=== PATIENT | male | born 1940 | race Caucasian/White ===

== ENCOUNTER 2019-06-30 08:30 | Outpatient (RCR) | payer MEDICARE, SELFPAY ==
[2019-04-28 12:00] VITALS: PULSE 65
== END 2019-06-30 14:37 | disposition home or self-care (01) ==
LOC: ANHCPREHAB 08:30
PROVIDERS: PCP Internal Medicine
DX: Z95.1 Presence of aortocoronary bypass graft (principal); Z95.2 Presence of prosthetic heart valve
CPT/HCPCS: 93798

== ENCOUNTER 2020-10-14 16:30 | Emergency (ER) | payer MEDICARE, SELFPAY ==
--- NOTE | ~2020-10-14 | XR_ITS ---
EXAMINATION: XR ankle LT min 3V DATE: 10/14/2020 16:56 INDICATION: Left ankle pain TECHNIQUE: Anteroposterior, lateral, mortise, and additional oblique view of the ankle were obtained. COMPARISON: None. FINDINGS: There is a tiny heterotopic ossification projecting distal to the lateral malleolus. Bone a lignment is normal. There is mild lateral soft tissue swelling of ankle. Dorsal and plantar calcaneal enthesophytes are noted. IMPRESSION: 1. Heterotopic ossification projecting distal to the lateral malleolus, possible avulsion injury. Reviewed, dictated and finalized at location A. IMPRESSION: 1. Heterotopic ossification projecting distal to the lateral malleolus, possibl e avulsion injury.
[2020-10-14 16:43] VITALS: BP 128/60; PULSE 67; RESP 20; TEMP 36.6; O2SAT 100
--- NOTE | 2020-10-14 17:55 | ED.LOWEXIN ---
HPI - Extremity Injury (Lower) General Chief Complaint: Extremity Injury, Lower Stated Complaint: left ankle/foot pain Time Seen by Provider: 10/14/20 17:45 History of Present Illness HPI Narrative: Patient is a 79-year-old male who presents ER with left ankle pain. Noticed he started having discomfort around 3 PM. Reports he walked 4 miles today. Does not think he injured himself but due to the pain increasing in not being able to bear weight he thought he come in for further evaluation. Tender over the lateral aspect of the ankle on the left leg. No numbness or tingling. Related Data Home Medications Medication Instructions Recorded Confirmed amlodipine [Norvasc] 2.5 mg PO DAILY 04/28/19 06/17/19 aspirin [Aspir-Low] 81 mg DAILY 04/28/19 06/17/19 atorvastatin [Lipitor] 40 mg PO DAILY 04/28/19 06/17/19 omeprazole magnesium [Prilosec OTC] 20 mg PO DAILY 04/28/19 06/17/19 psyllium husk [Fiber-Caps 1 g PO DAILY 04/28/19 06/17/19 (psyllium husk)] Allergies Allergy/AdvReac Type Severity Reaction Status Date / Time No Known Allergies Allergy Unknown Verified 06/17/19 13:34 wasp Allergy Unknown Swelling Uncoded 06/17/19 13:34 Review of Systems Constitutional: Constitutional: Denies chills and Denies fever(s) Musculoskeletal: Musculoskeletal: Reports arthralgias and Reports joint swelling Neurologic: Denies focal weakness and Denies numbness PMFSH Past Medical History Medical History (Updated 10/14/20 @ 18:58 by Lorenzo Guillen MD) Cataracts, bilateral GERD (gastroesophageal reflux disease) Hypercholesteremia Surgical History Surgical History (Updated 06/17/19 @ 14:11 by Bandar Chin) History of cataract surgery History of placement of ear tubes Family History Family History Mother Breast cancer Father Esophageal cancer Sibling Depression Atrial fibrillation Social History Social History Smoking status: Never smoker Gender identity (if verbalized by the patient): Male Exam Narrative: Exam Narrative: GENERAL: Well-appearing, well-nourished, and in no acute distress. HEAD: Normocephalic, atraumatic. EXTREMITIES: Focused exam left lower extremity at the ankle reveals swelling over the ATFL and tenderness there as well as the base of the lateral malleolus. Range of motion preserved. Normal dorsalis pedis pulses and posterior tibial pulses. SKIN: Warm, dry, no rash. NEURO: No focal deficits. Alert and oriented x3. PSYCH: Normal mood and affect. Course Vital Signs Vital signs: Vital Signs Temperature 97.8 F 10/14/20 16:43 Pulse Rate 67 10/14/20 16:43 Respiratory Rate 20 10/14/20 16:43 Blood Pressure 128/60 10/14/20 16:43 Pulse Oximetry 100 10/14/20 16:43 Temperature 97.8 F 10/14/20 16:43 Pulse Rate 67 10/14/20 16:43 Respiratory Rate 20 10/14/20 16:43 Blood Pressure 128/60 10/14/20 16:43 Pulse Oximetry 100 10/14/20 16:43 Procedures Orthopedic Splinting/Casting Injury #1: Splinting/Casting Date: 10/14/20 Splinting/Casting Time: 18:50 Side: left Lower Extremity Injury Location: ankle Lower Extremity Immobilizer: stirrup splint Splint: customized in ED Pre-Procedure Neuro Vascular Exam: normal Post-Procedure Neuro Vascular Exam: normal Other Orthopedic Equipment: crutches MDM - Extremity Injury (Lower) Imaging Data Radiologist's impression: ITS Impressions Ankle X-Ray 10/14/20 17:03 IMPRESSION: 1. Heterotopic ossification projecting distal to the lateral malleolus, possible avulsion injury. Discharge Plan Discharge Clinical Impression: Ankle fracture, left Patient Disposition: Home, Self-Care Condition: Stable Instructions: Ankle Fracture (ED), Crutch Instructions (ED) Additional Instructions: Return to ER if you suffer new injury, you have chest pain or shortnes
== END 2020-10-14 19:17 | disposition home or self-care (01) ==
PROVIDERS: Emergency Provider Emergency Medicine; PCP Internal Medicine
DX: S82.892A Other fracture of left lower leg, initial encounter for closed fracture (principal); K21.9 Gastro-esophageal reflux disease without esophagitis; E78.00 Pure hypercholesterolemia, unspecified; Z98.42 Cataract extraction status, left eye; Z98.41 Cataract extraction status, right eye; Z79.82 Long term (current) use of aspirin; X58.XXXA Exposure to other specified factors, initial encounter
CPT/HCPCS: 29515; 73610; 99284

== ENCOUNTER 2024-10-30 08:50 | Observation (INO) | payer MEDICARE, SELFPAY ==
[2024-10-30] VITALS (15 sets, daily range): BP systolic 114–147; BP diastolic 54–78; PULSE 61–77; RESP 15–75; TEMP 36.6–36.8; O2SAT 97–99; BMI 23.2
--- NOTE | ~2024-10-30 | CT_ITS ---
Clinical Indication: Back pain CT Scan of the Chest with Contrast: Technique: Contiguous sections were acquired throughout the chest after intravenous administration of 100 cc of Omnipaque 350. Dose reduction technique was used on this scan by utilizing automated expos ure control and iterative reconstruction technique. The dose-length product (DLP) was 243.25 mGy-cm. Findings: There is no evidence of any significant mediastinal, hilar or axillary lymphadenopathy. There is no f illing defect in the pulmonary arterial tree to suggest pulmonary embolus. There is no evidence of ao rtic dissection or aneurysm. Aortic valve replacement noted. There is no evidence of pleural or pericardial effusion. There is mild diffuse interstitial pulmonary disease, with peripheral distribution. No suspicious pul monary nodule or consolidation. Images through the upper abdomen reveal multiple bilateral renal cysts. Impression: No evidence of pulmonary embolus, aortic dissection, or aortic aneurysm. Mild chronic interstitial pulmonary disease, as detailed above. Reviewed, dictated and finalized at [facility]. Impression: No evidence of pulmonary embolus, aortic dissection, or aortic aneurysm. Mild chronic interstitial pulmonary disease, as detailed above.
--- NOTE | ~2024-10-30 | XR_ITS ---
Clinical Indication: Back pain PA and lateral views of the chest: Comparison: 02/09/2013 Findings: The lungs are clear, without evidence of focal consolidation or pleural effusion. Cardiome diastinal silhouette is stable, status post interval aortic valve replacement.. Bones and soft tissue s are unremarkable. Impression: Clear lungs. Reviewed, dictated and finalized at location M. Impression: Clear lungs.
--- NOTE | 2024-10-30 08:52 | ECG_ITS ---
Test Date: 2024-10-30 08:56:17 Measurements Intervals [place] Rate: 73 P: 72 MN: 219 QRS: -22 QRSD: 119 T: 66 QT: 387 QTc: 428 Interpretive Statements SINUS RHYTHM WITH FIRST DEGREE AV BLOCK INCOMPLETE RIGHT BUNDLE BRANCH BLOCK LEFT VENTRICULAR HYPERTROPHY BORDERLINE R WAVE PROGRESSION, ANTERIOR LEADS HIGH LATERAL INFARCT, AGE INDETERMINATE BASELINE ARTIFACT- I, II, III, AVR, AVL, V2 ABNORMAL ECG No previous ECG available for comparison Electronically Signed On 10-30-2024 12:32:48 CDT by Santiago Mcleod D.O.
--- OUTSIDE RECORDS SUMMARY | 2024-10-30 08:53 | XMS_ITS ---
Author Organization [facility] Address [address] [address] Care Team Providers Care Telegraphic Instrument Supervisor Name Role Phone London Santos Primary Care Provider UnavailDiony Davis DPM [phone] REASON FOR VISIT ester foot pain Encounters Encounter Location Date Provider Diagnosis [facility] [address] [place] [address] 03/21/2024 Diony Galindo DPM PLAN OF TREATMENT No Information
--- OUTSIDE RECORDS SUMMARY | 2024-10-30 08:53 | XMS_ITS | Encounter Summary ---
Author Organization [facility] Address [address] [place] [address] Phone Care Team Providers Care Vibration Technician Name Role Phone London Santos MD Primary Care Provider Avery Ulloa MD Unavailable Lucy Robbins MD Unavailable [phone] Madhuri Ferreira MD Unavailable [phone] Encounter Details Date Type Department Care Team (Late st Contact Info) Description 08/30/2024 Documentation [facility] Infectious Diseases [address] [place] [address] [address] [place] [address] Gilda Vargas, CECIL [address] [facility] [address] [place] [address] Social History Tobacco Use Types Packs/Day Years Used Date Smoking Tobacco: Never Smokeless Tobacco: Never Alcohol Use Standard Drinks/Week Comments Yes 1 (1 standard drink = 0.6 oz pur e alcohol) 1 - 2 per day AUDIT-C Answer Date Recorded Q1: How often do you have a drink containing alc ohol? Monthly or less 03/04/2023 Q2: How many drinks containi ng alcohol do you have on a typical day when you are drinking? 1 or 2 03/04/2023 Frequency of Binge Drinking Not on file 02/22 PHQ-2 Answer Date Recorded PHQ-2 Total Score (If total score is 3 or more points, staff should administer the PHQ-9) 0 03/02/2024 PHQ-9 Answer Date Recorded PHQ-9 Total Score 0 03/02/2024 Personal Safety Answer Date Recorded Have you ever been in or are you currently in a harmful physical or emotional relationship or is someone making you feel afraid or unsafe? 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 Not on file Not on file Not on fi le documented as of this encounter Plan of Treatment Not on file documented as of this encounter Visit Diagnoses Not on filedocumented in this encounter Additional Health Concerns Infection Onset Date Last Indicated Resolved Time COVID: Suspected 10/17/2024 10/17/2024 10/17/2024 3:15 PM CDT documented as of this encounter Care Teams Vibration Technician Relationship Specialty Start Date End Date London Santos MD PCP - General Internal Medicine 01/09/22 Avery Ulloa MD [address] [place] [address] Referring Physician Cardiology 07/25/22 Lucy Robbins MD [address] [place] [address] Cardiothoracic Surgery 10/17/22 Madhuri Ferreira MD [address] [place] [address] Consulting Physician Cardiology 10/17/22 documented as of this encounter
--- OUTSIDE RECORDS SUMMARY | 2024-10-30 08:53 | XMS_ITS | Clinical Summary ---
Author Organization [facility] Address [address] [place] [address] Care Team Providers Care Senior Compensation Analyst Name Role Phone London Santos MD Primary Care Provider Source Comments [facility],non-owned Affiliates and Associated Physician Practices is amultiple site organization consisting of ambulatory clinics and hospital sitesin [place], [place], [place] and [place]. This disclosure is being madepursuant to the Care Everywhere program and may not contain all information available regarding this patient. Last updated 18.[facility] [employer] Social History Tobacco Use Types Packs/Day Years Used Date Smoking Tobacco: Never Assessed Sex and Gender Information Value Date Recorded Sex Assigned at Not on file Legal Sex Male 12:56 PM CDT Gender Identity Not on file Sexual Orientation Not on file Plan of Treatment Health Maintenance Due Date Last Done Comments DTAP/TDAP/TD VACCINES (1 - Tdap) 1959 PNEUMOCOCCAL VACCINE 50+ (1 of 1 - PCV) 11/16/1991 ZOSTER VACCINE (1 of 2) 11/16/1991 Respiratory Syncytial Virus (RSV) Vaccine Pt: or over 60 yrs (1 - 1-dose 75+ series) 2016 COVID-19 VACCINE (2 - season) 2024 03/16/2021 DEPRESSION SCREENING 05/25/2024 MEDICARE AWV CALENDAR YEAR 2024 INFLUENZA VACCINE (Season Ended) 2025 01/31/2019, 02/12/2018, 01/28/2017, Additional history exists HEPATITIS B VACCINE Aged Out No longe r eligible based on patient's age to complete this topic HIB VACCINE Aged Out No longer eligi ble based on patient's age to complete this topic HPV VACCINE Aged Out No longer eligi ble based on patient's age to complete this topic MENINGOCOCCAL (Group B) VACCINE SHARED DECISION-MAKING Aged Out No longer eligible based on patient's age to complete this topic MENINGOCOCCAL GROUPS A/C/Y/W VACCINE Aged Out No longer eligible based on patient's age to complete this topic Insurance [employer] MEDICARE ADV Care Teams Senior Compensation Analyst Relationship Specialty Start Date End Date London Santos MD [address] [place] [address] PCP - General Internal Medicine 10/17/22
--- OUTSIDE RECORDS SUMMARY | 2024-10-30 08:53 | XMS_ITS | Patient Health Record ---
Author Organization [facility] Address [address], [place] [address] Care Team Providers Care Reimbursement Coordinator Name Role Phone London Santos Primary Care Provider Diony Bowles DPM [phone] ALLERGIES No Known Allergies REASON FOR REFERRAL No Information MEDICATIONS Medication SIG (Take, Route, Fr equency, Duration) Notes Start Date End Date Status Alendronate Sodium A ctive Atorvastatin Calcium Active Omeprazole Active Lisinopril Active IMMUNIZATIONS Vaccine Route Administration Date Status Comme nts Influenza Unknown 12/03/2022 Administered pneumoccocal Unknown 12/03/2022 Administered SOCIAL HISTORY Tobacco Use: Social History Observation Description Date Details (start date - stop date) Never Smoker NA - NA Sex Assigned At : Social History Observation Description Sex Assigned At Unknown Tobacco Use: Question Answer Notes Patient is a: nonsmoker Alcohol screening: Question Answer Notes Did you have a drink containing alcohol in the p ast year? 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 [id number] Encounters Encounter Location Date Provider Diagnosis [facility] [address], [place] [address] 03/21/2024 Diony Galindo DPM PLAN OF TREATMENT No Information Insurance Providers Payer Name Payer Address Payer Phone Subscriber Number Group Number Insured Name Patient Relationship to Insured Coverage Start Date Coverage End Date [employer] Medicare Advantage [address] [place] [phone] [id number] Roddy Munoz Self - patient is the insured MEDICAL (GENERAL) HISTORY Medical History History ICD Code heart disease hypertension GERD Surgical History Surgery Date(Month/Year)
--- OUTSIDE RECORDS SUMMARY | 2024-10-30 08:53 | XMS_ITS | Encounter Summary ---
Author Organization [facility] Address [address] [place] [address] Phone Care Team Providers Care Line Decorator Name Role Phone Jarrod Arango MD Primary Care Provider [phone] London Santos MD Primary Care Provider Avery Ulloa MD Unavailable [phone] Lucy Robbins MD Unavailable Madhuri Ferreira MD Unavailable [phone] Encounter Details Date Type Department Care Team (Late st Contact Info) Description 01/26/2018 Telephone [facility] Cardiology [address] [place] [address] [place] [address] Avery Ulloa MD [address] [place] [address] Social History Tobacco Use Types Packs/Day Years Used Date Smoking Tobacco: Never Smokeless Tobacco: Never Alcohol Use Standard Drinks/Week Comments Yes 0 (1 standard drink = 0.6 oz pur e alcohol) Sex and Gender Information Value Date Recorded Sex Assigned at Not on file 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 01/12/2022 02/17/2022 05/12/2022 3:[address] COVID: Suspected 12/08/2022 12/08/2022 12/08/2022 10:53 AM CDT COVID: Suspected 01/13/2023 01/13/2023 01/13/2023 2:42 PM CDT COVID: Suspected 01/13/2023 01/13/2023 01/13/2023 7:53 PM CDT COVID: Suspected 09/15/2023 09/15/2023 09/15/2023 10:40 AM CDT COVID: Suspected 08/17/2024 08/17/2024 08/17/2024 2:51 PM CDT COVID: Suspected 08/25/2024 08/25/2024 08/25/2024 4:31 PM CDT COVID: Suspected 10/17/2024 10/17/2024 10/17/2024 3:15 PM CDT documented as of this encounter Care Teams Line Decorator Relationship Specialty Start Date End Date Jarrod Arango MD PCP - General 12/27/12 01/08/22 London Santos MD PCP - General Internal Medicine 01/09/22 Avery Ulloa MD [address] [place] [address] Referring Physician Cardiology 07/25/22 Lucy Robbins MD [address] [place] [address] Cardiothoracic Surgery 10/17/22 Madhuri Ferreira MD [address] [place] [address] Consulting Physician Cardiology 10/17/22 documented as of this encounter
--- OUTSIDE RECORDS SUMMARY | 2024-10-30 08:53 | XMS_ITS | Encounter Summary ---
Author Organization [facility] Address [address] [place] [address] Phone Care Team Providers Care Tallier Name Role Phone London Santos MD Primary Care Provider Avery Ulloa MD Unavailable [phone] Lucy Robbins MD Unavailable Madhuri Ferreira MD Unavailable [phone] Encounter Details Date Type Department Care Team (Late st Contact Info) Description 10/20/2024 Documentation [facility] Infectious Diseases [address] [place] [address] [address] [place] [address] Alexandr Lopez MD [address] [facility] [address] [place] [address] Social History Tobacco Use Types Packs/Day Years Used Date Smoking Tobacco: Never Passive Smoke Exposure: Never Smokeless Tobacco: Never Alcohol Use Standard Drinks/Week Comments Yes 1 (1 standard drink = 0.6 oz pur e alcohol) 1 - 2 per day [facility] Utilities Answer Date Recorded In the past 12 months has e [place], gas, oil, or water [employer] threatened to shut off services in your home? No 09/11/2024 Humiliation, Afraid, Rape, and Kick questionnair e Answer Date Recorded Within the last year, have y ou been afraid of your partner or ex-partner? No 09/07/2024 Within the last year, have y ou been humiliated or emotionally abused in other ways by your partner or ex-partner? No Within the last year, have y ou been kicked, hit, slapped, or otherwise physically hurt by your partner or ex-partner? No 09/07/2024 Within the last year, have y ou been raped or forced to have any kind of sexual activity by your partner or ex-partner? No 09/07/2024 Social Connection and Isolat ion Panel [NHANES] Answer Date Recorded In a typical week, how many times do you talk on the phone with family, friends, or neighbors? More than three times a week 09/11/2024 How often do you get togethe r with friends or relatives? More than three times a week 09/11/2024 How often do you attend chur ch or adventist services? Never 09/11/2024 Do you belong to any clubs o r organizations such as jewish groups, unions, fraternal or athletic groups, or school groups? Yes 09/11/2024 How often do you attend meet ings of the clubs or organizations you belong to? More than 4 times per year 09/11/2024 Are you , , di vorced, , never , or living with a partner? 09/11/2024 AUDIT-C Answer Date Recorded Q1: How often do you have a drink containing alc ohol? Monthly or less 09/07/2024 Q2: How many drinks containi ng alcohol do you have on a typical day when you are drinking? 1 or 2 09/07/2024 Q3: How often do you have si x or more drinks on one occasion? Never 09/07/2024 Overall Financial Resource Strain (CARDIA) Answe r Date Recorded How hard is it for you to pa y for the very basics like food, housing, medical care, and heating? Not hard at all 09/11/2024 PHQ-2 Answer Date Recorded PHQ-2 Total Score (If total score is 3 or more points, staff should administer the PHQ-9) 0 09/11/2024 [facility] - Occupational Stress Questionnaire Answer Date Recorded Do you feel stress - tense, restless, nervous, or anxious, or unable to sleep at night because your mind is troubled all the time - these days? Not at all 09/07/2024 Exercise Vital Sign Answer Date Recorde d On average, how many days pe r week do you engage in moderate to strenuous exercise (like a brisk walk)? 7 days 09/07/2024 On average, how many minutes do you engage in exercise at this level? 100 min 09/07/2024 Hunger Vital Sign Answer Date Recorded Within the past 12 months, y ou worried that your food would run out before you got the money to buy more. Never true 09/12/19 25 Within the past 12 months, t he food you bought just didn't last and you didn't have money to get more. Never true 09/11/2024 PRAPARE - Transportation Answer Date Re corded In the past 12 months, has l ack of transportation kept you from medical appointments or from getting medications? No 08/24 In the past 12 months, has l ack of transportation kept you from meetings, work, or from getting things needed for daily living? No 09/11/2024 PHQ-9 Answer Date Recorded PHQ-9 Total Score 0 03/02/2024 Housing Stability Vital Sign Answer Hayden e Recorded In the last 12 months, was t here a time when you were not able to pay the mortgage or rent on time? No 09/11/2024 In the past 12 months, how m any times have you moved where you were living? 0 09/11/2024 At any time in the past 12 m [facility], were you homeless or living in a senior living (including now)? No 09/11/2024 Personal Safety Answer Date Recorded Have you ever been in or are you currently in a harmful physical or emotional relationship or is someone making you feel afraid or unsafe? 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 Not on file Not on file Not on fi le documented as of this encounter Plan of Treatment Not on file documented as of this encounter Visit Diagnoses Not on filedocumented in this encounter Care Teams Tallier Relationship Specialty Start Date End Date London Santos MD PCP - General Internal Medicine 01/09/22 Avery Ulloa MD [address] [place] [address] Referring Physician Cardiology 07/25/22 Lucy Robbins MD [address] [place] [address] Cardiothoracic Surgery 10/17/22 Madhuri Ferreira MD [address] [place] [address] Consulting Physician Cardiology 10/17/22 documented as of this encounter
--- OUTSIDE RECORDS SUMMARY | 2024-10-30 08:53 | XMS_ITS | Encounter Summary ---
Author Organization [facility] Address [address] [place] [address] Phone Care Team Providers Care Pediatric Immunologist Name Role Phone London Santos MD Primary Care Provider Avery Ulloa MD Unavailable [phone] Lucy Robbins MD Unavailable [phone] Madhuri Ferreira MD Unavailable [phone] Encounter Details Date Type Department Care Team (Late st Contact Info) Description 10/06/2024 Telephone [facility] Infectious Diseases [address] [place] [address] [address] [place] [address] [facility] ROXANE Olivas Social History Tobacco Use Types Packs/Day Years Used Date Smoking Tobacco: Never Smokeless Tobacco: Never Alcohol Use Standard Drinks/Week Comments Yes 1 (1 standard drink = 0.6 oz pur e alcohol) 1 - 2 per day [facility] Utilities Answer Date Recorded In the past 12 months has [employer], gas, oil, or water [employer] threatened to shut off services in your [...] often do you attend chur ch or evangelical services? Never 09/11/2024 Do you belong to any clubs o r organizations such as evangelical groups, unions, fraternal or athletic groups, or [...] staff should administer the PHQ-9) 0 09/11/2024 [facility] - Occupational Stress [...] any time in the past 12 m [facility], were you homeless or living in a custodial (including now)? No 09/11/2024 Personal Safety Answer Date Recorded Have you ever been in or are you currently in a harmful physical or emotional relationship or is someone making you feel afraid or unsafe? 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 * Telephone Encounter - Mikki Vera ROXANE Olivas - 10/06/2024 10:37 AM CDT [facility] is calling back requesting repeated CBC panel, despite patient getting labs done on 10/03, patient is very reluctant to have pic line taken out without getting one more CBC drawn from pic line. [facility] is calling for orders. Please advise. [facility] [phone] documented in this encounter Plan of Treatment Not on file documented as of this encounter Visit Diagnoses Not on filedocumented in this encounter Additional Health Concerns Infection Onset Date Last Indicated Resolved Time COVID: Suspected 10/17/2024 10/17/2024 10/17/2024 3:15 PM CDT documented as of this encounter Care Teams Pediatric Immunologist Relationship Specialty Start Date End Date London Santos MD PCP - General Internal Medicine 01/09/22 Avery Ulloa MD [address] [place] [address] Referring Physician Cardiology 07/25/22 Lucy Robbins MD [address] [place] [address] Cardiothoracic Surgery 10/17/22 Madhuri Ferreira MD [address] [place] [address] Consulting Physician Cardiology 10/17/22 documented as of this encounter
--- OUTSIDE RECORDS SUMMARY | 2024-10-30 08:53 | XMS_ITS | Encounter Summary ---
Author Organization [facility] Address [address] [place] [address] Care Team Providers Care Community Liaison Name Role Phone London Santos MD Primary Care Provider Avery Ulloa MD Unavailable [phone] Lucy Robbins MD Unavailable Madhuri Ferreira MD Unavailable [phone] Encounter Details Date Type Department Care Team (Late st Contact Info) Description 10/17/2024 Results Follow-Up [facility] [address] [place] [address] Mora Camacho ADOBE LAYER [address] [facility] [address] [place] [address] Influenza A/B, RSV, and COVID-19 PCR Nasopharyngeal Social History Tobacco Use Types Packs/Day Years Used Date Smoking Tobacco: Never Passive Smoke Exposure: Never Smokeless Tobacco: Never Alcohol Use Standard Drinks/Week Comments Yes 1 (1 standard drink = 0.6 oz pur e alcohol) 1 - 2 per day [facility] Utilities Answer Date Recorded In the past 12 months has [employer], gas, oil, or water [employer] threatened to shut off services in your [...] often do you attend chur ch or caodaism services? Never 09/11/2024 Do you belong to any clubs o r organizations such as episcopal groups, unions, fraternal or athletic groups, or [...] any time in the past 12 m [facility], were you homeless or living in a half-way (including now)? No 09/11/2024 Personal Safety Answer Date Recorded Have you ever been in or are you currently in a harmful physical or emotional relationship or is someone making you feel afraid or unsafe? 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 Not on file Not on file Not on fi le documented as of this encounter Plan of Treatment Not on file documented as of this encounter Visit Diagnoses Not on filedocumented in this encounter Additional Health Concerns Infection Onset Date Last Indicated Resolved Time COVID: Suspected 10/17/2024 10/17/2024 10/17/2024 3:15 PM CDT documented as of this encounter Care Teams Community Liaison Relationship Specialty Start Date End Date London Santos MD PCP - General Internal Medicine 01/09/22 Avery Ulloa MD [address] [place] [address] Referring Physician Cardiology 07/25/22 Lucy Robbins MD [address] [place] [address] Cardiothoracic Surgery 10/17/22 Madhuri Ferreira MD [address] [place], [place] [id number] Consulting Physician Cardiology 10/17/22 documented as of this encounter
--- OUTSIDE RECORDS SUMMARY | 2024-10-30 08:53 | XMS_ITS | Encounter Summary ---
Author Organization [facility] Address [address] [place] [address] Phone Care Team Providers Care Qualified Craft Worker Electrician Name Role Phone London Santos MD Primary Care Provider Aveyr Ulloa MD Unavailable Lucy Robbins MD Unavailable Madhuri Ferreira MD Unavailable [phone] Encounter Details Date Type Department Care Team (Late st Contact Info) Description 09/05/2024 Results Follow-Up [facility] [address] [place] [address] London Santos MD [address] [address] CBC with auto differential, Basic metabolic panel Social History Tobacco Use Types Packs/Day Years Used Date Smoking Tobacco: Never Smokeless Tobacco: Never Alcohol Use Standard Drinks/Week Comments Yes 1 (1 standard drink = 0.6 oz pur e alcohol) 1 - 2 per day [facility] Utilities Answer Date Recorded In the past 12 months has e [employer], gas, oil, or water [employer] threatened to shut off services in your home? Patient unable to answer 09/09/2024 Humiliation, Afraid, Rape, and Kick questionnair e [...] or ex-partner? No 09/07/2024 Social Connection and Isolation Panel [NHANES] A nswer Date Recorded In a typical week, how many times do you talk on the phone with family, friends, or neighbors? Patient unable to answer 09/09/2024 How often do you get togethe r with friends or relatives? Patient unable to answer 09/09/2024 How often do you attend chur or rastafarian services? Patient unable to answer 09/09/2024 Do you belong to any clubs o r organizations such as sikh groups, unions, fraternal or athletic groups, or school groups? Patient unable to answer 09/09/2024 How often do you attend meet ings of the clubs or organizations you belong to? Patient unable to answer 09/09/2024 Are you , , di vorced, , never , or living with a partner? Patient unable to answer 09/09/2024 AUDIT-C Answer Date Recorded Q1: How often [...] like food, housing, medical care, and heating? Patient unable to answer 09/09/2024 PHQ-2 Answer Date Recorded PHQ-2 Total Score (If total score is 3 or more points, staff should administer the PHQ-9) 0 09/05/2024 [facility] - Occupational Stress Questionnaire Answer Date Recorded [...] you got the money to buy more. Patient unable to answer 09/09/2024 Within the past 12 months, t he food you bought just didn't last and you didn't have money to get more. Patient unable to answer 09/09/2024 PRAPARE - Transportation Answer Date Re corded In the past 12 months, has l ack of transportation kept you from medical appointments or from getting medications? Patient unable to answer 09/09/2024 In the past 12 months, has l ack of transportation kept you from meetings, work, or from getting things needed for daily living? Patient unable to answer 09/09/2024 PHQ-9 Answer Date Recorded PHQ-9 Total Score 0 03/02/2024 Housing Stability Vital Sign Answer Hayden e Recorded In the last 12 months, was t here a time when you were not able to pay the mortgage or rent on time? Patient unable to answer 09/09/2024 In the past 12 months, how m any times have you moved where you were living? 0 09/09/2024 At any time in the past 12 m [facility], were you homeless or living in a care home (including now)? Patient unable to answer 09/09/2024 Personal Safety Answer Date Recorded Have you ever been in or are you currently in a harmful physical or emotional relationship or is someone making you feel afraid or unsafe? 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 Monthly or less 09/07/2024 4:48 PM CDT Dominguez Thapa RN Q2: How many drinks containing alcohol do you have on a typical day when you are drinking? 1 or 2 09/07/2024 4:48 PM CDT Immanuel Thapa RN Q3: How often do you have six or more drinks on one occasion? Never 09/07/2024 4:48 PM CDT Dominguez Thapa RN documented as of this encounter Plan of Treatment Not on file documented as of this encounter Visit Diagnoses Not on filedocumented in this encounter Additional Health Concerns Infection Onset Date Last Indicated Resolved Time COVID: Suspected 10/17/2024 10/17/2024 10/17/2024 3:15 PM CDT documented as of this encounter Care Teams Qualified Craft Worker Electrician Relationship Specialty Start Date End Date London Santos MD PCP - General Internal Medicine 01/09/22 Avery Ulloa MD [address] [place] [address] Referring Physician Cardiology 07/25/22 Lucy Robbins MD [address] [place] [address] Cardiothoracic Surgery 10/17/22 Madhuri Ferreira MD [address] [place] [address] Consulting Physician Cardiology 10/17/22 documented as of this encounter
--- OUTSIDE RECORDS SUMMARY | 2024-10-30 08:53 | XMS_ITS | Clinical Summary ---
Author Organization [facility] Address [address] [place] [address] Phone Care Team Providers Care Counseling Program Leader Name Role Phone London Santos MD Primary Care Provider Social History Tobacco Use Types Packs/Day Years Used Date Smoking Tobacco: Never Assessed Sex and Gender Information Value Date Recorded Sex Assigned at Not on file Legal Sex Male 8:28 AM CDT Gender Identity Not on file Sexual Orientation Not on file Plan of Treatment Health Maintenance Due Date Last Done Comments Hepatitis C Virus (HCV) Screening 1940 Respiratory Syncytial Virus (RSV) Immunization (Adult) (1 - 1-dose 75+ series) 2016 SARS-COV-2 Immunization ( season) 2024 04/03/2022, 08/23/2021, 03/16/2021, Additional history exists Influenza Immunization (Season Ended) 2025 03/03/2022, 02/18/2021, 02/17/2020, Additional history exists Pneumococcal Immunization (50+ years) Completed 01/25/2016, 02/18/2013, 02/28/2009 Zoster Immunization Completed 03/28/2019, 9 DTaP/Tdap/Td Immunization Discontinued 09/30/2022, TdaP Immunization Completed 09/30/2022, 05/07/2016 Hepatitis B Immunization Aged Out No longer eligible based on patient's age to complete this topic Human Papillomavirus (HPV) Immunization Aged Out No longer eligible based on patient's age to complete this topic Meningococcal Immunization (ACWY) Aged Out No longer eligible based on patient's age to complete this topic Rotavirus Immunization Aged Out No lo nger eligible based on patient's age to complete this topic Insurance MEDICARE C [employer] Care Teams Counseling Program Leader Relationship Specialty Start Date End Date London Santos MD [address] [place] [address] PCP - General Internal Medicine 10/18/22
--- OUTSIDE RECORDS SUMMARY | 2024-10-30 08:54 | XMS_ITS | Clinical Summary ---
Author Organization [facility] D Address [address] [place] [phone] Care Team Providers Care Director Of Religious Activities Name Role Phone London Santos MD Primary Care Provider Avery Ulloa MD Unavailable Lucy Robbins MD Unavailable [phone] Madhuri Ferreira MD Unavailable [phone] Allergies No known active allergies Medications aspirin 81 mg enteric coated tablet Take 1 tablet (81 mg total) by mouth daily Active fluticasone propionate (FLONASE) 50 mcg/actuation nasal spray Administer 1 spray into each nostril as needed Active cyanocobalamin (Vitamin B-12) 500 mcg tabletIndications :Prevention of Vitamin B12 Deficiency Take 1 tablet (500 mcg total) by mouth daily Active ondansetron ODT (ZOFRAN-ODT) 4 mg disintegrating tabletIndications :At high risk for tick borne illness,Tick bite, unspecified site, initial encounter Take 1 tablet (4 mg total) by mouth every 8 (eight) hours as needed for nausea Collaborating physician Jamshid Renee MD 20 tablet 024 Active atorvastatin (LIPITOR) 40 mg tablet TAKE 1 TABLET BY MOUTH DAILY 90 tablet 3 024 Active omeprazole (PriLOSEC) 20 mg capsule TAKE 1 CAPSULE BY MOUTH DAILY 90 capsule 1 024 Active alendronate (FOSAMAX) 70 mg tablet TAKE 1 TABLET (70 MG TOTAL) BY MOUTH EVERY 7 DAYS - TAKE IN THE MORNING WITH A FULL GLASS OF WATER, ON AN EMPTY STOMACH, AND DO NOT TAKE ANYTHING ELSE BY MOUTH OR LIE DOWN FOR THE NEXT 30 MIN. 12 tablet 4 Active psyllium (METAMUCIL) 3.4 gram packet Take 1 packet by mouth 2 (two) times a day Active tadalafiL (CIALIS) 20 mg tablet Take 1 tablet (20 mg total) by mouth as needed for erectile dysfunction Active loratadine (CLARITIN) 10 mg tablet Take 1 tablet (10 mg total) by mouth daily 025 2025 Active verapamil ER (VERELAN) 120 mg 24 hr capsule Take 1 capsule (120 mg total) by mouth nightly 90 capsule 3 Active chlorhexidine (PERIDEX) 0.12 % oral rinse 15 mL 2 (two) times a day Active fluoride, sodium, 1.1 % paste as directed Active nortriptyline (PAMELOR) 25 mg capsule Take 1 capsule (25 mg total) by mouth nightly 30 capsule 1 025 2025 Active olmesartan (BENICAR) 5 mg tablet TAKE 1 TABLET (5 MG TOTAL) BY MOUTH DAILY. 90 tablet 1 024 2024 Discontinued TiZANidine (ZANAFLEX) 2 mg capsuleIndication s:Muscle spasm TAKE 1 CAPSULE BY MOUTH 3 TIMES A DAY. 270 capsule 1 025 2024 Discontinued cefTRIAXone (ROCEPHIN) syringeIndication s:Blood Stream/Endovascul ar Infection Infuse 20 mL (2,000 mg total) into a venous catheter daily for 5 minutes at 240 mL/hr 025 2024 metoprolol XL (TOPROL-XL) 50 mg extended release tablet Take 1 tablet (50 mg total) by mouth daily 30 tablet 11 025 2024 Discontinued verapamil ER (VERELAN) 120 mg 24 hr capsule Take 1 capsule (120 mg total) by mouth nightly 2024 Discontinued(R eorder) verapamil ER (VERELAN) 120 mg 24 hr capsule Take 1 capsule (120 mg total) by mouth nightly 90 capsule 3 025 2024 Discontinued Active Problems Problem Noted Date Diagnosed Date Leukocytosis 09/06/2024 Bacteremia 08/25/2024 Assessment & Plan (10/21/2024 9:10 AM CDT): -Patient presents to clinic for a follow up visit. He has completed 6 weeks of Ceftriaxone for the treatment of an streptococcus sanguinous bacteremia. -We will repeat blood cultures today. -If cultures are negative we will follow up with cardiology about a repeat JESSICA. If JESSICA is positive, we would consider additional antibiotics. If cultures are positive, patient will need to be admitted for repeat IV antibiotics. -Reviewed recent labs. Leucocytosis present in labs, no new symptoms present. -We encouraged patient to post pone further dental work for now until the JESSICA is completed. -We would recommend giving Cefdinir for any future dental work. - Discussed with patient the rational for treatment, culture results, risk of recurrent infection, signs/symptoms of recurrent infection, and to contact ID clinic with any questions or concerns. Assessment & Plan (10/04/2024 10:51 AM CDT): -Patient presents to clinic for a post hospital visit. He has completed 5 weeks of Ceftriaxone for the treatment of an streptococcus sanguinous bacteremia. -He will continue IV antibiotics until 10/07 to complete 6 weeks of IV antibiotics. -We will follow up with patient after stopping antibiotics for repeat blood cultures. Due to lack of susceptibilities and continued symptoms, we will continue to follow patient closely. -Reviewed recent labs. Leucocytosis present in labs, no new symptoms present. -We will continue weekly labs while on antibiotics -We will discuss with Cardiology about plans for follow up JESSICA after completing treatment - Discussed with patient the rational for treatment, culture results, risk of recurrent infection, signs/symptoms of recurrent infection, and to contact ID clinic with any questions or concerns. Assessment & Plan (08/30/2024 2:32 PM CDT): 83 year old male with bioAVR, TAVR who presented with a month of fevers and fatigue 4/3. Also reported r flank/back discomfort, but no spinal pain CT-scan of the head and CXR unrevealing. Dental extraction done in 04/2024. Panorex obtained showed R maxillary molar cavity without large periapical lucencies. Bcx + S sanguinosis 08/24. Clear from 08/26--no jack. JESSICA done and pending, preliminary read without IE. Recommendations: -Continue ceftriaxone 2g IV q24h, duration will be 6 weeks from 08/26 due to clinical suspicion for IE. -CBC with diff, CMP weekly for antibiotic toxicity monitoring. -ID will sign off and see pt in ID clinic in 2 weeks after discharge. History of tick-borne disease 09/25/2023 At high risk for tick borne illness 09/15/2023 Tick bite 09/15/2023 S/P TAVR (transcatheter aortic valve replacement ) 10/16/2022 Assessment & Plan (11/23/2023 2:05 PM CDT): Severe AI. 25 mm BioAVR with Tad TAVR September 2022 with 26 mm Jonas S3. Doing well in clinic today with NYHA class I fidnings. Doing well today. ECHO pending. Dr. Ulloa as scheduled. ASA and SBE. Severe aortic stenosis 09/19/2022 Encounter for examination fo r normal comparison and control in clinical research program 09/19/2022 Cardiomyopathy 09/01/2022 Arthralgia of left ankle 10/19/2020 Closed fracture of distal phalanx of lesser toe 10/19/2020 Pain in right foot 10/19/2020 Scalp cyst 05/10/2020 Overview (07/11/2020): First noted 04/2020 Recurred 07/11/20 it is c/w epidermoid cyst Assessment & Plan (07/11/2020 12:37 PM ASSISTANT CASE MANAGER): We will cover w/ Abx and refer to see if excision warranted Assessment & Plan (05/10/2020 9:37 AM ASSISTANT CASE MANAGER): Likely inflammed from squeezing. We will give keflex and warm compresses Bilateral impacted cerumen 02/03/2020 Assessment & Plan (02/03/2020 2:39 PM CDT): Ears cleaned. PRN. Urinary retention 02/09/2019 Assessment & Plan (02/13/2019 9:32 AM CDT): Started flomax Successfully voided Assessment & Plan (02/12/2019 12:15 PM CDT): Started flomax Successfully voided Status post aortic valve replacement 02/07/2019 Overview (03/01/2021): Underwent 25 mm Inspiris bioAVR replacement with BARBER to LAD on 02/07/[address] Shamir Patel Severe AR by JESSICA 05/2020 Stable 09/2020 Assessment & Plan (03/01/2021 1:31 PM CDT): Stable and seeing cardiology There is some Assessment & Plan (07/11/2020 12:44 PM ASSISTANT CASE MANAGER): The onset of what must be seems very unusual. I encourage pt to continue the excellent f/u and attention via cardiology Assessment & Plan (02/17/2020 1:29 PM CDT): Emphasized amoxil 2g 1 hr before dental. This is different from what DDS last gave so I will send in order Assessment & Plan (02/13/2019 9:33 AM CDT): - ASA for anticoagulation - Statin daily - PT, increase mobility Assessment & Plan (02/10/2019 9:23 AM CDT): - ASA for anticoagulation - Statin daily - PT, increase mobility Assessment & Plan (02/08/2019 1:02 PM CDT): ICU Standards of Care for s/p AVR and CABG - ASA for anticoagulation - Statin daily - Colace, Senna, and Miralax for bowel regimen - Insulin drip per ICU protocol - ADAT-clears - home PPI for GI ppx and GERD - SCDs for DVT ppx and lovenox - PT for decreased mobility Assessment & Plan (02/07/2019 7:15 PM CDT): ICU Standards of Care for s/p AVR and CABG - ASA for anticoagulation - Statin daily for CAD on POD 1 - Colace, Senna, and Miralax for bowel regimen - Insulin drip per ICU protocol - NPO - H2 cuate while intubated, then home PPI for GI ppx and GERD - SCDs for DVT ppx, plan to start SQH POD 1 if PLT > 100 and no active bleeding - PT for decreased mobility - Start B-cuate for A fib ppx when taking POs - Patient is a part of a study -> limit transfusion of blood products and Troponin trended only for the study CAD (coronary artery disease) 01/31/2019 Overview (01/31/2019): 1. Left anterior descending coronary artery: The left anterior descending coronary artery has an 80% narrowing just distal to the takeoff of the large 2nd diagonal branch. The distal LAD coronary artery has a small caliber and does not wrap around the apex. As the vessel approaches the apex there is 50% narrowing. The remainder of the left anterior descending coronary artery has mild narrowing less than or equal to 30%.. Assessment & Plan (11/23/2023 2:02 PM CDT): Stable Denies angina. Continue ASA and statin. Assessment & Plan (02/13/2019 9:34 AM CDT): S/p CABG x 1 on 02/07 Continue ASA, statin Increase Metoprolol to 12.5 bid Daily weights, intake and output, pain control, pulmonary toileting Mobilization Assessment & Plan (02/10/2019 9:19 AM CDT): S/p CABG x 1 on 02/07 Continue ASA, statin Increase Metoprolol to 12.5 bid Daily weights, intake and output, pain control, pulmonary toileting Mobilization Assessment & Plan (02/08/2019 1:07 PM CDT): S/p CABG x1 (BARBER->LAD). 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 Overview (01/31/2019): Sort of tremendously large Assessment & Plan (01/31/2019 11:17 AM CDT): We will see how this fairs w/ the upcoming CABG/SAVR General medical exam 02/12/2018 Overview (03/01/2021): Last AWV:02/09, 02/10, 03/14 Last annual screening for alcohol misuse (G0442): Last annual screening for depression/ PHQ9 (G0444): Last IBT for reduction of CVD (G0446): Last colonoscopy and date for recall: 2021 (gets EGD q5) Last cologuard: n/a Last PSA: 02/09, 02/10, 03/14 Elevated blood pressure reading 03/23/2017 Assessment & Plan (11/23/2023 2:03 PM CDT): Somewhat elevated in clinic today. We made no changes. Continue olmesartan 5 mg daily. Myopic macular degeneration of both eyes 017 Eustachian tube dysfunction 07/10/2016 Assessment & Plan (02/03/2020 2:40 PM CDT): TM retracted, no fluid. Observe. Ossicular fixation 07/10/2016 Dehiscence of operative wound 01/25/2016 Dysfunction of Eustachian tube, bilateral 2015 Incomplete right bundle branch block (RBBB) 05/26 Hearing loss, sensorineural, unilateral 04/04/20 14 Sensorineural hearing loss (SNHL) 04/04/2014 Canada's esophagus without dysplasia 06/13/2013 Gastroesophageal reflux disease 06/13/2013 Allergic reaction to bee sting 06/13/2013 HLD (hyperlipidemia) 06/13/2013 Insomnia 06/13/2013 Male erectile disorder 06/13/2013 Conductive hearing loss 12/10/2011 Resolved Problems Problem Noted Date Diagnosed Date Resolved Date Abnormality, skin 02/18/2021 03/01/2021 Preventative health care 02/17/202012/2020 Hyponatremia 02/09/2019 03/01/2021 Assessment & Plan (02/13/2019 9:33 AM CDT): Placed on fluid restriction 1200 ml free water Daily BMP Consider Tolvaptan Assessment & Plan (02/10/2019 9:21 AM CDT): Placed on fluid restriction 1200 ml free water Daily BMP Consider Tolvaptan Acute post-operative pain 02/07/2019 Overview (02/07/2019): No pre-op chronic pain conditions requiring opioids. Assessment & Plan (02/13/2019 9:34 AM CDT): Expected post-op sternotomy/AVR. -continue Oxy q 4 hr PRN -continue scheduled tylenol 1gm q 6 Assessment & Plan (02/10/2019 9:17 AM CDT): Expected post-op sternotomy/AVR. -continue Oxy q 4 hr PRN -continue scheduled tylenol 1gm q 6 -gabapentin 300 BID x 3 days Assessment & Plan (02/08/2019 12:57 PM CDT): Expected post-op s/p sternotomy. Oxy frequency changed from q 4hr to q 3hr. Reports improved pain control this am. -discontinue dilaudid. -continue Oxy q 3 hr -increase scheduled tylenol to 1gm PRN -gabapentin 300 BID x 3 days Assessment & Plan (02/08/2019 3:54 AM CDT): Expected post-op pain s/p sternotomy. Recently extubated. - continue prn dilaudid - add scheduled tylenol and prn oxycodone once able to safely swallow 0350: Continues to require dilaudid every hour. Will increase oxycodone frequency to q3. Assessment & Plan (02/07/2019 1:46 PM CDT): Expected post-op pain s/p sternotomy. Currently intubated and sedated. - Fentanyl prn - Start schd APAP and prn Oxy when taking POs Acute pulmonary insufficiency 02/07/2019 03/01/2021 Overview (02/07/2019): No pre-op primary pulmonary conditions requiring medications. Assessment & Plan (02/13/2019 9:34 AM CDT): -Continue aggressive pulmonary toilet - pain control to allow for deep breathing - IS - OOBTC and ambulate in am -2 V CXR with sm Bilateral effusions and atelectasis Assessment & Plan (02/11/2019 9:15 AM CDT): -Continue aggressive pulmonary toilet - pain control to allow for deep breathing - IS - OOBTC and ambulate in am -2 V CXR with sm Bilateral effusions and atelectasis Assessment & Plan (02/08/2019 1:01 PM CDT): Extubated to NC yesterday evening. Remains on NC 2L this am. CXR with left pleural effusion. - wean O2 for O2 saturation > 92% - pain control to allow for deep breathing - IS - OOBTC and ambulate in am Assessment & Plan (02/08/2019 3:49 AM CDT): Extubated without incident. O2 saturation 100% on 6 lpm NC. - wean O2 for O2 saturation > 92% - pain control to allow for deep breathing - IS - OOBTC and ambulate in am Assessment & Plan (02/07/2019 6:30 PM CDT): Post-procedural short-term ventilator support with anticipated extubation. CXR: Small L pleural effusion w/ ETT 5 cm above the wanda. - Plan for PSV trial with goal of extubation once hemodynamically stable if CT output has decreased to < 50 ml/hr - PT/OOBTC/AMB POD 1 - Wean FiO2 for sats > 92% - Advance ETT 2 cm Hyperglycemia 02/07/2019 02/09/2019 Overview (02/07/2019): No pre-op h/o DM Assessment & Plan (02/07/2019 2:30 PM CDT): Mildy hyperglycemic during OR case, specifically when on CPB. Suspect d/t stress response. Insulin gtts started intra-op, but glucose 124 upon admission to ICU. Therefore, infusion stopped. - q1hr glucose monitoring x 2 - Transition to SSI if glucose remains < 180 for several hours Acute blood loss anemia 02/07/201901/23 Overview (02/07/2019): Pre-op H/H 13.3/38.1 Assessment & Plan (02/08/2019 3:38 AM CDT): CT output improved. AM H/H stable, 9.7/28.3 (9.6/27.9). No hypotension. -no acute indication for transfusion Assessment & Plan (02/07/2019 3:12 PM CDT): Expected acute blood loss anemia post sternotomy and CT surgery. Pt reportedly w/ a lot of venous and marrow oozing post-op. Post-op H/H 9.6/27.9 and PT/INR 15.5/1.42, PTT 31.5. Initial CT output is 200 ml in the 1st 1 hr. - Monitor CT output very closely post-op - CBC in 6 hours or sooner if clinically indicated - Consider Fibrinogen if high CT output continues in 1 hour 1500 - I notified CT Sx Fellow regarding CT output. I will notify her at 1600 with progress. Thrombocytopenia 02/07/2019 02/09/2019 Assessment & Plan (02/07/2019 7:14 PM CDT): Pre-op Plt 168 if intra-op transfusion of 1U Plt for coagulopathy and active venous bleeding. Post-op Plt count 143. Bleeding has decreased significantly and coagulopathy has resolved. - No clinical indication for transfusion - Recheck CBC in am or sooner if clinically indicated. Severe aortic regurgitation 01/11/2019 02/07/2019 Overview (01/11/2019): Added automatically from request for surgery [id number] Preop cardiovascular exam 01/11/2019 Overview (01/11/2019): Added automatically from request for surgery [id number] Hypertension 09/23/2017 03/01/2021 Overview (02/07/2019): Pre-op HTN that is being monitored and not treated w/ meds at this time. Assessment & Plan (02/13/2019 9:33 AM CDT): -change SBP goal <140 -continue Metoprolol to 12.5 bid Assessment & Plan (02/11/2019 9:16 AM CDT): -change SBP goal <140 -continue Metoprolol to 12.5 bid Assessment & Plan (02/08/2019 12:57 PM CDT): Remains on nicardipine gtt. No anti-hypertensives at baseline. -change SBP goal <140 -wean nicardipine for SBP <140 -start metoprolol -achieve adequate pain control -pacer interrogated; pt now NSR 80's; change pacer to VVI b/u Assessment & Plan (02/08/2019 4:00 AM CDT): Remains on nicardipine gtt. No anti-hypertensives at baseline. -continue nicardipine gtt overnight for SBP 110-130 to protect fresh suture lines and prevent life threatening bleeding -start BB in am -pain control -pacer interrogated; pt now NSR 80's; change pacer to VVI b/u Assessment & Plan (02/07/2019 3:24 PM CDT): BP labile intra-op w/ intermittent Levo/Nicard use. Upon arrival to the floor, pt was hypertensive and INFORMATION SYSTEMS CONSULTANT was immediately turned off. Nicardipine gtts started for BP goal of 100-130. Pacemaker was interrogated and he is currently at AAI 80. - Decrease EPW to AAI 70 and titrate rate of Nicardipine - Consider increasing pain medication and consider a Fentanyl gtts if needed Aortic cusp regurgitation 03/23/2017 Nonrheumatic aortic valve insufficiency 01/28/2017 02/17/2020 Overview (01/07/2019): Severe in degree and dilation present via MRI Assessment & Plan (01/07/2019 2:36 PM CDT): SAVR discussed It is not reflected in Epic but I originally identified in [id number] and have been proactively following and monitoring. He still has likely a CT angio and L HC to complete. Hyperlipidemia 06/13/2013 03/01/2021 Encounters Date Type Department Care Team Description 10/25/2024 3:20 PM CDT Office Visit [facility] [address] [place] [address] [address] [place] [address] London Santos MD Chronic tension-type headache, intractable (Primary Dx); Subacute bacterial endocarditis 10/24/2024 Telephone [facility] [address] [facility] [address] [place] [phone] Avery Ulloa MD JESSICA 10/20/2024 Documentation [facility] [address] [facility] [address] [place] [phone] Alexandr Lopez MD 10/19/2024 3:25 PM CDT - 10/19/2024 11:59 PM CDT Hospital Encounter [facility] [address] [place] [address] Discharge Disposition: Discharge to home or self care 10/19/2024 2:20 PM CDT Office Visit [facility] [address] [facility] [address] [place] [phone] Cinthia Godoy NP Bacteremia 10/19/2024 Telephone [facility] [address] [place] [address] [address] [place] [phone] London Santos MD 10/17/2024 1:55 PM CDT - 10/17/2024 11:59 PM CDT Hospital Encounter [address] [place] [address] Episodic cluster headache, not intractable; Fatigue, unspecified type Discharge Disposition: Discharge to home or self care 10/17/2024 10:00 AM CDT Office Visit [facility] [address] [phone] Mora Camacho NP Episodic cluster headache, not intractable (Primary Dx); Fatigue, unspecified type 10/17/2024 Results Follow-Up [facility] [address] [phone] Mora Camacho NP Influenza A/B, RSV, and COVID-19 PCR Nasopharyngeal 10/10/2024 2:30 PM CDT Office Visit [facility] [address] [facility] [address] [place] [address] Avery Ulloa MD Subacute bacterial endocarditis (Primary Dx); S/P TAVR (transcatheter aortic valve replacement); Hypertension; Dyslipidemia; Coronary artery disease involving shoshone[place]paiute coronary artery of shoshone[place]paiute heart without angina pectoris; 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 Telephone [facility] [address] [place] [address] [place] [phone] [facility] De[facility] 10/03/2024 Orders Only [facility] [address] [place] [address] [place] [phone] Cinthia Godoy NP Bacteremia (Primary Dx) 10/03/2024 Telephone [facility] [address] [place] [address] [place] [phone] [facility] Ailena TIN FLIPPER 09/29/2024 12:40 PM CDT Office Visit [facility] [address] [place] [phone] Cinthia Godoy NP Encounter for screening examination for sexually transmitted disease; Bacteremia 09/23/2024 Orders Only [facility] [address] [facility] 8th [place] [address] [place] [address] vAery Ulloa MD 09/16/2024 CHAIREZ Transitional Care Outreach [facility] [address] [place] [phone] Lo Bruno RN 09/13/2024 9:17 AM CDT Anesthesia Event [facility] [address] [place] [address] Elias Roblero MD Eddins, Daniel Raymond, CRNA 09/13/2024 Documentation [facility] [address] [facility] [address] [place] [phone] Melinda Christianson MD OPAT Sign-Off 09/12/2024 8:45 AM CDT Ancillary Procedure [facility] IP [address] [facility] [address] [place] [address] 09/08/2024 Telephone [facility] 8th Floor [address] [place] [phone] Kanika Viveros 09/06/2024 6:51 PM CDT - 09/15/2024 2:47 PM CDT Hospital Encounter [address] [phone] Olivier Lovell MD Heath, Krysta Lynn, MD Mendelsohn, Marc, MD Lee, Eileen May, MD Leukocytosis, unspecified type (Primary Dx); History of endocarditis; History of bacteremia; Palpitations; Bacteremia; Endocarditis determined by echocardiography Discharge Disposition: Discharge to home or self care 09/06/[address] [phone] London Santos MD 09/05/2024 1:00 PM CDT Office Visit [address] [phone] London Santos MD Bacteremia (Primary Dx); Coronary artery disease involving shosh[place]paiute coronary artery of shoshone[place]paiute heart without angina pectoris; Palpitations; Tachycardia 09/05/2024 Results Follow-Up [address] [phone] London Santos MD CBC with auto differential, Basic metabolic panel 09/02/2024 Orders Only [facility] [address] [place] [phone] Mary Ortiz, [facility] 09/02/2024 CHAIREZ Transitional Care Outreach [facility] [address] [place] [phone] Lo Bruno RN 09/01/[address] [phone] London Santos MD 08/30/2024 10:34 AM CDT Anesthesia Event [facility] [address] [place] [phone] Kenneth Crump MD PhD 08/30/2024 Documentation [facility] [address] [place] [phone] Gilda Vargas NP 08/30/2024 Documentation [facility] [address] [place] [phone] Gilda Vargas NP 08/25/2024 12:07 PM CDT - 09/01/2024 1:58 PM CDT Hospital Encounter [address] [phone] Dallas Joshua MD Chow, Kelsey Sarah, MD Girardi, Stacie Wagner MD Bacteremia (Primary Dx); History of transcatheter aortic valve replacement (TAVR); Fever of unknown origin; Streptococcal bacteremia; Subacute bacterial endocarditis Discharge Disposition: Discharge to home, home health skilled care 08/25/2024 11:00 AM CDT Office Visit [address] [phone] London Santos MD Bacteremia (Primary Dx); Chronic nonintractable headache, unspecified headache type 08/25/2024 [facility] [address] [facility] [address] [facility] [place] [address] London Santos MD 08/24/2024 10:33 AM CDT - 08/24/2024 11:59 PM CDT Hospital Encounter [address] [address] Fever, unspecified fever cause Discharge Disposition: Discharge to home or self care 08/24/2024 10:30 AM CDT Lab [facility] Outpatient Lab at [address] [phone] Fever (Primary Dx) 08/23/2024 Results Follow-Up [address] [phone] Rin Ramos NP Haptoglobin 08/17/2024 2:30 PM CDT Office Visit [address] [phone] Rin Ramos NP Fatigue, unspecified type (Primary Dx); Vitamin D deficiency, unspecified; Abnormal finding of blood chemistry, unspecified; History of tick-borne disease; Other iron deficiency anemia 08/09/2024 Results Follow-Up [address] [phone] London Santos MD MRI Abdomen W WO Contrast 08/08/2024 2:10 PM CDT - 08/08/2024 11:59 PM CDT Hospital Encounter [facility] [address] [place] [address] Bilateral renal masses Discharge Disposition: Discharge to home or self care 08/05/2024 Results Follow-Up [address] [phone] Rin Ramos NP Thyroid Function [place] 08/04/2024 9:00 AM CDT Office Visit [address] [phone] Rin Ramos NP Muscle spasm (Primary Dx); Fatigue, unspecified type 08/03/[address] [phone] London Santos MD from Last 3 Months Immunizations Immunization Administration Dates Next Due COVID-19 mRNA ([employer]) 0.3 m L (30 mcg) vaccine (12 years and up) 08/18/2023,02/07/2023 Influenza, Quad, Adjuvantate d, Intramuscular 02/14/2023 Influenza, Quadrivalent, Hig h Dose, Preservative Free, Intrr 02/14/2023,03/03/2022,02/18/2021,02/16 Influenza, Trivalent, Adjuva nted, Intramuscular 02/12/2018 Influenza, Trivalent, High D ose, Split, Preservative Free, Intramuscular 02/11/2024,01/31/2019,01/28/2017,01/24 Influenza, Trivalent, IM (MDV) 02/21/2014,2012,02/15/2013 Moderna SARS-CoV-2 Monovalen t Vaccination (12+ YRS) 03/16/2021 Pneumococcal Conjugate PCV 13 01/25/2016 Pneumococcal Polysaccharide PPV23 02/18/2013,,02/28/2009 RSV, Bivalent, Protein Subun it Rsvpref, Diluent (Abrysvo) 02/14/2023 Tdap 09/30/2022,05/07/2016,05/07/2016 Typhoid Live 04/29/2016 Yellow Fever 05/07/2016,05/07/2016,02/28/2016 ZOSTER Recombinant 03/28/2019,12/14/2018 Surgical History Surgery Date Site/Laterality Comments OTHER SURGICAL HISTORY Ptosis reconstruction OD CATARACT EXTRACTION Cataract Surgery - (Added by TW Conv) MYRINGOTOMY W/ TUBES Myringotomy - Left Ear - (Added by TW Conv) CATARACT EXTRACTION Cataract Surgery - (Added by TW Conv) ESOPHAGOSCOPY / EGD 12/30/2017 CARDIAC CATHETERIZATION 01/26/2019 + CAD; no PCI AORTIC VALVE REPLACEMENT 02/07/2019 N/A COLONOSCOPY 01/05/2013 OTHER SURGICAL HISTORY 12/23/2021 - 01/22/2022 eyelid surgery Medical History Medical History Date Comments Gastroesophageal reflux disease GERD Hx Other Medical Barretts esopha barbara Hyperlipidemia Hyperlipidemia Hx Other Medical cataract surger y Transient global amnesia TGA (tr ansient global amnesia) - (Added by Conv) Metatarsalgia Metatarsalgia - (Added by Conv) Chronic serous otitis media [employer] royal serous otitis media - (Added by Conv) Pain in knee Joint pain, knee - (Added by TW Conv) Mixed conductive and sensori neural hearing loss Hearing loss, mixed, unilate ral - (Added by Conv) Cellulitis of umbilicus Cellulit is of umbilicus - (Added by Conv) Cellulitis of left lower extremity Cellulitis of left foot excluding toes - (Added by Conv) Murmur Aortic insufficiency Acid reflux ED (erectile dysfunction) Heart murmur Acid reflux Wears glasses Coronary artery 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 Hypertension Family History Medical History Relation Name Comments Stroke Brother Esophageal cancer Father Robin Interiano Family hi story of malignant neoplasm of esophagus - (Added by Conv) Hypertension Father Robin Interiano Cancer Mother Grant Interiano Stroke Mother Grant Interiano Stroke syndrom e - (Added by Conv) Arrhythmia Sister Relation Name Status Comments Brother Father Robin Interiano Mother Grant Interiano Sister Social History Tobacco Use Types Packs/Day Years Used Date Smoking Tobacco: Never Passive Smoke Exposure: Never Smokeless Tobacco: Never Alcohol Use Standard Drinks/Week Comments Yes 1 (1 standard drink = 0.6 oz pur e alcohol) 1 - 2 per day [facility] Utilities Answer Date Recorded In the past 12 months has [facility], gas, oil, or water [employer] threatened to shut off services in your [...] often do you attend chur ch or mormonism services? Never 09/11/2024 Do you belong to any clubs o r organizations such as zoroastrian groups, unions, fraternal or athletic groups, or [...] staff should administer the PHQ-9) 0 09/11/2024 [facility] - Occupational Stress [...] money to buy more. Never true 09/12/19 Within the past 12 months, t he [...] any time in the past 12 m [facility], were you homeless or living in a assisted (including now)? No 09/11/2024 Personal Safety Answer Date Recorded Have you ever been in or are you currently in a harmful physical or emotional relationship or is someone making you feel afraid or unsafe? 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 Not on file Not on file Not on fi Obstetrics History Last Filed Vital Signs Vital Sign Reading Time Taken Comments Blood Pressure 127/81 10/25/2024 3:06 PM CDT Pulse 81 10/25/2024 3:06 PM CDT Temperature 37 C (98.6 F) 10/19/2024 2:03 PM CDT Respiratory Rate 16 10/17/2024 9:57 AM CDT Oxygen Saturation 98% 10/25/2024 3:06 PM CDT Inhaled Oxygen Concentration - - Weight 68.2 kg (150 lb 6.4 oz) 10/25/2024 3:06 P M CDT Height 170 cm (5' 6.93) 10/19/2024 2:03 PM CDT Body Mass Index 23.61 10/19/2024 2:03 PM CDT Plan of Treatment Health Maintenance Due Date Last Done Comments Covid-19 Vaccine (2023-2 5 season) 2024 01/26/2024, 08/18/2023, 02/07/2023, Additional history exists Well Visit 65+ 03/02/2025 03/02/2024, 01/2023, 03/03/2022, Additional history exists Depression Screening 09/06/2025 09/06/2024, 09/05/2024, 03/02/2024, Additional history exists Fall Risk Assessment 09/15/2025 09/15/2024, 09/05/2024, 03/02/2024, Additional history exists DTaP/Tdap/Td Vaccine (4 - Td or Tdap) 09/30/2032 09/30/2022, 05/07/2016, 05/07/2016 Pneumococcal vaccine 65+ Completed 016, 02/18/2013, 02/18/2013, Additional history exists Zoster Vaccine Completed 03/28/2019, 12/14/2018 Influenza Vaccine Completed 02/11/2024, , 02/14/2023, Additional history exists Hepatitis B Screening Completed 08/26/2024 Medical Devices Implanted Type Area Drum Sander Setter Device Identifier Shelf Expiration Date Model / Serial / Lot [employer] [id number] Inspiris Resilia Leaflet Sewing Ring 25mm Valve Aortic Bovine - [id number] - [id number] Implanted:Qty: 1 on 02/07/2019 by Shamir Patel MD at [facility] Prosthetic Valve N/A: Heart [employer] 08/09/2020 [id number] / [id number] / Jon[employer] Valve Heart 26mm Magy 3 Transcatheter [id number] - [id number] - [id number] Implanted:Qty: 1 on 10/16/2022 by Charli David MD PhD at [facility] Prosthetic Valve N/A: Aortic Valve [employer] 07/04/2025 [id number] / [id number] / [id number] [facility] Néstor Angio-Seal Vip 6fr Closere Device [id number] - [id number] - [id number] Implanted:Qty: 1 on 09/19/2022 by Alex Fisher MD at [facility] Vascular Closure Device Left: Common Femoral Artery [employer] Néstor 03/24/2023 [id number] / [id number] / [id number] [employer] Vascular Device Clsr Perclose Prostyle Sut-Mediatd Closure-Repair Sys [id number] - [id number] - [id number] Implanted:Qty: 1 on 10/16/2022 by Charli David MD PhD at [facility] Vascular Closure Device Right: Common Femoral Artery [employer] 05/24/2024 [id number] / [id number] / [id number] Procedures Procedure Name Priority Date/Time Associated Diagnosis Comments EGFR Routine 10/19/2024 3:25 PM CDT Bacteremia DIFFERENTIAL AUTO Routine 10/19/2024 3:2 5 PM CDT Bacteremia GLUCOSE, RANDOM (OUTREACH) Routine 10/19/2024 3:25 PM CDT Bacteremia COMPREHENSIVE METABOLIC PANEL WITHOUT GLUCOSE (OUTREACH) Routine 10/19/2024 3:25 PM CDT Bacteremia CBC WITH AUTO DIFFERENTIAL Routine 10/19/2024 3:25 PM CDT Bacteremia COMPREHENSIVE METABOLIC PANEL (OUTREACH) Routine 10/19/2024 3:25 PM CDT Bacteremia BLOOD CULTURE Routine 10/19/2024 3:25 PM CDT Bacteremia BLOOD CULTURE Routine 10/19/2024 3:25 PM CDT Bacteremia INFLUENZA A/B, RSV, AND COVID-19 PCR Routine 10/17/2024 12:00 PM CDT Episodic cluster headache, not intractable Fatigue, unspecified type SCAN - LABS 09/19/2024 EGFR Timed 09/15/2024 8:44 AM CDT BASIC METABOLIC PANEL Timed 09/15/2024 8:44 AM CDT EGFR Routine 09/14/2024 8:33 PM CDT DIFFERENTIAL AUTO Routine 09/14/2024 8:3 3 PM CDT MAGNESIUM Routine 09/14/2024 8:33 PM CDT CBC WITH AUTO DIFFERENTIAL Routine 09/14/2024 8:33 PM CDT BASIC METABOLIC PANEL Routine 09/14/2024 8:33 PM CDT EGFR Routine 09/13/2024 11:42 PM CDT DIFFERENTIAL AUTO Routine 09/13/2024 11:42 PM CDT MAGNESIUM Routine 09/13/2024 11:42 PM CDT CBC WITH AUTO DIFFERENTIAL Routine 09/13/2024 11:42 PM CDT BASIC METABOLIC PANEL Routine 09/13/2024 11:42 PM CDT XR CHEST 1 VIEW IP Routine 09/13/2024 6:50 PM CDT XR CHEST PA LATERAL 2 VIEWS IP Routine 09/13/2024 3:57 PM CDT TRANSESOPHAGEAL ECHO (JESSICA) W DOPPLER/CF WO CONTRAST Routine 09/13/2024 10:35 AM CDT ECG 12-LEAD Routine 09/13/2024 8:57 AM CDT EGFR Routine 09/13/2024 12:23 AM CDT DIFFERENTIAL AUTO Routine 09/13/2024 12:23 AM CDT MAGNESIUM Routine 09/13/2024 12:23 AM CDT CBC WITH AUTO DIFFERENTIAL Routine 09/13/2024 12:23 AM CDT BASIC METABOLIC PANEL Routine 09/13/2024 12:23 AM CDT US VEIN DUPLEX LOWER EXTREMITY BILATERAL COMPLETE IP Routine 09/12/2024 9:47 AM CDT EGFR Routine 09/12/2024 6:21 AM CDT DIFFERENTIAL AUTO Routine 09/12/2024 6:2 1 AM CDT MAGNESIUM Routine 09/12/2024 6:21 AM CDT BASIC METABOLIC PANEL Routine 09/12/2024 6:21 AM CDT CBC WITH AUTO DIFFERENTIAL Routine 09/12/2024 6:21 AM CDT EGFR Routine 09/11/2024 8:30 PM CDT MAGNESIUM Routine 09/11/2024 8:30 PM CDT BASIC METABOLIC PANEL Routine 09/11/2024 8:30 PM CDT EGFR Routine 09/11/2024 9:47 AM CDT DIFFERENTIAL AUTO Routine 09/11/2024 9:4 7 AM CDT MAGNESIUM Routine 09/11/2024 9:47 AM CDT CBC WITH AUTO DIFFERENTIAL Routine 09/11/2024 9:47 AM CDT BASIC METABOLIC PANEL Routine 09/11/2024 9:47 AM CDT EGFR Routine 09/09/2024 8:32 PM CDT DIFFERENTIAL AUTO Routine 09/09/2024 8:3 2 PM CDT MAGNESIUM Routine 09/09/2024 8:32 PM CDT CBC WITH AUTO DIFFERENTIAL Routine 09/09/2024 8:32 PM CDT BASIC METABOLIC PANEL Routine 09/09/2024 8:[address] TAVR IP Routine 09/09/2024 10:46 AM CDT TRANSTHORACIC ECHO (TTE) COMPLETE W DOPPLER/CF W CONTRAST Routine 09/09/2024 9:15 AM CDT EGFR Routine 09/08/2024 8:34 PM CDT DIFFERENTIAL AUTO Routine 09/08/2024 8:3 4 PM CDT CRP (ACUTE PHASE) Routine 09/08/2024 8:3 4 PM CDT ERYTHROCYTE SEDIMENTATION RATE Routine 09/08/2024 8:34 PM CDT MAGNESIUM Routine 09/08/2024 8:34 PM CDT CBC WITH AUTO DIFFERENTIAL Routine 09/08/2024 8:34 PM CDT BASIC METABOLIC PANEL Routine 09/08/2024 8:34 PM CDT TROPONIN I HIGH-SENSITIVITY 6-HOUR Timed 09/08/2024 8:34 PM CDT ECG 12-LEAD STAT 09/08/2024 12:08 PM CDT EGFR STAT 09/08/2024 8:35 AM CDT BASIC METABOLIC PANEL STAT 09/08/2024 8:35 AM CDT CBC WITHOUT DIFFERENTIAL STAT 09/08/2024 8:35 AM CDT TROPONIN I HIGH-SENSITIVITY 2-HOUR Timed 09/06/2024 9:35 PM CDT THYROID FUNCTION CASCADE Routine 09/06/2024 8:40 PM CDT BLOOD CULTURE STAT 09/06/2024 8:40 PM CDT BLOOD CULTURE STAT 09/06/2024 8:40 PM CDT MAGNESIUM STAT 09/06/2024 7:25 PM CDT PHOSPHORUS STAT 09/06/2024 7:25 PM CDT EGFR STAT 09/06/2024 7:25 PM CDT DIFFERENTIAL AUTO STAT 09/06/2024 7:2 5 PM CDT TROPONIN I HIGH-SENSITIVITY SERIES (BASELINE, 2HR, 4HR, 6HR) STAT 09/06/2024 7:25 PM CDT COMPREHENSIVE METABOLIC PANEL STAT 09/06/2024 7:25 PM CDT CBC WITH AUTO DIFFERENTIAL STAT 09/06/2024 7:25 PM CDT ECG 12-LEAD STAT 09/06/2024 2:45 PM CDT XR CHEST PA LATERAL 2 VIEWS ED 09/06/2024 2:27 PM CDT BASIC METABOLIC PANEL Routine 09/05/2024 1:05 PM CDT Coronary artery disease involving shosh[place]paiute coronary artery of shoshone[place]paiute heart without angina pectoris CBC WITH AUTO DIFFERENTIAL Routine 09/05/2024 1:05 PM CDT Coronary artery disease involving [place] coronary artery of shoshone[place]paiute heart without angina pectoris EGFR Routine 08/31/2024 9:44 PM CDT DIFFERENTIAL AUTO Routine 08/31/2024 9:4 4 PM CDT CBC WITH AUTO DIFFERENTIAL Routine 08/31/2024 9:44 PM CDT BASIC METABOLIC PANEL Routine 08/31/2024 9:44 PM CDT EGFR Routine 08/30/2024 11:41 PM CDT DIFFERENTIAL AUTO Routine 08/30/2024 11:41 PM CDT CBC WITH AUTO DIFFERENTIAL Routine 08/30/2024 11:41 PM CDT BASIC METABOLIC PANEL Routine 08/30/2024 11:41 PM CDT OSMOLALITY, URINE Routine 08/30/2024 1:4 6 PM CDT SODIUM, URINE, RANDOM Routine 08/30/2024 1:46 PM CDT TRANSESOPHAGEAL ECHO (JESSICA) W DOPPLER/CF WO CONTRAST Routine 08/30/2024 11:33 AM CDT OSMOLALITY, BLOOD Routine 08/29/2024 9:1 1 PM CDT EGFR Routine 08/29/2024 9:11 PM CDT DIFFERENTIAL AUTO Routine 08/29/2024 9:1 1 PM CDT CBC WITH AUTO DIFFERENTIAL Routine 08/29/2024 9:11 PM CDT BASIC METABOLIC PANEL Routine 08/29/2024 9:11 PM CDT EGFR Routine 08/28/2024 10:48 PM CDT DIFFERENTIAL AUTO Routine 08/28/2024 10:48 PM CDT CBC WITH AUTO DIFFERENTIAL Routine 08/28/2024 10:48 PM CDT BASIC METABOLIC PANEL Routine 08/28/2024 10:48 PM CDT EGFR Routine 08/27/2024 8:57 PM CDT DIFFERENTIAL AUTO Routine 08/27/2024 8:5 7 PM CDT CBC WITH AUTO DIFFERENTIAL Routine 08/27/2024 8:57 PM CDT BASIC METABOLIC PANEL Routine 08/27/2024 8:57 PM CDT HEPATITIS A ANTIBODY, IGM Timed 08/27/2024 8:57 PM CDT EGFR Routine 08/26/2024 10:13 PM CDT DIFFERENTIAL AUTO Routine 08/26/2024 10:13 PM CDT CBC WITH AUTO DIFFERENTIAL Routine 08/26/2024 10:13 PM CDT BASIC METABOLIC PANEL Routine 08/26/2024 10:13 PM CDT HEPATITIS C ANTIBODY Routine 08/26/2024 10:13 PM CDT HEPATITIS B CORE ANTIBODY, TOTAL Routine 08/26/2024 10:13 PM CDT HEPATITIS B SURFACE ANTIBODY (IMMUNE STATUS) Routine 08/26/2024 10:13 PM CDT HEPATITIS B SURFACE ANTIGEN Routine 08/26/2024 10:13 PM CDT HEPATITIS A ANTIBODY, TOTAL Routine 08/26/2024 10:13 PM CDT TRANSTHORACIC ECHO (TTE) COMPLETE W DOPPLER/CF W CONTRAST Routine 08/26/2024 2:51 PM CDT BLOOD CULTURE Timed 08/26/2024 10:30 AM CDT BLOOD CULTURE Timed 08/26/2024 10:30 AM CDT XR ORTHOPANTOGRAM/PANOREX IP Routine 08/26/2024 10:00 AM CDT EGFR Routine 08/25/2024 8:53 PM CDT DIFFERENTIAL AUTO Routine 08/25/2024 8:5 3 PM CDT CRP (ACUTE PHASE) Routine 08/25/2024 8:5 3 PM CDT ERYTHROCYTE SEDIMENTATION RATE Routine 08/25/2024 8:53 PM CDT CBC WITH AUTO DIFFERENTIAL Routine 08/25/2024 8:53 PM CDT BASIC METABOLIC PANEL Routine 08/25/2024 8:53 PM CDT BLOOD PARASITE EXAMINATION Routine 08/25/2024 8:53 PM CDT URINALYSIS AND REFLEX TO MICROSCOPIC AND CULTURE STAT 08/25/2024 7:45 PM CDT XR CHEST 1 VIEW ED 08/25/2024 4:[address] HEAD WO CONTRAST ED Urgent/IP Urgent 08/25/2024 3:01 PM CDT EXTRA SLIDE PREPARATION STAT 08/25/2024 1:48 PM CDT PRO B-TYPE NATRIURETIC PEPTIDE STAT 08/25/2024 1:48 PM CDT THYROID FUNCTION CASCADE STAT 08/25/2024 1:48 PM CDT RESPIRATORY PATHOGEN PANEL STAT 08/25/2024 1:48 PM CDT BLOOD CULTURE STAT 08/25/2024 1:48 PM CDT BLOOD CULTURE STAT 08/25/2024 1:48 PM CDT EGFR Routine 08/24/2024 10:33 AM CDT Fever, unspecified fever cause DIFFERENTIAL AUTO Routine 08/24/2024 10:33 AM CDT Fever, unspecified fever cause CBC WITH AUTO DIFFERENTIAL Routine 08/24/2024 10:33 AM CDT Fever, unspecified fever cause COMPREHENSIVE METABOLIC PANEL Routine 08/24/2024 10:33 AM CDT Fever, unspecified fever cause EHRLICHIA AND ANAPLASMA PCR Routine 08/24/2024 10:33 AM CDT Fever, unspecified fever cause BLOOD CULTURE Routine 08/24/2024 10:33 AM CDT Fever, unspecified fever cause BLOOD CULTURE Routine 08/24/2024 10:33 AM CDT Fever, unspecified fever cause SHAHANA-RAMIREZ VIRUS VCA ANTIBODY PANEL Routine 08/24/2024 10:33 AM CDT Fever, unspecified fever cause HIV 1/2 ANTIBODY PLUS P24 ANTIGEN Routine 08/24/2024 10:33 AM CDT Fever, unspecified fever cause HAPTOGLOBIN Routine 08/19/2024 1:54 PM CDT Fatigue, unspecified type Abnormal finding of blood chemistry, unspecified History of tick-borne disease Other iron deficiency anemia CBC WITH AUTO DIFFERENTIAL Routine 08/18/2024 9:56 AM CDT Fatigue, unspecified type Abnormal finding of blood chemistry, unspecified EHRLICHIA DETECTION PCR Routine 08/18/2024 9:56 AM CDT FERRITIN Routine 08/17/2024 3:04 PM CDT Fatigue, unspecified type Abnormal finding of blood chemistry, unspecified FOLATE Routine 08/17/2024 3:04 PM CDT Fatigue, unspecified type IRON PROFILE W/ IBC Routine 08/17/2024 3 :04 PM CDT Fatigue, unspecified type Abnormal finding of blood chemistry, unspecified VITAMIN D 25 HYDROXY Routine 08/17/2024 3:04 PM CDT Fatigue, unspecified type Vitamin D deficiency, unspecified COMPREHENSIVE METABOLIC PANEL Routine 08/17/2024 3:04 PM CDT Fatigue, unspecified type COVID-19 POC Routine 08/17/2024 2:40 PM CDT Fatigue, unspecified type POCT INFLUENZA A/B Routine 08/17/2024 2: 34 PM CDT Fatigue, unspecified type MRI ABDOMEN W WO CONTRAST Schedule Routine, Read Routine (OP Routine) 08/08/2024 3:04 PM CDT Bilateral renal masses BASIC METABOLIC PANEL Routine 08/04/2024 9:23 AM CDT Fatigue, unspecified type VITAMIN B12 Routine 08/04/2024 9:23 AM CDT Fatigue, unspecified type THYROID FUNCTION CASCADE Routine 08/04/2024 9:23 AM CDT Fatigue, unspecified type CBC WITH AUTO DIFFERENTIAL Routine 08/04/2024 9:23 AM CDT Fatigue, unspecified type from Last 3 Months Results * Glucose, random (Outreach) (10/19/2024 3:25 PM CDT) Pathologist [facility] Glucose 103 70 - 199 mg/dL Comment: Interpretive Data Fasting glucose >/= 126 mg/dl is diagnostic for diabetes. Fasting is defined as no caloric intake for at least 8 hours. Fasting glucose between 100 mg/dl to 125 mg/dl is diagnostic of prediabetes. In a patient with classic symptoms of hyperglycemia or hyperglycemic crisis, a random glucose >/= 200 mg/dl is diagnostic for diabetes. In the absence of unequivocal hyperglycemia, results should be confirmed by repeat testing. The classification and Diagnosis of Diabetes Diabetes Care 2021; 46: S19-S40. Current interpretive data was last revised 2022. Blood 10/19/2024 3:25 PM CDT 10/19/2024 5:37 PM CDT Cinthia Godoy NP LAB BLOOD ORDERABLES Final Result Performing Organization Address [facility]/ZIP Co de Phone Number QUANG [facility] [place] [address] * eGFR (10/19/2024 3:25 PM CDT) eGFR 81 >=60 mL/min/1. 73 m2 Comment: Interpretive Data Reference Interval Normal >/= 90 mL/min/1.73m2 Mildly decreased* 60 - 89 mL/min/1.73m2 Mildly to moderately decreased 45 - 59 mL/min/1.73m2 Moderately to severely decreased 30 - 44 mL/min/1.73m2 Severely decreased 15 - 29 mL/min/1.73m2 Kidney Failure < 15 mL/min/1.73m2 *Relative to young adult level Estimated glomerular filtration rate is determined by the 2020 CKD-EPI equation recommended by the National Kidney Foundation (A Unifying Approach to GFR Estimation: Recommendations of the NKF-ASK Task Force on Reassessing the Inclusion of Race in Diagnosing Kidney Disease, JASN 2020). The CKD-EPI equation should not be used for patients with unstable renal function and has not been validated in children and those over 70. Current interpretive data was last reviewed 2021. Blood 10/19/2024 3:25 PM CDT 10/19/2024 5:42 PM CDT us Cinthia Godoy NP LAB BLOOD ORDERABLES Final Result Performing Organization Address City/[facility]/ZIP Co de Phone Number [facility] [place] [address] * (ABNORMAL) Differential, auto (10/19/2024 3:25 PM CDT) Neutrophil abs 9.25(H) 1.50 - 6.50 K/cumm Imm gran abs 0.07 0.00 - 0.10 K/cumm [facility] Lymphocyte abs 2.05 0.80 - 3.30 K/cumm [facility] Monocyte abs 1.20(H) 0.20 - 0.80 K/cumm [facility] Eosinophil abs 0.03 0.00 - 0.50 K/cumm [facility] Basophil abs 0.03 0.00 - 0.10 K/cumm [facility] Neutrophil pct 73.3 % [facility] Comment: Interpretive Data Percent cell count reference ranges are not reported, since discordance with absolute values may lead to misinterpretation of CBC data. Current Interpretive Data was last revised on 2017. Imm gran pct 0.6 % [facility] Comment: Interpretive Data Percent cell count reference ranges are not reported, since discordance with absolute values may lead to misinterpretation of CBC data. Current Interpretive Data was last revised on 2017. Lymphocyte pct 16.2 % [facility] Comment: Interpretive Data Percent cell count reference ranges are not reported, since discordance with absolute values may lead to misinterpretation of CBC data. Current Interpretive Data was last revised on 2017. Monocyte pct 9.5 % [facility] Comment: Interpretive Data Percent cell count reference ranges are not reported, since discordance with absolute values may lead to misinterpretation of CBC data. Current Interpretive Data was last revised on 2017. Eosinophil pct 0.2 % [facility] Comment: Interpretive Data Percent cell count reference ranges are not reported, since discordance with absolute values may lead to misinterpretation of CBC data. Current Interpretive Data was last revised on 2017. Basophil pct 0.2 % [facility] Comment: Interpretive Data Percent cell count reference ranges are not reported, since discordance with absolute values may lead to misinterpretation of CBC data. Current Interpretive Data was last revised on 2017. Blood 10/19/2024 3:25 PM CDT 10/19/2024 5:37 PM CDT Cinthia Godoy NP LAB BLOOD ORDERABLES Final Result [facility] [place] [address] * (ABNORMAL) Comprehensive metabolic panel, without glucose (Outreach) (10/19/2024 3:25 PM CDT) Sodium 133(L) 135 - 145 mmol/L Potassium, pl 4.5 3.3 - 4.9 mmol/L [facility] Chloride 95(L) 97 - 110 mmol/L [facility] CO2 26 22 - 32 mmol/L [facility] Anion gap 12 2 - 15 mmol/L [facility] BUN 17 6 - 25 mg/dL [facility] Creatinine 0.94 0.80 - 1.30 mg/dL [facility] Calcium 9.5 8.5 - 10.3 mg/dL [facility] Protein, pl 8.3 6.5 - 8.5 g/dL [facility] Albumin 4.3 3.5 - 5.0 g/dL [facility] Bilirubin, total 0.7 0.1 - 1.2 mg/dL [facility] Alk phos 107 40 - 130 Units/L [facility] AST 24 10 - 50 Units/L [facility] ALT 16 7 - 55 Units/L [facility] Blood 10/19/2024 3:25 PM CDT 10/19/2024 5:37 PM CDT Cinthia Godoy NP LAB BLOOD ORDERABLES Final Result QU[facility] Department [place] [address] * (ABNORMAL) CBC with auto differential (10/19/2024 3:25 PM CDT) WBC 12.63(H) 3.80 - 9.90 K/cumm Hgb 12.1(L) 13.0 - 17.5 g/dL [facility] Hct 36.0(L) 38.9 - 50.3 % [facility] Plt 209 150 - 400 K/cumm [facility] MPV 9.7 9.1 - 12.3 fL [facility] RBC 4.24(L) 4.30 - 5.80 M/cumm [facility] MCV 84.9 81.3 - 96.4 fL [facility] MCH 28.5 27.1 - 33.3 pg [facility] MCHC 33.6 32.3 - 35.7 g/dL [facility] RDW CV 14.6 11.1 - 14.9 % [facility] RDW SD 46.0 35.7 - 48.1 fL [facility] NRBC abs 0.00 0.00 - 0.01 K/cumm [facility] Blood 10/19/2024 3:25 PM CDT 10/19/2024 5:37 PM CDT Cinthia Godoy B[employer]ER LAB BLOOD ORDERABLES Final Result [facility] [place] [address] * Blood culture Blood (10/19/2024 3:25 PM CDT) Report Final Report: No growth Blood 10/19/2024 3:25 PM CDT 10/19/2024 5:48 PM CDT Narrative [facility] - 10/24/2024 7:00 AM CDT L A 1. Blood cultures are incubated for 4 days on a continuously monitored blood culture system. The first report of a negative culture is issued within 24 hours of receipt of the specimen in the laboratory. 2. Positive culture results are reported as soon as they are detected. 3. The most important factor for detection of microbes in the setting of bloodstream infection is the volume of blood submitted for culture. Failure to collect an optimal blood volume can result in false negative blood cultures. 4. For pediatric patients, the recommended blood volume to collect follows a weight based strategy. See the electronic test catalog for collection instructions. 5. For positive blood cultures, a rapid molecular test may be performed for organism identification using the [employer]mond ePlex blood culture identification panel for gram positive (BCID-GP) and gram negative (BCID-GN) organisms. This nucleic acid amplification test detects microbial DNA in positive blood culture broth. This assay has been cleared by the [place] Food and Drug Administration and its performance characteristics have been verified by the [facility] Microbiology Laboratory. For questions about this culture, contact the Microbiology Laboratory at [phone]. Interpretive data was last revised on 24. Cinthia Godoy NP LAB MICROBIOLOGY - GENERAL ORDERABLES Final Result [facility] [place] [address] * Blood culture Blood (10/19/2024 3:25 PM CDT) Report Final Report: No growth Blood 10/19/2024 3:25 PM CDT 10/19/2024 5:49 PM CDT Narrative [facility] - 10/24/2024 7:00 AM CDT R A 1. Blood cultures are incubated for 4 days on a continuously monitored blood culture system. The first report of a negative culture is issued within 24 hours of receipt of the specimen in the laboratory. 2. Positive culture results are reported as soon as they are detected. 3. The most important factor for detection of microbes in the setting of bloodstream infection is the volume of blood submitted for culture. Failure to collect an optimal blood volume can result in false negative blood cultures. 4. For pediatric patients, the recommended blood volume to collect follows a weight based strategy. See the electronic test catalog for collection instructions. 5. For positive blood cultures, a rapid molecular test may be performed for organism identification using the raymond ePlex blood culture identification panel for gram positive (BCID-GP) and gram negative (BCID-GN) organisms. This nucleic acid amplification test detects microbial DNA in positive blood culture broth. This assay has been cleared by the [place] Food and Drug Administration and its performance characteristics have been verified by the [facility] Microbiology Laboratory. For questions about this culture, contact the Microbiology Laboratory at [phone]. Interpretive data was last revised on 24. Cinthia Godoy BATCH T[employer] CONTROLLER LAB MICROBIOLOGY - GENERAL ORDERABLES Final Result Performing Organization Address [facility] Co de Phone Number [facility]ANG M[facility] [place] [address] * Influenza A/B, RSV, and COVID-19 PCR Nasopharyngeal (10/17/2024 12:00 PM CDT) [facility] COVID-19 RNA Negative Negative Influenza A RNA Negative Negative [facility] Influenza B RNA Negative Negative [facility] RSV RNA Negative Negative [facility] Comment: Interpretive data: Testing performed by [facility] Laboratory. This test is performed using the [employer] [place] Xpert Xpress CoV-2/Flu/RSV plus assay. This is a multiplex, real-time reverse transcriptase PCR assay intended for the qualitative detection of nucleic acid from SARS-CoV-2, influenza A, influenza B, and respiratory syncytial virus. This assay has been cleared by the [place] Food and Drug administration. The performance characteristics have been verified by the [facility] Laboratory. Results must be considered in the clinical context, and a negative result does not rule out infection. Interpretive Data last revised 2023 Nasopharyngeal 10/17/2024 12 :00 PM CDT 10/17/2024 2:20 PM CDT Narrative [facility] - 10/17/2024 3:13 PM CDT Is the Patient experiencing symptoms consistent with COVID?->Yes Reason for testing?->Symptomatic Is the patient experiencing any symptoms consistent with COVID (eg. Fever, cough, shortness of breath)?->Yes Mora Camacho BATCH TANK CONTROLLER LAB MICROBIOLOGY - GENERAL ORDERABLES Final Result Performing Organization Address [facility]/ZIP Co de Phone Number QUANG [address] [address] Department [place] [address] [place] * SCAN - LABS (09/19/2024) us Provider Scanning Final Result * eGFR (09/15/2024 8:44 AM CDT) eGFR 86 >=60 mL/min/1. 73 m2 Comment: Interpretive Data Reference Interval Normal >/= 90 mL/min/1.73m2 Mildly decreased* 60 - 89 mL/min/1.73m2 Mildly to moderately decreased 45 - 59 mL/min/1.73m2 Moderately to severely decreased 30 - 44 mL/min/1.73m2 Severely decreased 15 - 29 mL/min/1.73m2 Kidney Failure < 15 mL/min/1.73m2 *Relative to young adult level Estimated glomerular filtration rate is determined by the 2020 CKD-EPI equation recommended by the National Kidney Foundation (A Unifying Approach to GFR Estimation: Recommendations of the NKF-ASK Task Force on Reassessing the Inclusion of Race in Diagnosing Kidney Disease, JASN 2020). The CKD-EPI equation should not be used for patients with unstable renal function and has not been validated in children and those over 70. Current interpretive data was last reviewed 2021. Blood 09/15/2024 8:44 AM CDT 09/15/2024 9:06 AM CDT Virgen Awad MD LAB BLOOD ORDERABLES Final Res ult [facility] [place] [address] * (ABNORMAL) Basic metabolic panel (09/15/2024 8:44 AM CDT) Sodium 129(L) 135 - 145 mmol/L Potassium, pl 4.6 3.3 - 4.9 mmol/L [facility] Chloride 96(L) 97 - 110 mmol/L [facility] CO2 25 22 - 32 mmol/L [facility] Anion gap 8 2 - 15 mmol/L [facility] BUN 14 6 - 25 mg/dL [facility] Creatinine 0.89 0.80 - 1.30 mg/dL [facility] Glucose 138 70 - 199 mg/dL [facility] Comment: Interpretive Data Fasting glucose >/= 126 mg/dl is diagnostic for diabetes. Fasting is defined as no caloric intake for at least 8 hours. Fasting glucose between 100 mg/dl to 125 mg/dl is diagnostic of prediabetes. In a patient with classic symptoms of hyperglycemia or hyperglycemic crisis, a random glucose >/= 200 mg/dl is diagnostic for diabetes. In the absence of unequivocal hyperglycemia, results should be confirmed by repeat testing. The classification and Diagnosis of Diabetes Diabetes Care 202; 46: S19-S40. Current interpretive data was last revised 2022. Calcium 8.5 8.5 - 10.3 mg/dL [facility] Blood 09/15/2024 8:44 AM CDT 09/15/2024 9:06 AM CDT us Virgen Awad MD LAB BLOOD ORDERABLES Final Res ult [facility] [place] [address] * eGFR (09/14/2024 8:33 PM CDT) eGFR 60 >=60 mL/min/1. 73 m2 Comment: Interpretive Data Reference Interval Normal >/= 90 mL/min/1.73m2 Mildly decreased* 60 - 89 mL/min/1.73m2 Mildly to moderately decreased 45 - 59 mL/min/1.73m2 Moderately to severely decreased 30 - 44 mL/min/1.73m2 Severely decreased 15 - 29 mL/min/1.73m2 Kidney Failure < 15 mL/min/1.73m2 *Relative to young adult level Estimated glomerular filtration rate is determined by the 2020 CKD-EPI equation recommended by the National Kidney Foundation (A Unifying Approach to GFR Estimation: Recommendations of the NKF-ASK Task Force on Reassessing the Inclusion of Race in Diagnosing Kidney Disease, JASN 2020). The CKD-EPI equation should not be used for patients with unstable renal function and has not been validated in children and those over 70. Current interpretive data was last reviewed 2021. Blood 09/14/2024 8:33 PM CDT 09/14/2024 9:53 PM CDT us Virgen Awad MD LAB BLOOD ORDERABLES Final Res ult [facility] [place] [address] * (ABNORMAL) Differential, auto (09/14/2024 8:33 PM CDT) Neutrophil abs 12.28(H) 1.50 - 6.50 K/cumm Imm gran abs 0.14(H) 0.00 - 0.10 K/cumm [facility] Lymphocyte abs 1.52 0.80 - 3.30 K/cumm [facility] Monocyte abs 1.12(H) 0.20 - 0.80 K/cumm [facility] Eosinophil abs 0.13 0.00 - 0.50 K/cumm [facility] Basophil abs 0.03 0.00 - 0.10 K/cumm [facility] Neutrophil pct 80.6 % [facility] Comment: Interpretive Data Percent cell count reference ranges are not reported, since discordance with absolute values may lead to misinterpretation of CBC data. Current Interpretive Data was last revised on 2017. Imm gran pct 0.9 % [facility] Comment: Interpretive Data Percent cell count reference ranges are not reported, since discordance with absolute values may lead to misinterpretation of CBC data. Current Interpretive Data was last revised on 2017. Lymphocyte pct 10.0 % [facility] Comment: Interpretive Data Percent cell count reference ranges are not reported, since discordance with absolute values may lead to misinterpretation of CBC data. Current Interpretive Data was last revised on 2017. Monocyte pct 7.4 % [facility] Comment: Interpretive Data Percent cell count reference ranges are not reported, since discordance with absolute values may lead to misinterpretation of CBC data. Current Interpretive Data was last revised on 2017. Eosinophil pct 0.9 % [facility] Comment: Interpretive Data Percent cell count reference ranges are not reported, since discordance with absolute values may lead to misinterpretation of CBC data. Current Interpretive Data was last revised on 2017. Basophil pct 0.2 % [facility] Comment: Interpretive Data Percent cell count reference ranges are not reported, since discordance with absolute values may lead to misinterpretation of CBC data. Current Interpretive Data was last revised on 2017. Blood 09/14/2024 8:33 PM CDT 09/14/2024 9:53 PM CDT Virgen Awad MD LAB BLOOD ORDERABLES Final Res ult Performing Organization Address [facility]/ZIP Co de Phone Number [facility] [place] [address] * (ABNORMAL) CBC with auto differential (09/14/2024 8:33 PM CDT) WBC 15.22(H) 3.80 - 9.90 K/cumm Hgb 9.8(L) 13.0 - 17.5 g/dL [facility] Hct 28.5(L) 38.9 - 50.3 % [facility] Plt 194 150 - 400 K/cumm [facility] MPV 9.7 9.1 - 12.3 fL [facility] RBC 3.33(L) 4.30 - 5.80 M/cumm [facility] MCV 85.6 81.3 - 96.4 fL [facility] MCH 29.4 27.1 - 33.3 pg [facility] MCHC 34.4 32.3 - 35.7 g/dL [facility] RDW CV 13.2 11.1 - 14.9 % [facility] RDW SD 41.2 35.7 - 48.1 fL [facility] NRBC abs 0.00 0.00 - 0.01 K/cumm [facility] Blood 09/14/2024 8:33 PM CDT 09/14/2024 9:53 PM CDT Virgen Awad MD LAB BLOOD ORDERABLES Final Res ult [facility] Department [place] [address] * Magnesium (09/14/2024 8:33 PM CDT) [facility] Magnesium 2.0 1.4 - 2.5 mg/dL Blood 09/14/2024 8:33 PM CDT 09/14/2024 9:53 PM CDT Virgen Awad MD LAB BLOOD ORDERABLES Final Res ult Performing Organization Address City/State/[facility] Co de Phone Number [facility] [place] [address] * (ABNORMAL) Basic metabolic panel (09/14/2024 8:33 PM CDT) [facility] Sodium 128(L) 135 - 145 mmol/L Potassium, pl 4.4 3.3 - 4.9 mmol/L [facility] Chloride 94(L) 97 - 110 mmol/L [facility] CO2 28 22 - 32 mmol/L [facility] Anion gap 6 2 - 15 mmol/L [facility] BUN 20 6 - 25 mg/dL [facility] Creatinine 1.20 0.80 - 1.30 mg/dL [facility] Glucose 126 70 - 199 mg/dL [facility] Comment: Interpretive Data Fasting glucose >/= 126 mg/dl is diagnostic for diabetes. Fasting is defined as no caloric intake for at least 8 hours. Fasting glucose between 100 mg/dl to 125 mg/dl is diagnostic of prediabetes. In a patient with classic symptoms of hyperglycemia or hyperglycemic crisis, a random glucose >/= 200 mg/dl is diagnostic for diabetes. In the absence of unequivocal hyperglycemia, results should be confirmed by repeat testing. The classification and Diagnosis of Diabetes Diabetes Care 202; 46: S19-S40. Current interpretive data was last revised 2022. Calcium 8.9 8.5 - 10.3 mg/dL [facility] Blood 09/14/2024 8:33 PM CDT 09/14/2024 9:53 PM CDT Virgen Awad MD LAB BLOOD ORDERABLES Final Res ult Performing Organization Address City/[facility] Co de Phone Number [facility] [place] [address] * eGFR (09/13/2024 11:42 PM CDT) eGFR 73 >=60 mL/min/1. 73 m2 Comment: Interpretive Data Reference Interval Normal >/= 90 mL/min/1.73m2 Mildly decreased* 60 - 89 mL/min/1.73m2 Mildly to moderately decreased 45 - 59 mL/min/1.73m2 Moderately to severely decreased 30 - 44 mL/min/1.73m2 Severely decreased 15 - 29 mL/min/1.73m2 Kidney Failure < 15 mL/min/1.73m2 *Relative to young adult level Estimated glomerular filtration rate is determined by the 2020 CKD-EPI equation recommended by the National Kidney Foundation (A Unifying Approach to GFR Estimation: Recommendations of the NKF-ASK Task Force on Reassessing the Inclusion of Race in Diagnosing Kidney Disease, JASN 2020). The CKD-EPI equation should not be used for patients with unstable renal function and has not been validated in children and those over 70. Current interpretive data was last reviewed 2021. Blood 09/13/2024 11:4 2 PM CDT 09/14/2024 12:32 AM CDT Virgen Awad MD LAB BLOOD ORDERABLES Final Res ult Performing Organization Address City/[facility]/ZIP Co de Phone Number [facility] [place] [address] * (ABNORMAL) Differential, auto (09/13/2024 11:42 PM CDT) Neutrophil abs 12.38(H) 1.50 - 6.50 K/cumm Imm gran abs 0.09 0.00 - 0.10 K/cumm [facility] Lymphocyte abs 1.78 0.80 - 3.30 K/cumm [facility] Monocyte abs 1.01(H) 0.20 - 0.80 K/cumm [facility] Eosinophil abs 0.09 0.00 - 0.50 K/cumm [facility] Basophil abs 0.03 0.00 - 0.10 K/cumm [facility] Neutrophil pct 80.4 % [facility] Comment: Interpretive Data Percent cell count reference ranges are not reported, since discordance with absolute values may lead to misinterpretation of CBC data. Current Interpretive Data was last revised on 2017. Imm gran pct 0.6 % [facility] Comment: Interpretive Data Percent cell count reference ranges are not reported, since discordance with absolute values may lead to misinterpretation of CBC data. Current Interpretive Data was last revised on 2017. Lymphocyte pct 11.6 % [facility] Comment: Interpretive Data Percent cell count reference ranges are not reported, since discordance with absolute values may lead to misinterpretation of CBC data. Current Interpretive Data was last revised on 2017. Monocyte pct 6.6 % [facility] Comment: Interpretive Data Percent cell count reference ranges are not reported, since discordance with absolute values may lead to misinterpretation of CBC data. Current Interpretive Data was last revised on 2017. Eosinophil pct 0.6 % [facility] Comment: Interpretive Data Percent cell count reference ranges are not reported, since discordance with absolute values may lead to misinterpretation of CBC data. Current Interpretive Data was last revised on 2017. Basophil pct 0.2 % [facility] Comment: Interpretive Data Percent cell count reference ranges are not reported, since discordance with absolute values may lead to misinterpretation of CBC data. Current Interpretive Data was last revised on 2017. Blood 09/13/2024 11:4 2 PM CDT 09/14/2024 12:42 AM CDT us Virgen Awad MD LAB BLOOD ORDERABLES Final Res ult [facility] [place] [address] * (ABNORMAL) CBC with auto differential (09/13/2024 11:42 PM CDT) Pathologist [facility] WBC 15.38(H) 3.80 - 9.90 K/cumm Hgb 9.4(L) 13.0 - 17.5 g/dL [facility] Hct 28.0(L) 38.9 - 50.3 % [facility] Plt 196 150 - 400 K/cumm [facility] MPV 9.7 9.1 - 12.3 fL [facility] RBC 3.23(L) 4.30 - 5.80 M/cumm [facility] MCV 86.7 81.3 - 96.4 fL [facility] MCH 29.1 27.1 - 33.3 pg [facility] MCHC 33.6 32.3 - 35.7 g/dL [facility] RDW CV 13.2 11.1 - 14.9 % [facility] RDW SD 41.5 35.7 - 48.1 fL [facility] NRBC abs 0.00 0.00 - 0.01 K/cumm [facility] Blood 09/13/2024 11:4 2 PM CDT 09/14/2024 12:42 AM CDT us Virgen Awad MD LAB BLOOD ORDERABLES Final Res ult Performing Organization Address [facility] Co de Phone Number [facility] [place] [address] * Magnesium (09/13/2024 11:42 PM CDT) [facility] Magnesium 2.0 1.4 - 2.5 mg/dL Blood 09/13/2024 11:4 2 PM CDT 09/14/2024 12:32 AM CDT us Virgen Awad MD LAB BLOOD ORDERABLES Final Res ult [facility] [place] [address] * (ABNORMAL) Basic metabolic panel (09/13/2024 11:42 PM CDT) Sodium 133(L) 135 - 145 mmol/L Potassium, pl 4.3 3.3 - 4.9 mmol/L [facility] Chloride 98 97 - 110 mmol/L [facility] CO2 27 22 - 32 mmol/L [facility] Anion gap 8 2 - 15 mmol/L [facility] BUN 17 6 - 25 mg/dL [facility] Creatinine 1.03 0.80 - 1.30 mg/dL [facility] Glucose 119 70 - 199 mg/dL [facility] Comment: Interpretive Data Fasting glucose >/= 126 mg/dl is diagnostic for diabetes. Fasting is defined as no caloric intake for at least 8 hours. Fasting glucose between 100 mg/dl to 125 mg/dl is diagnostic of prediabetes. In a patient with classic symptoms of hyperglycemia or hyperglycemic crisis, a random glucose >/= 200 mg/dl is diagnostic for diabetes. In the absence of unequivocal hyperglycemia, results should be confirmed by repeat testing. The classification and Diagnosis of Diabetes Diabetes Care 202; 46: S19-S40. Current interpretive data was last revised 2022. Calcium 8.4(L) 8.5 - 10.3 mg/dL [facility] Blood 09/13/2024 11:4 2 PM CDT 09/14/2024 12:32 AM CDT us Virgen Awad MD LAB BLOOD ORDERABLES Final Res ult [facility] [place] [address] * XR Chest 1 View (09/13/2024 6:50 PM CDT) Anatomical Region Laterality Modality Body, Chest N/A Computed Radiogr aphy 09/14/2024 8:47 AM CDT Impressions 09/14/2024 8:54 AM CDT The current study is compared with the prior radiograph dated 09/13/2024 at 3:46 PM. Patient is status post median sternotomy. Transcatheter aortic valve replacement noted. Right peripherally inserted central venous catheter with tip overlying the superior vena cava. No pulmonary consolidation, pleural effusion, or pneumothorax. Stable cardiac mediastinal silhouette. Dictated by: Richar Mensah M.D. The radiology attending physician has personally reviewed this study, and had reviewed and/or edited this written report and agrees with it. Electronically signed by: Dorinda Stanton M.D. Narrative 09/14/2024 8:54 AM CDT EXAMINATION: 1 view chest radiograph Procedure Note Dorinda Stanton MD - 09/14/2024 EXAMINATION: 1 view chest radiograph IMPRESSION: The current study is compared with the prior radiograph dated 09/13/2024 at 3:46 PM. Patient is status post median sternotomy. Transcatheter aortic valve replacement noted. Right peripherally inserted central venous catheter with tip overlying the superior vena cava. No pulmonary consolidation, pleural effusion, or pneumothorax. Stable cardiac mediastinal silhouette. Dictated by: Richar Mensah M.D. The radiology attending physician has personally reviewed this study, and had reviewed and/or edited this written report and agrees with it. Electronically signed by: Dorinda Stanton M.D. Virgen Awad MD IMG XR PROCEDURES Final Result * XR Chest PA Lateral 2 Views (09/13/2024 3:57 PM CDT) Anatomical Region Laterality Modality Body, Chest N/A Computed Radiogr aphy 09/13/2024 4:40 PM CDT Impressions 09/13/2024 4:42 PM CDT The current study is compared with the prior radiograph dated 09/06/2024 at 3:23 PM. Interval placement of a right peripherally inserted central venous catheter with tip overlying the superior cavoatrial junction. Patient is status post median sternotomy. Transcatheter aortic valve replacement noted. No pulmonary consolidation, pleural effusion, or pneumothorax. Stable cardiac mediastinal silhouette. Dictated by: Richar Mensah M.D. The radiology attending physician has personally reviewed this study, and had reviewed and/or edited this written report and agrees with it. Electronically signed by: Sarthak Norman M.D. Narrative 09/13/2024 4:42 PM CDT EXAMINATION: 2 view chest radiograph Procedure Note Sarthak Norman MD - 09/13/2024 EXAMINATION: 2 view chest radiograph IMPRESSION: The current study is compared with the prior radiograph dated 09/06/2024 at 3:23 PM. Interval placement of a right peripherally inserted central venous catheter with tip overlying the superior cavoatrial junction. Patient is status post median sternotomy. Transcatheter aortic valve replacement noted. No pulmonary consolidation, pleural effusion, or pneumothorax. Stable cardiac mediastinal silhouette. Dictated by: Richar Mensah M.D. The radiology attending physician has personally reviewed this study, and had reviewed and/or edited this written report and agrees with it. Electronically signed by: Sarthak Norman M.D. Virgen Awad MD IMG XR PROCEDURES Final Result * TRANSESOPHAGEAL ECHO (JESSICA) W DOPPLER/CF WO CONTRAST (09/13/2024 10:35 AM CDT) Anatomical Region Laterality Modality Echocardiography 09/13/2024 9:26 AM CDT Narrative 09/13/2024 1:57 PM CDT [facility] [place] [address] Transesophageal Echocardiographic Report Patient Name: JAMSHID INTERIANO J : 1940 (83y 9m) Gender: M Study Date: 09/13/2024 09:26:56 AM Ht(Inch): Wt(Lb): BSA: Head Of Precision Targeting: Location: [id number] Order Provider: VIRGEN AWAD Heart Rate: 74 BMI: Ref Provider: VIRGEN AWAD PROCEDURES: Transesophageal Echo Report: Echocardiography, transesophageal, real-time with image documentation (2D) including probe placement, image acquisition, interpretation, and report; Doppler echocardiography, limited pulsed wave and/or continuous wave with spectral display; Doppler echocardiography color flow velocity mapping; 3D echocardiography, rendering with interpretation and reporting, not requiring post-processing on an independent workstation. Performing Physician: Performed by Avery Ulloa MD, MPHS and Penny Moralez MD. JESSICA probe placed by Penny Moralez MD. Consent: Informed consent was obtained from the patient in writing. The risks and benefits of the procedure were explained in detail to the patient, including but not limited to the risk of aspiration, dysphagia, and esophageal perforation. After a thorough discussion of these risks and benefits, the patient agreed to proceed. Medications: Medication(s) given during the procedure: propofol 460 mg. Pre Vitals: HR: 71 bpm. RR: 16. BP: 151/65 mmHg. Sp02: 100 %. Post Vitals: HR: 63 bpm. RR: 12. BP: 138/61 mmHg. Sp02: 100 %. INDICATIONS: atrial tachyarrhythmia with AV Wenckebach; recent Strep mitis bacteremia on ceftriaxone with persistently elevated CRP. FINDINGS: Left Ventricle: Normal Left ventricular size and systolic function. The left ventricle appears normal in size. Left ventricular systolic function appears normal. There is concentric left ventricular hypertrophy. Right Ventricle: Normal right ventricular size and systolic function. Right ventricular systolic function appears normal. Left Atrium: Normal left atrial size and morphology. No left atrial thrombus. The left atrial appendage is normal in appearance with no evidence of thrombus and emptying velocities are normal. Right Atrium: Normal right atrial size and morphology. PICC line extends 1.1 cm into the RA, without associated thrombus or vegetation. Atrial Septum: Normal interatrial septum. Mitral Valve: Mitral valve leaflets appear mildly thickened. Trace mitral valve regurgitation. No stenosis present. Small filamentous structure measuring aprox 1 cm occasionally seen in the LA (see sequences 31, 32); cannot exclude a small mitral vegetation though no large vegetations seen. Aortic Valve: The peak transaortic gradient is 27 mmHg. The mean transaortic gradient is 14 mmHg. 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 The aortic valve prosthesis appears well seated. The aortic prosthesis demonstrates normal leaflet motion. Vmax 2.6 m/s. LVOT/AV VTI 19.6/57.5=0.34, AT 66 msec. There is no evidence of paravalvular aortic regurgitation. The aortic prosthesis demonstrates a normal transvalvular gradient for valve type and size. Broad-based vegetation along the edge of the noncoronary cusp, measuring 1.1 x 0.8 cm (sequence 45), greatest height 0.7 cm. No aortic root abscess seen. Tricuspid Valve: Normal tricuspid valve structure. There is mild to moderate tricuspid regurgitation. There is no evidence of tricuspid valve vegetation. Pulmonic Valve: Pulmonic valve not well visualized. No evidence of pulmonic regurgitation. Pericardium: Normal pericardium with no pericardial effusion. Aorta: Descending aorta normal in size. There is mild fibrocalcific change of the descending aorta, consistent with atherosclerosis. Pulmonary Artery: Normal pulmonary artery size. Pulmonary Veins: Pulmonary veins are normal in appearance and pulse Doppler interrogation shows normal systolic predominant flow. 3D Findings: 3D images demonstrate bioprosthetic aortic valve with vegetation attached to the noncoronary cusp; normal aortic valve motion. No mitral valve vegetation seen. See sequences 92-96. - CONCLUSIONS: 1. Normal Left ventricular size and systolic function. The left ventricle appears normal in size. Left ventricular systolic function appears normal. There is concentric left ventricular hypertrophy. 2. PICC line extends 1.1 cm into the RA, without associated thrombus or vegetation. 3. Mitral valve leaflets appear mildly thickened. Trace mitral valve regurgitation. No stenosis present. Small filamentous structure measuring aprox 1 cm occasionally seen in the LA (see sequences 31, 32); cannot exclude a small mitral vegetation though no large vegetations seen. 4. The peak transaortic gradient is 27 mmHg. The mean transaortic gradient is 14 mmHg. 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 The aortic valve prosthesis appears well seated. The aortic prosthesis demonstrates normal leaflet motion. Vmax 2.6 m/s. LVOT/AV VTI 19.6/57.5=0.34, AT 66 msec. There is no evidence of paravalvular aortic regurgitation. The aortic prosthesis demonstrates a normal transvalvular gradient for valve type and size. Broad-based vegetation along the edge of the noncoronary cusp, measuring 1.1 x 0.8 cm (sequence 45), greatest height 0.7 cm. No aortic root abscess seen. 5. 3D images demonstrate bioprosthetic aortic valve with vegetation attached to the noncoronary cusp; normal aortic valve motion. No mitral valve vegetation seen. See sequences 92-96. COMPARISONS: Compared with prior JESSICA study 08/30/24, the following changes are now seen: AV vegetation on the noncoronary cusp. Thin, filamentous density measuring approximately 1.1 cm in the LA, probably attached to the MV, cannot exclude small vegetation. Today's study has higher resolution imaging than the prior study. In retrospect, the AV vegetation was likely present on the prior study, and there has not been a definitive increase in siize. Recommend close clinical follow-up. Findings discussed with and Mrs. Interiano (the latter by telephone), the primary service, and the infectious diseases and cardiology consult teams. ATTESTATION: I have personally reviewed this study with a fellow in a teaching setting and attest to the findings and conclusions. - DISCLAIMER: The study images and the final report will be retained in the patient chart by the Echo Laboratory for the legally required time period. This chart constitutes the legal record of any testing performed. MEASUREMENTS: Doppler Value Range AV Peak Hans 2.6 m/s [ 1.0 - 1.7 ] AV Peak PG 27.0 AV Mean PG 14.0 mmHg AV VTI 57.5 cm LVOT Peak Hans 0.9 m/s [ 0.7 - 1.1 ] LVOT Peak PG 3.2 LVOT Mean PG 2.0 mmHg LVOT VTI 19.6 cm LVOT/AV VTI 0.3 Electronically Signed By: Avery Ulloa MD 09/13/2024 1:56:44 PM CDT Procedure Note Avery Ulloa MD - 09/13/2024 [facility] Cardiac [place] [address] [place] [address] Transesophageal Echocardiographic Report Patient Name: JAMSHID INTERIANO J : 1940 (83y 9m) Gender: M Study Date: 09/13/2024 09:26:56 AM Ht(Inch): Wt(Lb): BSA: Head Of Precision Targeting: Location: [id number] Order Provider: VIRGEN AWAD Heart Rate: 74 BMI: Ref Provider: VIRGEN AWAD PROCEDURES: Transesophageal Echo Report: Echocardiography, transesophageal, real-timewith image documentation (2D) including probe placement, image acquisition,interpretation, and report; Doppler echocardiography, limited pulsed wave and/or continuouswave with spectral display; Doppler echocardiography color flow velocity mapping; 3D echocardiography, rendering with interpretation and reporting, notrequiring post-processing on an independent workstation. Performing Physician: Performed by Avery Ulloa MD, MPHS and MD Barney. JESSICA probe placed by Penny Moralez MD. Consent: Informed consent was obtained from the patient in writing. Therisks and benefits of the procedure were explained in detail to the patient,including but not limited to the risk of aspiration, dysphagia, and esophageal perforation.After a thorough discussion of these risks and benefits, the patient agreed toproceed. Medications: Medication(s) given during the procedure: propofol 460 mg. Pre Vitals: HR: 71 bpm. RR: 16. BP: 151/65 mmHg. Sp02: 100 %. Post Vitals: HR: 63 bpm. RR: 12. BP: 138/61 mmHg. Sp02: 100 %. INDICATIONS: atrial tachyarrhythmia with AV Wenckebach; recent Strep mitis bacteremiaon ceftriaxone with persistently elevated CRP. FINDINGS: Left Ventricle: Normal Left ventricular size and systolic function. Theleft ventricle appears normal in size. Left ventricular systolic function appears normal.There is concentric left ventricular hypertrophy. Right Ventricle: Normal right ventricular size and systolic function.Right ventricular systolic function appears normal. Left Atrium: Normal left atrial size and morphology. No left atrialthrombus. The left atrial appendage is normal in appearance with no evidence of thrombus andemptying velocities are normal. Right Atrium: Normal right atrial size and morphology. PICC line extends1.1 cm into the RA, without associated thrombus or vegetation. Atrial Septum: Normal interatrial septum. Mitral Valve: Mitral valve leaflets appear mildly thickened. Trace mitralvalve regurgitation. No stenosis present. Small filamentous structure measuringaprox 1 cm occasionally seen in the LA (see sequences 31, 32); cannot exclude a smallmitral vegetation though no large vegetations seen. Aortic Valve: The peak transaortic gradient is 27 mmHg. The meantransaortic gradient is 14 mmHg. 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 Theaortic valve prosthesis appears well seated. The aortic prosthesis demonstrates normalleaflet motion. Vmax 2.6 m/s. LVOT/AV VTI 19.6/57.5=0.34, AT 66 msec. There is no evidenceof paravalvular aortic regurgitation. The aortic prosthesis demonstrates anormal transvalvular gradient for valve type and size. Broad-based vegetationalong the edge of the noncoronary cusp, measuring 1.1 x 0.8 cm (sequence 45), greatestheight 0.7 cm. No aortic root abscess seen. Tricuspid Valve: Normal tricuspid valve structure. There is mild tomoderate tricuspid regurgitation. There is no evidence of tricuspid valve vegetation. Pulmonic Valve: Pulmonic valve not well visualized. No evidence ofpulmonic regurgitation. Pericardium: Normal pericardium with no pericardial effusion. Aorta: Descending aorta normal in size. There is mild fibrocalcific changeof the descending aorta, consistent with atherosclerosis. Pulmonary Artery: Normal pulmonary artery size. Pulmonary Veins: Pulmonary veins are normal in appearance and pulseDoppler interrogation shows normal systolic predominant flow. 3D Findings: 3D images demonstrate bioprosthetic aortic valve withvegetation attached to the noncoronary cusp; normal aortic valve motion. No mitral valvevegetation seen. See sequences 92-96. - CONCLUSIONS: 1. Normal Left ventricular size and systolic function. The left ventricleappears normal in size. Left ventricular systolic function appears normal. There isconcentric left ventricular hypertrophy. 2. PICC line extends 1.1 cm into the RA, without associated thrombus orvegetation. 3. Mitral valve leaflets appear mildly thickened. Trace mitral valveregurgitation. No stenosis present. Small filamentous structure measuring aprox 1 cmoccasionally seen in the LA (see sequences 31, 32); cannot exclude a small mitral vegetationthough no large vegetations seen. 4. The peak transaortic gradient is 27 mmHg. The mean transaortic gradientis 14 mmHg. 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 The aortic valveprosthesis appears well seated. The aortic prosthesis demonstrates normal leafletmotion. Vmax 2.6 m/s. LVOT/AV VTI 19.6/57.5=0.34, AT 66 msec. There is no evidence ofparavalvular aortic regurgitation. The aortic prosthesis demonstrates a normal transvalvulargradient for valve type and size. Broad-based vegetation along the edge of thenoncoronary cusp, measuring 1.1 x 0.8 cm (sequence 45), greatest height 0.7 cm. No aorticroot abscess seen. 5. 3D images demonstrate bioprosthetic aortic valve with vegetationattached to the noncoronary cusp; normal aortic valve motion. No mitral valve vegetationseen. See sequences 92-96. COMPARISONS: Compared with prior JESSICA study 08/30/24, the following changes are now seen:AV vegetation on the noncoronary cusp. Thin, filamentous density measuring approximately1.1 cm in the LA, probably attached to the MV, cannot exclude small vegetation. Today'sstudy has higher resolution imaging than the prior study. In retrospect, the AVvegetation was likely present on the prior study, and there has not been a definitiveincrease in siize. Recommend close clinical follow-up. Findings discussed with and (the latter by telephone), the primary service, and the infectious diseases andcardiology consult teams. ATTESTATION: I have personally reviewed this study with a fellow in a teaching settingand attest to the findings and conclusions. - DISCLAIMER: The study images and the final report will be retained in the patientchart by the Echo Laboratory for the legally required time period. This chart constitutesthe legal record of any testing performed. MEASUREMENTS: Doppler Value Range AV Peak Hans 2.6 m/s [ 1.0 - 1.7 ] AV Peak PG 27.0 AV Mean PG 14.0 mmHg AV VTI 57.5 cm LVOT Peak Hans 0.9 m/s [ 0.7 - 1.1 ] LVOT Peak PG 3.2 LVOT Mean PG 2.0 mmHg LVOT VTI 19.6 cm LVOT/AV VTI 0.3 Electronically Signed By: Avery Ulloa MD 09/13/2024 1:56:44 PM CDT us Virgen Awad MD CV ECHO PROCEDURES Final Resul t * ECG 12 lead (09/13/2024 8:57 AM CDT) Ventricular Rate EKG/Min 74 BPM [facility] Atrial Rate 74 BPM [facility] MO-Interval (MSEC) 182 ms [facility] QRS-Interval (MSEC) 112 ms [facility] QT-Interval (MSEC) 404 ms [facility] QTc 448 ms [facility] P [place] 76 degrees [facility] R [place] -10 degrees [facility] T [place] 44 degrees [facility] Diagnosis Normal sinus rhythm Moderate voltage criteria for LVH, may be normal variant ( R in aVL , Chandler product ) Borderline ECG When compared with ECG of 08-SEP-2024 12:08, PREVIOUS ECG IS PRESENT Confirmed by ADOLFO PEÑA M.D ([id number]) on 09/14/2024 11:28:42 AM [facility] 09/13/2024 8:57 AM CDT 09/14/2024 11:28 AM CDT us Avery Ulloa MD ECG ORDERABLES Final Result Performing Organization Address City/[facility]/ZIP Co de Phone Number [facility] * eGFR (09/13/2024 12:23 AM CDT) eGFR 67 >=60 mL/min/1. 73 m2 Comment: Interpretive Data Reference Interval Normal >/= 90 mL/min/1.73m2 Mildly decreased* 60 - 89 mL/min/1.73m2 Mildly to moderately decreased 45 - 59 mL/min/1.73m2 Moderately to severely decreased 30 - 44 mL/min/1.73m2 Severely decreased 15 - 29 mL/min/1.73m2 Kidney Failure < 15 mL/min/1.73m2 *Relative to young adult level Estimated glomerular filtration rate is determined by the 2020 CKD-EPI equation recommended by the National Kid[employer] (A Unifying Approach to GFR Estimation: Recommendations of the NKF-ASK Task Force on Reassessing the Inclusion of Race in Diagnosing Kidney Disease, JASN 2020). The CKD-EPI equation should not be used for patients with unstable renal function and has not been validated in children and those over 70. Current interpretive data was last reviewed 2021. Blood 09/13/2024 12:2 3 AM CDT 09/13/2024 12:40 AM CDT us Virgen Awad MD LAB BLOOD ORDERABLES Final Res ult Performing Organization Address City/[facility]/ZIP Co de Phone Number [facility] [place] [address] * (ABNORMAL) Differential, auto (09/13/2024 12:23 AM CDT) Neutrophil abs 10.01(H) 1.50 - 6.50 K/cumm Imm gran abs 0.11(H) 0.00 - 0.10 K/cumm [facility] Lymphocyte abs 2.14 0.80 - 3.30 K/cumm [facility] Monocyte abs 0.89(H) 0.20 - 0.80 K/cumm [facility] Eosinophil abs 0.13 0.00 - 0.50 K/cumm [facility] Basophil abs 0.02 0.00 - 0.10 K/cumm [facility] Neutrophil pct 75.2 % [facility] Comment: Interpretive Data Percent cell count reference ranges are not reported, since discordance with absolute values may lead to misinterpretation of CBC data. Current Interpretive Data was last revised on 2017. Imm gran pct 0.8 % [facility] Comment: Interpretive Data Percent cell count reference ranges are not reported, since discordance with absolute values may lead to misinterpretation of CBC data. Current Interpretive Data was last revised on 2017. Lymphocyte pct 16.1 % [facility] Comment: Interpretive Data Percent cell count reference ranges are not reported, since discordance with absolute values may lead to misinterpretation of CBC data. Current Interpretive Data was last revised on 2017. Monocyte pct 6.7 % [facility] Comment: Interpretive Data Percent cell count reference ranges are not reported, since discordance with absolute values may lead to misinterpretation of CBC data. Current Interpretive Data was last revised on 2017. Eosinophil pct 1.0 % [facility] Comment: Interpretive Data Percent cell count reference ranges are not reported, since discordance with absolute values may lead to misinterpretation of CBC data. Current Interpretive Data was last revised on 2017. Basophil pct 0.2 % [facility] Comment: Interpretive Data Percent cell count reference ranges are not reported, since discordance with absolute values may lead to misinterpretation of CBC data. Current Interpretive Data was last revised on 2017. Blood 09/13/2024 12:2 3 AM CDT 09/13/2024 12:40 AM CDT us Virgen Awad MD LAB BLOOD ORDERABLES Final Res ult [facility] [place] [address] * (ABNORMAL) CBC with auto differential (09/13/2024 12:23 AM CDT) [facility] WBC 13.30(H) 3.80 - 9.90 K/cumm Hgb 9.6(L) 13.0 - 17.5 g/dL [facility] Hct 28.0(L) 38.9 - 50.3 % [facility] Plt 178 150 - 400 K/cumm [facility] MPV 9.4 9.1 - 12.3 fL [facility] RBC 3.25(L) 4.30 - 5.80 M/cumm [facility] MCV 86.2 81.3 - 96.4 fL [facility] MCH 29.5 27.1 - 33.3 pg [facility] MCHC 34.3 32.3 - 35.7 g/dL [facility] RDW CV 13.1 11.1 - 14.9 % [facility] RDW SD 40.8 35.7 - 48.1 fL [facility] NRBC abs 0.00 0.00 - 0.01 K/cumm [facility] Blood 09/13/2024 12:2 3 AM CDT 09/13/2024 12:40 AM CDT us Virgen Awad MD LAB BLOOD ORDERABLES Final Res ult Performing Organization Address City/[facility]/ZIP Co de Phone Number [facility] [place] [address] * Magnesium (09/13/2024 12:23 AM CDT) [facility] Magnesium 2.1 1.4 - 2.5 mg/dL Blood 09/13/2024 12:2 3 AM CDT 09/13/2024 12:40 AM CDT us Virgen Awad MD LAB BLOOD ORDERABLES Final Res ult [facility] [place] [address] * (ABNORMAL) Basic metabolic panel (09/13/2024 12:23 AM CDT) Sodium 132(L) 135 - 145 mmol/L Potassium, pl 4.2 3.3 - 4.9 mmol/L [facility] Chloride 99 97 - 110 mmol/L [facility] CO2 26 22 - 32 mmol/L [facility] Anion gap 7 2 - 15 mmol/L [facility] BUN 18 6 - 25 mg/dL [facility] Creatinine 1.10 0.80 - 1.30 mg/dL [facility] Glucose 114 70 - 199 mg/dL [facility] Comment: Interpretive Data Fasting glucose >/= 126 mg/dl is diagnostic for diabetes. Fasting is defined as no caloric intake for at least 8 hours. Fasting glucose between 100 mg/dl to 125 mg/dl is diagnostic of prediabetes. In a patient with classic symptoms of hyperglycemia or hyperglycemic crisis, a random glucose >/= 200 mg/dl is diagnostic for diabetes. In the absence of unequivocal hyperglycemia, results should be confirmed by repeat testing. The classification and Diagnosis of Diabetes Diabetes Care 202; 46: S19-S40. Current interpretive data was last revised 2022. Calcium 9.0 8.5 - 10.3 mg/dL [facility] Blood 09/13/2024 12:2 3 AM CDT 09/13/2024 12:40 AM CDT us Virgen Awad MD LAB BLOOD ORDERABLES Final Res ult [facility] [place] [address] * US Vein Duplex Lower Extremity Bilateral Complete (09/12/2024 9:47 AM CDT) Anatomical Region Laterality Modality Vascular Bilateral Ultrasound 09/12/2024 9:09 AM CDT Narrative 09/14/2024 3:43 PM CDT [facility] - Department of Vascular Surgery, Vascular Laboratory [address] [place] [id number] Lower Extremity Venous Ultrasound Report Patient Name: JAMSHID INTERIANO J : 1940 (83y 9m) Study Date: 09/12/2024 9:09:59 AM Gender: M Tech: RI Location: [id number] Ref Provider: VIRGEN AWAD Quality: Adequate Order Provider: VIRGEN AWAD PROCEDURES: Vascular Report: Venous Duplex imaging was performed bilaterally in the lower extremities. The common femoral, femoral, popliteal, posterior tibial, peroneal veins were evaluated for patency, spontaneity and phasicity with Doppler, compression and augmentation maneuvers. Great saphenous vein proximal at the junction was evaluated with compression maneuvers. INDICATIONS: Pain in Leg, Right - FINDINGS: Performing Head Of Precision Targeting: Jeanne Benoit RVT. Bilateral: Venous Doppler signals in the bilateral lower extremity are within normal limits for spontaneity and phasicity and respond normally to augmentation maneuvers. No evidence of deep vein thrombus by duplex, proximal to the calf. CONCLUSIONS: 1. There is no evidence of acute deep vein thrombosis in the lower extremities bilaterally. Noninvasive venous studies cannot rule out isolated calf vein obstruction. HISTORY: Right calf pain. PREVIOUS STUDIES: No previous studies for comparison. DISCLAIMER: The study images and the final report will be retained in the patient chart by the Vascular Laboratory for the legally required time period. This chart constitutes the legal record of any testing performed. ATTESTATION: I have reviewed and interpreted the pertinent images and measurements of this study. I attest to the conclusions in the final report that is provided above. Electronically Signed By: Yunior Crockett MD FACS 09/14/2024 2:55:11 PM CDT Procedure Note Yunior Crockett MD - 09/14/2024 [facility] - Department of Vascular Surgery,Vascular Laboratory [address] [place] [id number] Lower Extremity Venous Ultrasound Report Patient Name: JAMSHID INTERIANO J : 1940 (83y 9m) Study Date: 09/12/2024 9:09:59 AM Gender: M Tech: RI Location: [id number] Ref Provider: VIRGEN AWAD Quality: Adequate Order Provider: VIRGEN AWAD PROCEDURES: Vascular Report: Venous Duplex imaging was performed bilaterally in the lower extremities.The common femoral, femoral, popliteal, posterior tibial, peroneal veins wereevaluated for patency, spontaneity and phasicity with Doppler, compression and augmentationmaneuvers. Great saphenous vein proximal at the junction was evaluated with compressionmaneuvers. INDICATIONS: Pain in Leg, Right - FINDINGS: Performing Head Of Precision Targeting: Jeanne Benoit RVT. Bilateral: Venous Doppler signals in the bilateral lower extremity are within normallimits for spontaneity and phasicity and respond normally to augmentation maneuvers.No evidence of deep vein thrombus by duplex, proximal to the calf. CONCLUSIONS: 1. There is no evidence of acute deep vein thrombosis in the lowerextremities bilaterally. Noninvasive venous studies cannot rule out isolated calf veinobstruction. HISTORY: Right calf pain. PREVIOUS STUDIES: No previous studies for comparison. DISCLAIMER: The study images and the final report will be retained in the patientchart by the Vascular Laboratory for the legally required time period. This chartconstitutes the legal record of any testing performed. ATTESTATION: I have reviewed and interpreted the pertinent images and measurements ofthis study. I attest to the conclusions in the final report that is provided above. Electronically Signed By: Yunior Crockett MD [facility] 09/14/2024 2:55:11 PM CDT us Virgen Awad MD [facility] US PROCEDURES Final Result * eGFR (09/12/2024 6:21 AM CDT) eGFR 85 >=60 mL/min/1. 73 m2 Comment: Interpretive Data Reference Interval Normal >/= 90 mL/min/1.73m2 Mildly decreased* 60 - 89 mL/min/1.73m2 Mildly to moderately decreased 45 - 59 mL/min/1.73m2 Moderately to severely decreased 30 - 44 mL/min/1.73m2 Severely decreased 15 - 29 mL/min/1.73m2 Kidney Failure < 15 mL/min/1.73m2 *Relative to young adult level Estimated glomerular filtration rate is determined by the 2020 CKD-EPI equation recommended by the National Kidney Foundation (A Unifying Approach to GFR Estimation: Recommendations of the NKF-ASK Task Force on Reassessing the Inclusion of Race in Diagnosing Kidney Disease, JASN 202). The CKD-EPI equation should not be used for patients with unstable renal function and has not been validated in children and those over 70. Current interpretive data was last reviewed 2021. Blood 09/12/2024 6:21 AM CDT 09/12/2024 6:42 AM CDT us Donell Awad MD LAB BLOOD ORDERABLES Final Re sult [facility] [place] [address] * (ABNORMAL) Differential, auto (09/12/2024 6:21 AM CDT) Neutrophil abs 10.39(H) 1.50 - 6.50 K/cumm Imm gran abs 0.08 0.00 - 0.10 K/cumm [facility] Lymphocyte abs 1.24 0.80 - 3.30 K/cumm [facility] Monocyte abs 0.83(H) 0.20 - 0.80 K/cumm [facility] Eosinophil abs 0.09 0.00 - 0.50 K/cumm [facility] Basophil abs 0.03 0.00 - 0.10 K/cumm [facility] Neutrophil pct 82.1 % [facility] Comment: Interpretive Data Percent cell count reference ranges are not reported, since discordance with absolute values may lead to misinterpretation of CBC data. Current Interpretive Data was last revised on 2017. Imm gran pct 0.6 % [facility] Comment: Interpretive Data Percent cell count reference ranges are not reported, since discordance with absolute values may lead to misinterpretation of CBC data. Current Interpretive Data was last revised on 2017. Lymphocyte pct 9.8 % [facility] Comment: Interpretive Data Percent cell count reference ranges are not reported, since discordance with absolute values may lead to misinterpretation of CBC data. Current Interpretive Data was last revised on 2017. Monocyte pct 6.6 % [facility] Comment: Interpretive Data Percent cell count reference ranges are not reported, since discordance with absolute values may lead to misinterpretation of CBC data. Current Interpretive Data was last revised on 2017. Eosinophil pct 0.7 % [facility] Comment: Interpretive Data Percent cell count reference ranges are not reported, since discordance with absolute values may lead to misinterpretation of CBC data. Current Interpretive Data was last revised on 2017. Basophil pct 0.2 % [facility] Comment: Interpretive Data Percent cell count reference ranges are not reported, since discordance with absolute values may lead to misinterpretation of CBC data. Current Interpretive Data was last revised on 2017. Blood 09/12/2024 6:21 AM CDT 09/12/2024 6:42 AM CDT Virgen Awad MD LAB BLOOD ORDERABLES Final Res ult Performing Organization Address [facility] Co de Phone Number [facility] [place] [address] * (ABNORMAL) CBC with auto differential (09/12/2024 6:21 AM CDT) WBC 12.66(H) 3.80 - 9.90 K/cumm Hgb 10.1(L) 13.0 - 17.5 g/dL [facility] Hct 29.2(L) 38.9 - 50.3 % [facility] Plt 199 150 - 400 K/cumm [facility] MPV 9.5 9.1 - 12.3 fL [facility] RBC 3.43(L) 4.30 - 5.80 M/cumm [facility] MCV 85.1 81.3 - 96.4 fL [facility] MCH 29.4 27.1 - 33.3 pg [facility] MCHC 34.6 32.3 - 35.7 g/dL [facility] RDW CV 13.2 11.1 - 14.9 % [facility] RDW SD 40.3 35.7 - 48.1 fL [facility] NRBC abs 0.00 0.00 - 0.01 K/cumm [facility] Blood 09/12/2024 6:21 AM CDT 09/12/2024 6:42 AM CDT Virgen Awad MD LAB BLOOD ORDERABLES Final Res ult Performing Organization Address City/[facility]/ZIP Co de Phone Number [facility] Department [place] [address] * Magnesium (09/12/2024 6:21 AM CDT) Pathologist [facility] Magnesium 2.0 1.4 - 2.5 mg/dL Blood 09/12/2024 6:21 AM CDT 09/12/2024 6:42 AM CDT Donell Awad MD LAB BLOOD ORDERABLES Final Re sult Performing Organization Address City/[facility]/ZIP Co de Phone Number [facility] [place] [address] * (ABNORMAL) Basic metabolic panel (09/12/2024 6:21 AM CDT) [facility] Sodium 134(L) 135 - 145 mmol/L Potassium, pl 4.3 3.3 - 4.9 mmol/L [facility] Chloride 98 97 - 110 mmol/L [facility] CO2 27 22 - 32 mmol/L [facility] Anion gap 9 2 - 15 mmol/L [facility] BUN 10 6 - 25 mg/dL [facility] Creatinine 0.90 0.80 - 1.30 mg/dL [facility] Glucose 105 70 - 199 mg/dL [facility] Comment: Interpretive Data Fasting glucose >/= 126 mg/dl is diagnostic for diabetes. Fasting is defined as no caloric intake for at least 8 hours. Fasting glucose between 100 mg/dl to 125 mg/dl is diagnostic of prediabetes. In a patient with classic symptoms of hyperglycemia or hyperglycemic crisis, a random glucose >/= 200 mg/dl is diagnostic for diabetes. In the absence of unequivocal hyperglycemia, results should be confirmed by repeat testing. The classification and Diagnosis of Diabetes Diabetes Care 202; 46: S19-S40. Current interpretive data was last revised 2022. Calcium 8.9 8.5 - 10.3 mg/dL [facility] Blood 09/12/2024 6:21 AM CDT 09/12/2024 6:42 AM CDT Donell Awad MD LAB BLOOD ORDERABLES Final Re sult Performing Organization Address City/[facility]/ZIP Co de Phone Number [facility] Department [place] [address] * eGFR (09/11/2024 8:30 PM CDT) eGFR 86 >=60 mL/min/1. 73 m2 Comment: Interpretive Data Reference Interval Normal >/= 90 mL/min/1.73m2 Mildly decreased* 60 - 89 mL/min/1.73m2 Mildly to moderately decreased 45 - 59 mL/min/1.73m2 Moderately to severely decreased 30 - 44 mL/min/1.73m2 Severely decreased 15 - 29 mL/min/1.73m2 Kidney Failure < 15 mL/min/1.73m2 *Relative to young adult level Estimated glomerular filtration rate is determined by the 2020 CKD-EPI equation recommended by the National Kidney Foundation (A Unifying Approach to GFR Estimation: Recommendations of the NKF-ASK Task Force on Reassessing the Inclusion of Race in Diagnosing Kidney Disease, JASN 2020). The CKD-EPI equation should not be used for patients with unstable renal function and has not been validated in children and those over 70. Current interpretive data was last reviewed 2021. Blood 09/11/2024 8:30 PM CDT 09/12/2024 6:42 AM CDT us Virgen Awad MD LAB BLOOD ORDERABLES Final Res ult Performing Organization Address [facility] Co de Phone Number [facility] Department [place] [address] * Magnesium (09/11/2024 8:30 PM CDT) Magnesium 2.1 1.4 - 2.5 mg/dL Blood 09/11/2024 8:30 PM CDT 09/12/2024 6:42 AM CDT Virgen Awad MD LAB BLOOD ORDERABLES Final Res ult Performing Organization Address [facility] Co de Phone Number [facility] Department [place] [address] * (ABNORMAL) Basic metabolic panel (09/11/2024 8:30 PM CDT) Pathologist [facility] Sodium 134(L) 135 - 145 mmol/L Potassium, pl 4.3 3.3 - 4.9 mmol/L [facility] Chloride 99 97 - 110 mmol/L [facility] CO2 26 22 - 32 mmol/L [facility] Anion gap 9 2 - 15 mmol/L [facility] BUN 10 6 - 25 mg/dL [facility] Creatinine 0.89 0.80 - 1.30 mg/dL [facility] Glucose 106 70 - 199 mg/dL [facility] Comment: Interpretive Data Fasting glucose >/= 126 mg/dl is diagnostic for diabetes. Fasting is defined as no caloric intake for at least 8 hours. Fasting glucose between 100 mg/dl to 125 mg/dl is diagnostic of prediabetes. In a patient with classic symptoms of hyperglycemia or hyperglycemic crisis, a random glucose >/= 200 mg/dl is diagnostic for diabetes. In the absence of unequivocal hyperglycemia, results should be confirmed by repeat testing. The classification and Diagnosis of Diabetes Diabetes Care 2021; 46: S19-S40. Current interpretive data was last revised 2022. Calcium 9.0 8.5 - 10.3 mg/dL [facility] Blood 09/11/2024 8:30 PM CDT 09/12/2024 6:42 AM CDT Virgen Awad MD LAB BLOOD ORDERABLES Final Res ult [facility] [place] [address] * eGFR (09/11/2024 9:47 AM CDT) Pathologist [facility] eGFR 87 >=60 mL/min/1. 73 m2 Comment: Interpretive Data Reference Interval Normal >/= 90 mL/min/1.73m2 Mildly decreased* 60 - 89 mL/min/1.73m2 Mildly to moderately decreased 45 - 59 mL/min/1.73m2 Moderately to severely decreased 30 - 44 mL/min/1.73m2 Severely decreased 15 - 29 mL/min/1.73m2 Kidney Failure < 15 mL/min/1.73m2 *Relative to young adult level Estimated glomerular filtration rate is determined by the 2020 CKD-EPI equation recommended by the National Kidney Foundation (A Unifying Approach to GFR Estimation: Recommendations of the NKF-ASK Task Force on Reassessing the Inclusion of Race in Diagnosing Kidney Disease, JASN 202). The CKD-EPI equation should not be used for patients with unstable renal function and has not been validated in children and those over 70. Current interpretive data was last reviewed 2021. Blood 09/11/2024 9:47 AM CDT 09/11/2024 11:01 AM CDT us Virgen Awad MD LAB BLOOD ORDERABLES Final Res ult [facility] Department [place] [address] * (ABNORMAL) Differential, auto (09/11/2024 9:47 AM CDT) Pathologist [facility] Neutrophil abs 9.53(H) 1.50 - 6.50 K/cumm Imm gran abs 0.08 0.00 - 0.10 K/cumm [facility] Lymphocyte abs 1.24 0.80 - 3.30 K/cumm [facility] Monocyte abs 1.11(H) 0.20 - 0.80 K/cumm [facility] Eosinophil abs 0.10 0.00 - 0.50 K/cumm [facility] Basophil abs 0.02 0.00 - 0.10 K/cumm [facility] Neutrophil pct 78.8 % [facility] Comment: Interpretive Data Percent cell count reference ranges are not reported, since discordance with absolute values may lead to misinterpretation of CBC data. Current Interpretive Data was last revised on 2017. Imm gran pct 0.7 % [facility] Comment: Interpretive Data Percent cell count reference ranges are not reported, since discordance with absolute values may lead to misinterpretation of CBC data. Current Interpretive Data was last revised on 2017. Lymphocyte pct 10.3 % [facility] Comment: Interpretive Data Percent cell count reference ranges are not reported, since discordance with absolute values may lead to misinterpretation of CBC data. Current Interpretive Data was last revised on 2017. Monocyte pct 9.2 % [facility] Comment: Interpretive Data Percent cell count reference ranges are not reported, since discordance with absolute values may lead to misinterpretation of CBC data. Current Interpretive Data was last revised on 2017. Eosinophil pct 0.8 % [facility] Comment: Interpretive Data Percent cell count reference ranges are not reported, since discordance with absolute values may lead to misinterpretation of CBC data. Current Interpretive Data was last revised on 2017. Basophil pct 0.2 % [facility] Comment: Interpretive Data Percent cell count reference ranges are not reported, since discordance with absolute values may lead to misinterpretation of CBC data. Current Interpretive Data was last revised on 2017. Blood 09/11/2024 9:47 AM CDT 09/11/2024 11:01 AM CDT us Virgen Awad MD LAB BLOOD ORDERABLES Final Res ult [facility] Department [place] [address] * (ABNORMAL) CBC with auto differential (09/11/2024 9:47 AM CDT) WBC 12.08(H) 3.80 - 9.90 K/cumm Hgb 9.7(L) 13.0 - 17.5 g/dL [facility] Hct 28.6(L) 38.9 - 50.3 % [facility] Plt 164 150 - 400 K/cumm [facility] MPV 9.8 9.1 - 12.3 fL [facility] RBC 3.34(L) 4.30 - 5.80 M/cumm [facility] MCV 85.6 81.3 - 96.4 fL [facility] MCH 29.0 27.1 - 33.3 pg [facility] MCHC 33.9 32.3 - 35.7 g/dL [facility] RDW CV 13.2 11.1 - 14.9 % [facility] RDW SD 40.3 35.7 - 48.1 fL [facility] NRBC abs 0.00 0.00 - 0.01 K/cumm [facility] Blood 09/11/2024 9:47 AM CDT 09/11/2024 11:01 AM CDT Virgen Awad MD LAB BLOOD ORDERABLES Final Res ult Performing Organization Address City/[facility]/ZIP Co de Phone Number [facility] Department [place] [address] * Magnesium (09/11/2024 9:47 AM CDT) [facility] Magnesium 1.9 1.4 - 2.5 mg/dL Blood 09/11/2024 9:47 AM CDT 09/11/2024 11:01 AM CDT Virgen Awad MD LAB BLOOD ORDERABLES Final Res ult Performing Organization Address [facility] Co de Phone Number [facility] [place] [address] * Basic metabolic panel (09/11/2024 9:47 AM CDT) Pathologist [facility] Sodium 136 135 - 145 mmol/L Potassium, pl 4.0 3.3 - 4.9 mmol/L [facility] Chloride 103 97 - 110 mmol/L [facility] CO2 24 22 - 32 mmol/L [facility] Anion gap 9 2 - 15 mmol/L [facility] BUN 10 6 - 25 mg/dL [facility] Creatinine 0.83 0.80 - 1.30 mg/dL [facility] Glucose 102 70 - 199 mg/dL [facility] Comment: Interpretive Data Fasting glucose >/= 126 mg/dl is diagnostic for diabetes. Fasting is defined as no caloric intake for at least 8 hours. Fasting glucose between 100 mg/dl to 125 mg/dl is diagnostic of prediabetes. In a patient with classic symptoms of hyperglycemia or hyperglycemic crisis, a random glucose >/= 200 mg/dl is diagnostic for diabetes. In the absence of unequivocal hyperglycemia, results should be confirmed by repeat testing. The classification and Diagnosis of Diabetes Diabetes Care 2021; 46: S19-S40. Current interpretive data was last revised 2022. Calcium 8.6 8.5 - 10.3 mg/dL [facility] Blood 09/11/2024 9:47 AM CDT 09/11/2024 11:01 AM CDT Virgen Awad MD LAB BLOOD ORDERABLES Final Res ult [facility] Department [place] [address] * eGFR (09/09/2024 8:32 PM CDT) eGFR 75 >=60 mL/min/1. 73 m2 Comment: Interpretive Data Reference Interval Normal >/= 90 mL/min/1.73m2 Mildly decreased* 60 - 89 mL/min/1.73m2 Mildly to moderately decreased 45 - 59 mL/min/1.73m2 Moderately to severely decreased 30 - 44 mL/min/1.73m2 Severely decreased 15 - 29 mL/min/1.73m2 Kidney Failure < 15 mL/min/1.73m2 *Relative to young adult level Estimated glomerular filtration rate is determined by the 2020 CKD-EPI equation recommended by the National Kidney Foundation (A Unifying Approach to GFR Estimation: Recommendations of the NKF-ASK Task Force on Reassessing the Inclusion of Race in Diagnosing Kidney Disease, JASN 2020). The CKD-EPI equation should not be used for patients with unstable renal function and has not been validated in children and those over 70. Current interpretive data was last reviewed 2021. Blood 09/09/2024 8:32 PM CDT 09/09/2024 9:53 PM CDT us Virgen Awad MD LAB BLOOD ORDERABLES Final Res ult [facility] [place] [address] * (ABNORMAL) Differential, auto (09/09/2024 8:32 PM CDT) Neutrophil abs 9.30(H) 1.50 - 6.50 K/cumm Imm gran abs 0.06 0.00 - 0.10 K/cumm [facility] Lymphocyte abs 1.68 0.80 - 3.30 K/cumm [facility] Monocyte abs 1.18(H) 0.20 - 0.80 K/cumm [facility] Eosinophil abs 0.08 0.00 - 0.50 K/cumm [facility] Basophil abs 0.04 0.00 - 0.10 K/cumm [facility] Neutrophil pct 75.4 % [facility] Comment: Interpretive Data Percent cell count reference ranges are not reported, since discordance with absolute values may lead to misinterpretation of CBC data. Current Interpretive Data was last revised on 2017. Imm gran pct 0.5 % [facility] Comment: Interpretive Data Percent cell count reference ranges are not reported, since discordance with absolute values may lead to misinterpretation of CBC data. Current Interpretive Data was last revised on 2017. Lymphocyte pct 13.6 % [facility] Comment: Interpretive Data Percent cell count reference ranges are not reported, since discordance with absolute values may lead to misinterpretation of CBC data. Current Interpretive Data was last revised on 2017. Monocyte pct 9.6 % [facility] Comment: Interpretive Data Percent cell count reference ranges are not reported, since discordance with absolute values may lead to misinterpretation of CBC data. Current Interpretive Data was last revised on 2017. Eosinophil pct 0.6 % [facility] Comment: Interpretive Data Percent cell count reference ranges are not reported, since discordance with absolute values may lead to misinterpretation of CBC data. Current Interpretive Data was last revised on 2017. Basophil pct 0.3 % [facility] Comment: Interpretive Data Percent cell count reference ranges are not reported, since discordance with absolute values may lead to misinterpretation of CBC data. Current Interpretive Data was last revised on 2017. Blood 09/09/2024 8:32 PM CDT 09/09/2024 9:53 PM CDT Virgen Awad MD LAB BLOOD ORDERABLES Final Res ult Performing Organization Address City/[facility]/ZIP Co de Phone Number [facility] [place] [address] * (ABNORMAL) CBC with auto differential (09/09/2024 8:32 PM CDT) WBC 12.34(H) 3.80 - 9.90 K/cumm Hgb 9.3(L) 13.0 - 17.5 g/dL [facility] Hct 27.1(L) 38.9 - 50.3 % [facility] Plt 167 150 - 400 K/cumm [facility] MPV 10.3 9.1 - 12.3 fL [facility] RBC 3.15(L) 4.30 - 5.80 M/cumm [facility] MCV 86.0 81.3 - 96.4 fL [facility] MCH 29.5 27.1 - 33.3 pg [facility] MCHC 34.3 32.3 - 35.7 g/dL [facility] RDW CV 13.2 11.1 - 14.9 % [facility] RDW SD 40.9 35.7 - 48.1 fL [facility] NRBC abs 0.00 0.00 - 0.01 K/cumm [facility] Blood 09/09/2024 8:32 PM CDT 09/09/2024 9:53 PM CDT Virgen Awad MD LAB BLOOD ORDERABLES Final Res ult Performing Organization Address City/[facility]/ZIP Co de Phone Number [facility] Department [place] [address] * Magnesium (09/09/2024 8:32 PM CDT) Pathologist [facility] Magnesium 2.0 1.4 - 2.5 mg/dL Blood 09/09/2024 8:32 PM CDT 09/09/2024 9:53 PM CDT Virgen Awad MD LAB BLOOD ORDERABLES Final Res ult [facility] Department [place] [address] * (ABNORMAL) Basic metabolic panel (09/09/2024 8:32 PM CDT) Pathologist [facility] Sodium 131(L) 135 - 145 mmol/L Potassium, pl 4.3 3.3 - 4.9 mmol/L [facility] Chloride 96(L) 97 - 110 mmol/L [facility] CO2 27 22 - 32 mmol/L [facility] Anion gap 8 2 - 15 mmol/L [facility] BUN 13 6 - 25 mg/dL [facility] Creatinine 1.00 0.80 - 1.30 mg/dL [facility] Glucose 117 70 - 199 mg/dL [facility] Comment: Interpretive Data Fasting glucose >/= 126 mg/dl is diagnostic for diabetes. Fasting is defined as no caloric intake for at least 8 hours. Fasting glucose between 100 mg/dl to 125 mg/dl is diagnostic of prediabetes. In a patient with classic symptoms of hyperglycemia or hyperglycemic crisis, a random glucose >/= 200 mg/dl is diagnostic for diabetes. In the absence of unequivocal hyperglycemia, results should be confirmed by repeat testing. The classification and Diagnosis of Diabetes Diabetes Care 2021; 46: S19-S40. Current interpretive data was last revised 2022. Calcium 8.8 8.5 - 10.3 mg/dL [facility] Blood 09/09/2024 8:32 PM CDT 09/09/2024 9:53 PM CDT Virgen wAad MD LAB BLOOD ORDERABLES Final Res ult [facility] [place] [address] * CT TAVR (09/09/2024 10:46 AM CDT) Anatomical Region Laterality Modality Chest N/A Computed Tomogra phy 09/09/2024 2:19 PM CDT Impressions 09/09/2024 2:49 PM CDT Bioprosthetic aortic valve replacement and [id number] transcatheter aortic valve replacement. Mild non-specific thickening noted on the non-coronary cusp of the TAVR however the leaflet opens normally with no motion abnormality. Dictated by: Ayesha Kimbrough MD The radiology attending physician has personally reviewed this study, and had reviewed and/or edited this written report and agrees with it. Electronically signed by: Richar Tillman M.D. Narrative 09/09/2024 2:49 PM CDT EXAMINATION: Heart CT and CTA chest with contrast. 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 Technique: Heart CT and CT angiogram of the chest performed during administration of 119 mL of Optiray 350, intravenously per TAVR Protocol. Images were transferred to an independent workstation for additional 3D post-processing. FINDINGS: Bioprosthetic aortic valve replacement and [id number] noted. Normal coaptation of the leaflets. Mild non-specific thickening noted on the non-coronary cusp however the leaflet opens normally with no motion abnormality. Annulus and Thoracic Aortic Measurements (in systole): Aortic valve annulus (prosthetic valve): Area 3:30 mm2: circumference 64 mm; 20 mm maximum diameter x 17 mm minimum diameter. Sinuses of Valsalva: 21 mm diameter sagittal x 21 mm diameter coronal. Sinotubular junction: 31 mm diameter sagittal x 20 mm diameter coronal. There is no left ventricular outflow tract calcification. There is no mitral annular calcification. Other findings: Subpleural reticulation and scarring and bronchiectasis in bilateral lower lobes could represent early interstitial lung abnormality. No suspicious nodules consolidation or effusion. Status post median sternotomy and BARBER to LAD. No pericardial effusion. Tiny hiatal hernia. Bilateral renal cysts noted including a complex left renal cyst with enhancing septae which is partially imaged and better evaluated than prior MRI. No suspicious osseous abnormality. Procedure Note Short, Richar Gill MD - 09/09/2024 EXAMINATION: Heart CT and CTA chest with contrast. 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 Technique: Heart CT and CT angiogram of the chest performed during administration of 119 mL of Optiray 350, intravenously per TAVR Protocol. Images were transferred to an independent workstation for additional 3D post-processing. FINDINGS: Bioprosthetic aortic valve replacement and [id number] noted. Normal coaptation of the leaflets. Mild non-specific thickening noted on the non-coronary cusp however the leaflet opens normally with no motion abnormality. Annulus and Thoracic Aortic Measurements (in systole): Aortic valve annulus (prosthetic valve): Area 3:30 mm2: circumference 64 mm; 20 mm maximum diameter x 17 mm minimum diameter. Sinuses of Valsalva: 21 mm diameter sagittal x 21 mm diameter coronal. Sinotubular junction: 31 mm diameter sagittal x 20 mm diameter coronal. There is no left ventricular outflow tract calcification. There is no mitral annular calcification. Other findings: Subpleural reticulation and scarring and bronchiectasis in bilateral lower lobes could represent early interstitial lung abnormality. No suspicious nodules consolidation or effusion. Status post median sternotomy and BARBER to LAD. No pericardial effusion. Tiny hiatal hernia. Bilateral renal cysts noted including a complex left renal cyst with enhancing septae which is partially imaged and better evaluated than prior MRI. No suspicious osseous abnormality. IMPRESSION: Bioprosthetic aortic valve replacement and [id number] transcatheter aortic valve replacement. Mild non-specific thickening noted on the non-coronary cusp of the TAVR however the leaflet opens normally with no motion abnormality. Dictated by: Ayesha Kimbrough MD The radiology attending physician has personally reviewed this study, and had reviewed and/or edited this written report and agrees with it. Electronically signed by: Richar Tillman M.D. Virgen Awad MD [facility] [place] PROCEDURES Final Result * TRANSTHORACIC ECHO (TTE) COMPLETE W DOPPLER/CF W CONTRAST (09/09/2024 9:15 AM CDT) Anatomical Region Laterality Modality Ultrasound 09/09/2024 8:16 AM CDT Narrative 09/09/2024 2:10 PM CDT [facility] Cardiac [place] [address] Transthoracic Echocardiographic Report Patient Name: JAMSHID INTERIANO J : 1940 (83y 9m) Gender: M Study Date: 09/09/2024 08:16:12 Ht(Inch): 67 Wt(Lb): 143.96 BSA: 1.76 Head Of Precision Targeting: Mary Zuniga LILO Location: [id number] Order Provider: VIRGEN AWAD Heart Rate: 110 BMI: 22.54 BP: 112 / 56 Ref Provider: VIRGEN AWAD PROCEDURES: Echocardiographic Report: Transthoracic complete echo with contrast, 2D, spectral and tissue Doppler, color flow Doppler, M-mode. Contrast: Contrast Enhancement was Employed: After initial imaging due to sub- optimal quality related to co-morbidity defined by patient's body habitus and due to suboptimal image quality with inadequate visualization of at least 2 of 16 LV wall segments in any view after initial imaging. Perflutren contrast was administered using the volume necessary to obtain adequate images. 0.6 ml Optison Administered, (2.4 ml wasted). INDICATIONS: Atrial fibrillation. CONCLUSIONS: 1. Normal left ventricular size based on volume index. Normal LV wall thickness. There is hyperdynamic left ventricular systolic function. The Ejection Fraction (Marin's) is measured at 64 %. Left ventricular diastolic function is indeterminate due to the presence of atrial fibrillation during the study. No left ventricular thrombus visualized. 2. There are no regional wall motion abnormalities. 3. Normal right ventricular size. Normal right ventricular systolic function. 4. A bioprosthetic stent-valve is present in the aortic position. No paravalvular aortic regurgitation. The aortic prosthesis demonstrates normal transvalvular gradient for valve type and size. 5. Mild tricuspid insufficiency with normal estimated pulmonary artery systolic pressure. 6. Normal aortic root size when indexed to body surface area. 7. No pericardial effusion. ATTESTATION: I have personally reviewed and interpreted this study without fellow or resident. - DISCLAIMER: The study images and the final report will be retained in the patient chart by the Echo Laboratory for the legally required time period. This chart constitutes the legal record of any testing performed. FINDINGS: Left Ventricle: Normal left ventricular size based on volume index. Normal LV wall thickness. There is hyperdynamic left ventricular systolic function. The Ejection Fraction (Marin's) is measured at 64 %. Left ventricular diastolic function is indeterminate due to the presence of atrial fibrillation during the study. Unable to assess global longitudinal strain due to image quality. No left ventricular thrombus visualized. Regional Wall Motion: There are no regional wall motion abnormalities. Right Ventricle: Normal right ventricular size. Normal right ventricular systolic function. Left Atrium: The left atrium is normal in size. Right Atrium: The right atrium is normal in size. Mitral Valve: Normal mitral valve structure. No mitral regurgitation. No stenosis present. Aortic Valve: The mean transaortic gradient is 3 mmHg. The aortic valve area by the continuity equation (using VTI) is 2.25 cm2. Aortic valve dimensionless index is 0.78. A bioprosthetic stent-valve is present in the aortic position. No paravalvular aortic regurgitation. The aortic prosthesis demonstrates normal transvalvular gradient for valve type and size. Tricuspid Valve: Normal tricuspid valve structure. Mild tricuspid regurgitation. No tricuspid valve stenosis. Pulmonic Valve: Normal pulmonic valve structure. Trace pulmonic regurgitation. No pulmonic valve stenosis present. Pericardium: No pericardial effusion. Aorta: Normal aortic root size when indexed. PASP: Normal estimated pulmonary artery systolic pressure. Rhythm: The rhythm during the study was atrial fibrillation. Rapid Ventricular response. MEASUREMENTS: 2D/MM Value Range Doppler Value Range LVIDd 2D 4.44 cm [ 4.20 - 5.80 ] AV Peak Hans 1.1 m/s [ 1.0 - 1.7 ] LVIDs 2D 2.68 cm [ 2.50 - 4.00 ] AV Peak PG 4.84 mmHg IVSd 2D 1.07 cm [ 0.60 - 1.00 ] AV Mean PG 3 mmHg LVPWd 2D 0.64 cm [ 0.60 - 1.00 ] AV VTI 17.1 cm LV Thickness Ratio 1.7 LVOT Peak Hasn 0.8 m/s [ 0.7 - 1.1 ] LV FS 2D 39.70 % [ 25.00 - 43.00 ] LVOT Peak PG 2.56 mmHg LV Mass 2D 124.11 g LVOT Mean PG 2 mmHg LV Mass Index 2D 70.52 g/m2 LVOT VTI 13.3 cm RWT 0.29 LVOT Diam 1.92 cm EDV Mod BP 80.70 ml [ 62.00 - 150.00 ] MAURILIO VTI 2.25 cm2 LV EDV Index 45.85 ml/m2 LVOT/AV VTI 0.78 - Dimensionless index (DVI) ESV Mod BP 28.80 ml [ 21.00 - 61.00 ] Med E` Hans 7.7 cm/sec [ 8.0 - 25.0 ] EF Mod BP 64 % [ 52 - 72 ] Lat E` Hans 11.1 cm/sec [ 10.0 - 25.0 ] LA Length 4C 5.31 cm RV S` 21.93 cm/sec LA Length 2C 5.45 cm TR Peak Hans 2.3 m/s [ 1.0 - 2.8 ] LA Volume BP 40.93 ml TR Peak PG 21.2 mmHg LA Volume Index 23.26 ml/m2 [ 16.00 - 34.00 ] RV Base Dimen 2D 2.9 cm [ 2.5 - 4.2 ] TAPSE 1.73 cm [ 1.71 - 5.00 ] RA Volume 45.83 ml RA Volume Index 26.04 ml/m2 AoR Diam 2D 2.98 cm [ 3.10 - 3.70 ] Ao Root Index 1.69 cm/m2 [ 1.00 - 2.00 ] Electronically Signed By: Khari Nj MD 09/09/2024 14:09:08 CDT Procedure Note Khari Nj MD - 09/09/2024 [facility] Cardiac [place] [address] [place] [address] Transthoracic Echocardiographic Report Patient Name: JAMSHID INTERIANO J : 1940 (83y 9m) Gender: M Study Date: 09/09/2024 08:16:12 Ht(Inch): 67 Wt(Lb): 143.96 BSA: 1.76 Head Of Precision Targeting: Mary Zuniga [facility] Location: [id number] Order Provider:VIRGEN AWAD Heart Rate: 110 BMI: 22.54 BP: 112 / 56 Ref Provider: VIRGEN AWAD PROCEDURES: Echocardiographic Report: Transthoracic complete echo with contrast, 2D,spectral and tissue Doppler, color flow Doppler, M-mode. Contrast: Contrast Enhancement was Employed: After initial imaging due tosub- optimal quality related to co-morbidity defined by patient's body habitus and dueto suboptimal image quality with inadequate visualization of at least 2 of 16 LV wallsegments in any view after initial imaging. Perflutren contrast was administered using thevolume necessary to obtain adequate images. 0.6 ml Optison Administered, (2.4 mlwasted). INDICATIONS: Atrial fibrillation. CONCLUSIONS: 1. Normal left ventricular size based on volume index. Normal LV wallthickness. There is hyperdynamic left ventricular systolic function. The Ejection Fraction(Marin's) is measured at 64 %. Left ventricular diastolic function is indeterminate dueto the presence of atrial fibrillation during the study. No left ventricularthrombus visualized. 2. There are no regional wall motion abnormalities. 3. Normal right ventricular size. Normal right ventricular systolicfunction. 4. A bioprosthetic stent-valve is present in the aortic position. Noparavalvular aortic regurgitation. The aortic prosthesis demonstrates normal transvalvulargradient for valve type and size. 5. Mild tricuspid insufficiency with normal estimated pulmonary arterysystolic pressure. 6. Normal aortic root size when indexed to body surface area. 7. No pericardial effusion. ATTESTATION: I have personally reviewed and interpreted this study without fellow orresident. - DISCLAIMER: The study images and the final report will be retained in the patientchart by the Echo Laboratory for the legally required time period. This chart constitutesthe legal record of any testing performed. FINDINGS: Left Ventricle: Normal left ventricular size based on volume index. NormalLV wall thickness. There is hyperdynamic left ventricular systolic function. TheEjection Fraction (Marin's) is measured at 64 %. Left ventricular diastolicfunction is indeterminate due to the presence of atrial fibrillation during the study.Unable to assess global longitudinal strain due to image quality. No leftventricular thrombus visualized. Regional Wall Motion: There are no regional wall motion abnormalities. Right Ventricle: Normal right ventricular size. Normal right ventricularsystolic function. Left Atrium: The left atrium is normal in size. Right Atrium: The right atrium is normal in size. Mitral Valve: Normal mitral valve structure. No mitral regurgitation. Nostenosis present. Aortic Valve: The mean transaortic gradient is 3 mmHg. The aortic valvearea by the continuity equation (using VTI) is 2.25 cm2. Aortic valve dimensionlessindex is 0.78. A bioprosthetic stent-valve is present in the aortic position. Noparavalvular aortic regurgitation. The aortic prosthesis demonstrates normal transvalvulargradient for valve type and size. Tricuspid Valve: Normal tricuspid valve structure. Mild tricuspidregurgitation. No tricuspid valve stenosis. Pulmonic Valve: Normal pulmonic valve structure. Trace pulmonicregurgitation. No pulmonic valve stenosis present. Pericardium: No pericardial effusion. Aorta: Normal aortic root size when indexed. PASP: Normal estimated pulmonary artery systolic pressure. Rhythm: The rhythm during the study was atrial fibrillation. RapidVentricular response. MEASUREMENTS: 2D/MM Value Range DopplerValue Range LVIDd 2D 4.44 cm [ 4.20 - 5.80 ] AV Peak Vel1.1 m/s [ 1.0 - 1.7 ] LVIDs 2D 2.68 cm [ 2.50 - 4.00 ] AV Peak PG4.84 mmHg IVSd 2D 1.07 cm [ 0.60 - 1.00 ] AV Mean PG3 mmHg LVPWd 2D 0.64 cm [ 0.60 - 1.00 ] AV VTI17.1 cm LV Thickness Ratio 1.7 LVOT Peak Vel0.8 m/s [ 0.7 - 1.1 ] LV FS 2D 39.70 % [ 25.00 - 43.00 ] LVOT Peak PG2.56 mmHg LV Mass 2D 124.11 g LVOT Mean PG2 mmHg LV Mass Index 2D 70.52 g/m2 LVOT VTI13.3 cm RWT 0.29 LVOT Diam1.92 cm EDV Mod BP 80.70 ml [ 62.00 - 150.00 ] MAURILIO VTI2.25 cm2 LV EDV Index 45.85 ml/m2 LVOT/AV VTI0.78 - Dimensionless index (DVI) ESV Mod BP 28.80 ml [ 21.00 - 61.00 ] Med E` Vel7.7 cm/sec [ 8.0 - 25.0 ] EF Mod BP 64 % [ 52 - 72 ] Lat E` Vel11.1 cm/sec [ 10.0 - 25.0 ] LA Length 4C 5.31 cm RV S`21.93 cm/sec LA Length 2C 5.45 cm TR Peak Vel2.3 m/s [ 1.0 - 2.8 ] LA Volume BP 40.93 ml TR Peak PG21.2 mmHg LA Volume Index 23.26 ml/m2 [ 16.00 - 34.00 ] RV Base Dimen 2D 2.9 cm [ 2.5 - 4.2 ] TAPSE 1.73 cm [ 1.71 - 5.00 ] RA Yazdmj13.83 ml RA Volume Index26.04 ml/m2 AoR Diam 2D 2.98 cm [ 3.10 - 3.70 ] Ao Root Index 1.69 cm/m2 [ 1.00 - 2.00 ] Electronically Signed By: Khari Nj MD 09/09/2024 14:09:08 CDT us Vrigen Awad MD CV ECHO PROCEDURES Final Resul t * Troponin I high-sensitivity 6-hour (09/08/2024 8:34 PM CDT) Trop I hs 24 <=35 ng/L Comment: Interpretive Data For further hscTnI resources including the diagnostic algorithm and an aid in interpretation, copy and paste this link: [email or web address]://bjhlab.testcatalog.org/show/[email or web address] Current Interpretive Data last revised 2019. Trop I hs delta See Comment ng/L [facility] Comment:Inappropriate collec tion time to report a delta. Trop I hs pct delta See Comment % [facility] Comment:Inappropriate collec tion time to report a delta. Trop I hs interp See Comment [facility] Comment:Inappropriate collec tion time to report a delta. Blood 09/08/2024 8:34 PM CDT 09/08/2024 9:45 PM CDT us Pb Monory MD LAB BLOOD ORDERABLES Final Result [facility] [place] [address] * eGFR (09/08/2024 8:34 PM CDT) Pathologist [facility] eGFR 68 >=60 mL/min/1. 73 m2 Comment: Interpretive Data Reference Interval Normal >/= 90 mL/min/1.73m2 Mildly decreased* 60 - 89 mL/min/1.73m2 Mildly to moderately decreased 45 - 59 mL/min/1.73m2 Moderately to severely decreased 30 - 44 mL/min/1.73m2 Severely decreased 15 - 29 mL/min/1.73m2 Kidney Failure < 15 mL/min/1.73m2 *Relative to young adult level Estimated glomerular filtration rate is determined by the 2020 CKD-EPI equation recommended by the National Kidney Foundation (A Unifying Approach to GFR Estimation: Recommendations of the NKF-ASK Task Force on Reassessing the Inclusion of Race in Diagnosing Kidney Disease, JASN 202). The CKD-EPI equation should not be used for patients with unstable renal function and has not been validated in children and those over 70. Current interpretive data was last reviewed 2021. Blood 09/08/2024 8:34 PM CDT 09/08/2024 9:45 PM CDT us Virgen Awad MD LAB BLOOD ORDERABLES Final Res ult [facility] [place] [address] * (ABNORMAL) Differential, auto (09/08/2024 8:34 PM CDT) Neutrophil abs 12.02(H) 1.50 - 6.50 K/cumm Imm gran abs 0.08 0.00 - 0.10 K/cumm [facility] Lymphocyte abs 1.48 0.80 - 3.30 K/cumm [facility] Monocyte abs 1.25(H) 0.20 - 0.80 K/cumm [facility] Eosinophil abs 0.02 0.00 - 0.50 K/cumm [facility] Basophil abs 0.03 0.00 - 0.10 K/cumm [facility] Neutrophil pct 80.9 % [facility] Comment: Interpretive Data Percent cell count reference ranges are not reported, since discordance with absolute values may lead to misinterpretation of CBC data. Current Interpretive Data was last revised on 2017. Imm gran pct 0.5 % [facility] Comment: Interpretive Data Percent cell count reference ranges are not reported, since discordance with absolute values may lead to misinterpretation of CBC data. Current Interpretive Data was last revised on 2017. Lymphocyte pct 9.9 % [facility] Comment: Interpretive Data Percent cell count reference ranges are not reported, since discordance with absolute values may lead to misinterpretation of CBC data. Current Interpretive Data was last revised on 2017. Monocyte pct 8.4 % [facility] Comment: Interpretive Data Percent cell count reference ranges are not reported, since discordance with absolute values may lead to misinterpretation of CBC data. Current Interpretive Data was last revised on 2017. Eosinophil pct 0.1 % [facility] Comment: Interpretive Data Percent cell count reference ranges are not reported, since discordance with absolute values may lead to misinterpretation of CBC data. Current Interpretive Data was last revised on 2017. Basophil pct 0.2 % [facility] Comment: Interpretive Data Percent cell count reference ranges are not reported, since discordance with absolute values may lead to misinterpretation of CBC data. Current Interpretive Data was last revised on 2017. Blood 09/08/2024 8:34 PM CDT 09/08/2024 9:45 PM CDT us Virgen Awad MD LAB BLOOD ORDERABLES Final Res ult [facility] [place] [address] * (ABNORMAL) CBC with auto differential (09/08/2024 8:34 PM CDT) WBC 14.88(H) 3.80 - 9.90 K/cumm Hgb 10.2(L) 13.0 - 17.5 g/dL [facility] Hct 28.9(L) 38.9 - 50.3 % [facility] Plt 166 150 - 400 K/cumm [facility] MPV 10.3 9.1 - 12.3 fL [facility] RBC 3.42(L) 4.30 - 5.80 M/cumm [facility] MCV 84.5 81.3 - 96.4 fL [facility] MCH 29.8 27.1 - 33.3 pg [facility] MCHC 35.3 32.3 - 35.7 g/dL [facility] RDW CV 13.2 11.1 - 14.9 % [facility] RDW SD 40.8 35.7 - 48.1 fL [facility] NRBC abs 0.00 0.00 - 0.01 K/cumm [facility] Blood 09/08/2024 8:34 PM CDT 09/08/2024 9:45 PM CDT Virgen Awad MD LAB BLOOD ORDERABLES Final Res ult Performing Organization Address [facility] Co de Phone Number [facility] [place] [address] * (ABNORMAL) Erythrocyte sedimentation rate (09/08/2024 8:34 PM CDT) Erythrocyte sedimentation rate 32(H) 1 - 20 mm/hr Blood 09/08/2024 8:34 PM CDT 09/08/2024 9:45 PM CDT Virgen Awad MD LAB BLOOD ORDERABLES Final Res ult Performing Organization Address [facility] Co de Phone Number [facility] [place] [address] * (ABNORMAL) CRP (acute phase) (09/08/2024 8:34 PM CDT) CRP 115.3(H) <=10.0 mg/L Blood 09/08/2024 8:34 PM CDT 09/08/2024 9:45 PM CDT us Virgen Awad MD LAB BLOOD ORDERABLES Final Res ult Performing Organization Address [facility] Co de Phone Number [facility] [place] [address] * Magnesium (09/08/2024 8:34 PM CDT) Pathologist [facility] Magnesium 2.0 1.4 - 2.5 mg/dL Blood 09/08/2024 8:34 PM CDT 09/08/2024 9:45 PM CDT Virgen Awad MD LAB BLOOD ORDERABLES Final Res ult Performing Organization Address City/[facility]/ZIP Co de Phone Number [facility] [place] [address] * (ABNORMAL) Basic metabolic panel (09/08/2024 8:34 PM CDT) [facility] Sodium 132(L) 135 - 145 mmol/L Potassium, pl 4.1 3.3 - 4.9 mmol/L [facility] Chloride 97 97 - 110 mmol/L [facility] CO2 25 22 - 32 mmol/L [facility] Anion gap 10 2 - 15 mmol/L [facility] BUN 12 6 - 25 mg/dL [facility] Creatinine 1.09 0.80 - 1.30 mg/dL [facility] Glucose 140 70 - 199 mg/dL [facility] Comment: Interpretive Data Fasting glucose >/= 126 mg/dl is diagnostic for diabetes. Fasting is defined as no caloric intake for at least 8 hours. Fasting glucose between 100 mg/dl to 125 mg/dl is diagnostic of prediabetes. In a patient with classic symptoms of hyperglycemia or hyperglycemic crisis, a random glucose >/= 200 mg/dl is diagnostic for diabetes. In the absence of unequivocal hyperglycemia, results should be confirmed by repeat testing. The classification and Diagnosis of Diabetes Diabetes Care 202; 46: S19-S40. Current interpretive data was last revised 2022. Calcium 8.2(L) 8.5 - 10.3 mg/dL [facility] Blood 09/08/2024 8:34 PM CDT 09/08/2024 9:45 PM CDT us Virgen Awad MD LAB BLOOD ORDERABLES Final Res ult Performing Organization Address [facility]/ZIP Co de Phone Number [facility] [place] [address] * ECG 12 lead (09/08/2024 12:08 PM CDT) Pathologist [facility] Ventricular Rate EKG/Min 95 BPM [facility] Atrial Rate 105 BPM [facility] QRS-Interval (MSEC) 110 ms [facility] QT-Interval (MSEC) 312 ms [facility] QTc 392 ms [facility] R [place] -15 degrees [facility] T [place] 81 degrees [facility] Diagnosis Normal sinus rhythm Second degree av-block (Mobitz I) Moderate voltage criteria for LVH, may be normal variant ( R in aVL , Chandler product ) Poor precordial R wave progression consistent with faulty lead placement, copd, etc. ; consider septal infarct, lead placement, or normal variant Abnormal ECG When compared with ECG of 17-OCT-2022 05:09, RSR' pattern in V1 is no longer Present Confirmed by ADOLFO PEÑA M.D ([id number]) on 09/08/2024 5:10:47 PM [facility] 09/08/2024 12:0 8 PM CDT 09/08/2024 5:10 PM CDT Virgen Awad MD ECG ORDERABLES Final Result [facility] [place] * eGFR (09/08/2024 8:35 AM CDT) Pathologist [facility] eGFR 79 >=60 mL/min/1. 73 m2 Comment: Interpretive Data Reference Interval Normal >/= 90 mL/min/1.73m2 Mildly decreased* 60 - 89 mL/min/1.73m2 Mildly to moderately decreased 45 - 59 mL/min/1.73m2 Moderately to severely decreased 30 - 44 mL/min/1.73m2 Severely decreased 15 - 29 mL/min/1.73m2 Kidney Failure < 15 mL/min/1.73m2 *Relative to young adult level Estimated glomerular filtration rate is determined by the 2020 CKD-EPI equation recommended by the National Kidney Foundation (A Unifying Approach to GFR Estimation: Recommendations of the NKF-ASK Task Force on Reassessing the Inclusion of Race in Diagnosing Kidney Disease, JASN 202). The CKD-EPI equation should not be used for patients with unstable renal function and has not been validated in children and those over 70. Current interpretive data was last reviewed 2021. Blood 09/08/2024 8:35 AM CDT 09/08/2024 9:26 AM CDT Virgen Awad MD LAB BLOOD ORDERABLES Final Res ult [facility] [place] [address] * (ABNORMAL) CBC without differential (09/08/2024 8:35 AM CDT) WBC 13.53(H) 3.80 - 9.90 K/cumm Hgb 10.6(L) 13.0 - 17.5 g/dL [facility] Hct 30.5(L) 38.9 - 50.3 % [facility] Plt 161 150 - 400 K/cumm [facility] MPV 10.2 9.1 - 12.3 fL [facility] RBC 3.55(L) 4.30 - 5.80 M/cumm [facility] MCV 85.9 81.3 - 96.4 fL [facility] MCH 29.9 27.1 - 33.3 pg [facility] MCHC 34.8 32.3 - 35.7 g/dL [facility] RDW CV 13.2 11.1 - 14.9 % [facility] RDW SD 40.6 35.7 - 48.1 fL [facility] NRBC abs 0.00 0.00 - 0.01 K/cumm [facility] Blood 09/08/2024 8:35 AM CDT 09/08/2024 9:26 AM CDT Virgen Awad MD LAB BLOOD ORDERABLES Final Res ult [facility] [place] [address] * (ABNORMAL) Basic metabolic panel (09/08/2024 8:35 AM CDT) Sodium 132(L) 135 - 145 mmol/L Potassium, pl 4.1 3.3 - 4.9 mmol/L [facility] Chloride 96(L) 97 - 110 mmol/L [facility] CO2 27 22 - 32 mmol/L [facility] Anion gap 9 2 - 15 mmol/L [facility] BUN 14 6 - 25 mg/dL [facility] Creatinine 0.96 0.80 - 1.30 mg/dL [facility] Glucose 121 70 - 199 mg/dL [facility] Comment: Interpretive Data Fasting glucose >/= 126 mg/dl is diagnostic for diabetes. Fasting is defined as no caloric intake for at least 8 hours. Fasting glucose between 100 mg/dl to 125 mg/dl is diagnostic of prediabetes. In a patient with classic symptoms of hyperglycemia or hyperglycemic crisis, a random glucose >/= 200 mg/dl is diagnostic for diabetes. In the absence of unequivocal hyperglycemia, results should be confirmed by repeat testing. The classification and Diagnosis of Diabetes Diabetes Care 202; 46: S19-S40. Current interpretive data was last revised 2022. Calcium 8.6 8.5 - 10.3 mg/dL [facility] Blood 09/08/2024 8:35 AM CDT 09/08/2024 9:26 AM CDT us Virgen Awad MD LAB BLOOD ORDERABLES Final Res ult [facility] [place] [address] * Troponin I high-sensitivity 2-hour (09/06/2024 9:35 PM CDT) Pathologist [facility] Trop I hs 35 <=35 ng/L Comment: Interpretive Data For further [facility] resources including the diagnostic algorithm and an aid in interpretation, copy and paste this link: https://bjhlab.testcatalog.org/show/[email or web address] Current Interpretive Data last revised 2019. Trop I hs delta 3 ng/L [facility] Trop I hs interp Insignificant [facility] Blood 09/06/2024 9:35 PM CDT 09/06/2024 9:50 PM CDT Pb Monroy MD LAB BLOOD ORDERABLES Final Result [facility] Department [place] [address] * Thyroid Function [place] (09/06/2024 8:40 PM CDT) TSH 2.57 0.30 - 4.20 mcIUnit/mL Blood 09/06/2024 8:40 PM CDT 09/06/2024 8:57 PM CDT Alysa Perry MD LAB BLOOD ORDERABLES Final Result Performing Organization Address City/[facility] Co de Phone Number [facility] Department [place] [address] * Blood culture Blood (09/06/2024 8:40 PM CDT) Report Final Report: No growth Blood 09/06/2024 8:40 PM CDT 09/06/2024 8:53 PM CDT Narrative [facility] - 09/11/2024 7:00 AM CDT Collection->Peripheral 1. Blood cultures are incubated for 4 days on a continuously monitored blood culture system. The first report of a negative culture is issued within 24 hours of receipt of the specimen in the laboratory. 2. Positive culture results are reported as soon as they are detected. 3. The most important factor for detection of microbes in the setting of bloodstream infection is the volume of blood submitted for culture. Failure to collect an optimal blood volume can result in false negative blood cultures. 4. For pediatric patients, the recommended blood volume to collect follows a weight based strategy. See the electronic test catalog for collection instructions. 5. For positive blood cultures, a rapid molecular test may be performed for organism identification using the raymond ePlex blood culture identification panel for gram positive (BCID-GP) and gram negative (BCID-GN) organisms. This nucleic acid amplification test detects microbial DNA in positive blood culture broth. This assay has been cleared by the [place] Food and Drug Administration and its performance characteristics have been verified by the [facility] Microbiology Laboratory. For questions about this culture, contact the Microbiology Laboratory at [phone]. Interpretive data was last revised on 24. Alysa Perry MD LAB MICROBIOLOGY - G ENERAL ORDERABLES Final Result [facility] [place] [address] * Blood culture Blood (09/06/2024 8:40 PM CDT) Report Final Report: No growth Blood 09/06/2024 8:40 PM CDT 09/06/2024 8:53 PM CDT Narrative [facility] - 09/11/2024 7:00 AM CDT Collection->Peripheral 1. Blood cultures are incubated for 4 days on a continuously monitored blood culture system. The first report of a negative culture is issued within 24 hours of receipt of the specimen in the laboratory. 2. Positive culture results are reported as soon as they are detected. 3. The most important factor for detection of microbes in the setting of bloodstream infection is the volume of blood submitted for culture. Failure to collect an optimal blood volume can result in false negative blood cultures. 4. For pediatric patients, the recommended blood volume to collect follows a weight based strategy. See the electronic test catalog for collection instructions. 5. For positive blood cultures, a rapid molecular test may be performed for organism identification using the raymond ePlex blood culture identification panel for gram positive (BCID-GP) and gram negative (BCID-GN) organisms. This nucleic acid amplification test detects microbial DNA in positive blood culture broth. This assay has been cleared by the [place] Food and Drug Administration and its performance characteristics have been verified by the [facility] Microbiology Laboratory. For questions about this culture, contact the Microbiology Laboratory at [phone]. Interpretive data was last revised on 24. Alysa Perry MD LAB MICROBIOLOGY - G ENERAL ORDERABLES Final Result Performing Organization Address [facility]/ZIP Co de Phone Number [facility] Department [place] [address] * Troponin I high-sensitivity series (baseline, 2hr, 4hr, 6hr) (09/06/2024 7:25 PM CDT) Pathologist [facility] Trop I hs 32 <=35 ng/L Comment: Interpretive Data For further hscTnI resources including the diagnostic algorithm and an aid in interpretation, copy and paste this link: https://bjhlab.testcatalog.org/show/[email or web address] Current Interpretive Data last revised 2019. Blood 09/06/2024 7:25 PM CDT 09/06/2024 8:50 PM CDT Pb Monroy MD LAB BLOOD ORDERABLES Final Result Performing Organization Address [facility] Co de Phone Number [facility] Department [place] [address] * eGFR (09/06/2024 7:25 PM CDT) [facility] eGFR 85 >=60 mL/min/1. 73 m2 Comment: Interpretive Data Reference Interval Normal >/= 90 mL/min/1.73m2 Mildly decreased* 60 - 89 mL/min/1.73m2 Mildly to moderately decreased 45 - 59 mL/min/1.73m2 Moderately to severely decreased 30 - 44 mL/min/1.73m2 Severely decreased 15 - 29 mL/min/1.73m2 Kidney Failure < 15 mL/min/1.73m2 *Relative to young adult level Estimated glomerular filtration rate is determined by the 2020 CKD-EPI equation recommended by the National Kidney Foundation (A Unifying Approach to GFR Estimation: Recommendations of the NKF-ASK Task Force on Reassessing the Inclusion of Race in Diagnosing Kidney Disease, JASN 202). The CKD-EPI equation should not be used for patients with unstable renal function and has not been validated in children and those over 70. Current interpretive data was last reviewed 2021. Blood 09/06/2024 7:25 PM CDT 09/06/2024 8:03 PM CDT us Pb Monroy MD LAB BLOOD ORDERABLES Final Result [facility] Department [place] [address] * (ABNORMAL) Differential, auto (09/06/2024 7:25 PM CDT) Neutrophil abs 11.15(H) 1.50 - 6.50 K/cumm Imm gran abs 0.09 0.00 - 0.10 K/cumm [facility] Lymphocyte abs 2.05 0.80 - 3.30 K/cumm [facility] Monocyte abs 1.47(H) 0.20 - 0.80 K/cumm [facility] Eosinophil abs 0.04 0.00 - 0.50 [facility] Basophil abs 0.03 0.00 - 0.10 K[facility]cumm [facility] Neutrophil pct 75.2 % [facility] Comment: Interpretive Data Percent cell count reference ranges are not reported, since discordance with absolute values may lead to misinterpretation of CBC data. Current Interpretive Data was last revised on 2017. Imm gran pct 0.6 % [facility] Comment: Interpretive Data Percent cell count reference ranges are not reported, since discordance with absolute values may lead to misinterpretation of CBC data. Current Interpretive Data was last revised on 2017. Lymphocyte pct 13.8 % [facility] Comment: Interpretive Data Percent cell count reference ranges are not reported, since discordance with absolute values may lead to misinterpretation of CBC data. Current Interpretive Data was last revised on 2017. Monocyte pct 9.9 % [facility] Comment: Interpretive Data Percent cell count reference ranges are not reported, since discordance with absolute values may lead to misinterpretation of CBC data. Current Interpretive Data was last revised on 2017. Eosinophil pct 0.3 % [facility] Comment: Interpretive Data Percent cell count reference ranges are not reported, since discordance with absolute values may lead to misinterpretation of CBC data. Current Interpretive Data was last revised on 2017. Basophil pct 0.2 % [facility] Comment: Interpretive Data Percent cell count reference ranges are not reported, since discordance with absolute values may lead to misinterpretation of CBC data. Current Interpretive Data was last revised on 2017. Blood 09/06/2024 7:25 PM CDT 09/06/2024 8:03 PM CDT us Pb Monroy MD LAB BLOOD ORDERABLES Final Result [facility] [place] [address] * (ABNORMAL) CBC with auto differential (09/06/2024 7:25 PM CDT) WBC 14.83(H) 3.80 - 9.90 K/cumm Hgb 10.6(L) 13.0 - 17.5 g/dL [facility] Hct 30.7(L) 38.9 - 50.3 % [facility] Plt 173 150 - 400 K/cumm [facility] MPV 9.8 9.1 - 12.3 fL [facility] RBC 3.62(L) 4.30 - 5.80 M/cumm [facility] MCV 84.8 81.3 - 96.4 fL [facility] MCH 29.3 27.1 - 33.3 pg [facility] MCHC 34.5 32.3 - 35.7 g/dL [facility] RDW CV 13.2 11.1 - 14.9 % [facility] RDW SD 40.9 35.7 - 48.1 fL [facility] NRBC abs 0.00 0.00 - 0.01 K/cumm [facility] Blood Venous blood specimen / Unknown 09/06/2024 7:25 PM CDT 09/06/2024 8:03 PM CDT Pb Monroy MD LAB BLOOD ORDERABLES Final Result Performing Organization Address City/[facility]/ZIP Co de Phone Number [facility] [place] [address] * Phosphorus (09/06/2024 7:25 PM CDT) [facility] Phosphorus, pl 3.0 2.3 - 4.5 mg/dL Blood 09/06/2024 7:25 PM CDT 09/06/2024 8:03 PM CDT Virgen Awad MD LAB BLOOD ORDERABLES Final Res ult Performing Organization Address [facility]/ZIP Co de Phone Number [facility] [place] [address] * Magnesium (09/06/2024 7:25 PM CDT) [facility] Magnesium 2.1 1.4 - 2.5 mg/dL Blood 09/06/2024 7:25 PM CDT 09/06/2024 8:03 PM CDT Virgen Awad MD LAB BLOOD ORDERABLES Final Res ult Performing Organization Address City/[facility]/ZIP [place] [address] * (ABNORMAL) Comprehensive metabolic panel (09/06/2024 7:25 PM CDT) [facility] Sodium 134(L) 135 - 145 mmol/L Potassium, pl 4.2 3.3 - 4.9 mmol/L [facility] Chloride 98 97 - 110 mmol/L [facility] CO2 26 22 - 32 mmol/L [facility] Anion gap 10 2 - 15 mmol/L [facility] BUN 16 6 - 25 mg/dL [facility] Creatinine 0.90 0.80 - 1.30 mg/dL [facility] Glucose 141 70 - 199 mg/dL [facility] Comment: Interpretive Data Fasting glucose >/= 126 mg/dl is diagnostic for diabetes. Fasting is defined as no caloric intake for at least 8 hours. Fasting glucose between 100 mg/dl to 125 mg/dl is diagnostic of prediabetes. In a patient with classic symptoms of hyperglycemia or hyperglycemic crisis, a random glucose >/= 200 mg/dl is diagnostic for diabetes. In the absence of unequivocal hyperglycemia, results should be confirmed by repeat testing. The classification and Diagnosis of Diabetes Diabetes Care 202; 46: S19-S40. Current interpretive data was last revised 2022. Calcium 8.8 8.5 - 10.3 mg/dL [facility] Bilirubin, total 0.4 0.1 - 1.2 mg/dL [facility] Protein, pl 7.0 6.5 - 8.5 g/dL [facility] Albumin 3.6 3.5 - 5.0 g/dL [facility] Alk phos 87 40 - 130 Units/L [facility] ALT 18 7 - 55 Units/L [facility] AST 27 10 - 50 Units/L [facility] Blood 09/06/2024 7:25 PM CDT 09/06/2024 8:03 PM CDT Pb Monroy MD LAB BLOOD ORDERABLES Final Result [facility] [place] [address] * ECG 12-LEAD (09/06/2024 2:45 PM CDT) Narrative [facility] - 09/06/2024 2:45 PM CDT Olivier Lovell MD 09/06/2024 10:28 PM ECG 12 lead Date/Time: 09/06/2024 2:45 PM Performed by: Murtaza Agrawal MD Authorized by: Pb Monroy MD Rate: ECG rate: 117 ECG rate assessment: tachycardic Rhythm: Rhythm: sinus tachycardia Conduction: Conduction: abnormal Abnormal conduction: 1st degree ST segments: ST segments: Normal T waves: T waves: normal Other findings: Other findings: LVH and poor R wave progression Interpretation: Interpretation: non-specific Recommended Follow-up: Recommended follow up: further workup in the ED Comments: Electrocardiogram from 2:16 p.m. manifest normal sinus rhythm rate of 87; normal [place], QRS, and QTC intervals; normal P, R, and T-wave axis; no evidence of atrial enlargement but possible ventricular hypertrophy; incomplete right bundle-branch block. Normal ST segments and T-waves without evidence of active myocardial ischemia; Procedure Note Olivier Lovell MD - 09/06/2024 2:45 PM CDT Procedure ECG 12 lead Date/Time: 09/06/2024 2:45 PM Performed by: Murtaza Agrawal MD Authorized by: Pb Monroy MD Rate: ECG rate: 117 ECG rate assessment: tachycardic Rhythm: Rhythm: sinus tachycardia Conduction: Conduction: abnormal Abnormal conduction: 1st degree ST segments: ST segments: Normal T waves: T waves: normal Other findings: Other findings: LVH and poor R wave progression Interpretation: Interpretation: non-specific Recommended Follow-up: Recommended follow up: further workup in the ED Comments: Electrocardiogram from 2:16 p.m. manifest normal sinus rhythm rate of87; normal MO, QRS, and QTC intervals; normal P, R, and T-wave axis; noevidence of atrial enlargement but possible ventricular hypertrophy;incomplete right bundle-branch block. Normal ST segments and T-waveswithout evidence of active myocardial ischemia; Murtaza Agrawal MD 09/06/24 [id number] Olivier Lovell MD 09/06/24 1192 us Pb Monroy MD ECG ORDERABLES Edited Res ult - Final [facility] * XR Chest Pa Lateral 2 Views (09/06/2024 2:27 PM CDT) Anatomical Region Laterality Modality Body, Chest N/A Computed Radiogr aphy 09/06/2024 2:34 PM CDT Impressions 09/06/2024 3:29 PM CDT Right subclavian approach peripherally inserted central venous catheter with tip in the superior vena cava. Median sternotomy wires are intact and aligned. 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 Subtle interstitial opacities throughout both lungs may represent minimal pulmonary edema or interstitial lung disease, better characterized on CT 09/09/2022. No pneumothorax, pleural effusion, or consolidation. Stable cardiomediastinal silhouette. Dictated by: Hamilton Villasenor M.D. The radiology attending physician has personally reviewed this study, and had reviewed and/or edited this written report and agrees with it. Electronically signed by: Michelle Hyatt M.D. Narrative 09/06/2024 3:29 PM CDT EXAMINATION: XR CHEST PA LATERAL 2 VIEWS HISTORY: Chest pain COMPARISON: Chest radiograph 08/25/2024, CT 09/09/2022 Procedure Note Michelle Hyatt MD - 09/06/2024 EXAMINATION: XR CHEST PA LATERAL 2 VIEWS HISTORY: Chest pain COMPARISON: Chest radiograph 08/25/2024, CT 09/09/2022 IMPRESSION: Right subclavian approach peripherally inserted central venous catheter with tip in the superior vena cava. Median sternotomy wires are intact and aligned. 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 Subtle interstitial opacities throughout both lungs may represent minimal pulmonary edema or interstitial lung disease, better characterized on CT 09/09/2022. No pneumothorax, pleural effusion, or consolidation. Stable cardiomediastinal silhouette. Dictated by: Hamilton Villasenor M.D. The radiology attending physician has personally reviewed this study, and had reviewed and/or edited this written report and agrees with it. Electronically signed by: Michelle Hyatt M.D. Pb Monroy MD IMG XR PROCEDURES Final Re sult * (ABNORMAL) CBC with auto differential (09/05/2024 1:05 PM CDT) WBC 17.6(H) 3.5 - 10.0 K/uL [facility] RBC 3.91(L) 4.60 - 6.20 M/uL [facility] Hemoglobin 11.8(L) 13.9 - 17.7 g/dL [facility] Hematocrit 32.7(L) 35.0 - 55.0 % [facility] MCV 83.7 75.0 - 100.0 fL [facility] MCH 30.20 25.00 - 35.00 pg [facility] MCHC 36.10 31.00 - 38.00 g/dL [facility] RDW 12.9 11.0 - 16.0 % [facility] Platelets 204 140 - 400 K/uL [facility] MPV 9.0 8.0 - 11.0 fL [facility] Granulocyte, Absolute 14.9(H) 1.2 - 8.0 K/uL [facility] Lymphocyte, Absolute 2.0 0.5 - 5.0 K/uL [facility] Monocyte, Absolute 0.7 0.1 - 1.5 K/uL [facility] Granulocyte, Percentage 84.8(H) 35.0 - 80.0 % [facility] Lymphocyte, Percentage 11.4(L) 15.0 - 50.0 % [facility] Monocyte, Percentage 3.8 2.0 - 15.0 % [facility] Blood 09/05/2024 1:05 PM CDT 09/05/2024 1:24 PM CDT us London Santos MD LAB BLOOD ORDERABLES F inal Result Performing Organization Address City/State/[facility] Co de Phone Number [facility] [address] [place] [address] * (ABNORMAL) Basic metabolic panel (09/05/2024 1:05 PM CDT) Glucose 108 74 - 200 mg/dL [facility] BUN 18 18 - 23 mg/dL [facility] Creatinine 0.9 0.7 - 1.3 mg/dL [facility] BUN/Creat Ratio 19 Ratio [facility] eGFR 77 mL/min/1.7 3m2 [facility] Calcium 9.3 8.8 - 10.2 mg/dL [facility] Sodium 127(L) 135 - 145 mEq/L [facility] Potassium 4.5 3.5 - 5.1 mEq/L [facility] Chloride 93(L) 98 - 107 mEq/L [facility] CO2 24.7 22.0 - 32.0 mEq/L [facility] Anion Gap 9 3 - 12 mEq/L [facility] Blood 09/05/2024 1:05 PM CDT 09/05/2024 1:24 PM CDT London Santos MD LAB BLOOD ORDERABLES F inal Result [facility] [address] [place] [address] * eGFR (08/31/2024 9:44 PM CDT) eGFR 63 >=60 mL/min/1. 73 m2 Comment: Interpretive Data Reference Interval Normal >/= 90 mL/min/1.73m2 Mildly decreased* 60 - 89 mL/min/1.73m2 Mildly to moderately decreased 45 - 59 mL/min/1.73m2 Moderately to severely decreased 30 - 44 mL/min/1.73m2 Severely decreased 15 - 29 mL/min/1.73m2 Kidney Failure < 15 mL/min/1.73m2 *Relative to young adult level Estimated glomerular filtration rate is determined by the 2020 CKD-EPI equation recommended by the National Kidney Foundation (A Unifying Approach to GFR Estimation: Recommendations of the NKF-ASK Task Force on Reassessing the Inclusion of Race in Diagnosing Kidney Disease, JASN 2020). The CKD-EPI equation should not be used for patients with unstable renal function and has not been validated in children and those over 70. Current interpretive data was last reviewed 2021. Blood 08/31/2024 9:44 PM CDT 08/31/2024 10:34 PM CDT Dyana Dominguez MD LAB BLOOD ORDERABLES Final Result [facility] Department [place] [address] * (ABNORMAL) Differential, auto (08/31/2024 9:44 PM CDT) Neutrophil abs 9.27(H) 1.50 - 6.50 K/cumm Imm gran abs 0.08 0.00 - 0.10 K/cumm [facility] Lymphocyte abs 1.90 0.80 - 3.30 K/cumm [facility] Monocyte abs 1.20(H) 0.20 - 0.80 K/cumm [facility] Eosinophil abs 0.13 0.00 - 0.50 K/cumm [facility] Basophil abs 0.02 0.00 - 0.10 K/cumm [facility] Neutrophil pct 73.6 % [facility] Comment: Interpretive Data Percent cell count reference ranges are not reported, since discordance with absolute values may lead to misinterpretation of CBC data. Current Interpretive Data was last revised on 2017. Imm gran pct 0.6 % [facility] Comment: Interpretive Data Percent cell count reference ranges are not reported, since discordance with absolute values may lead to misinterpretation of CBC data. Current Interpretive Data was last revised on 2017. Lymphocyte pct 15.1 % [facility] Comment: Interpretive Data Percent cell count reference ranges are not reported, since discordance with absolute values may lead to misinterpretation of CBC data. Current Interpretive Data was last revised on 2017. Monocyte pct 9.5 % [facility] Comment: Interpretive Data Percent cell count reference ranges are not reported, since discordance with absolute values may lead to misinterpretation of CBC data. Current Interpretive Data was last revised on 2017. Eosinophil pct 1.0 % [facility] Comment: Interpretive Data Percent cell count reference ranges are not reported, since discordance with absolute values may lead to misinterpretation of CBC data. Current Interpretive Data was last revised on 2017. Basophil pct 0.2 % [facility] Comment: Interpretive Data Percent cell count reference ranges are not reported, since discordance with absolute values may lead to misinterpretation of CBC data. Current Interpretive Data was last revised on 2017. Blood 08/31/2024 9:44 PM CDT 08/31/2024 10:34 PM CDT Dyana Dominguez MD LAB BLOOD ORDERABLES Final Result Performing Organization Address City/[facility]/ZIP Co de Phone Number [facility] Department [place] [address] * (ABNORMAL) CBC with auto differential (08/31/2024 9:44 PM CDT) Pathologist [facility] WBC 12.60(H) 3.80 - 9.90 K/cumm Hgb 9.6(L) 13.0 - 17.5 g/dL [facility] Hct 27.5(L) 38.9 - 50.3 % [facility] Plt 184 150 - 400 K/cumm [facility] MPV 9.7 9.1 - 12.3 fL [facility] RBC 3.22(L) 4.30 - 5.80 M/cumm [facility] MCV 85.4 81.3 - 96.4 fL [facility] MCH 29.8 27.1 - 33.3 pg [facility] MCHC 34.9 32.3 - 35.7 g/dL [facility] RDW CV 12.9 11.1 - 14.9 % [facility] RDW SD 39.7 35.7 - 48.1 fL [facility] NRBC abs 0.00 0.00 - 0.01 K/cumm [facility] Blood 08/31/2024 9:44 PM CDT 08/31/2024 10:34 PM CDT Dyana Dominguez MD LAB BLOOD ORDERABLES Final Result [facility] [place] [address] * (ABNORMAL) Basic metabolic panel (08/31/2024 9:44 PM CDT) Pathologist [facility] Sodium 130(L) 135 - 145 mmol/L Potassium, pl 4.1 3.3 - 4.9 mmol/L [facility] Chloride 98 97 - 110 mmol/L [facility] CO2 27 22 - 32 mmol/L [facility] Anion gap 5 2 - 15 mmol/L [facility] BUN 15 6 - 25 mg/dL [facility] Creatinine 1.16 0.80 - 1.30 mg/dL [facility] Glucose 99 70 - 199 mg/dL [facility] Comment: Interpretive Data Fasting glucose >/= 126 mg/dl is diagnostic for diabetes. Fasting is defined as no caloric intake for at least 8 hours. Fasting glucose between 100 mg/dl to 125 mg/dl is diagnostic of prediabetes. In a patient with classic symptoms of hyperglycemia or hyperglycemic crisis, a random glucose >/= 200 mg/dl is diagnostic for diabetes. In the absence of unequivocal hyperglycemia, results should be confirmed by repeat testing. The classification and Diagnosis of Diabetes Diabetes Care 202; 46: S19-S40. Current interpretive data was last revised 2022. Calcium 8.8 8.5 - 10.3 mg/dL [facility] Blood 08/31/2024 9:44 PM CDT 08/31/2024 10:34 PM CDT Dyana Dominguez MD LAB BLOOD ORDERABLES Final Result [facility] [place] [address] * eGFR (08/30/2024 11:41 PM CDT) eGFR 82 >=60 mL/min/1. 73 m2 Comment: Interpretive Data Reference Interval Normal >/= 90 mL/min/1.73m2 Mildly decreased* 60 - 89 mL/min/1.73m2 Mildly to moderately decreased 45 - 59 mL/min/1.73m2 Moderately to severely decreased 30 - 44 mL/min/1.73m2 Severely decreased 15 - 29 mL/min/1.73m2 Kidney Failure < 15 mL/min/1.73m2 *Relative to young adult level Estimated glomerular filtration rate is determined by the 2020 CKD-EPI equation recommended by the National Kidney Foundation (A Unifying Approach to GFR Estimation: Recommendations of the NKF-ASK Task Force on Reassessing the Inclusion of Race in Diagnosing Kidney Disease, JASN 2020). The CKD-EPI equation should not be used for patients with unstable renal function and has not been validated in children and those over 70. Current interpretive data was last reviewed 2021. Blood 08/30/2024 11:4 1 PM CDT 08/30/2024 11:50 PM CDT Dyana Dominguez MD LAB BLOOD ORDERABLES Final Result [facility] [place] [address] * (ABNORMAL) Differential, auto (08/30/2024 11:41 PM CDT) Neutrophil abs 11.14(H) 1.50 - 6.50 K/cumm Imm gran abs 0.09 0.00 - 0.10 K/cumm [facility] Lymphocyte abs 1.97 0.80 - 3.30 K/cumm [facility] Monocyte abs 1.14(H) 0.20 - 0.80 K/cumm [facility] Eosinophil abs 0.09 0.00 - 0.50 K/cumm [facility] Basophil abs 0.02 0.00 - 0.10 K/cumm [facility] Neutrophil pct 77.2 % [facility] Comment: Interpretive Data Percent cell count reference ranges are not reported, since discordance with absolute values may lead to misinterpretation of CBC data. Current Interpretive Data was last revised on 2017. Imm gran pct 0.6 % [facility] Comment: Interpretive Data Percent cell count reference ranges are not reported, since discordance with absolute values may lead to misinterpretation of CBC data. Current Interpretive Data was last revised on 2017. Lymphocyte pct 13.6 % [facility] Comment: Interpretive Data Percent cell count reference ranges are not reported, since discordance with absolute values may lead to misinterpretation of CBC data. Current Interpretive Data was last revised on 2017. Monocyte pct 7.9 % [facility] Comment: Interpretive Data Percent cell count reference ranges are not reported, since discordance with absolute values may lead to misinterpretation of CBC data. Current Interpretive Data was last revised on 2017. Eosinophil pct 0.6 % [facility] Comment: Interpretive Data Percent cell count reference ranges are not reported, since discordance with absolute values may lead to misinterpretation of CBC data. Current Interpretive Data was last revised on 2017. Basophil pct 0.1 % [facility] Comment: Interpretive Data Percent cell count reference ranges are not reported, since discordance with absolute values may lead to misinterpretation of CBC data. Current Interpretive Data was last revised on 2017. Blood 08/30/2024 11:4 1 PM CDT 08/30/2024 11:52 PM CDT Dyana Dominguez MD LAB BLOOD ORDERABLES Final Result [facility] [place] [address] * (ABNORMAL) CBC with auto differential (08/30/2024 11:41 PM CDT) WBC 14.45(H) 3.80 - 9.90 K/cumm Hgb 9.7(L) 13.0 - 17.5 g/dL [facility] Hct 27.9(L) 38.9 - 50.3 % [facility] Plt 177 150 - 400 K/cumm [facility] MPV 9.8 9.1 - 12.3 fL [facility] RBC 3.28(L) 4.30 - 5.80 M/cumm [facility] MCV 85.1 81.3 - 96.4 fL [facility] MCH 29.6 27.1 - 33.3 pg [facility] MCHC 34.8 32.3 - 35.7 g/dL [facility] RDW CV 12.8 11.1 - 14.9 % [facility] RDW SD 38.9 35.7 - 48.1 fL [facility] NRBC abs 0.00 0.00 - 0.01 K/cumm [facility] Blood 08/30/2024 11:4 1 PM CDT 08/30/2024 11:52 PM CDT Dyana Dominguez MD LAB BLOOD ORDERABLES Final Result Performing Organization Address City/[facility]/ZIP Co de Phone Number [facility] Department [place] [address] * (ABNORMAL) Basic metabolic panel (08/30/2024 11:41 PM CDT) [facility] Sodium 134(L) 135 - 145 mmol/L Potassium, pl 4.4 3.3 - 4.9 mmol/L [facility] Chloride 100 97 - 110 mmol/L [facility] CO2 26 22 - 32 mmol/L [facility] Anion gap 8 2 - 15 mmol/L [facility] BUN 13 6 - 25 mg/dL [facility] Creatinine 0.93 0.80 - 1.30 mg/dL [facility] Glucose 107 70 - 199 mg/dL [facility] Comment: Interpretive Data Fasting glucose >/= 126 mg/dl is diagnostic for diabetes. Fasting is defined as no caloric intake for at least 8 hours. Fasting glucose between 100 mg/dl to 125 mg/dl is diagnostic of prediabetes. In a patient with classic symptoms of hyperglycemia or hyperglycemic crisis, a random glucose >/= 200 mg/dl is diagnostic for diabetes. In the absence of unequivocal hyperglycemia, results should be confirmed by repeat testing. The classification and Diagnosis of Diabetes Diabetes Care 2021; 46: S19-S40. Current interpretive data was last revised 2022. Calcium 8.0(L) 8.5 - 10.3 mg/dL [facility] Blood 08/30/2024 11:4 1 PM CDT 08/30/2024 11:50 PM CDT Dyana Dominguez MD LAB BLOOD ORDERABLES Final Result Performing Organization Address [facility] Co de Phone Number [facility] Department [place] [address] * Sodium, urine, random (08/30/2024 1:46 PM CDT) Sodium, ur 50 mmol/L Comment: Interpretive Data No reference range established. Current interpretive data was last revised 2018. Urine 08/30/2024 1:46 PM CDT 08/30/2024 2:42 PM CDT Stacie Curry MD LAB URINE ORDERABLES Kinjal l Result Performing Organization Address [facility] de Phone Number [facility] Department [place] [address] * Osmolality, urine (08/30/2024 1:46 PM CDT) Pathologist [facility] Osmo, ur 283 mOsm/kg Urine 08/30/2024 1:46 PM CDT 08/30/2024 2:42 PM CDT Result [facility] Stacie Curry MD LAB URINE ORDERABLES Kijnal l Result Performing Organization Address [facility] de Phone Number [facility] Department [place] [address] * TRANSESOPHAGEAL ECHO (JESSICA) W DOPPLER/CF WO CONTRAST (08/30/2024 11:33 AM CDT) Anatomical Region Laterality Modality Echocardiography 08/30/2024 10:4 6 AM CDT Narrative 08/30/2024 3:32 PM CDT [facility] [place] [address] Transesophageal Echocardiographic Report Patient Name: JAMSHID INTERIANO J : 1940 (83y 9m) Gender: M Study Date: 08/30/2024 10:46:01 AM Ht(Inch): Wt(Lb): BSA: Head Of Precision Targeting: Location: [id number] Order Provider: STACIE CURRY BMI: Ref Provider: STACIE CURRY - PROCEDURES: Transesophageal Echo Report: Echocardiography, transesophageal, real-time with image documentation (2D) including probe placement, image acquisition, interpretation, and report; Doppler echocardiography, limited pulsed wave and/or continuous wave with spectral display; Doppler echocardiography color flow velocity mapping; 3D echocardiography, rendering with interpretation and reporting, not requiring post-processing on an independent workstation. Performing Physician: Performed by Dr. Klaus Diaz, Dr. Avery Ulloa. JESSICA probe placed by Dr. Klaus Diaz. Consent: Informed consent was obtained from the patient in writing. The risks and benefits of the procedure were explained in detail to the patient, including but not limited to the risk of aspiration, dysphagia, and esophageal perforation. After a thorough discussion of these risks and benefits, the patient agreed to proceed. Description: A complete transesophageal echocardiogram study was performed. Additional evaluation with color flow Doppler and limited spectral Doppler was performed. Continuous HR, BP, ECG, and O2 sat monitoring was performed during the procedure. The patient received pre-procedural education. Baseline vital signs and a focused history and physical were obtained. The JESSICA study was then performed under deep sedation with IV propofol provided by the anesthesiology service. After suitable sedation, the probe was passed without difficulty. Continuous pulse oximetry, electrocardiographic monitoring, and blood pressure monitoring were maintained throughout the procedure. No complications were noted. Medications: Medication(s) given during the procedure: Propofol 360mg. Pre Vitals: HR: 74 bpm. RR: 13. BP: 135/78 mmHg. Sp02: 95 %. Post Vitals: HR: 91 bpm. RR: 10. BP: 102/51 mmHg. Sp02: 95 %. INDICATIONS: Aortic Valve Replacement and Bacteremia: Streptococcus sanguinis. FINDINGS: Study Quality: Good. Left Ventricle: Normal Left ventricular size and systolic function. There is concentric left ventricular hypertrophy. Right Ventricle: Normal right ventricular size and systolic function. Left Atrium: Normal left atrial size and morphology. The left atrial appendage is normal in appearance with no evidence of thrombus. Right Atrium: Normal right atrial size and morphology. Atrial Septum: Normal interatrial septum. Mitral Valve: Mitral valve leaflets appear mildly thickened. Mild mitral valve regurgitation. No stenosis present. Aortic Valve: The peak transaortic gradient is 25.5 mmHg. The mean transaortic gradient is 12.6 mmHg. Visualization of the TAVR in SAVR valve is limited due to shadowing from the valve ring. The leaflets appear diffusely thickened but without kika mobile vegetations. There is mild central AI and no aortic stenosis. Clinical correlation advised. If there is high clinical suspicion of endocarditis, consider repeat JESSICA in a few weeks. Tricuspid Valve: Tricuspid valve appears mildly thickened. There is mild tricuspid regurgitation. There is no evidence of tricuspid valve vegetation. Pulmonic Valve: Normal pulmonic valve structure. There is mild pulmonic regurgitation. Aorta: Normal aortic root. Normal descending aorta and aortic arch without atherosclerosis. Pulmonary Veins: Pulmonary veins are normal in appearance and pulse Doppler interrogation shows normal systolic predominant flow. 3D Findings: Normal 3D imaging of the mitral valve. CONCLUSIONS: 1. Normal Left ventricular size and systolic function. There is concentric left ventricular hypertrophy. 2. Normal right ventricular size and systolic function. 3. Visualization of the TAVR in SAVR valve is limited due to shadowing from the valve ring. The leaflets appear diffusely thickened but without kika mobile vegetations. There is mild central AI and no aortic stenosis. Clinical correlation advised. If there is high clinical suspicion of endocarditis, consider repeat JESSICA in a few weeks. 4. No vegetations visualized. ATTESTATION: I have personally reviewed this study with a fellow in a teaching setting and attest to the findings and conclusions. - DISCLAIMER: The study images and the final report will be retained in the patient chart by the Echo Laboratory for the legally required time period. This chart constitutes the legal record of any testing performed. MEASUREMENTS: Doppler Value Range AV Peak Hans 2.5 m/s [ 1.0 - 1.7 ] AV Peak PG 25.5 AV Mean PG 12.6 mmHg AV VTI 41.4 cm LVOT Peak Hans 1.2 m/s [ 0.7 - 1.1 ] LVOT Peak PG 5.4 LVOT Mean PG 3.1 mmHg LVOT VTI 20.0 cm LVOT/AV VTI 0.5 Electronically Signed By: Avery Ulloa MD 08/30/2024 3:31:56 PM CDT Procedure Note Avery Ulloa MD - 08/30/2024 [facility] Cardiac [place] [address] Transesophageal Echocardiographic Report Patient Name: JAMSHID INTERIANO J : 1940 (83y 9m) Gender: M Study Date: 08/30/2024 10:46:01 AM Ht(Inch): Wt(Lb): BSA: Head Of Precision Targeting: Location: [id number] Order Provider: STACIE CURRY BMI: Ref Provider: STACIE CURRY - PROCEDURES: Transesophageal Echo Report: Echocardiography, transesophageal, real-timewith image documentation (2D) including probe placement, image acquisition,interpretation, and report; Doppler echocardiography, limited pulsed wave and/or continuouswave with spectral display; Doppler echocardiography color flow velocity mapping; 3D echocardiography, rendering with interpretation and reporting, notrequiring post-processing on an independent workstation. Performing Physician: Performed by Dr. Klaus Diaz, Dr. Chase. JESSICA probe placed by Dr. Klaus Diaz. Consent: Informed consent was obtained from the patient in writing. Therisks and benefits of the procedure were explained in detail to the patient,including but not limited to the risk of aspiration, dysphagia, and esophageal perforation.After a thorough discussion of these risks and benefits, the patient agreed toproceed. Description: A complete transesophageal echocardiogram study wasperformed. Additional evaluation with color flow Doppler and limited spectral Doppler wasperformed. Continuous HR, BP, ECG, and O2 sat monitoring was performed during the procedure. Thepatient received pre-procedural education. Baseline vital signs and a focusedhistory and physical were obtained. The JESSICA study was then performed under deepsedation with IV propofol provided by the anesthesiology service. After suitable sedation,the probe was passed without difficulty. Continuous pulse oximetry, electrocardiographicmonitoring, and blood pressure monitoring were maintained throughout the procedure. Nocomplications were noted. Medications: Medication(s) given during the procedure: Propofol 360mg. Pre Vitals: HR: 74 bpm. RR: 13. BP: 135/78 mmHg. Sp02: 95 %. Post Vitals: HR: 91 bpm. RR: 10. BP: 102/51 mmHg. Sp02: 95 %. INDICATIONS: Aortic Valve Replacement and Bacteremia: Streptococcus sanguinis. FINDINGS: Study Quality: Good. Left Ventricle: Normal Left ventricular size and systolic function. Thereis concentric left ventricular hypertrophy. Right Ventricle: Normal right ventricular size and systolic function. Left Atrium: Normal left atrial size and morphology. The left atrialappendage is normal in appearance with no evidence of thrombus. Right Atrium: Normal right atrial size and morphology. Atrial Septum: Normal interatrial septum. Mitral Valve: Mitral valve leaflets appear mildly thickened. Mild mitralvalve regurgitation. No stenosis present. Aortic Valve: The peak transaortic gradient is 25.5 mmHg. The meantransaortic gradient is 12.6 mmHg. Visualization of the TAVR in SAVR valve is limited due toshadowing from the valve ring. The leaflets appear diffusely thickened but without frankmobile vegetations. There is mild central AI and no aortic stenosis. Clinicalcorrelation advised. If there is high clinical suspicion of endocarditis, considerrepeat JESSICA in a few weeks. Tricuspid Valve: Tricuspid valve appears mildly thickened. There is mildtricuspid regurgitation. There is no evidence of tricuspid valve vegetation. Pulmonic Valve: Normal pulmonic valve structure. There is mild pulmonicregurgitation. Aorta: Normal aortic root. Normal descending aorta and aortic arch without atherosclerosis. Pulmonary Veins: Pulmonary veins are normal in appearance and pulseDoppler interrogation shows normal systolic predominant flow. 3D Findings: Normal 3D imaging of the mitral valve. CONCLUSIONS: 1. Normal Left ventricular size and systolic function. There is concentricleft ventricular hypertrophy. 2. Normal right ventricular size and systolic function. 3. Visualization of the TAVR in SAVR valve is limited due to shadowingfrom the valve ring. The leaflets appear diffusely thickened but without kika mobilevegetations. There is mild central AI and no aortic stenosis. Clinical correlation advised.If there is high clinical suspicion of endocarditis, consider repeat JESSICA in a few weeks. 4. No vegetations visualized. ATTESTATION: I have personally reviewed this study with a fellow in a teaching settingand attest to the findings and conclusions. - DISCLAIMER: The study images and the final report will be retained in the patientchart by the Echo Laboratory for the legally required time period. This chart constitutesthe legal record of any testing performed. MEASUREMENTS: Doppler Value Range AV Peak Hans 2.5 m/s [ 1.0 - 1.7 ] AV Peak PG 25.5 AV Mean PG 12.6 mmHg AV VTI 41.4 cm LVOT Peak Hans 1.2 m/s [ 0.7 - 1.1 ] LVOT Peak PG 5.4 LVOT Mean PG 3.1 mmHg LVOT VTI 20.0 cm LVOT/AV VTI 0.5 Electronically Signed By: Avery Ulloa MD 08/30/2024 3:31:56 PM CDT [facility] Kristy Curry MD CV ECHO PROCEDURES Final Result * eGFR (08/29/2024 9:11 PM CDT) eGFR 66 >=60 mL/min/1. 73 m2 Comment: Interpretive Data Reference Interval Normal >/= 90 mL/min/1.73m2 Mildly decreased* 60 - 89 mL/min/1.73m2 Mildly to moderately decreased 45 - 59 mL/min/1.73m2 Moderately to severely decreased 30 - 44 mL/min/1.73m2 Severely decreased 15 - 29 mL/min/1.73m2 Kidney Failure < 15 mL/min/1.73m2 *Relative to young adult level Estimated glomerular filtration rate is determined by the 2020 CKD-EPI equation recommended by the National Kidney Foundation (A Unifying Approach to GFR Estimation: Recommendations of the NKF-ASK Task Force on Reassessing the Inclusion of Race in Diagnosing Kidney Disease, JASN 202). The CKD-EPI equation should not be used for patients with unstable renal function and has not been validated in children and those over 70. Current interpretive data was last reviewed 2021. Blood 08/29/2024 9:11 PM CDT 08/29/2024 11:33 PM CDT Dyana Dominguez MD LAB BLOOD ORDERABLES Final Result [facility] [place] [address] * (ABNORMAL) Differential, auto (08/29/2024 9:11 PM CDT) Neutrophil abs 13.20(H) 1.50 - 6.50 K/cumm Imm gran abs 0.13(H) 0.00 - 0.10 K/cumm [facility] Lymphocyte abs 2.05 0.80 - 3.30 K/cumm [facility] Monocyte abs 1.39(H) 0.20 - 0.80 K/cumm [facility] Eosinophil abs 0.03 0.00 - 0.50 K/cumm [facility] Basophil abs 0.03 0.00 - 0.10 K/cumm [facility] Neutrophil pct 78.3 % [facility] Comment: Interpretive Data Percent cell count reference ranges are not reported, since discordance with absolute values may lead to misinterpretation of CBC data. Current Interpretive Data was last revised on 2017. Imm gran pct 0.8 % [facility] Comment: Interpretive Data Percent cell count reference ranges are not reported, since discordance with absolute values may lead to misinterpretation of CBC data. Current Interpretive Data was last revised on 2017. Lymphocyte pct 12.2 % [facility] Comment: Interpretive Data Percent cell count reference ranges are not reported, since discordance with absolute values may lead to misinterpretation of CBC data. Current Interpretive Data was last revised on 2017. Monocyte pct 8.3 % [facility] Comment: Interpretive Data Percent cell count reference ranges are not reported, since discordance with absolute values may lead to misinterpretation of CBC data. Current Interpretive Data was last revised on 2017. Eosinophil pct 0.2 % [facility] Comment: Interpretive Data Percent cell count reference ranges are not reported, since discordance with absolute values may lead to misinterpretation of CBC data. Current Interpretive Data was last revised on 2017. Basophil pct 0.2 % [facility] Comment: Interpretive Data Percent cell count reference ranges are not reported, since discordance with absolute values may lead to misinterpretation of CBC data. Current Interpretive Data was last revised on 2017. Blood 08/29/2024 9:11 PM CDT 08/29/2024 11:31 PM CDT Dyana Dominguez MD LAB BLOOD ORDERABLES Final Result [facility] Department [place] [address] * (ABNORMAL) CBC with auto differential (08/29/2024 9:11 PM CDT) WBC 16.83(H) 3.80 - 9.90 K/cumm Hgb 11.4(L) 13.0 - 17.5 g/dL [facility] Hct 32.5(L) 38.9 - 50.3 % [facility] Plt 188 150 - 400 K/cumm [facility] MPV 10.3 9.1 - 12.3 fL [facility] RBC 3.75(L) 4.30 - 5.80 M/cumm [facility] MCV 86.7 81.3 - 96.4 fL [facility] MCH 30.4 27.1 - 33.3 pg [facility] MCHC 35.1 32.3 - 35.7 g/dL [facility] RDW CV 12.9 11.1 - 14.9 % [facility] RDW SD 40.5 35.7 - 48.1 fL [facility] NRBC abs 0.00 0.00 - 0.01 K/cumm [facility] Blood 08/29/2024 9:11 PM CDT 08/29/2024 11:31 PM CDT us Dyana Dominguez MD LAB BLOOD ORDERABLES Final Result [facility] [place] [address] * (ABNORMAL) Osmolality, blood (08/29/2024 9:11 PM CDT) Pathologist [facility] Osmo 274(L) 275 - 300 mOsm/kg Blood 08/29/2024 9:11 PM CDT 08/29/2024 11:33 PM CDT Diane Jenkins MD PhD LAB BLOOD ORDERABLE S Final Result [facility] Department of Laboratories [place] [address] * (ABNORMAL) Basic metabolic panel (08/29/2024 9:11 PM CDT) Sodium 130(L) 135 - 145 mmol/L Potassium, pl 4.4 3.3 - 4.9 mmol/L [facility] Chloride 95(L) 97 - 110 mmol/L [facility] CO2 27 22 - 32 mmol/L [facility] Anion gap 8 2 - 15 mmol/L [facility] BUN 14 6 - 25 mg/dL [facility] Creatinine 1.11 0.80 - 1.30 mg/dL [facility] Glucose 89 70 - 199 mg/dL [facility] Comment: Interpretive Data Fasting glucose >/= 126 mg/dl is diagnostic for diabetes. Fasting is defined as no caloric intake for at least 8 hours. Fasting glucose between 100 mg/dl to 125 mg/dl is diagnostic of prediabetes. In a patient with classic symptoms of hyperglycemia or hyperglycemic crisis, a random glucose >/= 200 mg/dl is diagnostic for diabetes. In the absence of unequivocal hyperglycemia, results should be confirmed by repeat testing. The classification and Diagnosis of Diabetes Diabetes Care 202; 46: S19-S40. Current interpretive data was last revised 2022. Calcium 9.4 8.5 - 10.3 mg/dL [facility] Blood 08/29/2024 9:11 PM CDT 08/29/2024 11:33 PM CDT Dyana Dominguez MD LAB BLOOD ORDERABLES Final Result [facility] [place] [address] * eGFR (08/28/2024 10:48 PM CDT) eGFR 73 >=60 mL/min/1. 73 m2 Comment: Interpretive Data Reference Interval Normal >/= 90 mL/min/1.73m2 Mildly decreased* 60 - 89 mL/min/1.73m2 Mildly to moderately decreased 45 - 59 mL/min/1.73m2 Moderately to severely decreased 30 - 44 mL/min/1.73m2 Severely decreased 15 - 29 mL/min/1.73m2 Kidney Failure < 15 mL/min/1.73m2 *Relative to young adult level Estimated glomerular filtration rate is determined by the 2020 CKD-EPI equation recommended by the National Kidney Foundation (A Unifying Approach to GFR Estimation: Recommendations of the NKF-ASK Task Force on Reassessing the Inclusion of Race in Diagnosing Kidney Disease, JASN 2020). The CKD-EPI equation should not be used for patients with unstable renal function and has not been validated in children and those over 70. Current interpretive data was last reviewed 2021. Blood 08/28/2024 10:4 8 PM CDT 08/28/2024 11:28 PM CDT us Dyana Dominguez MD LAB BLOOD ORDERABLES Final Result [facility] [place] [address] * (ABNORMAL) Differential, auto (08/28/2024 10:48 PM CDT) Neutrophil abs 10.46(H) 1.50 - 6.50 K/cumm Imm gran abs 0.11(H) 0.00 - 0.10 K/cumm [facility] Lymphocyte abs 2.26 0.80 - 3.30 K/cumm [facility] Monocyte abs 1.36(H) 0.20 - 0.80 K/cumm [facility] Eosinophil abs 0.06 0.00 - 0.50 K/cumm [facility] Basophil abs 0.04 0.00 - 0.10 K/cumm [facility] Neutrophil pct 73.2 % [facility] Comment: Interpretive Data Percent cell count reference ranges are not reported, since discordance with absolute values may lead to misinterpretation of CBC data. Current Interpretive Data was last revised on 2017. Imm gran pct 0.8 % [facility] Comment: Interpretive Data Percent cell count reference ranges are not reported, since discordance with absolute values may lead to misinterpretation of CBC data. Current Interpretive Data was last revised on 2017. Lymphocyte pct 15.8 % [facility] Comment: Interpretive Data Percent cell count reference ranges are not reported, since discordance with absolute values may lead to misinterpretation of CBC data. Current Interpretive Data was last revised on 2017. Monocyte pct 9.5 % [facility] Comment: Interpretive Data Percent cell count reference ranges are not reported, since discordance with absolute values may lead to misinterpretation of CBC data. Current Interpretive Data was last revised on 2017. Eosinophil pct 0.4 % [facility] Comment: Interpretive Data Percent cell count reference ranges are not reported, since discordance with absolute values may lead to misinterpretation of CBC data. Current Interpretive Data was last revised on 2017. Basophil pct 0.3 % [facility] Comment: Interpretive Data Percent cell count reference ranges are not reported, since discordance with absolute values may lead to misinterpretation of CBC data. Current Interpretive Data was last revised on 2017. Blood 08/28/2024 10:4 8 PM CDT 08/28/2024 11:27 PM CDT Dyana Dominguez MD LAB BLOOD ORDERABLES Final Result [facility] Department [place] [address] * (ABNORMAL) CBC with auto differential (08/28/2024 10:48 PM CDT) WBC 14.29(H) 3.80 - 9.90 K/cumm Hgb 10.9(L) 13.0 - 17.5 g/dL [facility] Hct 31.7(L) 38.9 - 50.3 % [facility] Plt 185 150 - 400 K/cumm [facility] MPV 10.2 9.1 - 12.3 fL [facility] RBC 3.71(L) 4.30 - 5.80 M/cumm [facility] MCV 85.4 81.3 - 96.4 fL [facility] MCH 29.4 27.1 - 33.3 pg [facility] MCHC 34.4 32.3 - 35.7 g/dL [facility] RDW CV 12.6 11.1 - 14.9 % [facility] RDW SD 39.4 35.7 - 48.1 fL [facility] NRBC abs 0.00 0.00 - 0.01 K/cumm [facility] Blood 08/28/2024 10:4 8 PM CDT 08/28/2024 11:27 PM CDT Dyana Dominguez MD LAB BLOOD ORDERABLES Final Result Performing Organization Address City/[facility]/ZIP Co de Phone Number [facility] Department [place] [address] * (ABNORMAL) Basic metabolic panel (08/28/2024 10:48 PM CDT) Pathologist [facility] Sodium 131(L) 135 - 145 mmol/L Potassium, pl 4.1 3.3 - 4.9 mmol/L [facility] Chloride 97 97 - 110 mmol/L [facility] CO2 27 22 - 32 mmol/L [facility] Anion gap 7 2 - 15 mmol/L [facility] BUN 17 6 - 25 mg/dL [facility] Creatinine 1.03 0.80 - 1.30 mg/dL [facility] Glucose 108 70 - 199 mg/dL [facility] Comment: Interpretive Data Fasting glucose >/= 126 mg/dl is diagnostic for diabetes. Fasting is defined as no caloric intake for at least 8 hours. Fasting glucose between 100 mg/dl to 125 mg/dl is diagnostic of prediabetes. In a patient with classic symptoms of hyperglycemia or hyperglycemic crisis, a random glucose >/= 200 mg/dl is diagnostic for diabetes. In the absence of unequivocal hyperglycemia, results should be confirmed by repeat testing. The classification and Diagnosis of Diabetes Diabetes Care 2021; 46: S19-S40. Current interpretive data was last revised 2022. Calcium 8.8 8.5 - 10.3 mg/dL [facility] Blood 08/28/2024 10:4 8 PM CDT 08/28/2024 11:28 PM CDT Dyana Dominguez MD LAB BLOOD ORDERABLES Final Result [facility] [place] [address] * eGFR (08/27/2024 8:57 PM CDT) Pathologist [facility] eGFR 65 >=60 mL/min/1. 73 m2 Comment: Interpretive Data Reference Interval Normal >/= 90 mL/min/1.73m2 Mildly decreased* 60 - 89 mL/min/1.73m2 Mildly to moderately decreased 45 - 59 mL/min/1.73m2 Moderately to severely decreased 30 - 44 mL/min/1.73m2 Severely decreased 15 - 29 mL/min/1.73m2 Kidney Failure < 15 mL/min/1.73m2 *Relative to young adult level Estimated glomerular filtration rate is determined by the 2020 CKD-EPI equation recommended by the National Kidney Foundation (A Unifying Approach to GFR Estimation: Recommendations of the NKF-ASK Task Force on Reassessing the Inclusion of Race in Diagnosing Kidney Disease, JASN 202). The CKD-EPI equation should not be used for patients with unstable renal function and has not been validated in children and those over 70. Current interpretive data was last reviewed 2021. Blood 08/27/2024 8:57 PM CDT 08/27/2024 9:15 PM CDT Dyana Dominguez MD LAB BLOOD ORDERABLES Final Result [facility] Department [place] [address] * (ABNORMAL) Differential, auto (08/27/2024 8:57 PM CDT) Neutrophil abs 9.27(H) 1.50 - 6.50 K/cumm Imm gran abs 0.10 0.00 - 0.10 K/cumm [facility] Lymphocyte abs 2.40 0.80 - 3.30 K/cumm [facility] Monocyte abs 1.42(H) 0.20 - 0.80 K/cumm [facility] Eosinophil abs 0.04 0.00 - 0.50 K/cumm [facility] Basophil abs 0.03 0.00 - 0.10 K/cumm [facility] Neutrophil pct 69.9 % [facility] Comment: Interpretive Data Percent cell count reference ranges are not reported, since discordance with absolute values may lead to misinterpretation of CBC data. Current Interpretive Data was last revised on 2017. Imm gran pct 0.8 % [facility] Comment: Interpretive Data Percent cell count reference ranges are not reported, since discordance with absolute values may lead to misinterpretation of CBC data. Current Interpretive Data was last revised on 2017. Lymphocyte pct 18.1 % [facility] Comment: Interpretive Data Percent cell count reference ranges are not reported, since discordance with absolute values may lead to misinterpretation of CBC data. Current Interpretive Data was last revised on 2017. Monocyte pct 10.7 % [facility] Comment: Interpretive Data Percent cell count reference ranges are not reported, since discordance with absolute values may lead to misinterpretation of CBC data. Current Interpretive Data was last revised on 2017. Eosinophil pct 0.3 % [facility] Comment: Interpretive Data Percent cell count reference ranges are not reported, since discordance with absolute values may lead to misinterpretation of CBC data. Current Interpretive Data was last revised on 2017. Basophil pct 0.2 % [facility] Comment: Interpretive Data Percent cell count reference ranges are not reported, since discordance with absolute values may lead to misinterpretation of CBC data. Current Interpretive Data was last revised on 2017. Blood 08/27/2024 8:57 PM CDT 08/27/2024 9:16 PM CDT Dyana Dominguez MD LAB BLOOD ORDERABLES Final Result [facility] [place] [address] * (ABNORMAL) CBC with auto differential (08/27/2024 8:57 PM CDT) WBC 13.26(H) 3.80 - 9.90 K/cumm Hgb 10.7(L) 13.0 - 17.5 g/dL [facility] Hct 30.6(L) 38.9 - 50.3 % [facility] Plt 153 150 - 400 K/cumm [facility] MPV 10.0 9.1 - 12.3 fL [facility] RBC 3.58(L) 4.30 - 5.80 M/cumm [facility] MCV 85.5 81.3 - 96.4 fL [facility] MCH 29.9 27.1 - 33.3 pg [facility] MCHC 35.0 32.3 - 35.7 g/dL [facility] RDW CV 12.6 11.1 - 14.9 % [facility] RDW SD 39.1 35.7 - 48.1 fL [facility] NRBC abs 0.00 0.00 - 0.01 K/cumm [facility] Blood 08/27/2024 8:57 PM CDT 08/27/2024 9:16 PM CDT us Dyana Dominguez MD LAB BLOOD ORDERABLES Final Result [facility] Department [place] [address] * Hepatitis A antibody, IgM Blood (08/27/2024 8:57 PM CDT) [facility] Hep A IgM Nonreactive Nonreactive Blood 08/27/2024 8:57 PM CDT 08/27/2024 9:16 PM CDT us Stacie Curry MD LAB MICROBIOLOGY - GENERA L ORDERABLES Final Result Performing Organization Address [facility] Co de Phone Number [facility] Department [place] [address] * (ABNORMAL) Basic metabolic panel (08/27/2024 8:57 PM CDT) [facility] Sodium 134(L) 135 - 145 mmol/L Potassium, pl 4.5 3.3 - 4.9 mmol/L [facility] Chloride 100 97 - 110 mmol/L [facility] CO2 28 22 - 32 mmol/L [facility] Anion gap 6 2 - 15 mmol/L [facility] BUN 14 6 - 25 mg/dL [facility] Creatinine 1.13 0.80 - 1.30 mg/dL [facility] Glucose 129 70 - 199 mg/dL [facility] Comment: Interpretive Data Fasting glucose >/= 126 mg/dl is diagnostic for diabetes. Fasting is defined as no caloric intake for at least 8 hours. Fasting glucose between 100 mg/dl to 125 mg/dl is diagnostic of prediabetes. In a patient with classic symptoms of hyperglycemia or hyperglycemic crisis, a random glucose >/= 200 mg/dl is diagnostic for diabetes. In the absence of unequivocal hyperglycemia, results should be confirmed by repeat testing. The classification and Diagnosis of Diabetes Diabetes Care 2021; 46: S19-S40. Current interpretive data was last revised 2022. Calcium 8.5 8.5 - 10.3 mg/dL [facility] Blood 08/27/2024 8:57 PM CDT 08/27/2024 9:15 PM CDT us Dyana Dominguez MD LAB BLOOD ORDERABLES Final Result [facility] [place] [address] * eGFR (08/26/2024 10:13 PM CDT) eGFR 70 >=60 mL/min/1. 73 m2 Comment: Interpretive Data Reference Interval Normal >/= 90 mL/min/1.73m2 Mildly decreased* 60 - 89 mL/min/1.73m2 Mildly to moderately decreased 45 - 59 mL/min/1.73m2 Moderately to severely decreased 30 - 44 mL/min/1.73m2 Severely decreased 15 - 29 mL/min/1.73m2 Kidney Failure < 15 mL/min/1.73m2 *Relative to young adult level Estimated glomerular filtration rate is determined by the 2020 CKD-EPI equation recommended by the National Kidney Foundation (A Unifying Approach to GFR Estimation: Recommendations of the NKF-ASK Task Force on Reassessing the Inclusion of Race in Diagnosing Kidney Disease, JASN 202). The CKD-EPI equation should not be used for patients with unstable renal function and has not been validated in children and those over 70. Current interpretive data was last reviewed 2021. Blood 08/26/2024 10:1 3 PM CDT 08/26/2024 11:45 PM CDT us Dyana Dominguez MD LAB BLOOD ORDERABLES Final Result [facility] [place] [address] * (ABNORMAL) Differential, auto (08/26/2024 10:13 PM CDT) Neutrophil abs 8.68(H) 1.50 - 6.50 K/cumm Imm gran abs 0.07 0.00 - 0.10 K/cumm [facility] Lymphocyte abs 2.28 0.80 - 3.30 K/cumm [facility] Monocyte abs 1.71(H) 0.20 - 0.80 K/cumm [facility] Eosinophil abs 0.05 0.00 - 0.50 K/cumm [facility] Basophil abs 0.03 0.00 - 0.10 K/cumm [facility] Neutrophil pct 67.8 % [facility] Comment: Interpretive Data Percent cell count reference ranges are not reported, since discordance with absolute values may lead to misinterpretation of CBC data. Current Interpretive Data was last revised on 2017. Imm gran pct 0.5 % [facility] Comment: Interpretive Data Percent cell count reference ranges are not reported, since discordance with absolute values may lead to misinterpretation of CBC data. Current Interpretive Data was last revised on 2017. Lymphocyte pct 17.8 % [facility] Comment: Interpretive Data Percent cell count reference ranges are not reported, since discordance with absolute values may lead to misinterpretation of CBC data. Current Interpretive Data was last revised on 2017. Monocyte pct 13.3 % [facility] Comment: Interpretive Data Percent cell count reference ranges are not reported, since discordance with absolute values may lead to misinterpretation of CBC data. Current Interpretive Data was last revised on 2017. Eosinophil pct 0.4 % [facility] Comment: Interpretive Data Percent cell count reference ranges are not reported, since discordance with absolute values may lead to misinterpretation of CBC data. Current Interpretive Data was last revised on 2017. Basophil pct 0.2 % [facility] Comment: Interpretive Data Percent cell count reference ranges are not reported, since discordance with absolute values may lead to misinterpretation of CBC data. Current Interpretive Data was last revised on 2017. Blood 08/26/2024 10:1 3 PM CDT 08/26/2024 11:44 PM CDT Dyana Dominguez MD LAB BLOOD ORDERABLES Final Result Performing Organization Address City/[facility]/ZIP Co de Phone Number [facility] [place] [address] * (ABNORMAL) CBC with auto differential (08/26/2024 10:13 PM CDT) WBC 12.82(H) 3.80 - 9.90 K/cumm Hgb 11.1(L) 13.0 - 17.5 g/dL [facility] Hct 31.8(L) 38.9 - 50.3 % [facility] Plt 161 150 - 400 K/cumm [facility] MPV 9.9 9.1 - 12.3 fL [facility] RBC 3.74(L) 4.30 - 5.80 M/cumm [facility] MCV 85.0 81.3 - 96.4 fL [facility] MCH 29.7 27.1 - 33.3 pg [facility] MCHC 34.9 32.3 - 35.7 g/dL [facility] RDW CV 12.7 11.1 - 14.9 % [facility] RDW SD 39.3 35.7 - 48.1 fL [facility] NRBC abs 0.00 0.00 - 0.01 K/cumm [facility] Blood 08/26/2024 10:1 3 PM CDT 08/26/2024 11:44 PM CDT Dyana Dominguez MD LAB BLOOD ORDERABLES Final Result Performing Organization Address City/[facility]/ZIP Co de Phone Number [facility] [place] [address] * Hepatitis C antibody Blood (08/26/2024 10:13 PM CDT) Pathologist [facility] Hep C Ab Nonreactive Nonreactive Comment:Antibodies to HCV no t detected. Does NOT exclude the possibility of recent exposure to HCV. Current interpretive data was last revised on 22 Blood 08/26/2024 10:1 3 PM CDT 08/26/2024 11:45 PM CDT Stacie Curry MD LAB MICROBIOLOGY - GENERA L ORDERABLES Final Result [facility] [place] [address] * (ABNORMAL) Hepatitis A antibody, total Blood (08/26/2024 10:13 PM CDT) [facility] Hep A total Reactive(A ) Nonreactive Blood 08/26/2024 10:1 3 PM CDT 08/26/2024 11:45 PM CDT Stacie Curry MD LAB MICROBIOLOGY - GENERA L ORDERABLES Final Result Performing Organization Address City/[facility]/ZIP Co de Phone Number [facility] [place] [address] * Hepatitis B core antibody, total Blood (08/26/2024 10:13 PM CDT) [facility] Hep B core IgG/IgM Nonreactive Nonreactive Blood 08/26/2024 10:1 3 PM CDT 08/26/2024 11:45 PM CDT Stacie Curry MD LAB MICROBIOLOGY - GENERA L ORDERABLES Final Result Performing Organization Address City/[facility]/ZIP Co de Phone Number [facility] [place] [address] * Hepatitis B surface antibody (immune status) Blood (08/26/2024 10:13 PM CDT) [facility] HBsAb (immune status) Reactive Comment:This result is consi stent with immunity to Hepatitis B Virus when used in the setting of routine screening. Current interpretive data was last revised on 22 HBsAb (immune status) index 29.3 mIUnits/m L [facility] Blood 08/26/2024 10:1 3 PM CDT 08/26/2024 11:45 PM CDT Stacie Curry MD LAB MICROBIOLOGY - GENERA L ORDERABLES Final Result Performing Organization Address City/[facility]/ZIP Co de Phone Number [facility] Department [place] [address] * Hepatitis B Surface Antigen Blood (08/26/2024 10:13 PM CDT) [facility] HepBsAg Nonreactive Nonreactive Blood 08/26/2024 10:1 3 PM CDT 08/26/2024 11:45 PM CDT Stacie Curry MD LAB MICROBIOLOGY - GENERA L ORDERABLES Final Result Performing Organization Address City/[facility]/ZIP Co de Phone Number [facility] Department [place] [address] * Basic metabolic panel (08/26/2024 10:13 PM CDT) [facility] Sodium 135 135 - 145 mmol/L Potassium, pl 4.4 3.3 - 4.9 mmol/L [facility] Chloride 100 97 - 110 mmol/L [facility] CO2 26 22 - 32 mmol/L [facility] Anion gap 9 2 - 15 mmol/L [facility] BUN 16 6 - 25 mg/dL [facility] Creatinine 1.06 0.80 - 1.30 mg/dL [facility] Glucose 108 70 - 199 mg/dL [facility] Comment: Interpretive Data Fasting glucose >/= 126 mg/dl is diagnostic for diabetes. Fasting is defined as no caloric intake for at least 8 hours. Fasting glucose between 100 mg/dl to 125 mg/dl is diagnostic of prediabetes. In a patient with classic symptoms of hyperglycemia or hyperglycemic crisis, a random glucose >/= 200 mg/dl is diagnostic for diabetes. In the absence of unequivocal hyperglycemia, results should be confirmed by repeat testing. The classification and Diagnosis of Diabetes Diabetes Care 2021; 46: S19-S40. Current interpretive data was last revised 2022. Calcium 8.8 8.5 - 10.3 mg/dL [facility] Blood 08/26/2024 10:1 3 PM CDT 08/26/2024 11:45 PM CDT us Dyana Dominguez MD LAB BLOOD ORDERABLES Final Result [facility] [place] [address] * TRANSTHORACIC ECHO (TTE) COMPLETE W DOPPLER/CF W CONTRAST (08/26/2024 2:51 PM CDT) Anatomical Region Laterality Modality Ultrasound 08/26/2024 1:37 PM CDT Narrative 08/28/2024 4:16 PM CDT [facility] [place] [address] Transthoracic Echocardiographic Report Patient Name: JAMSHID INTERIANO J : 1940 (83y 9m) Gender: M Study Date: 08/26/2024 01:37:55 PM Ht(Inch): 67 Wt(Lb): 151.02 BSA: 1.8 Head Of Precision Targeting: Augustina Oconnell RDCS Location: [id number] Order Provider: DYANA DOMINGUEZ Heart Rate: 71 BMI: 23.65 BP: 97 / 50 Ref Provider: DYANA DOMINGUEZ PROCEDURES: Echocardiographic Report: Transthoracic complete echo with contrast, 2D, spectral and tissue Doppler, color flow Doppler, M-mode. INDICATIONS: Endocarditis. CONCLUSIONS: 1. S/P TAVR. Normal LV size.Concentric LV remodeling. Normal left ventricular systolic function. The Ejection Fraction (Marin's) is measured at 67 %. Grade I diastolic dysfunction (normal LA pressure). The average global longitudinal strain is abnormal. 2. The mean transaortic gradient is 19 mmHg and peak=34 mmHg. The aortic valve area by the continuity equation (using VTI) is 1.44 cm2. Aortic valve dimensionless index is 0.45. A bioprosthetic stent-valve is present in the aortic position with physiological performance and no AR seen. 3. Normal right ventricular size. Normal right ventricular systolic function. 4. The estimated pulmonary artery systolic pressure is 20.0 mmHg. 5. No gross valvular vegetations seen. COMPARISONS: No change compared to prior study on: 11/23/23. ATTESTATION: I have personally reviewed and interpreted this study without fellow or resident. - DISCLAIMER: The study images and the final report will be retained in the patient chart by the Echo Laboratory for the legally required time period. This chart constitutes the legal record of any testing performed. FINDINGS: Left Ventricle: Normal left ventricular cavity size based on 2D measurements. Concentric LV remodeling. Normal left ventricular systolic function. The Ejection Fraction (Marin's) is measured at 67 %. Grade I diastolic dysfunction (normal LA pressure). The average global longitudinal strain is abnormal. The LV global strain is: -12.3 %. Right Ventricle: Normal right ventricular size. Normal right ventricular systolic function. Left Atrium: Moderately dilated left atrium. Right Atrium: Right atrial dilatation. Mitral Valve: Normal mitral valve structure. No mitral regurgitation. Aortic Valve: The mean transaortic gradient is 19 mmHg. The aortic valve area by the continuity equation (using VTI) is 1.44 cm2. Aortic valve dimensionless index is 0.45. A bioprosthetic stent-valve is present in the aortic position. Tricuspid Valve: Normal tricuspid valve structure. Mild tricuspid regurgitation. The estimated pulmonary artery systolic pressure is 20.0 mmHg. Pulmonic Valve: Normal pulmonic valve structure. No pulmonic regurgitation. Pericardium: No pericardial effusion. Aorta: Normal aortic root size when indexed. Dilation of the ascending aorta when indexed. IVC: IVC is normal in size. MEASUREMENTS: 2D/MM Value Range Doppler Value Range LVIDd 2D 4.62 cm [ 4.20 - 5.80 ] AV Peak Hans 2.9 m/s [ 1.0 - 1.7 ] LVIDs 2D 2.90 cm [ 2.50 - 4.00 ] AV Peak PG 33.64 mmHg IVSd 2D 1.11 cm [ 0.60 - 1.00 ] AV Mean PG 19 mmHg LVPWd 2D 1.11 cm [ 0.60 - 1.00 ] AV VTI 58.7 cm LV Thickness Ratio 1.0 LVOT Peak Hans 1.3 m/s [ 0.7 - 1.1 ] LV FS 2D 37.19 % [ 25.00 - 43.00 ] LVOT Peak PG 6.76 mmHg LV Mass 2D 187.96 g LVOT Mean PG 4 mmHg LV Mass Index 2D 104.42 g/m2 LVOT VTI 26.7 cm RWT 0.48 LVOT Diam 2.01 cm EDV Mod BP 139.71 ml [ 62.00 - 150.00 ] MAURILIO VTI 1.44 cm2 LV EDV Index 77.62 ml/m2 LVOT/AV VTI 0.45 - Dimensionless index (DVI) ESV Mod BP 46.20 ml [ 21.00 - 61.00 ] MV E Peak Hans 0.6 m/s [ 0.6 - 1.3 ] EF Mod BP 67 % [ 52 - 72 ] MV A Peak Hans 0.6 m/s [ 1.0 - 1.2 ] LV GLS -12.3 % [ -25.0 - -18.0 ] MV E/A 1.0 ratio [ 0.8 - 1.5 ] LA Length 4C 5.79 cm MV Decel Time 249.75 msec [ 104.00 - 258.00 ] LA Length 2C 5.72 cm Med E` Hans 8.5 cm/sec [ 8.0 - 25.0 ] LA Volume BP 79.03 ml Lat E` Hans 10.9 cm/sec [ 10.0 - 25.0 ] LA Volume Index 43.91 ml/m2 [ 16.00 - 34.00 ] Average E/E` 6.19 RV Base Dimen 2D 4.3 cm [ 2.5 - 4.2 ] RV S` 12.04 cm/sec TAPSE 1.05 cm [ 1.71 - 5.00 ] TR Peak Hans 2.3 m/s [ 1.0 - 2.8 ] RA Volume 62.10 ml TR Peak PG 21.2 mmHg RA Volume Index 34.50 ml/m2 PV Peak Hans 0.8 m/s [ 0.4 - 0.8 ] AoR Diam 2D 3.01 cm [ 3.10 - 3.70 ] PV Peak PG 2.56 mmHg Ao Root Index 1.67 cm/m2 [ 1.00 - 2.00 ] Asc Ao Diam 2D 3.34 cm Asc Ao Index 1.86 cm/m2 Electronically Signed By: Cale Ruby M.D. 08/28/2024 4:15:55 PM CDT Procedure Note Cale Ruby MD - 08/28/2024 [facility] [place] [address] Transthoracic Echocardiographic Report Patient Name: JAMSHID INTERIANO J : 1940 (83y 9m) Gender: M Study Date: 08/26/2024 01:37:55 PM Ht(Inch): 67 Wt(Lb): 151.02 BSA: 1.8 Head Of Precision Targeting: Augustina Oconnell RDCS Location: [id number] Order Provider:DYANA DOMINGUEZ Heart Rate: 71 BMI: 23.65 BP: 97 / 50 Ref Provider: DYANA DOMINGUEZ PROCEDURES: Echocardiographic Report: Transthoracic complete echo with contrast, 2D,spectral and tissue Doppler, color flow Doppler, M-mode. INDICATIONS: Endocarditis. CONCLUSIONS: 1. S/P TAVR. Normal LV size.Concentric LV remodeling. Normal leftventricular systolic function. The Ejection Fraction (Marin's) is measured at 67 %. Grade Idiastolic dysfunction (normal LA pressure). The average global longitudinal strainis abnormal. 2. The mean transaortic gradient is 19 mmHg and peak=34 mmHg. The aorticvalve area by the continuity equation (using VTI) is 1.44 cm2. Aortic valvedimensionless index is 0.45. A bioprosthetic stent-valve is present in the aortic position withphysiological performance and no AR seen. 3. Normal right ventricular size. Normal right ventricular systolicfunction. 4. The estimated pulmonary artery systolic pressure is 20.0 mmHg. 5. No gross valvular vegetations seen. COMPARISONS: No change compared to prior study on: 11/23/23. ATTESTATION: I have personally reviewed and interpreted this study without fellow orresident. - DISCLAIMER: The study images and the final report will be retained in the patientchart by the Echo Laboratory for the legally required time period. This chart constitutesthe legal record of any testing performed. FINDINGS: Left Ventricle: Normal left ventricular cavity size based on 2Dmeasurements. Concentric LV remodeling. Normal left ventricular systolic function. The EjectionFraction (Marin's) is measured at 67 %. Grade I diastolic dysfunction (normal LApressure). The average global longitudinal strain is abnormal. The LV global strain is:-12.3 %. Right Ventricle: Normal right ventricular size. Normal right ventricularsystolic function. Left Atrium: Moderately dilated left atrium. Right Atrium: Right atrial dilatation. Mitral Valve: Normal mitral valve structure. No mitral regurgitation. Aortic Valve: The mean transaortic gradient is 19 mmHg. The aortic valvearea by the continuity equation (using VTI) is 1.44 cm2. Aortic valve dimensionlessindex is 0.45. A bioprosthetic stent-valve is present in the aortic position. Tricuspid Valve: Normal tricuspid valve structure. Mild tricuspidregurgitation. The estimated pulmonary artery systolic pressure is 20.0 mmHg. Pulmonic Valve: Normal pulmonic valve structure. No pulmonicregurgitation. Pericardium: No pericardial effusion. Aorta: Normal aortic root size when indexed. Dilation of the ascendingaorta when indexed. IVC: IVC is normal in size. MEASUREMENTS: 2D/MM Value Range DopplerValue Range LVIDd 2D 4.62 cm [ 4.20 - 5.80 ] AV Peak Vel2.9 m/s [ 1.0 - 1.7 ] LVIDs 2D 2.90 cm [ 2.50 - 4.00 ] AV Peak PG33.64 mmHg IVSd 2D 1.11 cm [ 0.60 - 1.00 ] AV Mean PG19 mmHg LVPWd 2D 1.11 cm [ 0.60 - 1.00 ] AV VTI58.7 cm LV Thickness Ratio 1.0 LVOT Peak Vel1.3 m/s [ 0.7 - 1.1 ] LV FS 2D 37.19 % [ 25.00 - 43.00 ] LVOT Peak PG6.76 mmHg LV Mass 2D 187.96 g LVOT Mean PG4 mmHg LV Mass Index 2D 104.42 g/m2 LVOT VTI26.7 cm RWT 0.48 LVOT Diam2.01 cm EDV Mod BP 139.71 ml [ 62.00 - 150.00 ] MAURILIO VTI1.44 cm2 LV EDV Index 77.62 ml/m2 LVOT/AV VTI0.45 - Dimensionless index (DVI) ESV Mod BP 46.20 ml [ 21.00 - 61.00 ] MV E Peak Vel0.6 m/s [ 0.6 - 1.3 ] EF Mod BP 67 % [ 52 - 72 ] MV A Peak Vel0.6 m/s [ 1.0 - 1.2 ] LV GLS -12.3 % [ -25.0 - -18.0 ] MV E/A1.0 ratio [ 0.8 - 1.5 ] LA Length 4C 5.79 cm MV Decel Esih946.75 msec [ 104.00 - 258.00 ] LA Length 2C 5.72 cm Med E` Vel8.5 cm/sec [ 8.0 - 25.0 ] LA Volume BP 79.03 ml Lat E` Vel10.9 cm/sec [ 10.0 - 25.0 ] LA Volume Index 43.91 ml/m2 [ 16.00 - 34.00 ] Average E/E`6.19 RV Base Dimen 2D 4.3 cm [ 2.5 - 4.2 ] RV S`12.04 cm/sec TAPSE 1.05 cm [ 1.71 - 5.00 ] TR Peak Vel2.3 m/s [ 1.0 - 2.8 ] RA Volume 62.10 ml TR Peak PG21.2 mmHg RA Volume Index 34.50 ml/m2 PV Peak Vel0.8 m/s [ 0.4 - 0.8 ] AoR Diam 2D 3.01 cm [ 3.10 - 3.70 ] PV Peak PG2.56 mmHg Ao Root Index 1.67 cm/m2 [ 1.00 - 2.00 ] Asc Ao Diam 2D3.34 cm Asc Ao Index1.86 cm/m2 Electronically Signed By: Cale Ruby M.D. 08/28/2024 4:15:55 PM CDT Dyana Dominguez MD CV ECHO PROCEDURES Final Re sult * Blood culture Blood (08/26/2024 10:30 AM CDT) Report Final Report: No growth Blood 08/26/2024 10:3 0 AM CDT 08/26/2024 10:43 AM CDT [facility] - 08/30/2024 12:00 PM CDT Collection->Peripheral 1. Blood cultures are incubated for 4 days on a continuously monitored blood culture system. The first report of a negative culture is issued within 24 hours of receipt of the specimen in the laboratory. 2. Positive culture results are reported as soon as they are detected. 3. The most important factor for detection of microbes in the setting of bloodstream infection is the volume of blood submitted for culture. Failure to collect an optimal blood volume can result in false negative blood cultures. 4. For pediatric patients, the recommended blood volume to collect follows a weight based strategy. See the electronic test catalog for collection instructions. 5. For positive blood cultures, a rapid molecular test may be performed for organism identification using the raymond ePlex blood culture identification panel for gram positive (BCID-GP) and gram negative (BCID-GN) organisms. This nucleic acid amplification test detects microbial DNA in positive blood culture broth. This assay has been cleared by the [place] Food and Drug Administration and its performance characteristics have been verified by the [facility] Microbiology Laboratory. For questions about this culture, contact the Microbiology Laboratory at [phone]. Interpretive data was last revised on 24. us Stacie Curry MD LAB MICROBIOLOGY - GENERA L ORDERABLES Final Result [facility] [place] [address] * Blood culture Blood (08/26/2024 10:30 AM CDT) Report Final Report: No growth Blood 08/26/2024 10:3 0 AM CDT 08/26/2024 10:42 AM CDT [facility] - 08/30/2024 12:00 PM CDT Collection->Peripheral 1. Blood cultures are incubated for 4 days on a continuously monitored blood culture system. The first report of a negative culture is issued within 24 hours of receipt of the specimen in the laboratory. 2. Positive culture results are reported as soon as they are detected. 3. The most important factor for detection of microbes in the setting of bloodstream infection is the volume of blood submitted for culture. Failure to collect an optimal blood volume can result in false negative blood cultures. 4. For pediatric patients, the recommended blood volume to collect follows a weight based strategy. See the electronic test catalog for collection instructions. 5. For positive blood cultures, a rapid molecular test may be performed for organism identification using the arymond ePlex blood culture identification panel for gram positive (BCID-GP) and gram negative (BCID-GN) organisms. This nucleic acid amplification test detects microbial DNA in positive blood culture broth. This assay has been cleared by the [place] Food and Drug Administration and its performance characteristics have been verified by the [facility] Microbiology Laboratory. For questions about this culture, contact the Microbiology Laboratory at [phone]. Interpretive data was last revised on 24. us Stacie Curry MD LAB MICROBIOLOGY - GENERA L ORDERABLES Final Result [facility] Department [place] [address] * XR Orthopantogram Panorex (08/26/2024 10:00 AM CDT) Anatomical Region Laterality Modality Head and Neck N/A Panoramic X-Ray 08/26/2024 10:1 3 AM CDT Impressions 08/26/2024 10:13 AM CDT 1. Right maxillary molar cavity without large periapical lucencies Electronically signed by: Jenny Mary MD Narrative 08/26/2024 10:13 AM CDT EXAMINATION: XR ORTHOPANTOGRAM/PANOREX HISTORY: Bacteremia. FINDINGS: No comparison. Multiple dental extractions restorations are evident. Large cavity involving tooth #3. Periodontitis about the bilateral mandibular molars. No large periapical lucency. Procedure Note Jenny Mary MD - 08/26/2024 EXAMINATION: XR ORTHOPANTOGRAM/PANOREX HISTORY: Bacteremia. FINDINGS: No comparison. Multiple dental extractions restorations are evident. Large cavity involving tooth #3. Periodontitis about the bilateral mandibular molars. No large periapical lucency. IMPRESSION: 1. Right maxillary molar cavity without large periapical lucencies Electronically signed by: Jenny Mary MD us Dyana Dominguez MD IMG XR PROCEDURES Final Res ult * eGFR (08/25/2024 8:53 PM CDT) eGFR 84 >=60 mL/min/1. 73 m2 Comment: Interpretive Data Reference Interval Normal >/= 90 mL/min/1.73m2 Mildly decreased* 60 - 89 mL/min/1.73m2 Mildly to moderately decreased 45 - 59 mL/min/1.73m2 Moderately to severely decreased 30 - 44 mL/min/1.73m2 Severely decreased 15 - 29 mL/min/1.73m2 Kidney Failure < 15 mL/min/1.73m2 *Relative to young adult level Estimated glomerular filtration rate is determined by the 2020 CKD-EPI equation recommended by the National Kidney Foundation (A Unifying Approach to GFR Estimation: Recommendations of the NKF-ASK Task Force on Reassessing the Inclusion of Race in Diagnosing Kidney Disease, JASN 2020). The CKD-EPI equation should not be used for patients with unstable renal function and has not been validated in children and those over 70. Current interpretive data was last reviewed 2021. Blood 08/25/2024 8:53 PM CDT 08/25/2024 10:23 PM CDT Dyana Dominguez MD LAB BLOOD ORDERABLES Final Result [facility] [place] [address] * (ABNORMAL) Differential, auto (08/25/2024 8:53 PM CDT) Pathologist [facility] Neutrophil abs 11.78(H) 1.50 - 6.50 K/cumm Imm gran abs 0.12(H) 0.00 - 0.10 K/cumm [facility] Lymphocyte abs 1.25 0.80 - 3.30 K/cumm [facility] Monocyte abs 1.44(H) 0.20 - 0.80 K/cumm [facility] Eosinophil abs 0.02 0.00 - 0.50 K/cumm [facility] Basophil abs 0.03 0.00 - 0.10 K/cumm [facility] Neutrophil pct 80.6 % [facility] Comment: Interpretive Data Percent cell count reference ranges are not reported, since discordance with absolute values may lead to misinterpretation of CBC data. Current Interpretive Data was last revised on 2017. Imm gran pct 0.8 % [facility] Comment: Interpretive Data Percent cell count reference ranges are not reported, since discordance with absolute values may lead to misinterpretation of CBC data. Current Interpretive Data was last revised on 2017. Lymphocyte pct 8.5 % [facility] Comment: Interpretive Data Percent cell count reference ranges are not reported, since discordance with absolute values may lead to misinterpretation of CBC data. Current Interpretive Data was last revised on 2017. Monocyte pct 9.8 % [facility] Comment: Interpretive Data Percent cell count reference ranges are not reported, since discordance with absolute values may lead to misinterpretation of CBC data. Current Interpretive Data was last revised on 2017. Eosinophil pct 0.1 % [facility] Comment: Interpretive Data Percent cell count reference ranges are not reported, since discordance with absolute values may lead to misinterpretation of CBC data. Current Interpretive Data was last revised on 2017. Basophil pct 0.2 % [facility] Comment: Interpretive Data Percent cell count reference ranges are not reported, since discordance with absolute values may lead to misinterpretation of CBC data. Current Interpretive Data was last revised on 2017. Blood 08/25/2024 8:53 PM CDT 08/25/2024 10:22 PM CDT Dyana Dominguez MD LAB BLOOD ORDERABLES Final Result [facility] [place] [address] * Blood parasite examination Blood (08/25/2024 8:53 PM CDT) Report Final Report: Negative for Plasmodium falciparum antigen and the antigens for other Plasmodium species. * * * * * * * * * * * * * * * * * * * * Negative by smear analysis. * * * * * * * * * * * * * * * * * * * * Multiple blood samples collected over 2-3 days at 8-12 hour intervals may be required for the detection of blood-borne parasites. Prolonged delays between collection of the blood and lab processing may affect the detection of parasites. Blood 08/25/2024 8:53 PM CDT 08/25/2024 10:19 PM CDT Gio [facility] - 08/26/2024 10:57 AM CDT Specimen was received in the laboratory greater than 1 hour from collection time of 20:48 pm_. Test performed by microscopic examination for blood parasites including Plasmodium, Babesia, Trypanosoma spp and microfilariae. If present, the parasite is reported, however test sensitivity for microfilariae and trypanosomes can be limited. us Stacie Curry MD LAB MICROBIOLOGY - GENERA L ORDERABLES Final Result [facility] Department [place] [address] * (ABNORMAL) CBC with auto differential (08/25/2024 8:53 PM CDT) WBC 14.64(H) 3.80 - 9.90 K/cumm Hgb 12.5(L) 13.0 - 17.5 g/dL [facility] Hct 36.2(L) 38.9 - 50.3 % [facility] Plt 164 150 - 400 K/cumm [facility] MPV 9.6 9.1 - 12.3 fL [facility] RBC 4.21(L) 4.30 - 5.80 M/cumm [facility] MCV 86.0 81.3 - 96.4 fL [facility] MCH 29.7 27.1 - 33.3 pg [facility] MCHC 34.5 32.3 - 35.7 g/dL [facility] RDW CV 12.8 11.1 - 14.9 % [facility] RDW SD 39.9 35.7 - 48.1 fL [facility] NRBC abs 0.00 0.00 - 0.01 K/cumm [facility] Blood 08/25/2024 8:53 PM CDT 08/25/2024 10:22 PM CDT Dyana Dominguez MD LAB BLOOD ORDERABLES Final Result Performing Organization Address [facility] Co de Phone Number [facility] [place] [address] * (ABNORMAL) Erythrocyte sedimentation rate (08/25/2024 8:53 PM CDT) Pathologist [facility] Erythrocyte sedimentation rate 21(H) 1 - 20 mm/hr Blood 08/25/2024 8:53 PM CDT 08/25/2024 10:22 PM CDT Dyana Dominguez MD LAB BLOOD ORDERABLES Final Result Performing Organization Address [facility] de Phone Number [facility] [place] [address] * (ABNORMAL) CRP (acute phase) (08/25/2024 8:53 PM CDT) [facility] CRP 103.9(H) <=10.0 mg/L Blood 08/25/2024 8:53 PM CDT 08/25/2024 10:23 PM CDT Dyana Dominguez MD LAB BLOOD ORDERABLES Final Result Performing Organization Address [facility] [place] [address] * Basic metabolic panel (08/25/2024 8:53 PM CDT) Sodium 136 135 - 145 mmol/L Potassium, pl 4.3 3.3 - 4.9 mmol/L [facility] Chloride 100 97 - 110 mmol/L [facility] CO2 25 22 - 32 mmol/L [facility] Anion gap 11 2 - 15 mmol/L [facility] BUN 18 6 - 25 mg/dL [facility] Creatinine 0.91 0.80 - 1.30 mg/dL [facility] Glucose 95 70 - 199 mg/dL [facility] Comment: Interpretive Data Fasting glucose >/= 126 mg/dl is diagnostic for diabetes. Fasting is defined as no caloric intake for at least 8 hours. Fasting glucose between 100 mg/dl to 125 mg/dl is diagnostic of prediabetes. In a patient with classic symptoms of hyperglycemia or hyperglycemic crisis, a random glucose >/= 200 mg/dl is diagnostic for diabetes. In the absence of unequivocal hyperglycemia, results should be confirmed by repeat testing. The classification and Diagnosis of Diabetes Diabetes Care 202; 46: S19-S40. Current interpretive data was last revised 2022. Calcium 9.2 8.5 - 10.3 mg/dL [facility] Blood 08/25/2024 8:53 PM CDT 08/25/2024 10:23 PM CDT Dyana Dominguez MD LAB BLOOD ORDERABLES Final Result [facility] Department [place] [address] * Urinalysis reflex to microscopic and culture Urine (08/25/2024 7:45 PM CDT) Color, ur Straw Yellow Clarity, ur Clear Clear [facility] Specific gravity, ur 1.012 1.003 - 1.030 [facility] pH, urine 7.5 [facility] Comment: Interpretive Data U rine pH is affected by diet, medications, systemic acid-base disturbances, and renal tubular function. pH may affect urinary stone formation. For example, urine pH below 6.0 may help reduce the tendency for calcium phosphate stones and pH greater than 6.0 may reduce the tendency for uric acid stone formation. Source: [facility] Current Interpretive Data was last revised on 2017 Protein, ur ql Negative Negative [facility] Glucose, ur ql Negative Negative [facility] Ketones, ur Negative Negative [facility] Bilirubin, ur Negative Negative [facility] Blood, ur Negative Negative [facility] Urobilinogen, ur <2.0 <2.0 mg/dL [facility] Nitrite, ur Negative Negative [facility] Leukocyte esterase, ur Negative Negative [facility] UA reflex comment Reflex conditions for microscopic UA and culture not met. [facility] Urine 08/25/2024 7:45 PM CDT 08/25/2024 7:51 PM CDT us Carey Ayala MD LAB MICROBIOLOGY - GEN ERAL ORDERABLES Final Result [facility] [place] [address] * XR Chest 1 View (08/25/2024 4:49 PM CDT) Anatomical Region Laterality Modality Body, Chest N/A Computed Radiogr aphy 08/25/2024 5:22 PM CDT Impressions 08/25/2024 6:22 PM CDT Comparison radiograph dated 01/13/2023. Median sternotomy wires and transcatheter aortic valve replacement. 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 Mild left basilar atelectasis. Mild interstitial opacities likely related to fibrosis as noted on prior CT with possible superimposed component of mild pulmonary edema versus viral infection. Recommend correlation with patient's symptoms. No focal airspace consolidation, pleural effusion, or pneumothorax. Stable cardiomediastinal silhouette. Dictated by: Peace Bess MD The radiology attending physician has personally reviewed this study, and had reviewed and/or edited this written report and agrees with it. Electronically signed by: Lan Vitale M.D. Narrative 08/25/2024 6:22 PM CDT EXAMINATION: 1 view chest radiograph HISTORY: Fever, positive blood cultures Procedure Note Lan Vitale MD - 08/25/2024 EXAMINATION: 1 view chest radiograph HISTORY: Fever, positive blood cultures IMPRESSION: Comparison radiograph dated 01/13/2023. Median sternotomy wires and transcatheter aortic valve replacement. 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 Mild left basilar atelectasis. Mild interstitial opacities likely related to fibrosis as noted on prior CT with possible superimposed component of mild pulmonary edema versus viral infection. Recommend correlation with patient's symptoms. No focal airspace consolidation, pleural effusion, or pneumothorax. Stable cardiomediastinal silhouette. Dictated by: Peace Bess MD The radiology attending physician has personally reviewed this study, and had reviewed and/or edited this written report and agrees with it. Electronically signed by: Lan Vitale M.D. us Neida Hutchinson [employer] IMG XR PROCEDURES Final Res ult * CT Head WO Contrast (08/25/2024 3:01 PM CDT) Anatomical Region Laterality Modality Head and Neck N/A Computed Tomogra phy 08/25/2024 3:39 PM CDT Impressions 08/25/2024 4:20 PM CDT No acute intracranial abnormality. Dictated by: Renard Monge MD The radiology attending physician has personally reviewed this study, and had reviewed and/or edited this written report and agrees with it. Electronically signed by: Janie Payne M.D. Narrative 08/25/2024 4:20 PM CDT EXAMINATION: CT head without contrast HISTORY: Cyclical fevers and headache TECHNIQUE: CT of the head was performed with images acquired from skull base to vertex without intravenous contrast. COMPARISON: Temporal bone CT 05/31/2014, Brain MRI 07/05/2012 FINDINGS: There is no acute intracranial hemorrhage. There is age-appropriate global parenchymal volume loss with prominent CSF spaces and mild ex vacuo ventriculomegaly. There are multiple small periventricular white matter hypodensities, most likely sequela of chronic small vessel disease. Bilateral cataract extractions. 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 The visualized portions of the paranasal sinuses are normal. No fractures are identified. Intracranial atherosclerosis is seen. Procedure Note Janie Payne MD - 08/25/2024 EXAMINATION: CT head without contrast HISTORY: Cyclical fevers and headache TECHNIQUE: CT of the head was performed with images acquired from skull base to vertex without intravenous contrast. COMPARISON: Temporal bone CT 05/31/2014, Brain MRI 07/05/2012 FINDINGS: There is no acute intracranial hemorrhage. There is age-appropriate global parenchymal volume loss with prominent CSF spaces and mild ex vacuo ventriculomegaly. There are multiple small periventricular white matter hypodensities, most likely sequela of chronic small vessel disease. Bilateral cataract extractions. 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 The visualized portions of the paranasal sinuses are normal. No fractures are identified. Intracranial atherosclerosis is seen. IMPRESSION: No acute intracranial abnormality. Dictated by: Renard Monge MD The radiology attending physician has personally reviewed this study, and had reviewed and/or edited this written report and agrees with it. Electronically signed by: Janie Payne M.D. Carey Ayala MD IMG CT PROCEDURES [place] l Result * (ABNORMAL) Pro B-type natriuretic peptide (08/25/2024 1:48 PM CDT) NT-proBNP 830(H) <=450 pg/mL Comment: Interpretive Comments: A. Dyspnea in Acute Care Setting All Ages: < 300 pg/ml, acute heart failure unlikely. < 50 yrs: 300 - 450 pg/ml, further investigation warranted. > 450 pg/ml, acute heart failure likely. 50 - 74 yrs: 300 - 900 pg/ml, further investigation warranted. > 900 pg/ml, acute heart failure likely . > or = 75 yrs: 450 - 1800 pg/ml, further investigation warranted. > 1800 pg/ml, acute heart failure likely. B. Non-acute Setting < 75 yrs < 125 pg/ml, rules out heart failure. > or = 125 pg/ml, further investigation warranted. > or = 75 yrs < 450 pg/ml, rules out heart failure. > or = 450 pg/ml, further investigation warranted. - Knowledge of each individual patient's NT-proBNP range may be more useful than using similar cut-points for every patient. Please note that marked elevations in NT-proBNP levels may be observed in state other than Left Ventricular Congestive Failure, including: acute coronary syndromes, right heart strain/failure (including pulmonary embolism and cor pulmonale), critical illness, renal failure, as well as advanced age. - References: 1. Chandrakant LI et.al. Eur Heart J. 2006:27:330-337. 2. Michael PAGE, Ramakrishna DUONG. J. AM Rukhsana Cardiol: Cardiovasc Imag. 2009;2: 216- 225. Interpretive Data Last Revised Date: 2018. Blood 08/25/2024 1:48 PM CDT 08/25/2024 2:01 PM CDT Carey Ayala MD LAB BLOOD ORDERABLES F inal Result Performing Organization Address [facility] Co de Phone Number [facility] [place] [address] * Thyroid Function [place] (08/25/2024 1:48 PM CDT) Pathologist [facility] TSH 1.50 0.30 - 4.20 mcIUnit/mL Blood 08/25/2024 1:48 PM CDT 08/25/2024 2:01 PM CDT Carey Ayala MD LAB BLOOD ORDERABLES F inal Result Performing Organization Address [facility] de Phone Number [facility] [place] [address] * Extra slide preparation (08/25/2024 1:48 PM CDT) Pathologist [facility] Extra slide prep Slide available for pickup from the lab. Blood 08/25/2024 1:48 PM CDT 08/25/2024 2:01 PM CDT Carey Ayala MD LAB BLOOD ORDERABLES F inal Result Performing Organization Address [facility] Co de Phone Number [facility] [place] [address] * Respiratory pathogen panel Nasopharyngeal (08/25/2024 1:48 PM CDT) Pathologist [facility] Influenza A RNA Not Detected Not Detected Influenza B RNA Not Detected Not Detected [facility] RSV RNA Not Detected Not Detected [facility] COVID-19 RNA Not Detected Not Detected [facility] Coronavirus 229E RNA Not Detected Not Detected [facility] Coronavirus HKU1 RNA Not Detected Not Detected [facility] Coronavirus NL63 RNA Not Detected Not Detected [facility] Coronavirus OC43 RNA Not Detected Not Detected [facility] Adenovirus DNA Not Detected Not Detected [facility] Metapneumovirus RNA Not Detected Not Detected [facility] Rhinovirus/Enterov irus RNA Not Detected Not Detected [facility] Parainfluenza 1 RNA Not Detected Not Detected [facility] Parainfluenza 2 RNA Not Detected Not Detected [facility] Parainfluenza 3 RNA Not Detected Not Detected [facility] Parainfluenza 4 RNA Not Detected Not Detected [facility] B. pertussis DNA Not Detected Not Detected [facility] B. parapertussis DNA Not Detected Not Detected [facility] C. pneumoniae DNA Not Detected Not Detected [facility] M. pneumoniae DNA Not Detected Not Detected [facility] Nasopharyngeal 08/25/2024 1: 48 PM CDT 08/25/2024 2:37 PM CDT Narrative [facility] - 08/25/2024 4:29 PM CDT Is the Patient experiencing symptoms consistent with COVID?->Yes Surveillance testing for transplant patient?->No Interpretive Data The [employer] FilmArray Respiratory Panel (RP2.1) assay is a multiplexed real-time PCR based nucleic acid test capable of simultaneous qualitative detection and identification of multiple respiratory viral and bacterial nucleic acids, including SARS Coronavirus 2 (the causative agent of COVID-19). The following bacteria, viruses and virus subtypes can be identified using the FilmArray RP2.1 assay: Bordetella pertussis, Bordetella parapertussis, Chlamydia pneumoniae, Mycoplasma pneumoniae, Adenovirus, SARS Coronavirus 2, seasonal coronaviruses (Coronavirus HKU1, Coronavirus NL63, Coronavirus 229E, and Coronavirus OC43), Influenza A, Influenza A subtype H1, Influenza A subtype H3, Influenza A subtype 2009 H1, Influenza B, Metapneumovirus, Parainfluenza 1, Parainfluenza 2, Parainfluenza 3, Parainfluenza 4, RSV, Rhinovirus/Enterovirus. Due to the genetic similarity between human Rhinovirus and Enterovirus, the FilmArray RP2.1 assay cannot reliably differentiate them. Coronavirus OC43 may cross-react with some isolates of Coronavirus HKU1. A dual positive result may be due to cross-reactivity or may indicate a co- infection. The detection and identification of specific viral and bacterial nucleic acids from individuals exhibiting signs and symptoms of a respiratory infection aids in the diagnosis of respiratory infection if used in conjunction with other clinical and epidemiological information. The results of this test should not be used as the sole basis for diagnosis, treatment, or other management decisions. Negative results in the setting of a respiratory illness may be due to infection with pathogens that are not detected by this test. Positive results do not rule out infection/co-infection with other organisms. The agent(s) detected by the FilmArray RP2.1 may not be the definite cause of disease. Additional testing (lab, imaging, etc.) may be necessary when evaluating a patient with possible respiratory tract infection. The FilmArray RP2.1 assay has FDA clearance for testing of BATCH T[employer]ER swabs. The performance of additional specimen types has been assessed by the performing laboratory. The performance characteristics of this assay have been determined by [facility]ious Disease [facility]. Current interpretive data was last revised on 22. Carey Ayala MD LAB MICROBIOLOGY - GEN ERAL ORDERABLES Final Result [facility] [place] [address] * (ABNORMAL) Blood culture Blood Peripheral (08/25/2024 1:48 PM CDT) Direct Specimen Exam Stain: Gram Positive Cocci in pairs and chains Time to culture positivity (anaerobic media): 12.6 hours Time to culture positivity (aerobic media): 14.4 hours Report Final Report: Streptococcus sanguinis (S. mitis group) Streptococcus sanguinis (S. mitis group) #2 For susceptibility results, refer to accession number [id number] on the blood culture from 08/24/2024 (.) [facility] Organism STREPTOCOCCUS SANGUINIS (S. MITIS GROUP) [facility] Organism STREPTOCOCCUS SANGUINIS (S. MITIS GROUP) [facility] Blood (Peripheral) 08/25/2024 1:48 PM CDT 08/25/2024 2:27 PM CDT [facility]ative [facility] - 08/29/2024 1:54 PM CDT From a different site than #1. Draw Blood cultures before administration of Antibiotics Collection->Peripheral Received only anaerobic blood culture bottle 08/25/2024 14:27:55 CDT 1. Blood cultures are incubated for 4 days on a continuously monitored blood culture system. The first report of a negative culture is issued within 24 hours of receipt of the specimen in the laboratory. 2. Positive culture results are reported as soon as they are detected. 3. The most important factor for detection of microbes in the setting of bloodstream infection is the volume of blood submitted for culture. Failure to collect an optimal blood volume can result in false negative blood cultures. 4. For pediatric patients, the recommended blood volume to collect follows a weight based strategy. See the electronic test catalog for collection instructions. 5. For positive blood cultures, a rapid molecular test may be performed for organism identification using the [employer] blood culture identification panel for gram positive (BCID-GP) and gram negative (BCID-GN) organisms. This nucleic acid amplification test detects microbial DNA in positive blood culture broth. This assay has been cleared by the [place] Food and Drug Administration and its performance characteristics have been verified by the [facility] Microbiology Laboratory. For questions about this culture, contact the Microbiology Laboratory at [phone]. Interpretive data was last revised on 24. us Carey Ayala MD LAB MICROBIOLOGY - GEN ERAL ORDERABLES Final Result [facility] [place] [address] * (ABNORMAL) Blood culture Blood Peripheral (08/25/2024 1:48 PM CDT) Direct Specimen Exam Stain: Gram Positive Cocci in pairs and chains Time to culture positivity (aerobic media): 14.8 hours Time to culture positivity (anaerobic media): 11.6 hours Report Final Report: Streptococcus sanguinis (S. mitis group) Streptococcus sanguinis (S. mitis group) #2 For susceptibility results, refer to accession number [id number] on the blood culture from 08/24/2024 (.) [facility] Organism STREPTOCOCCUS SANGUINIS (S. MITIS GROUP) [facility] Organism STREPTOCOCCUS SANGUINIS (S. MITIS GROUP) [facility] Blood (Peripheral) 08/25/2024 1:48 PM CDT 08/25/2024 2:28 PM CDT Narrative [facility] - 08/29/2024 1:53 PM CDT Draw Blood cultures before administration of Antibiotics Collection->Peripheral Received only aerobic blood culture bottle 08/25/2024 14:28:36 CDT 1. Blood cultures are incubated for 4 days on a continuously monitored blood culture system. The first report of a negative culture is issued within 24 hours of receipt of the specimen in the laboratory. 2. Positive culture results are reported as soon as they are detected. 3. The most important factor for detection of microbes in the setting of bloodstream infection is the volume of blood submitted for culture. Failure to collect an optimal blood volume can result in false negative blood cultures. 4. For pediatric patients, the recommended blood volume to collect follows a weight based strategy. See the electronic test catalog for collection instructions. 5. For positive blood cultures, a rapid molecular test may be performed for organism identification using the [employer] ePlex blood culture identification panel for gram positive (BCID-GP) and gram negative (BCID-GN) organisms. This nucleic acid amplification test detects microbial DNA in positive blood culture broth. This assay has been cleared by the [place] Food and Drug Administration and its performance characteristics have been verified by the [facility] Microbiology Laboratory. For questions about this culture, contact the Microbiology Laboratory at [phone]. Interpretive data was last revised on 24. Carey Ayala MD LAB MICROBIOLOGY - GEN ERAL ORDERABLES Final Result [facility] Department [place] [address] * eGFR (08/24/2024 10:33 AM CDT) eGFR 87 >=60 mL/min/1. 73 m2 Comment: Interpretive Data Reference Interval Normal >/= 90 mL/min/1.73m2 Mildly decreased* 60 - 89 mL/min/1.73m2 Mildly to moderately decreased 45 - 59 mL/min/1.73m2 Moderately to severely decreased 30 - 44 mL/min/1.73m2 Severely decreased 15 - 29 mL/min/1.73m2 Kidney Failure < 15 mL/min/1.73m2 *Relative to young adult level Estimated glomerular filtration rate is determined by the 2020 CKD-EPI equation recommended by the National Kidney Foundation (A Unifying Approach to GFR Estimation: Recommendations of the NKF-ASK Task Force on Reassessing the Inclusion of Race in Diagnosing Kidney Disease, JASN 2020). The CKD-EPI equation should not be used for patients with unstable renal function and has not been validated in children and those over 70. Current interpretive data was last reviewed 2021. Blood 08/24/2024 10:3 3 AM CDT 08/24/2024 8:32 PM CDT us London Santos MD LAB BLOOD ORDERABLES F inal Result Performing Organization Address City/[facility] Co de Phone Number [facility] [address] Department [place] [address] * (ABNORMAL) Differential, auto (08/24/2024 10:33 AM CDT) Neutrophil abs 12.53(H) 1.50 - 6.50 K/cumm Imm gran abs 0.08 0.00 - 0.10 K/cumm [facility] Lymphocyte abs 1.25 0.80 - 3.30 K/cumm [facility] Monocyte abs 1.16(H) 0.20 - 0.80 K/cumm [facility] Eosinophil abs 0.01 0.00 - 0.50 K/cumm [facility] Basophil abs 0.02 0.00 - 0.10 K/cumm [facility] Neutrophil pct 83.3 % [facility] Comment: Interpretive Data Percent cell count reference ranges are not reported, since discordance with absolute values may lead to misinterpretation of CBC data. Current Interpretive Data was last revised on 2017. Imm gran pct 0.5 % [facility] Comment: Interpretive Data Percent cell count reference ranges are not reported, since discordance with absolute values may lead to misinterpretation of CBC data. Current Interpretive Data was last revised on 2017. Lymphocyte pct 8.3 % [facility] Comment: Interpretive Data Percent cell count reference ranges are not reported, since discordance with absolute values may lead to misinterpretation of CBC data. Current Interpretive Data was last revised on 2017. Monocyte pct 7.7 % [facility] Comment: Interpretive Data Percent cell count reference ranges are not reported, since discordance with absolute values may lead to misinterpretation of CBC data. Current Interpretive Data was last revised on 2017. Eosinophil pct 0.1 % [facility] Comment: Interpretive Data Percent cell count reference ranges are not reported, since discordance with absolute values may lead to misinterpretation of CBC data. Current Interpretive Data was last revised on 2017. Basophil pct 0.1 % [facility] Comment: Interpretive Data Percent cell count reference ranges are not reported, since discordance with absolute values may lead to misinterpretation of CBC data. Current Interpretive Data was last revised on 2017. Blood 08/24/2024 10:3 3 AM CDT 08/24/2024 7:01 PM CDT us London Santos MD LAB BLOOD ORDERABLES F inal Result [facility] [address] Department [place] [address] * Ehrlichia and Anaplasma PCR Blood (08/24/2024 10:33 AM CDT) Pathologist [facility] Ehrlichia species DNA Not Detected Not Detected [facility] Comment:Testing performed by : [facility], [address] [place] [address] Anaplasma Phagocytophilum DNA Not Detected Not Detected [facility] Comment: This assay tests for the presence of Anaplasma phagocytophilum, Ehrlichia chaffeensis, Ehrlichia ewingii and Ehrlichia canis. This test is laboratory developed and its performance characteristics were determined by the performing laboratory in a manner consistent with CLIA requirements. This test has not been cleared or approved by the U.S. Food and Drug Administration. Testing performed by: [facility], [address] [place]., [address] Blood 08/24/2024 10:3 3 AM CDT 08/25/2024 10:12 AM CDT London Santos MD LAB MICROBIOLOGY - GEN ERAL ORDERABLES Final Result Performing Organization Address [facility] de Phone Number QU[facility] [address] [place] [address] BJ * HIV 1/2 Antibody plus p24 Antigen Blood (08/24/2024 10:33 AM CDT) Pathologist [facility] HIV 1/2 ab + p24 ag Nonreactive Nonreactive Comment: Nonreactive for HIV-1 antigen and HIV-1/HIV-2 antibodies. No laboratory evidence of HIV infection. If acute HIV infection is suspected, consider testing for HIV-1 RNA. Blood 08/24/2024 10:3 3 AM CDT 08/24/2024 3:35 PM CDT London Santos MD LAB MICROBIOLOGY - GEN ERAL ORDERABLES Final Result Performing Organization Address City/[facility] Co de Phone Number [facility] [address] [place] [address] * (ABNORMAL) CBC with auto differential (08/24/2024 10:33 AM CDT) WBC 15.05(H) 3.80 - 9.90 K/cumm Hgb 11.8(L) 13.0 - 17.5 g/dL [facility] Hct 35.6(L) 38.9 - 50.3 % [facility] Plt 165 150 - 400 K/cumm [facility] MPV 9.5 9.1 - 12.3 fL [facility] RBC 3.94(L) 4.30 - 5.80 M/cumm [facility] MCV 90.4 81.3 - 96.4 fL [facility] MCH 29.9 27.1 - 33.3 pg [facility] MCHC 33.1 32.3 - 35.7 g/dL [facility] RDW CV 12.8 11.1 - 14.9 % [facility] RDW SD 43.0 35.7 - 48.1 fL [facility] NRBC abs 0.00 0.00 - 0.01 K/cumm [facility] Blood 08/24/2024 10:3 3 AM CDT 08/24/2024 7:01 PM CDT London Santos MD LAB BLOOD ORDERABLES F inal Result [facility] [address] Department [place] [address] * (ABNORMAL) Shahana-Ramirez virus (EBV) antibody panel Blood (08/24/2024 10:33 AM CDT) Pathologist [facility] EBV nuclear Ab Positive(A) Negative Comment: Indicates the presence of detectable IgG antibody to EBV Nuclear Antigen. Testing performed by: [facility], [address] [place]., [address] EBV VCA IgG Positive(A) Negative [facility] Comment: Indicates the presence of antibody; 90% of the adult population will have been infected with EBV sometime in the past. Testing performed by: [facility], [address] [place]., [address] EBV VCA IgM Negative Negative [facility] Comment: No detectable IgM antibody to EBV-VCA. A negative result indicates no current infection with EBV. If clinical suspicion of acute EBV infection is present, testing should be repeated after one week. Testing performed by: [facility], [address] [place] [address] EBV interp Past Infection [facility] Comment:Testing performed by : [facility], [address] [place]., [address] Blood 08/24/2024 10:3 3 AM CDT 08/25/2024 10:06 AM CDT London Santos MD LAB MICROBIOLOGY - GEN ERAL ORDERABLES Final Result [facility] [address] Department [place] [address] * (ABNORMAL) Blood culture Blood (08/24/2024 10:33 AM CDT) Direct Specimen Exam Molecular Analysis: Streptococcus species detected by [employer] BCID-GP panel. This test does not exclude the possibility of a mixed bacterial infection. Comment:Testing performed by : [facility], [address] [place]., [address] Direct Specimen Exam Stain: Gram Positive Cocci in pairs and chains Time to culture positivity (anaerobic media): 11.5 hours Time to culture positivity (aerobic media): 12.5 hours [facility] Comment:Testing performed by : [facility], [address] [place] [address]., [id number] Report Final Report: Streptococcus sanguinis (S. mitis group) Organism failed to grow adequately for susceptibility testing. Streptococcus sanguinis (S. mitis group) #2 Organism failed to grow adequately for susceptibility testing. (.) [facility] Comment:Testing performed by : [facility], [address] [place]., [address] Organism STREPTOCOCCUS SANGUINIS (S. MITIS GROUP) [facility] Organism STREPTOCOCCUS SANGUINIS (S. MITIS GROUP) [facility] Blood 08/24/2024 10:3 3 AM CDT 08/24/2024 8:33 PM CDT Narrative [facility] - 08/31/2024 2:04 PM CDT 1. Blood cultures are incubated for 4 days on a continuously monitored blood culture system. The first report of a negative culture is issued within 24 hours of receipt of the specimen in the laboratory. 2. Positive culture results are reported as soon as they are detected. 3. The most important factor for detection of microbes in the setting of bloodstream infection is the volume of blood submitted for culture. Failure to collect an optimal blood volume can result in false negative blood cultures. 4. For pediatric patients, the recommended blood volume to collect follows a weight based strategy. See the electronic test catalog for collection instructions. 5. For positive blood cultures, a rapid molecular test may be performed for organism identification using the [employer]lex blood culture identification panel for gram positive (BCID-GP) and gram negative (BCID-GN) organisms. This nucleic acid amplification test detects microbial DNA in positive blood culture broth. This assay has been cleared by the [place] Food and Drug Administration and its performance characteristics have been verified by the [facility] Microbiology Laboratory. For questions about this culture, contact the Microbiology Laboratory at [phone]. Interpretive data was last revised on 24. London Santos MD LAB MICROBIOLOGY - GEN ERAL ORDERABLES Final Result [facility] [address] Department [place] [address] * (ABNORMAL) Blood culture Blood (08/24/2024 10:33 AM CDT) Direct Specimen Exam Molecular Analysis: Streptococcus species detected by raymond ePlex BCID-GP panel. This test does not exclude the possibility of a mixed bacterial infection. Notification of: Streptococcus species called to and read back by: Dyana Ramos MT [phone] on 08/25/2024 10:01:01 by: Diony Pineda MLS * * * * * * * * * * * * * * * * * * * * Test result called to and read back by Hannah Smiley on 08/25/2024 10:24:37 by Dyana Ramos MT Comment:Testing performed by : [facility], [address] [place] [address]., [id number] Direct Specimen Exam Stain: Gram Positive Cocci in pairs and chains Time to culture positivity (anaerobic media): 11.1 hours Time to culture positivity (aerobic media): 11.8 hours Notification of: Gram Positive Cocci in pairs and chains called to and read back by: Dyana Ramos MT on 08/25/2024 08:14:25 by: Lucila Tucker MT * * * * * * * * * * * * * * * * * * * * Test result called to and read back by Suzanne Beckett (refused to provide last name) on 08/25/2024 09:43:48 by CAMI Falcon Comment:Testing performed by : [facility], [address] [place] [address]., [id number] Report Final Report: Streptococcus sanguinis (S. mitis group) Streptococcus sanguinis (S. mitis group) #2 For susceptibility results, refer to accession number [id number] on the blood culture from 08/24/2024 (.) QUANG Comment:Testing performed by : [facility], [address] [place] [address]., [id number] Organism STREPTOCOCCUS SANGUINIS (S. MITIS GROUP) [facility] Organism STREPTOCOCCUS SANGUINIS (S. MITIS GROUP) [facility] Blood 08/24/2024 10:3 3 AM CDT 08/24/2024 8:33 PM CDT Narrative [facility] - 08/28/2024 9:50 AM CDT 1. Blood cultures are incubated for 4 days on a continuously monitored blood culture system. The first report of a negative culture is issued within 24 hours of receipt of the specimen in the laboratory. 2. Positive culture results are reported as soon as they are detected. 3. The most important factor for detection of microbes in the setting of bloodstream infection is the volume of blood submitted for culture. Failure to collect an optimal blood volume can result in false negative blood cultures. 4. For pediatric patients, the recommended blood volume to collect follows a weight based strategy. See the electronic test catalog for collection instructions. 5. For positive blood cultures, a rapid molecular test may be performed for organism identification using the raymond [employer]Plex blood culture identification panel for gram positive (BCID-GP) and gram negative (BCID-GN) organisms. This nucleic acid amplification test detects microbial DNA in positive blood culture broth. This assay has been cleared by the [place] Food and Drug Administration and its performance characteristics have been verified by the [facility] Microbiology Laboratory. For questions about this culture, contact the Microbiology Laboratory at [phone]. Interpretive data was last revised on 24. London Santos MD LAB MICROBIOLOGY - GEN ERAL ORDERABLES Final Result [facility] [address] Department [place] [address] * (ABNORMAL) Comprehensive metabolic panel (08/24/2024 10:33 AM CDT) Sodium 134(L) 135 - 145 mmol/L Potassium, pl 4.0 3.3 - 4.9 mmol/L [facility] Chloride 99 97 - 110 mmol/L [facility] CO2 22 22 - 32 mmol/L [facility] Anion gap 13 2 - 15 mmol/L [facility] BUN 16 6 - 25 mg/dL [facility] Creatinine 0.83 0.80 - 1.30 mg/dL [facility] Glucose 165 70 - 199 mg/dL [facility] Comment: Interpretive Data Fasting glucose >/= 126 mg/dl is diagnostic for diabetes. Fasting is defined as no caloric intake for at least 8 hours. Fasting glucose between 100 mg/dl to 125 mg/dl is diagnostic of prediabetes. In a patient with classic symptoms of hyperglycemia or hyperglycemic crisis, a random glucose >/= 200 mg/dl is diagnostic for diabetes. In the absence of unequivocal hyperglycemia, results should be confirmed by repeat testing. The classification and Diagnosis of Diabetes Diabetes Care 2022; 46: S19-S40. Current interpretive data was last revised 2022. Calcium 9.3 8.5 - 10.3 mg/dL [facility] Bilirubin, total 0.8 0.1 - 1.2 mg/dL [facility] Protein, pl 7.1 6.5 - 8.5 g/dL [facility] Albumin 3.5 3.5 - 5.0 g/dL [facility] Alk phos 85 40 - 130 Units/L [facility] ALT 17 7 - 55 Units/L [facility] AST 30 10 - 50 Units/L [facility] Blood 08/24/2024 10:3 3 AM CDT 08/24/2024 7:01 PM CDT London Santos MD LAB BLOOD [place] [address] [address] Department [place] [address] * (ABNORMAL) Haptoglobin (08/19/2024 1:54 PM CDT) Haptoglobin 220(H) 43 - 212 mg/dL [facility] Blood 08/19/2024 1:54 PM CDT 08/20/2024 8:34 AM CDT Rin Ramos NP LAB BLOOD ORDERABLES F inal Result Performing Organization Address [facility] Co de Phone Number [facility] [address] [place] [address] * Ehrlichia detection PCR (08/18/2024 9:56 AM CDT) E. chaffeensis DNA NOT DETECTED [facility], Comment: REFERENCE RANGE: NOT DETECTED This test was developed and its analytical performance characteristics have been determined by [facility]. It has not been cleared or approved by FDA. This assay has been validated pursuant to the CLIA regulations and is used for clinical purposes. 08/18/2024 9:56 AM CDT 08/18/2024 9:57 AM CDT Rin Ramos NP LAB MICROBIOLOGY - GEN ERAL ORDERABLES Final Result [facility], [address] [facility] [place] [address] * (ABNORMAL) CBC with auto differential (08/18/2024 9:56 AM CDT) WBC 14.2(H) 3.8 - 10.8 Thousand/ uL [facility] RBC, POC 4.02(L) 4.20 - 5.80 Million/u L [facility] Hgb 12.2(L) 13.2 - 17.1 g/dL [facility] Hct 37.3(L) 38.5 - 50.0 % [facility] MCV 92.8 80.0 - 100.0 fL [facility] MCH 30.3 27.0 - 33.0 pg [facility] MCHC 32.7 32.0 - 36.0 g/dL [facility] Comment: For adults, a slight decrease in the calculated MCHC value (in the range of 30 to 32 g/dL) is most likely not clinically significant; however, it should be interpreted with caution in correlation with other red cell parameters and the patient's clinical condition. Rdw 12.0 11.0 - 15.0 % [facility] Platelets 166 140 - 400 Thousand/ uL [facility] MPV 9.5 7.5 - 12.5 fL [facility] Neutrophils, abs 11,062(H) 1,500 - 7,800 cells/uL [facility] Lymphocytes, abs 1,491 850 - 3,900 cells/uL [facility] Monocyte abs 1,576(H) 200 - 950 cells/uL [facility] Eosinophils, abs 43 15 - 500 cells/uL [facility] Basophils, abs 28 0 - 200 cells/uL [facility] Neutrophils 77.9 % [facility] Lymphocyte pct 10.5 % [facility] Monocytes 11.1 % [facility] Eosinophils 0.3 % [facility] Basophils 0.2 % [facility] Blood 08/18/2024 9:56 AM CDT 08/18/2024 9:57 AM CDT Rin Ramos NP LAB BLOOD ORDERABLES F inal Result [facility] [address] [place] [address] * (ABNORMAL) Iron profile w/ IBC (08/17/2024 3:04 PM CDT) Iron 21.9(L) 59.0 - 158.0 ug/dL [facility] Total Iron Binding Capacity 206.5 ug/dL [facility] Unsaturated Iron Binding Capacity 184.6 112.0 - 346.0 ug/dL [facility] % Iron Saturation 10.6(L) 25.0 - 45.0 % [facility] Blood 08/17/2024 3:04 PM CDT 08/17/2024 3:07 PM CDT Rin Ramos BATCH TANK CONTROLLER LAB BLOOD ORDERABLES F inal Result Performing Organization Address City/[facility]/ZIP Co de Phone Number [facility] [address] [place] [address] * Vitamin D 25 hydroxy (08/17/2024 3:04 PM CDT) Vitamin D 54.07 >29.00 ng/ml [facility] Blood 08/17/2024 3:04 PM CDT 08/17/2024 3:07 PM CDT Rin Ramos BATCH TANK CONTROLLER LAB BLOOD ORDERABLES F inal Result Performing Organization Address [facility]/ZIP Co de Phone Number [facility] [address] [place] [address] * Folate (08/17/2024 3:04 PM CDT) Folate 13.3 4.5 - 37.3 ng/mL [facility] Blood 08/17/2024 3:04 PM CDT 08/17/2024 3:07 PM CDT Rin Ramos NP LAB BLOOD ORDERABLES F inal Result Performing Organization Address City/[facility]/ZIP Co de Phone Number [facility] [address] [place] [address] * (ABNORMAL) Ferritin (08/17/2024 3:04 PM CDT) Ferritin 472.60(H) 30.00 - 400.00 ng/mL [facility] Blood 08/17/2024 3:04 PM CDT 08/17/2024 3:07 PM CDT Rin Ramos BATCH TANK CONTROLLER LAB BLOOD ORDERABLES F inal Result Performing Organization Address [facility] Co de Phone Number [facility] [address] [place] [address] * (ABNORMAL) Comprehensive metabolic panel (08/17/2024 3:04 PM CDT) Glucose 103 74 - 200 mg/dL [facility] BUN 17(L) 18 - 23 mg/dL [facility] Creatinine 1.0 0.7 - 1.3 mg/dL [facility] eGFR 71 mL/min/1.7 3m2 [facility] BUN/Creat Ratio 17 Ratio [facility] Bilirubin, Total 0.5 0.0 - 1.2 mg/dL [facility] AST (SGOT) 18 0 - 40 U/L [facility] ALT (SGPT) 15 10 - 50 U/L [facility] Alkaline phosphatase 95 40 - 129 U/L [facility] Calcium 9.1 8.8 - 10.2 mg/dL [facility] Sodium 130(L) 135 - 145 mEq/L [facility] Potassium 5.4(H) 3.5 - 5.1 mEq/L [facility] Chloride 97(L) 98 - 107 mEq/L [facility] CO2 26.2 22.0 - 32.0 mEq/L [facility] Anion Gap 7 3 - 12 mEq/L [facility] Total Protein 6.3 6.0 - 8.1 g/dL [facility] Albumin 3.8 3.5 - 5.2 g/dL [facility] Globulin 2.5 g/dL [facility] Albumin/Globulin 1.5 Ratio [facility] Blood 08/17/2024 3:04 PM CDT 08/17/2024 3:07 PM CDT Rin Ramos NP LAB BLOOD ORDERABLES F inal Result Performing Organization Address [facility]/ZIP Co de Phone Number [place] [address] * COVID-19 POC (08/17/2024 2:40 PM CDT) Pathologist [facility] COVID-19 RNA PCR POC Negative Not Detected, Negative, Undetected [facility] Nasal 08/17/2024 2:40 PM CDT Rin Ramos NP POINT OF CARE TEST ORD ERABLES Final Result Performing Organization Address [facility] de Phone Number [address] * POCT influenza A/B (08/17/2024 2:34 PM CDT) [facility] Rapid Influenza A Ag Negative Negative, Invalid Rapid Influenza B Ag Negative Negative, Invalid Nasal 08/17/2024 2:34 PM CDT Rin Ramos NP POINT OF CARE TEST ORD ERABLES Final Result * MRI Abdomen W WO Contrast (08/08/2024 3:04 PM CDT) Anatomical Region Laterality Modality Body N/A Magnetic Resonan ce 08/08/2024 3:30 PM CDT Impressions 08/09/2024 10:00 AM CDT 1. 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 Dictated by: Peace Bess MD The radiology attending physician has personally reviewed this study, and had reviewed and/or edited this written report and agrees with it. Electronically signed by: Mac Wright M.D. Narrative 08/09/2024 10:00 AM CDT EXAMINATION: MAGNETIC RESONANCE IMAGING OF THE ABDOMEN WITH AND WITHOUT CONTRAST HISTORY: Bilateral renal masses TECHNIQUE: Magnetic resonance imaging of the abdomen was performed prior to and following the uneventful administration of intravenous Gadolinium contrast. Protocol: Liver Contrast: gadoterate 14 mL COMPARISON: MRI dated 01/30/2024 FINDINGS: Liver: No significant iron deposition or steatosis. - Bile ducts: No biliary ductal dilation. - Focal liver lesions: No suspicious hepatic lesions. Tiny hepatic cysts. - Vasculature: Portal and hepatic veins. Gallbladder: Normal Pancreas: Normal Spleen: Normal Adrenals: Normal Kidneys: Interval decrease in size of a exophytic, T2 hyperintense and T1 hypointense multicystic lesion in the midpole of the left kidney with thin, minimally enhancing septa. The lesion measures 3.5 x 2.0 x 5.0 cm, previously 4.1 x 3.3 x 5.4 cm. Unchanged 4.5 x 5.2 x 6.8 cm T1 hyperintense, T2 hypointense multicystic lesion in the lower pole of the left kidney with thin, enhancing septa. Additional cysts and lesions which are too small to characterize bilaterally, unchanged. Other Findings: Clear lung bases. Median sternotomy changes. Procedure Note Mac Wright MD - 08/09/2024 EXAMINATION: MAGNETIC RESONANCE IMAGING OF THE ABDOMEN WITH AND WITHOUT CONTRAST HISTORY: Bilateral renal masses TECHNIQUE: Magnetic resonance imaging of the abdomen was performed prior to and following the uneventful administration of intravenous Gadolinium contrast. Protocol: Liver Contrast: gadoterate 14 mL COMPARISON: MRI dated 01/30/2024 FINDINGS: Liver: No significant iron deposition or steatosis. - Bile ducts: No biliary ductal dilation. - Focal liver lesions: No suspicious hepatic lesions. Tiny hepatic cysts. - Vasculature: Portal and hepatic veins. Gallbladder: Normal Pancreas: Normal Spleen: Normal Adrenals: Normal Kidneys: Interval decrease in size of a exophytic, T2 hyperintense and T1 hypointense multicystic lesion in the midpole of the left kidney with thin, minimally enhancing septa. The lesion measures 3.5 x 2.0 x 5.0 cm, previously 4.1 x 3.3 x 5.4 cm. Unchanged 4.5 x 5.2 x 6.8 cm T1 hyperintense, T2 hypointense multicystic lesion in the lower pole of the left kidney with thin, enhancing septa. Additional cysts and lesions which are too small to characterize bilaterally, unchanged. Other Findings: Clear lung bases. Median sternotomy changes. IMPRESSION: 1. 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 Dictated by: Peace Bess MD The radiology attending physician has personally reviewed this study, and had reviewed and/or edited this written report and agrees with it. Electronically signed by: Mac Wright M.D. us London Santos MD IMG MRI PROCEDURES Fin al Result * Thyroid Function [place] (08/04/2024 9:23 AM CDT) TSH 2.80 0.27 - 4.20 uIU/mL [facility] Blood 08/04/2024 9:23 AM CDT 08/04/2024 9:31 AM CDT us Rin Ramos BATCH TANK CONTROLLER LAB BLOOD ORDERABLES F inal Result [facility] [address] [place] [address] * (ABNORMAL) CBC with auto differential (08/04/2024 9:23 AM CDT) WBC 11.4(H) 3.5 - 10.0 K/uL [facility] RBC 4.42(L) 4.60 - 6.20 M/uL [facility] Hemoglobin 13.7(L) 13.9 - 17.7 g/dL [facility] Hematocrit 38.5 35.0 - 55.0 % [facility] MCV 87.0 75.0 - 100.0 fL [facility] MCH 30.90 25.00 - 35.00 pg [facility] MCHC 35.60 31.00 - 38.00 g/dL [facility] RDW 13.0 11.0 - 16.0 % [facility] Platelets 191 140 - 400 K/uL [facility] MPV 8.4 8.0 - 11.0 fL [facility] Granulocyte, Absolute 8.9(H) 1.2 - 8.0 K/uL [facility] Lymphocyte, Absolute 1.9 0.5 - 5.0 K/uL [facility] Monocyte, Absolute 0.6 0.1 - 1.5 K/uL [facility] Granulocyte, Percentage 78.3 35.0 - 80.0 % [facility] Lymphocyte, Percentage 16.8 15.0 - 50.0 % [facility] Monocyte, Percentage 4.9 2.0 - 15.0 % [facility] Blood 08/04/2024 9:23 AM CDT 08/04/2024 9:31 AM CDT Rin Ramos BATCH TANK CONTROLLER LAB BLOOD ORDERABLES F inal Result Performing Organization Address City/[facility]/ZIP Co de Phone Number [facility] [address] [place] [address] * (ABNORMAL) Vitamin B12 (08/04/2024 9:23 AM CDT) Pathologist [facility] Vitamin B12 1,501(H) 232 - 1,245 pg/mL [facility] Blood 08/04/2024 9:23 AM CDT 08/04/2024 9:31 AM CDT Rin Ramos NP LAB BLOOD ORDERABLES F inal Result Performing Organization Address City/[facility] Co de Phone Number [facility] [address] [place] [address] * (ABNORMAL) Basic metabolic panel (08/04/2024 9:23 AM CDT) Glucose 100 74 - 200 mg/dL [facility] BUN 13(L) 18 - 23 mg/dL [facility] Creatinine 0.9 0.7 - 1.3 mg/dL [facility] BUN/Creat Ratio 13 Ratio [facility] eGFR 76 mL/min/1.7 3m2 [facility] Calcium 8.9 8.8 - 10.2 mg/dL [facility] Sodium 131(L) 135 - 145 mEq/L [facility] Potassium 4.7 3.5 - 5.1 mEq/L [facility] Chloride 96(L) 98 - 107 mEq/L [facility] CO2 25.9 22.0 - 32.0 mEq/L [facility] Anion Gap 9 3 - 12 mEq/L [facility] Blood 08/04/2024 9:23 AM CDT 08/04/2024 9:31 AM CDT us Rin Ramos BATCH TANK CONTROLLER LAB BLOOD ORDERABLES F inal Result Performing Organization Address City/State/[facility] Co de Phone Number [facility] [address] [place] [address] from Last 3 Months Insurance [employer] MEDICARE [facility] MEDICARE AETNA MEDICARE AETNA MEDICARE [facility] MEDICARE Address: [address] [place] [address] Advance Directives For more information, please contact: [phone] Documents on File Type Date Recorded 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 DIRECTIVE 08/26/2024 1:31 PM POWER OF MANAGER TRADE-MEDICAL * Full Code (Latest Code Status on File) Date Activated Date Inactivated Comments 09/07/2024 7:14 AM 09/15/2024 6:47 PM * Full Code Date Activated Date Inactivated Comments 08/25/2024 6:35 PM 09/01/2024 6:09 PM * Full Code Date Activated Date Inactivated Comments 09/19/2022 11:16 AM 09/19/2022 5:49 PM * Full Code Date Activated Date Inactivated Comments 02/07/2019 1:55 PM 02/14/2019 7:28 PM * Full Code Date Activated Date Inactivated Comments 01/26/2019 3:27 PM 01/26/2019 11:16 PM Care Teams Director Of Religious Activities Relationship Specialty Start Date End Date London Santos MD PCP - General Internal Medicine 01/09/22 Avery Ulloa MD [address] [place] [address] Referring Physician Cardiology 07/25/22 Lucy Robbins MD [address] [place], [place] [id number] Cardiothoracic Surgery 10/17/22 Madhuri Ferreira MD [address] [place] [address] Consulting Physician Cardiology 10/17/22
--- OUTSIDE RECORDS SUMMARY | 2024-10-30 08:54 | XMS_ITS | Referral Summary ---
Author Organization [facility] D Address [address] [place] [address] Care Team Providers Care Station Chief Name Role Phone London Santos MD Primary Care Provider Avery Ulloa MD Unavailable [phone] Lucy Robbins MD Unavailable [phone] Madhuri Ferreira MD Unavailable [phone] Encounters Date Type Department Care Team Description 10/25/2024 3:20 PM CDT Office Visit [facility] [address] [place] [address] [address] [place] [address] London Santos MD Chronic tension-type headache, intractable (Primary Dx); Subacute bacterial endocarditis 10/24/[address] [facility] Cardiology [address] [place] [address] Avery Ulloa MD JESSICA 10/20/[address] [facility] Infectious Diseases [address] [facility] [address] [place] [address] Alexandr Lopez MD 10/19/2024 3:25 PM CDT - 10/19/2024 11:59 PM CDT Hospital Encounter [facility] [address] [place] [address] Discharge Disposition: Discharge to home or self care 10/19/2024 Telephone [facility] [address] [place] [address] [address] [place] [address] London Santos MD 10/19/2024 2:20 PM CDT Office Visit [facility] Infectious Diseases [address] [place] [address] [address] [place] [phone] Cinthia Godoy NP Bacteremia 10/17/2024 Results Follow-Up [facility] at [address] [address] Mora Camacho NP Influenza A/B, RSV, and COVID-19 PCR Nasopharyngeal 10/17/2024 1:55 PM CDT - 10/17/2024 11:59 PM CDT Hospital Encounter [place] [id number] [place] [address] Episodic cluster headache, not intractable; Fatigue, unspecified type Discharge Disposition: Discharge to home or self care 10/17/2024 10:00 AM CDT Office Visit [facility] at [address] [address] Mora Camacho NP Episodic cluster headache, 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 Infectious Diseases [address] [place] [address] [address] [place] [phone] Chuy, Mikki ORXANE Olivas 10/03/[address] [facility] Infectious Diseases [address] [place] [address] [address] [place] [phone] Cinthia Godoy NP Bacteremia (Primary Dx) 10/03/[address] [facility] Infectious Diseases [address] [place] [address] [address] [place] [phone] Chuy, Mikki ROXANE Olivas 09/29/2024 12:40 PM CDT Office Visit [facility] Infectious Diseases [address] [facility] [address] [place] [address] Cinthia Godoy, CECIL Encounter for screening examination for sexually transmitted disease; Bacteremia 09/23/[address] [facility] Cardiology [address] [facility] 8th [place] [address] [place] [address] Avery Ulloa MD 09/16/2024 CHAIRE[address] Care Outreach [facility] Care Coordination [address] [place] [address] Lo Bruno RN 09/06/2024 6:51 PM CDT - 09/15/2024 2:47 PM CDT Hospital Encounter [address] [address] Olivier Lovell MD Heath, MD Deandre Baxter Marc, MD Lee, Eileen May, MD Leukocytosis, unspecified type (Primary Dx); History of endocarditis; History of bacteremia; Palpitations; Bacteremia; Endocarditis determined by echocardiography Discharge Disposition: Discharge to home or self care 09/13/[address] [facility] Infectious Diseases [address] [address] Melinda Christianson MD OPAT Sign-Off 09/13/2024 9:17 AM CDT Anesthesia Event [facility] 1 [place] [address] Elias Roblero MD Eddins, Daniel Raymond, CRNA 09/12/2024 8:45 AM CDT Ancillary Procedure [facility] Vascular Lab IP [address] [facility] [address] [place] [address] 09/08/[address] [facility] Cardiology [address] [facility] 8th [place] [address] [place] [address] Kanika Viveros 09/06/[address] 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 Care Coordination [address] [place] [phone] Lo Bruno RN 09/01/[address] [phone] London Santos MD 08/25/2024 12:07 PM CDT - 09/01/2024 1:58 PM CDT Hospital Encounter [address] [address] Dallas Joshua MD Chow, Kelsey Sarah, MD Girardi, Margo Renee, MD Bacteremia (Primary Dx); History of transcatheter aortic valve replacement (TAVR); Fever of unknown origin; Streptococcal bacteremia; Subacute bacterial endocarditis Discharge Disposition: Discharge to home, home health skilled care 08/30/[address] [facility] Infectious Diseases [address] [phone] Gilda Vargas NP 08/30/[address] [facility] Infectious Diseases [address] [address] Gilda Vargas NP 08/30/2024 10:34 AM CDT Anesthesia Event [facility] 1 [facility] [place] [address] Kenneth Crump MD PhD 08/25/2024 [facility] [address] [place] [address] [address] [facility] [place] [phone] London Santos MD 08/25/2024 11:00 AM CDT Office Visit [address] [phone] London Santos MD Bacteremia (Primary Dx); Chronic nonintractable headache, unspecified headache type 08/24/2024 10:33 AM CDT - 08/24/2024 11:59 PM CDT Hospital Encounter [address] [phone] Fever, unspecified fever cause Discharge Disposition: Discharge to home or self care 08/24/2024 10:30 AM CDT Lab [facility] Outpatient Lab at [address] [address] Fever (Primary Dx) 08/23/2024 Results Follow-Up [address] [phone] Rin Ramos NP Haptoglobin 08/17/2024 2:30 PM CDT Office Visit [address] [phone] Rin Ramos NP Fatigue, unspecified type (Primary Dx); Vitamin D deficiency, unspecified; Abnormal finding of blood chemistry, unspecified; History of tick-borne disease; Other iron deficiency anemia 08/09/2024 Results Follow-Up [address] [address] London Santos MD MRI Abdomen W WO Contrast 08/08/2024 2:10 PM CDT - 08/08/2024 11:59 PM CDT Hospital Encounter [facility] [address] [place] [phone] Bilateral renal masses Discharge Disposition: Discharge to home or self care 08/05/2024 Results Follow-Up [address] [address] Rin Ramos NP Thyroid Function [place] 08/04/2024 9:00 AM CDT Office Visit [address] [address] Rin Ramos NP Muscle spasm (Primary Dx); Fatigue, unspecified type 08/03/[address] [address] London Santos MD from Last 3 Months Allergies No known active allergies Medications aspirin [...] THE NEXT 30 MIN. 12 tablet 4 025 Active psyllium (METAMUCIL) 3.4 gram packet Take [...] with a month of fevers and fatigue 08/25. Also reported r flank/back discomfort, but no [...] cyst Assessment & Plan (07/11/2020 12:37 PM BLAST FURNACE BLOWER): We will cover w/ Abx and refer to see if excision warranted Assessment & Plan (05/10/2020 9:37 AM BLAST FURNACE BLOWER): Likely inflammed from squeezing. We will give [...] some Assessment & Plan (07/11/2020 12:44 PM BLAST FURNACE BLOWER): The onset of what must be seems [...] (01/11/2019): Added automatically from request for surgery [id number] Preop cardiovascular exam 01/11/2019 Overview (01/11/2019): Added automatically from request for surgery [id number] Hypertension 09/23/2017 03/01/2021 Overview (02/07/2019): Pre-op HTN [...] to the floor, pt was hypertensive and EMISSIONS INSPECTOR was immediately turned off. Nicardipine gtts started [...] Assessment & Plan (01/07/2019 2:36 PM CDT): DENISAR discussed It is not reflected in Epic but I originally identified in [id number] and have been proactively following and monitoring. He still has likely a CT angio and L HC to complete. Hyperlipidemia 06/13/2013 03/01/2021 Immunizations Immunization Administration Dates Next Due COVID-19 mRNA (Webshoz) 0.3 m L (30 mcg) vaccine (12 [...] 04/29/2016 Yellow Fever 05/07/2016,05/07/2016,02/28/2016 ZOSTER Recombinant 03/28/2019,12/14/2018 Social History Tobacco Use Types Packs/Day Years Used Date Smoking Tobacco: Never Passive Smoke Exposure: Never Smokeless Tobacco: Never Alcohol Use Standard Drinks/Week Comments Yes 1 (1 standard drink = 0.6 oz pur e alcohol) 1 - 2 per day [facility] Utilities Answer Date Recorded In the past 12 months has e iContact, gas, oil, or water [employer] threatened to shut off services in your [...] 09/11/2024 How often do you attend chur or worship services? Never 09/11/2024 Do you belong to any clubs o r organizations such as voodoo groups, unions, fraternal or athletic groups, or [...] staff should administer the PHQ-9) 0 09/11/2024 [facility] Occupational Stress Questionnaire Answer [...] were you homeless or living in a group home (including now)? No 09/11/2024 Personal Safety Answer Date Recorded Have you ever been in or are you currently in a harmful physical or emotional relationship or is someone making you feel afraid or unsafe? 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 Not on file Not on file Not on fi le Last Filed Vital Signs Vital Sign Reading [...] 10/19/2024 2:03 PM CDT Plan of Treatment Not on file Medical Devices Implanted Type Area Head Banquet Waiter/Waitress Device Identifier Shelf Expiration Date Model / Serial / Lot [employer] [id number] Inspiris Resilia Leaflet Sewing Ring 25mm Valve Aortic Bovine - [id number] - [id number] Implanted:Qty: 1 on 02/07/2019 by Shamir Patel MD at [facility] Prosthetic Valve N/A: Heart [employer] 08/09/2020 [id number] / [id number] / [employer] Valve Heart 26mm Magy 3 Transcatheter [id number] - [id number] - [id number] Implanted:Qty: 1 on 10/16/2022 by Charli David MD PhD at [facility] Prosthetic Valve N/A: Aortic Valve [employer] 07/04/2025 [id number] / [id number] / [id number] [employer] Angio-Seal Vip 6fr Closere Device [id number] - [id number] - [id number] Implanted:Qty: 1 on 09/19/2022 by Alex Fisher MD at [facility] Vascular Closure Device Left: Common Femoral Artery [employer] 03/24/2023 [id number] / [id number] / [id number] Armijo Vascular Device Clsr Perclose Prostyle Sut-Mediatd Closure-Repair Sys [id number] - [id number] - [id number] Implanted:Qty: 1 on 10/16/2022 by Charli David MD PhD at [facility] Vascular Closure Device Right: Common Femoral Artery [employer] 05/24/2024 [id number] / [id number] / [id number] Procedures Procedure Name Priority Date/Time Associated Diagnosis [...] 1:05 PM CDT 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 CBC WITH AUTO DIFFERENTIAL Routine 09/05/2024 1:05 PM CDT 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 73 m2 Comment: [...] 3:25 PM CDT 10/19/2024 5:42 PM CDT Cinthia Godoy NP LAB BLOOD ORDERABLES Final Result [facility] Department [place] [address] * (ABNORMAL) Differential, auto (10/19/2024 3:25 PM CDT) Pathologist [facility] Neutrophil abs 9.25(H) 1.50 - 6.50 K/cumm Imm gran abs 0.07 0.00 - 0.10 K/cumm [facility] Lymphocyte abs 2.05 0.80 - 3.30 K/cumm [facility] Monocyte abs 1.20(H) 0.20 - 0.80 K/cumm [facility] Eosinophil abs 0.03 0.00 - 0.50 K/cumm [facility] Basophil abs 0.03 0.00 - 0.10 K/cumm [facility] Neutrophil pct 73.3 % [facility] Comment: Interpretive Data Percent cell count reference ranges are not reported, since discordance with absolute values may lead to misinterpretation of CBC data. Current Interpretive Data was last revised on 2017. Imm gran pct 0.6 % [facility] Comment: Interpretive Data Percent cell count reference ranges are not reported, since discordance with absolute values may lead to misinterpretation of CBC data. Current Interpretive Data was last revised on 2017. Lymphocyte pct 16.2 % [facility] Comment: Interpretive Data Percent cell count reference ranges are not reported, since discordance with absolute values may lead to misinterpretation of CBC data. Current Interpretive Data was last revised on 2017. Monocyte pct 9.5 % [facility] Comment: Interpretive Data Percent cell count reference ranges are not reported, since discordance with absolute values may lead to misinterpretation of CBC data. Current Interpretive Data was last revised on 2017. Eosinophil pct 0.2 % [facility] Comment: Interpretive Data Percent cell count reference ranges are not reported, since discordance with absolute values may lead to misinterpretation of CBC data. Current Interpretive Data was last revised on 2017. Basophil pct 0.2 % [facility] Comment: Interpretive Data Percent cell count reference ranges are not reported, since discordance with absolute values may lead to misinterpretation of CBC data. Current Interpretive Data was last revised on 2017. Blood 10/19/2024 3:25 PM CDT 10/19/2024 5:37 PM CDT us Cinthia Godoy NP LAB BLOOD ORDERABLES Final Result QUANG [facility] One [facility] Department [place] [address] * (ABNORMAL) Comprehensive metabolic panel, without glucose (Outreach) (10/19/2024 3:25 PM CDT) Sodium 133(L) 135 - 145 mmol/L Potassium, pl 4.5 3.3 - 4.9 mmol/L [facility] Chloride 95(L) 97 - 110 mmol/L [facility] CO2 26 22 - 32 mmol/L [facility] Anion gap 12 2 - 15 mmol/L [facility] BUN 17 6 - 25 mg/dL [facility] Creatinine 0.94 0.80 - 1.30 mg/dL [facility] Calcium 9.5 8.5 - 10.3 mg/dL [facility] Protein, pl 8.3 6.5 - 8.5 g/dL [facility] Albumin 4.3 3.5 - 5.0 g/dL [facility] Bilirubin, total 0.7 0.1 - 1.2 mg/dL [facility] Alk phos 107 40 - 130 Units/L [facility] AST 24 10 - 50 Units/L [facility] ALT 16 7 - 55 Units/L [facility] Blood 10/19/2024 3:25 PM CDT 10/19/2024 5:37 PM CDT Cinthia Godoy SAUSAGE CUTTER LAB BLOOD ORDERABLES Final Result [facility] One [facility] Department [place] [address] * (ABNORMAL) CBC with auto differential (10/19/2024 3:25 PM CDT) WBC 12.63(H) 3.80 - 9.90 K/cumm Hgb 12.1(L) 13.0 - 17.5 g/dL [facility] Hct 36.0(L) 38.9 - 50.3 % [facility] Plt 209 150 - 400 K/cumm [facility] MPV 9.7 9.1 - 12.3 fL [facility] RBC 4.24(L) 4.30 - 5.80 M/cumm [facility] MCV 84.9 81.3 - 96.4 fL [facility] MCH 28.5 27.1 - 33.3 pg [facility] MCHC 33.6 32.3 - 35.7 g/dL [facility] RDW CV 14.6 11.1 - 14.9 % [facility] RDW SD 46.0 35.7 - 48.1 fL [facility] NRBC abs 0.00 0.00 - 0.01 K/cumm [facility] Blood 10/19/2024 3:25 PM CDT 10/19/2024 5:37 PM CDT Cinthia Godoy NP LAB BLOOD ORDERABLES Final Result [facility] One [facility] Department [place] [address] * Blood culture Blood (10/19/2024 3:25 PM CDT) Report Final Report: No growth Blood 10/19/2024 3:25 PM CDT 10/19/2024 5:48 PM CDT Narrative [facility] - 10/24/2024 7:00 AM CDT L A [...] performance characteristics have been verified by the [facility]. For questions about this culture, contact the Microbiology Laboratory at [phone]. Interpretive data was last revised on 24. Cinthia Godoy NP LAB MICROBIOLOGY - GENERAL ORDERABLES Final Result QUANG MIR Virid[facility] Department [place] [address] * Blood culture Blood (10/19/2024 3:25 PM CDT) Report Final Report: No growth Blood 10/19/2024 3:25 PM CDT 10/19/2024 5:49 PM CDT Narrative [facility] MIR - 10/24/2024 7:00 AM CDT R A [...] performance characteristics have been verified by the [facility]. For questions about this culture, contact the Microbiology Laboratory at [phone]. Interpretive data was last revised on 24. Cinthia Godoy NP LAB MICROBIOLOGY - GENERAL ORDERABLES Final Result Performing Organization Address City/[facility]/ZIP Co de Phone Number [facility] Department [place] [address] * Influenza A/B, RSV, and COVID-19 PCR Nasopharyngeal (10/17/2024 12:00 PM CDT) COVID-19 RNA Negative Negative Influenza A RNA Negative Negative [facility] Influenza B RNA Negative Negative [facility] RSV RNA Negative Negative [facility] Comment: Interpretive data: Testing performed by [facility]. This test is performed using the Optimitive Xpert Xpress CoV-2/Flu/RSV plus assay. This is a multiplex, real-time reverse transcriptase PCR assay intended for the qualitative detection of nucleic acid from SARS-CoV-2, influenza A, influenza B, and respiratory syncytial virus. This assay has been cleared by the [place] Food and Drug administration. The performance characteristics have been verified by the [facility]. Results must be considered in the clinical context, and a negative result does not rule out infection. Interpretive Data last revised 2023 Nasopharyngeal 10/17/2024 12 :00 PM CDT 10/17/2024 2:20 PM CDT Narrative [facility] - 10/17/2024 3:13 PM CDT Is the Patient experiencing symptoms consistent with COVID?->Yes Reason for testing?->Symptomatic Is the patient experiencing any symptoms consistent with COVID (eg. Fever, cough, shortness of breath)?->Yes Mora Camacho NP LAB MICROBIOLOGY - GENERAL ORDERABLES Final Result [facility] [address] Department [place] [address] * SCAN - LABS (09/19/2024) us Provider Scanning Final Result * eGFR (09/15/2024 8:44 AM CDT) [facility] eGFR 86 >=60 mL/min/1. 73 m2 Comment: [...] MD LAB BLOOD ORDERABLES Final Res ult [facility] One [facility] Department [place] [address] * (ABNORMAL) Basic metabolic panel (09/15/2024 8:44 AM CDT) Sodium 129(L) 135 - 145 mmol/L Potassium, pl 4.6 3.3 - 4.9 mmol/L [facility] Chloride 96(L) 97 - 110 mmol/L [facility] CO2 25 22 - 32 mmol/L [facility] Anion gap 8 2 - 15 mmol/L [facility] BUN 14 6 - 25 mg/dL [facility] Creatinine 0.89 0.80 - 1.30 mg/dL [facility] Glucose 138 70 - 199 mg/dL [facility] Comment: Interpretive Data Fasting glucose >/= 126 [...] 2022. Calcium 8.5 8.5 - 10.3 mg/dL [facility] Blood 09/15/2024 8:44 AM CDT 09/15/2024 9:06 AM CDT Virgen Awad MD LAB BLOOD ORDERABLES Final Res ult Performing Organization Address [facility] Co de Phone Number QUANG [facility] [place] [address] * eGFR (09/14/2024 8:33 PM CDT) eGFR [...] ORDERABLES Final Res ult Performing Organization Address City/[facility]/ZIP Co de Phone Number QUANG [facility] [place] [address] * (ABNORMAL) Differential, auto (09/14/2024 8:33 PM CDT) Neutrophil abs 12.28(H) 1.50 - 6.50 K/cumm Imm gran abs 0.14(H) 0.00 - 0.10 K/cumm [facility] Lymphocyte abs 1.52 0.80 - 3.30 K/cumm [facility] Monocyte abs 1.12(H) 0.20 - 0.80 K/cumm [facility] Eosinophil abs 0.13 0.00 - 0.50 K/cumm [facility] Basophil abs 0.03 0.00 - 0.10 K/cumm [facility] Neutrophil pct 80.6 % [facility] Comment: Interpretive Data Percent cell count reference ranges are not reported, since discordance with absolute values may lead to misinterpretation of CBC data. Current Interpretive Data was last revised on 2017. Imm gran pct 0.9 % [facility] Comment: Interpretive Data Percent cell count reference ranges are not reported, since discordance with absolute values may lead to misinterpretation of CBC data. Current Interpretive Data was last revised on 2017. Lymphocyte pct 10.0 % [facility] Comment: Interpretive Data Percent cell count reference ranges are not reported, since discordance with absolute values may lead to misinterpretation of CBC data. Current Interpretive Data was last revised on 2017. Monocyte pct 7.4 % [facility] Comment: Interpretive Data Percent cell count reference ranges are not reported, since discordance with absolute values may lead to misinterpretation of CBC data. Current Interpretive Data was last revised on 2017. Eosinophil pct 0.9 % [facility] Comment: Interpretive Data Percent cell count reference ranges are not reported, since discordance with absolute values may lead to misinterpretation of CBC data. Current Interpretive Data was last revised on 2017. Basophil pct 0.2 % [facility] Comment: Interpretive Data Percent cell count reference ranges are not reported, since discordance with absolute values may lead to misinterpretation of CBC data. Current Interpretive Data was last revised on 2017. Blood 09/14/2024 8:33 PM CDT 09/14/2024 9:53 PM CDT us Virgen Awad MD LAB BLOOD ORDERABLES Final Res ult [facility] Department of Laboratories [place] [address] * (ABNORMAL) CBC with auto differential (09/14/2024 8:33 PM CDT) Pathologist [facility] WBC 15.22(H) 3.80 - 9.90 K/cumm Hgb 9.8(L) 13.0 - 17.5 g/dL [facility] Hct 28.5(L) 38.9 - 50.3 % [facility] Plt 194 150 - 400 K/cumm [facility] MPV 9.7 9.1 - 12.3 fL [facility] RBC 3.33(L) 4.30 - 5.80 M/cumm [facility] MCV 85.6 81.3 - 96.4 fL [facility] MCH 29.4 27.1 - 33.3 pg [facility] MCHC 34.4 32.3 - 35.7 g/dL [facility] RDW CV 13.2 11.1 - 14.9 % [facility] RDW SD 41.2 35.7 - 48.1 fL [facility] NRBC abs 0.00 0.00 - 0.01 K/cumm [facility] Blood 09/14/2024 8:33 PM CDT 09/14/2024 9:53 PM CDT us Virgen Awad MD LAB BLOOD ORDERABLES Final Res ult Performing Organization Address City/[facility] Co de Phone Number [facility] [place] [address] * Magnesium (09/14/2024 8:33 PM CDT) [facility] Magnesium 2.0 1.4 - 2.5 mg/dL Blood 09/14/2024 8:33 PM CDT 09/14/2024 9:53 PM CDT us Virgen Awad MD LAB BLOOD ORDERABLES Final Res ult [facility] One [facility] [place] [address] * (ABNORMAL) Basic metabolic panel (09/14/2024 8:33 PM CDT) Pathologist [facility] Sodium 128(L) 135 - 145 mmol/L Potassium, pl 4.4 3.3 - 4.9 mmol/L [facility] Chloride 94(L) 97 - 110 mmol/L [facility] CO2 28 22 - 32 mmol/L [facility] Anion gap 6 2 - 15 mmol/L [facility] BUN 20 6 - 25 mg/dL [facility] Creatinine 1.20 0.80 - 1.30 mg/dL [facility] Glucose 126 70 - 199 mg/dL [facility] Comment: Interpretive Data Fasting glucose >/= 126 [...] 2022. Calcium 8.9 8.5 - 10.3 mg/dL [facility] Blood 09/14/2024 8:33 PM CDT 09/14/2024 9:53 PM CDT Virgen Awad MD LAB BLOOD ORDERABLES Final Res ult [facility] One [facility] [place] [address] * eGFR (09/13/2024 11:42 PM CDT) Pathologist [facility] eGFR 73 >=60 mL/min/1. 73 m2 Comment: [...] MD LAB BLOOD ORDERABLES Final Res ult [facility] One [facility] [place] [address] * (ABNORMAL) Differential, auto (09/13/2024 11:42 PM CDT) Pathologist [facility] Neutrophil abs 12.38(H) 1.50 - 6.50 K/cumm Imm gran abs 0.09 0.00 - 0.10 K/cumm [facility] Lymphocyte abs 1.78 0.80 - 3.30 K/cumm [facility] Monocyte abs 1.01(H) 0.20 - 0.80 K/cumm [facility] Eosinophil abs 0.09 0.00 - 0.50 K/cumm [facility] Basophil abs 0.03 0.00 - 0.10 K/cumm [facility] Neutrophil pct 80.4 % [facility] Comment: Interpretive Data Percent cell count reference ranges are not reported, since discordance with absolute values may lead to misinterpretation of CBC data. Current Interpretive Data was last revised on 2017. Imm gran pct 0.6 % [facility] Comment: Interpretive Data Percent cell count reference ranges are not reported, since discordance with absolute values may lead to misinterpretation of CBC data. Current Interpretive Data was last revised on 2017. Lymphocyte pct 11.6 % [facility] Comment: Interpretive Data Percent cell count reference ranges are not reported, since discordance with absolute values may lead to misinterpretation of CBC data. Current Interpretive Data was last revised on 2017. Monocyte pct 6.6 % [facility] Comment: Interpretive Data Percent cell count reference ranges are not reported, since discordance with absolute values may lead to misinterpretation of CBC data. Current Interpretive Data was last revised on 2017. Eosinophil pct 0.6 % [facility] Comment: Interpretive Data Percent cell count reference ranges are not reported, since discordance with absolute values may lead to misinterpretation of CBC data. Current Interpretive Data was last revised on 2017. Basophil pct 0.2 % [facility] Comment: Interpretive Data Percent cell count reference ranges are not reported, since discordance with absolute values may lead to misinterpretation of CBC data. Current Interpretive Data was last revised on 2017. Blood 09/13/2024 11:4 2 PM CDT 09/14/2024 12:42 AM CDT us Virgen Awad MD LAB BLOOD ORDERABLES Final Res ult [facility] One [facility] [place] [address] * (ABNORMAL) CBC with auto differential (09/13/2024 11:42 PM CDT) WBC 15.38(H) 3.80 - 9.90 K/cumm Hgb 9.4(L) 13.0 - 17.5 g/dL [facility] Hct 28.0(L) 38.9 - 50.3 % [facility] Plt 196 150 - 400 K/cumm [facility] MPV 9.7 9.1 - 12.3 fL [facility] RBC 3.23(L) 4.30 - 5.80 M/cumm [facility] MCV 86.7 81.3 - 96.4 fL [facility] MCH 29.1 27.1 - 33.3 pg [facility] MCHC 33.6 32.3 - 35.7 g/dL [facility] RDW CV 13.2 11.1 - 14.9 % [facility] RDW SD 41.5 35.7 - 48.1 fL [facility] NRBC abs 0.00 0.00 - 0.01 K/cumm [facility] Blood 09/13/2024 11:4 2 PM CDT 09/14/2024 12:42 AM CDT Virgen Awad MD LAB BLOOD ORDERABLES Final Res ult Performing Organization Address City/[facility]/ZIP Co de Phone Number [facility] [place] [address] * Magnesium (09/13/2024 11:42 PM CDT) [facility] Magnesium 2.0 1.4 - 2.5 mg/dL Blood 09/13/2024 11:4 2 PM CDT 09/14/2024 12:32 AM CDT Virgen Awad MD LAB BLOOD ORDERABLES Final Res ult Performing Organization Address [facility] de Phone Number [facility] Department [place] [address] * (ABNORMAL) Basic metabolic panel (09/13/2024 11:42 PM CDT) Pathologist [facility] Sodium 133(L) 135 - 145 mmol/L Potassium, pl 4.3 3.3 - 4.9 mmol/L [facility] Chloride 98 97 - 110 mmol/L [facility] CO2 27 22 - 32 mmol/L [facility] Anion gap 8 2 - 15 mmol/L [facility] BUN 17 6 - 25 mg/dL [facility] Creatinine 1.03 0.80 - 1.30 mg/dL [facility] Glucose 119 70 - 199 mg/dL [facility] Comment: Interpretive Data Fasting glucose >/= 126 [...] 2022. Calcium 8.4(L) 8.5 - 10.3 mg/dL [facility] Blood 09/13/2024 11:4 2 PM CDT 09/14/2024 12:32 AM CDT us Virgen Awad MD LAB BLOOD ORDERABLES Final Res ult [facility] One [facility] [place] [address] * XR Chest 1 View (09/13/2024 6:50 [...] AM CDT Narrative 09/13/2024 1:57 PM CDT [facility] [place] [address] Transesophageal Echocardiographic Report Patient Name: JAMSHID INTERIANO J : 1940 (83y 9m) Gender: M Study Date: 09/13/2024 09:26:56 AM Ht(Inch): Wt(Lb): BSA: Jewel Staker: Location: [id number] Order Provider: VIRGEN AWAD Heart Rate: 74 [...] close clinical follow-up. Findings discussed with and Ella Interiano (the latter by telephone), the primary [...] Procedure Note Avery Ulloa MD - 09/13/2024 [facility] [place] [address] Transesophageal Echocardiographic Report Patient Name: JAMSHID INTERIANO J : 1940 (83y 9m) Gender: M Study Date: 09/13/2024 09:26:56 AM Ht(Inch): Wt(Lb): BSA: Jewel Staker: Location: [id number] Order Provider: OTILIA,VIRGEN Heart Rate: 74 BMI: Ref Provider: VIRGEN [...] Avery Ulloa MD 09/13/2024 1:56:44 PM CDT Virgen Awad MD CV ECHO PROCEDURES Final Resul t * ECG 12 lead (09/13/2024 8:57 AM CDT) Ventricular Rate EKG/Min 74 BPM [facility] Atrial Rate 74 BPM [facility] NM-Interval (MSEC) 182 ms [facility] QRS-Interval (MSEC) 112 ms [facility] QT-Interval (MSEC) 404 ms [facility] QTc 448 ms [facility] P [place] 76 degrees [facility] R [place] -10 degrees [facility] T [place] 44 degrees [facility] Diagnosis Normal sinus rhythm Moderate voltage criteria for LVH, may be normal variant ( R in aVL , Martin product ) Borderline ECG When compared with ECG of 08-SEP-2024 12:08, PREVIOUS ECG IS PRESENT Confirmed by ADOLFO PEÑA M.D ([id number]) on 09/14/2024 11:28:42 AM [facility] 09/13/2024 8:57 AM CDT 09/14/2024 11:28 AM CDT us Avery Ulloa MD ECG ORDERABLES Final Result [facility] * eGFR (09/13/2024 12:23 AM CDT) Pathologist [facility] eGFR 67 >=60 mL/min/1. 73 m2 Comment: [...] MD LAB BLOOD ORDERABLES Final Res ult [facility] One [facility] [place] [address] * (ABNORMAL) Differential, auto (09/13/2024 12:23 AM CDT) Neutrophil abs 10.01(H) 1.50 - 6.50 K/cumm Imm gran abs 0.11(H) 0.00 - 0.10 K/cumm [facility] Lymphocyte abs 2.14 0.80 - 3.30 K/cumm [facility] Monocyte abs 0.89(H) 0.20 - 0.80 K/cumm [facility] Eosinophil abs 0.13 0.00 - 0.50 K/cumm [facility] Basophil abs 0.02 0.00 - 0.10 K/cumm [facility] Neutrophil pct 75.2 % [facility] Comment: Interpretive Data Percent cell count reference ranges are not reported, since discordance with absolute values may lead to misinterpretation of CBC data. Current Interpretive Data was last revised on 2017. Imm gran pct 0.8 % [facility] Comment: Interpretive Data Percent cell count reference ranges are not reported, since discordance with absolute values may lead to misinterpretation of CBC data. Current Interpretive Data was last revised on 2017. Lymphocyte pct 16.1 % [facility] Comment: Interpretive Data Percent cell count reference ranges are not reported, since discordance with absolute values may lead to misinterpretation of CBC data. Current Interpretive Data was last revised on 2017. Monocyte pct 6.7 % [facility] Comment: Interpretive Data Percent cell count reference ranges are not reported, since discordance with absolute values may lead to misinterpretation of CBC data. Current Interpretive Data was last revised on 2017. Eosinophil pct 1.0 % [facility] Comment: Interpretive Data Percent cell count reference ranges are not reported, since discordance with absolute values may lead to misinterpretation of CBC data. Current Interpretive Data was last revised on 2017. Basophil pct 0.2 % [facility] Comment: Interpretive Data Percent cell count reference ranges are not reported, since discordance with absolute values may lead to misinterpretation of CBC data. Current Interpretive Data was last revised on 2017. Blood 09/13/2024 12:2 3 AM CDT 09/13/2024 12:40 AM CDT us Virgen Awad MD LAB BLOOD ORDERABLES Final Res ult [facility] One [facility] [place] [address] * (ABNORMAL) CBC with auto differential (09/13/2024 12:23 AM CDT) WBC 13.30(H) 3.80 - 9.90 K/cumm Hgb 9.6(L) 13.0 - 17.5 g/dL [facility] Hct 28.0(L) 38.9 - 50.3 % [facility] Plt 178 150 - 400 K/cumm [facility] MPV 9.4 9.1 - 12.3 fL [facility] RBC 3.25(L) 4.30 - 5.80 M/cumm [facility] MCV 86.2 81.3 - 96.4 fL [facility] MCH 29.5 27.1 - 33.3 pg [facility] MCHC 34.3 32.3 - 35.7 g/dL [facility] RDW CV 13.1 11.1 - 14.9 % [facility] RDW SD 40.8 35.7 - 48.1 fL [facility] NRBC abs 0.00 0.00 - 0.01 K/cumm [facility] Blood 09/13/2024 12:2 3 AM CDT 09/13/2024 12:40 AM CDT Virgen Awad MD LAB BLOOD ORDERABLES Final Res ult Performing Organization Address City/[facility]/ZIP Co de Phone Number [facility] [place] [address] * Magnesium (09/13/2024 12:23 AM CDT) [facility] Magnesium 2.1 1.4 - 2.5 mg/dL Blood 09/13/2024 12:2 3 AM CDT 09/13/2024 12:40 AM CDT Virgen Awad MD LAB BLOOD ORDERABLES Final Res ult Performing Organization Address City/[facility]/ZIP Co de Phone Number [facility] [place] [address] * (ABNORMAL) Basic metabolic panel (09/13/2024 12:23 AM CDT) [facility] Sodium 132(L) 135 - 145 mmol/L Potassium, pl 4.2 3.3 - 4.9 mmol/L [facility] Chloride 99 97 - 110 mmol/L [facility] CO2 26 22 - 32 mmol/L [facility] Anion gap 7 2 - 15 mmol/L [facility] BUN 18 6 - 25 mg/dL [facility] Creatinine 1.10 0.80 - 1.30 mg/dL [facility] Glucose 114 70 - 199 mg/dL [facility] Comment: Interpretive Data Fasting glucose >/= 126 [...] 2022. Calcium 9.0 8.5 - 10.3 mg/dL [facility] Blood 09/13/2024 12:2 3 AM CDT 09/13/2024 12:40 AM CDT us Virgen Awad MD LAB BLOOD ORDERABLES Final Res ult [facility] One [facility] Department of Laboratories [place], [place] [id number] * US Vein Duplex Lower Extremity Bilateral Complete (09/12/2024 9:47 AM CDT) Anatomical Region Laterality Modality Vascular Bilateral Ultrasound 09/12/2024 9:09 AM CDT Narrative 09/14/2024 3:[address] [facility] - Department of Vascular Surgery, Vascular Laboratory [address] [place] [id number] Lower Extremity Venous Ultrasound Report Patient Name: JAMSHID INTERIANO J : 1940 (83y 9m) Study Date: 09/12/2024 9:09:59 AM Gender: M Tech: GA Location: [id number] Ref Provider: VIRGEN AWAD Quality: Adequate Order [...] Pain in Leg, Right - FINDINGS: Performing Jewel Staker: Jeanne Benoit RVT. Bilateral: Venous Doppler signals [...] Procedure Note Yunior Crockett MD - 09/14/2024 [facility] - Department of Vascular Surgery,Vascular Laboratory [address] [place] [address] Lower Extremity Venous Ultrasound Report Patient Name: JAMSHID INTERIANOBora : 1940 (83y 9m) Study Date: 09/12/2024 9:09:59 AM Gender: M Tech: [place] Location: [id number] Ref Provider: VIRGEN AWAD Quality: Adequate Order Provider: VIRGEN AWAD PROCEDURES: Vascular Report: Venous Duplex imaging was performed bilaterally in the lower extremities.The common femoral, femoral, popliteal, posterior tibial, peroneal veins wereevaluated for patency, spontaneity and phasicity with Doppler, compression and augmentationmaneuvers. Great saphenous vein proximal at the junction was evaluated with compressionmaneuvers. INDICATIONS: Pain in Leg, Right - FINDINGS: Performing Jewel Staker: Jeanne Benoit RVT. Bilateral: Venous Doppler signals [...] Crockett MD FACS 09/14/2024 2:55:11 PM CDT us Virgen Awad MD IMG US PROCEDURES Final Result * eGFR (09/12/2024 [...] MD LAB BLOOD ORDERABLES Final Re sult [facility] One [facility] [place] [address] * (ABNORMAL) Differential, auto (09/12/2024 6:21 AM CDT) Neutrophil abs 10.39(H) 1.50 - 6.50 K/cumm Imm gran abs 0.08 0.00 - 0.10 K/cumm [facility] Lymphocyte abs 1.24 0.80 - 3.30 K/cumm [facility] Monocyte abs 0.83(H) 0.20 - 0.80 K/cumm [facility] Eosinophil abs 0.09 0.00 - 0.50 K/cumm [facility] Basophil abs 0.03 0.00 - 0.10 K/cumm [facility] Neutrophil pct 82.1 % [facility] Comment: Interpretive Data Percent cell count reference ranges are not reported, since discordance with absolute values may lead to misinterpretation of CBC data. Current Interpretive Data was last revised on 2017. Imm gran pct 0.6 % [facility] Comment: Interpretive Data Percent cell count reference ranges are not reported, since discordance with absolute values may lead to misinterpretation of CBC data. Current Interpretive Data was last revised on 2017. Lymphocyte pct 9.8 % [facility] Comment: Interpretive Data Percent cell count reference ranges are not reported, since discordance with absolute values may lead to misinterpretation of CBC data. Current Interpretive Data was last revised on 2017. Monocyte pct 6.6 % [facility] Comment: Interpretive Data Percent cell count reference ranges are not reported, since discordance with absolute values may lead to misinterpretation of CBC data. Current Interpretive Data was last revised on 2017. Eosinophil pct 0.7 % [facility] Comment: Interpretive Data Percent cell count reference ranges are not reported, since discordance with absolute values may lead to misinterpretation of CBC data. Current Interpretive Data was last revised on 2017. Basophil pct 0.2 % [facility] Comment: Interpretive Data Percent cell count reference ranges are not reported, since discordance with absolute values may lead to misinterpretation of CBC data. Current Interpretive Data was last revised on 2017. Blood 09/12/2024 6:21 AM CDT 09/12/2024 6:42 AM CDT us Virgen Awad MD LAB BLOOD ORDERABLES Final Res ult [facility] One [facility] [place] [address] * (ABNORMAL) CBC with auto differential (09/12/2024 6:21 AM CDT) Pathologist [facility] WBC 12.66(H) 3.80 - 9.90 K/cumm Hgb 10.1(L) 13.0 - 17.5 g/dL [facility] Hct 29.2(L) 38.9 - 50.3 % [facility] Plt 199 150 - 400 K/cumm [facility] MPV 9.5 9.1 - 12.3 fL [facility] RBC 3.43(L) 4.30 - 5.80 M/cumm [facility] MCV 85.1 81.3 - 96.4 fL [facility] MCH 29.4 27.1 - 33.3 pg [facility] MCHC 34.6 32.3 - 35.7 g/dL [facility] RDW CV 13.2 11.1 - 14.9 % [facility] RDW SD 40.3 35.7 - 48.1 fL [facility] NRBC abs 0.00 0.00 - 0.01 K/cumm [facility] Blood 09/12/2024 6:21 AM CDT 09/12/2024 6:42 AM CDT Virgen Awad MD LAB BLOOD ORDERABLES Final Res ult Performing Organization Address City/[facility]/ZIP Co de Phone Number [facility] [place] [address] * Magnesium (09/12/2024 6:21 AM CDT) [facility] Magnesium 2.0 1.4 - 2.5 mg/dL Blood 09/12/2024 6:21 AM CDT 09/12/2024 6:42 AM CDT Donell Awad MD LAB BLOOD ORDERABLES Final Re sult Performing Organization Address City/[facility]/ZIP Co de Phone Number [facility] Department [place] [address] * (ABNORMAL) Basic metabolic panel (09/12/2024 6:21 AM CDT) Sodium 134(L) 135 - 145 mmol/L Potassium, pl 4.3 3.3 - 4.9 mmol/L [facility] Chloride 98 97 - 110 mmol/L [facility] CO2 27 22 - 32 mmol/L [facility] Anion gap 9 2 - 15 mmol/L [facility] BUN 10 6 - 25 mg/dL [facility] Creatinine 0.90 0.80 - 1.30 mg/dL [facility] Glucose 105 70 - 199 mg/dL [facility] Comment: Interpretive Data Fasting glucose >/= 126 [...] 2022. Calcium 8.9 8.5 - 10.3 mg/dL [facility] Blood 09/12/2024 6:21 AM CDT 09/12/2024 6:42 AM CDT us Donell Awad MD LAB BLOOD ORDERABLES Final Re sult [facility] One [facility] [place] [address] * eGFR (09/11/2024 8:30 PM CDT) eGFR [...] ORDERABLES Final Res ult Performing Organization Address City/[facility]/ZIP Co de Phone Number [facility] [place] [address] * Magnesium (09/11/2024 8:30 PM CDT) [facility] Magnesium 2.1 1.4 - 2.5 mg/dL Blood 09/11/2024 8:30 PM CDT 09/12/2024 6:42 AM CDT Virgen Awad MD LAB BLOOD ORDERABLES Final Res ult [facility] [place] [address] * (ABNORMAL) Basic metabolic panel (09/11/2024 8:30 PM CDT) Sodium 134(L) 135 - 145 mmol/L Potassium, pl 4.3 3.3 - 4.9 mmol/L [facility] Chloride 99 97 - 110 mmol/L [facility] CO2 26 22 - 32 mmol/L [facility] Anion gap 9 2 - 15 mmol/L [facility] BUN 10 6 - 25 mg/dL [facility] Creatinine 0.89 0.80 - 1.30 mg/dL [facility] Glucose 106 70 - 199 mg/dL [facility] Comment: Interpretive Data Fasting glucose >/= 126 [...] 2022. Calcium 9.0 8.5 - 10.3 mg/dL [facility] Blood 09/11/2024 8:30 PM CDT 09/12/2024 6:42 AM CDT us Virgen Awad MD LAB BLOOD ORDERABLES Final Res ult [facility] One [facility] [place] [address] * eGFR (09/11/2024 9:47 AM CDT) eGFR 87 >=60 mL/min/1. 73 [...] MD LAB BLOOD ORDERABLES Final Res ult [facility] One [facility] [place] [address] * (ABNORMAL) Differential, auto (09/11/2024 9:47 AM CDT) Neutrophil abs 9.53(H) 1.50 - 6.50 K/cumm Imm gran abs 0.08 0.00 - 0.10 K/cumm [facility] Lymphocyte abs 1.24 0.80 - 3.30 K/cumm [facility] Monocyte abs 1.11(H) 0.20 - 0.80 K/cumm [facility] Eosinophil abs 0.10 0.00 - 0.50 K/cumm [facility] Basophil abs 0.02 0.00 - 0.10 K/cumm [facility] Neutrophil pct 78.8 % [facility] Comment: Interpretive Data Percent cell count reference ranges are not reported, since discordance with absolute values may lead to misinterpretation of CBC data. Current Interpretive Data was last revised on 2017. Imm gran pct 0.7 % [facility] Comment: Interpretive Data Percent cell count reference ranges are not reported, since discordance with absolute values may lead to misinterpretation of CBC data. Current Interpretive Data was last revised on 2017. Lymphocyte pct 10.3 % [facility] Comment: Interpretive Data Percent cell count reference ranges are not reported, since discordance with absolute values may lead to misinterpretation of CBC data. Current Interpretive Data was last revised on 2017. Monocyte pct 9.2 % [facility] Comment: Interpretive Data Percent cell count reference ranges are not reported, since discordance with absolute values may lead to misinterpretation of CBC data. Current Interpretive Data was last revised on 2017. Eosinophil pct 0.8 % [facility] Comment: Interpretive Data Percent cell count reference ranges are not reported, since discordance with absolute values may lead to misinterpretation of CBC data. Current Interpretive Data was last revised on 2017. Basophil pct 0.2 % [facility] Comment: Interpretive Data Percent cell count reference ranges are not reported, since discordance with absolute values may lead to misinterpretation of CBC data. Current Interpretive Data was last revised on 2017. Blood 09/11/2024 9:47 AM CDT 09/11/2024 11:01 AM CDT Virgen Awad MD LAB BLOOD ORDERABLES Final Res ult [facility] One [facility] [place] [address] * (ABNORMAL) CBC with auto differential (09/11/2024 9:47 AM CDT) WBC 12.08(H) 3.80 - 9.90 K/cumm Hgb 9.7(L) 13.0 - 17.5 g/dL [facility] Hct 28.6(L) 38.9 - 50.3 % [facility] Plt 164 150 - 400 K/cumm [facility] MPV 9.8 9.1 - 12.3 fL [facility] RBC 3.34(L) 4.30 - 5.80 M/cumm [facility] MCV 85.6 81.3 - 96.4 fL [facility] MCH 29.0 27.1 - 33.3 pg [facility] MCHC 33.9 32.3 - 35.7 g/dL [facility] RDW CV 13.2 11.1 - 14.9 % [facility] RDW SD 40.3 35.7 - 48.1 fL [facility] NRBC abs 0.00 0.00 - 0.01 K/cumm [facility] Blood 09/11/2024 9:47 AM CDT 09/11/2024 11:01 AM CDT Virgen Awad MD LAB BLOOD ORDERABLES Final Res ult [facility] One [facility] [place] [address] * Magnesium (09/11/2024 9:47 AM CDT) Pathologist [facility] Magnesium 1.9 1.4 - 2.5 mg/dL Blood 09/11/2024 9:47 AM CDT 09/11/2024 11:01 AM CDT Virgen Awad MD LAB BLOOD ORDERABLES Final Res ult Performing Organization Address [facility] Co de Phone Number [facility] One [facility] [place] [address] * Basic metabolic panel (09/11/2024 9:47 AM CDT) Pathologist [facility] Sodium 136 135 - 145 mmol/L Potassium, pl 4.0 3.3 - 4.9 mmol/L [facility] Chloride 103 97 - 110 mmol/L [facility] CO2 24 22 - 32 mmol/L [facility] Anion gap 9 2 - 15 mmol/L [facility] BUN 10 6 - 25 mg/dL [facility] Creatinine 0.83 0.80 - 1.30 mg/dL [facility] Glucose 102 70 - 199 mg/dL [facility] Comment: Interpretive Data Fasting glucose >/= 126 [...] 2022. Calcium 8.6 8.5 - 10.3 mg/dL [facility] Blood 09/11/2024 9:4 7 AM CDT 09/11/2024 11:01 AM CDT Virgen Awad MD LAB BLOOD ORDERABLES Final Res ult Performing Organization Address City/[facility] Co de Phone Number [facility] Department [place] [address] * eGFR (09/09/2024 8:32 PM CDT) eGFR [...] ORDERABLES Final Res ult Performing Organization Address City/[facility]/ZIP Co de Phone Number [facility] [place] [address] * (ABNORMAL) Differential, auto (09/09/2024 8:32 PM CDT) Neutrophil abs 9.30(H) 1.50 - 6.50 K/cumm Imm gran abs 0.06 0.00 - 0.10 K/cumm [facility] Lymphocyte abs 1.68 0.80 - 3.30 K/cumm [facility] Monocyte abs 1.18(H) 0.20 - 0.80 K/cumm [facility] Eosinophil abs 0.08 0.00 - 0.50 K/cumm [facility] Basophil abs 0.04 0.00 - 0.10 K/cumm [facility] Neutrophil pct 75.4 % [facility] Comment: Interpretive Data Percent cell count reference ranges are not reported, since discordance with absolute values may lead to misinterpretation of CBC data. Current Interpretive Data was last revised on 2017. Imm gran pct 0.5 % [facility] Comment: Interpretive Data Percent cell count reference ranges are not reported, since discordance with absolute values may lead to misinterpretation of CBC data. Current Interpretive Data was last revised on 2017. Lymphocyte pct 13.6 % [facility] Comment: Interpretive Data Percent cell count reference ranges are not reported, since discordance with absolute values may lead to misinterpretation of CBC data. Current Interpretive Data was last revised on 2017. Monocyte pct 9.6 % [facility] Comment: Interpretive Data Percent cell count reference ranges are not reported, since discordance with absolute values may lead to misinterpretation of CBC data. Current Interpretive Data was last revised on 2017. Eosinophil pct 0.6 % [facility] Comment: Interpretive Data Percent cell count reference ranges are not reported, since discordance with absolute values may lead to misinterpretation of CBC data. Current Interpretive Data was last revised on 2017. Basophil pct 0.3 % [facility] Comment: Interpretive Data Percent cell count reference ranges are not reported, since discordance with absolute values may lead to misinterpretation of CBC data. Current Interpretive Data was last revised on 2017. Blood 09/09/2024 8:32 PM CDT 09/09/2024 9:53 PM CDT us Virgen Awad MD LAB BLOOD ORDERABLES Final Res ult [facility] Department [place] [address] * (ABNORMAL) CBC with auto differential (09/09/2024 8:32 PM CDT) [facility] WBC 12.34(H) 3.80 - 9.90 K/cumm Hgb 9.3(L) 13.0 - 17.5 g/dL [facility] Hct 27.1(L) 38.9 - 50.3 % [facility] Plt 167 150 - 400 K/cumm [facility] MPV 10.3 9.1 - 12.3 fL [facility] RBC 3.15(L) 4.30 - 5.80 M/cumm [facility] MCV 86.0 81.3 - 96.4 fL [facility] MCH 29.5 27.1 - 33.3 pg [facility] MCHC 34.3 32.3 - 35.7 g/dL [facility] RDW CV 13.2 11.1 - 14.9 % [facility] RDW SD 40.9 35.7 - 48.1 fL [facility] NRBC abs 0.00 0.00 - 0.01 K/cumm [facility] Blood 09/09/2024 8:32 PM CDT 09/09/2024 9:53 PM CDT us Virgen Awad MD LAB BLOOD ORDERABLES Final Res ult Performing Organization Address [facility] Co de Phone Number [facility] [place] [address] * Magnesium (09/09/2024 8:32 PM CDT) [facility] Magnesium 2.0 1.4 - 2.5 mg/dL Blood 09/09/2024 8:32 PM CDT 09/09/2024 9:53 PM CDT us Virgen Awad MD LAB BLOOD ORDERABLES Final Res ult Performing Organization Address City/[facility]/ZIP Co de Phone Number [facility] [place] [address] * (ABNORMAL) Basic metabolic panel (09/09/2024 8:32 PM CDT) Sodium 131(L) 135 - 145 mmol/L Potassium, pl 4.3 3.3 - 4.9 mmol/L [facility] Chloride 96(L) 97 - 110 mmol/L [facility] CO2 27 22 - 32 mmol/L [facility] Anion gap 8 2 - 15 mmol/L [facility] BUN 13 6 - 25 mg/dL [facility] Creatinine 1.00 0.80 - 1.30 mg/dL [facility] Glucose 117 70 - 199 mg/dL [facility] Comment: Interpretive Data Fasting glucose >/= 126 [...] 2022. Calcium 8.8 8.5 - 10.3 mg/dL [facility] Blood 09/09/2024 8:32 PM CDT 09/09/2024 9:53 PM CDT us Virgen Awad MD LAB BLOOD ORDERABLES Final Res ult [facility] Department [place] [address] * CT TAVR (09/09/2024 10:46 AM CDT) Anatomical Region Laterality Modality Chest N/A Computed Tomogra phy 09/09/2024 2:19 PM CDT Impressions 09/09/2024 2:49 PM CDT Bioprosthetic aortic valve replacement and [id number] transcatheter aortic valve replacement. Mild non-specific thickening [...] post-processing. FINDINGS: Bioprosthetic aortic valve replacement and ypwao-[id number] noted. Normal coaptation of the leaflets. Mild [...] MRI. No suspicious osseous abnormality. Procedure Note Richar Tillman MD - 09/09/2024 EXAMINATION: Heart CT and [...] post-processing. FINDINGS: Bioprosthetic aortic valve replacement and [id number]-he-fhmko noted. Normal coaptation of the leaflets. Mild [...] abnormality. 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 Mild non-specific thickening noted on the non-coronary cusp of the TAVR however the leaflet opens normally with no motion abnormality. Dictated by: Ayesha Kimbrough MD The radiology attending physician has personally reviewed this study, and had reviewed and/or edited this written report and agrees with it. Electronically signed by: Richar Tillman M.D. us Virgen Awad MD IM CT PROCEDURES Final Result * TRANSTHORACIC ECHO (TTE) COMPLETE W DOPPLER/CF W CONTRAST (09/09/2024 9:15 AM CDT) Anatomical Region Laterality Modality Ultrasound 09/09/2024 8:16 AM CDT Narrative 09/09/2024 2:10 PM CDT [facility] [place] [address] Transthoracic Echocardiographic Report Patient Name: JAMSHID INTERIANO J : 1940 (83y 9m) Gender: M Study Date: 09/09/2024 08:16:12 Ht(Inch): 67 Wt(Lb): 143.96 BSA: 1.76 Jewel Staker: Mary Zuniga RDCS Location: [id number] Order Provider: VIRGEN AWAD Heart Rate: 110 [...] cm LV Thickness Ratio 1.7 LVOT Peak Hans 0.8 m/s [ 0.7 - 1.1 ] [...] Procedure Note Khari Nj MD - 09/09/2024 [facility] [place] [address] Transthoracic Echocardiographic Report Patient Name: JAMSHID INTERIANO J : 1940 (83y 9m) Gender: M Study Date: 09/09/2024 08:16:12 Ht(Inch): 67 Wt(Lb): 143.96 BSA: 1.76 Jewel Staker: Mary Zuniga [facility] Location: [id number] Order Provider:VIRGEN AWAD Heart Rate: 110 BMI: [...] cm [ 1.71 - 5.00 ] RA Pkqljf65.83 ml RA Volume Index26.04 ml/m2 AoR Diam 2D 2.98 cm [ 3.10 - 3.70 ] Ao Root Index 1.69 cm/m2 [ 1.00 - 2.00 ] Electronically Signed By: Khari Nj MD 09/09/2024 14:09:08 CDT us Virgen Awad MD CV ECHO PROCEDURES Final Resul t * Troponin I high-sensitivity 6-hour (09/08/2024 8:34 PM CDT) Trop I hs 24 <=35 ng/L Comment: Interpretive Data For further hscTnI resources including the diagnostic algorithm and an aid in interpretation, copy and paste this link: https://bjhlab.testcatalog.org/show/hsTrop-1 Current Interpretive Data last revised 2019. Trop I hs delta See Comment ng/L QUANG [facility] Comment:Inappropriate collec tion time to report a delta. Trop I hs pct delta See Comment % QUANG [facility] Comment:Inappropriate collec tion time to report a delta. Trop I hs interp See Comment QUANG [facility] Comment:Inappropriate collec tion time to report a delta. Blood 09/08/2024 8:34 PM CDT 09/08/2024 9:45 PM CDT us Pb Monroy MD LAB BLOOD ORDERABLES Final Result [facility] [place] [address] * eGFR (09/08/2024 8:34 PM CDT) eGFR 68 >=60 mL/min/1. 73 m2 Comment: [...] MD LAB BLOOD ORDERABLES Final Res ult [facility] [place] [address] * (ABNORMAL) Differential, auto (09/08/2024 8:34 PM CDT) Pathologist [facility] Neutrophil abs 12.02(H) 1.50 - 6.50 K/cumm Imm gran abs 0.08 0.00 - 0.10 K/cumm [facility] Lymphocyte abs 1.48 0.80 - 3.30 K/cumm [facility] Monocyte abs 1.25(H) 0.20 - 0.80 K/cumm [facility] Eosinophil abs 0.02 0.00 - 0.50 K/cumm [facility] Basophil abs 0.03 0.00 - 0.10 K/cumm [facility] Neutrophil pct 80.9 % [facility] Comment: Interpretive Data Percent cell count reference ranges are not reported, since discordance with absolute values may lead to misinterpretation of CBC data. Current Interpretive Data was last revised on 2017. Imm gran pct 0.5 % [facility] Comment: Interpretive Data Percent cell count reference ranges are not reported, since discordance with absolute values may lead to misinterpretation of CBC data. Current Interpretive Data was last revised on 2017. Lymphocyte pct 9.9 % [facility] Comment: Interpretive Data Percent cell count reference ranges are not reported, since discordance with absolute values may lead to misinterpretation of CBC data. Current Interpretive Data was last revised on 2017. Monocyte pct 8.4 % [facility] Comment: Interpretive Data Percent cell count reference ranges are not reported, since discordance with absolute values may lead to misinterpretation of CBC data. Current Interpretive Data was last revised on 2017. Eosinophil pct 0.1 % [facility] Comment: Interpretive Data Percent cell count reference ranges are not reported, since discordance with absolute values may lead to misinterpretation of CBC data. Current Interpretive Data was last revised on 2017. Basophil pct 0.2 % [facility] Comment: Interpretive Data Percent cell count reference ranges are not reported, since discordance with absolute values may lead to misinterpretation of CBC data. Current Interpretive Data was last revised on 2017. Blood 09/08/2024 8:34 PM CDT 09/08/2024 9:45 PM CDT Virgen Awad MD LAB BLOOD ORDERABLES Final Res ult Performing Organization Address City/[facility]/ZIP Co de Phone Number [facility] Department [place] [address] * (ABNORMAL) CBC with auto differential (09/08/2024 8:34 PM CDT) WBC 14.88(H) 3.80 - 9.90 K/cumm Hgb 10.2(L) 13.0 - 17.5 g/dL [facility] Hct 28.9(L) 38.9 - 50.3 % [facility] Plt 166 150 - 400 K/cumm [facility] MPV 10.3 9.1 - 12.3 fL [facility] RBC 3.42(L) 4.30 - 5.80 M/cumm [facility] MCV 84.5 81.3 - 96.4 fL [facility] MCH 29.8 27.1 - 33.3 pg [facility] MCHC 35.3 32.3 - 35.7 g/dL [facility] RDW CV 13.2 11.1 - 14.9 % [facility] RDW SD 40.8 35.7 - 48.1 fL [facility] NRBC abs 0.00 0.00 - 0.01 K/cumm [facility] Blood 09/08/2024 8:34 PM CDT 09/08/2024 9:45 PM CDT Virgen Awad MD LAB BLOOD ORDERABLES Final Res ult Performing Organization Address City/[facility]/ZIP Co de Phone Number [facility] [place] [address] * (ABNORMAL) Erythrocyte sedimentation rate (09/08/2024 8:34 PM CDT) Pathologist [facility] Erythrocyte sedimentation rate 32(H) 1 - 20 mm/hr Blood 09/08/2024 8:34 PM CDT 09/08/2024 9:45 PM CDT us Virgen Awad MD LAB BLOOD ORDERABLES Final Res ult Performing Organization Address [facility] [place] [address] * (ABNORMAL) CRP (acute phase) (09/08/2024 8:34 PM CDT) Pathologist [facility] CRP 115.3(H) <=10.0 mg/L Blood 09/08/2024 8:34 PM CDT 09/08/2024 9:45 PM CDT us Virgen Awad MD LAB BLOOD ORDERABLES Final Res ult Performing Organization Address [facility] Co de Phone Number [facility] [place] [address] * Magnesium (09/08/2024 8:34 PM CDT) Pathologist [facility] Magnesium 2.0 1.4 - 2.5 mg/dL Blood 09/08/2024 8:34 PM CDT 09/08/2024 9:45 PM CDT us Virgen Awad MD LAB BLOOD ORDERABLES Final Res ult Performing Organization Address [facility] Co de Phone Number [facility] [place] [address] * (ABNORMAL) Basic metabolic panel (09/08/2024 8:34 PM CDT) Pathologist [facility] Sodium 132(L) 135 - 145 mmol/L Potassium, pl 4.1 3.3 - 4.9 mmol/L [facility] Chloride 97 97 - 110 mmol/L [facility] CO2 25 22 - 32 mmol/L [facility] Anion gap 10 2 - 15 mmol/L [facility] BUN 12 6 - 25 mg/dL [facility] Creatinine 1.09 0.80 - 1.30 mg/dL [facility] Glucose 140 70 - 199 mg/dL [facility] Comment: Interpretive Data Fasting glucose >/= 126 [...] 2022. Calcium 8.2(L) 8.5 - 10.3 mg/dL [facility] Blood 09/08/2024 8:34 PM CDT 09/08/2024 9:45 PM CDT us Virgen Awad MD LAB BLOOD ORDERABLES Final Res ult [facility] [place] [address] * ECG 12 lead (09/08/2024 12:08 PM CDT) [facility] Ventricular Rate EKG/Min 95 BPM [facility] Atrial Rate 105 BPM [facility] QRS-Interval (MSEC) 110 ms [facility] QT-Interval (MSEC) 312 ms [facility] QTc 392 ms [facility] R [place] -15 degrees [facility] T [place] 81 degrees [facility] Diagnosis Normal sinus rhythm Second degree av-block (Mobitz I) Moderate voltage criteria for LVH, may be normal variant ( R in aVL , [place] product ) Poor precordial R wave progression consistent with faulty lead placement, copd, etc. ; consider septal infarct, lead placement, or normal variant Abnormal ECG When compared with ECG of 17-OCT-2022 05:09, RSR' pattern in V1 is no longer Present Confirmed by ADOLFO PEÑA M.D ([id number]) on 09/08/2024 5:10:47 PM [facility] 09/08/2024 12:0 8 PM CDT 09/08/2024 5:10 PM CDT Virgen Awad MD ECG ORDERABLES Final Result Performing Organization Address City/[facility]/ZIP Co de Phone Number [facility] * eGFR (09/08/2024 8:35 AM CDT) eGFR 79 >=60 mL/min/1. 73 m2 Comment: [...] MD LAB BLOOD ORDERABLES Final Res ult [facility] [place] [address] * (ABNORMAL) CBC without differential (09/08/2024 8:35 AM CDT) [facility] WBC 13.53(H) 3.80 - 9.90 K/cumm Hgb 10.6(L) 13.0 - 17.5 g/dL [facility] Hct 30.5(L) 38.9 - 50.3 % [facility] Plt 161 150 - 400 K/cumm [facility] MPV 10.2 9.1 - 12.3 fL [facility] RBC 3.55(L) 4.30 - 5.80 M/cumm [facility] MCV 85.9 81.3 - 96.4 fL [facility] MCH 29.9 27.1 - 33.3 pg [facility] MCHC 34.8 32.3 - 35.7 g/dL [facility] RDW CV 13.2 11.1 - 14.9 % [facility] RDW SD 40.6 35.7 - 48.1 fL [facility] NRBC abs 0.00 0.00 - 0.01 K/cumm [facility] Blood 09/08/2024 8:35 AM CDT 09/08/2024 9:26 AM CDT us Virgen Awad MD LAB BLOOD ORDERABLES Final Res ult [facility] Department [place] [address] * (ABNORMAL) Basic metabolic panel (09/08/2024 8:35 AM CDT) [facility] Sodium 132(L) 135 - 145 mmol/L Potassium, pl 4.1 3.3 - 4.9 mmol/L [facility] Chloride 96(L) 97 - 110 mmol/L [facility] CO2 27 22 - 32 mmol/L [facility] Anion gap 9 2 - 15 mmol/L [facility] BUN 14 6 - 25 mg/dL [facility] Creatinine 0.96 0.80 - 1.30 mg/dL [facility] Glucose 121 70 - 199 mg/dL [facility] Comment: Interpretive Data Fasting glucose >/= 126 [...] 2022. Calcium 8.6 8.5 - 10.3 mg/dL [facility] Blood 09/08/2024 8:35 AM CDT 09/08/2024 9:26 AM CDT Virgen Awad MD LAB BLOOD ORDERABLES Final Res ult Performing Organization Address City/[facility]/ZIP Co de Phone Number [facility] [place] [address] * Troponin I high-sensitivity 2-hour (09/06/2024 9:35 PM CDT) Trop I hs 35 <=35 ng/L Comment: Interpretive Data For further hscTnI resources including the diagnostic algorithm and an aid in interpretation, copy and paste this link: https://bjhlab.testcatalog.org/show/[email or web address] Current Interpretive Data last revised 2019. Trop I hs delta 3 ng/L [facility] Trop I hs interp Insignificant [facility] Blood 09/06/2024 9:35 PM CDT 09/06/2024 9:50 PM CDT Pb Monroy MD LAB BLOOD ORDERABLES Final Result Performing Organization Address City/[facility]/ZIP Co de Phone Number [facility] [place] [address] * Thyroid Function [place] (09/06/2024 8:40 PM CDT) TSH 2.57 0.30 - 4.20 mcIUnit/mL Blood 09/06/2024 8:40 PM CDT 09/06/2024 8:57 PM CDT Alysa Perry MD LAB BLOOD ORDERABLES Final Result [facility] [place] [address] * Blood culture Blood (09/06/2024 8:40 PM CDT) Report Final Report: No growth Blood 09/06/2024 8:40 PM CDT 09/06/2024 8:53 PM CDT [facility]ative [facility] - 09/11/2024 7:00 AM CDT Collection->Peripheral 1. [...] performance characteristics have been verified by the [facility]. For questions about this culture, contact the Microbiology Laboratory at [phone]. Interpretive data was last revised on 24. Alysa Perry MD LAB MICROBIOLOGY - G ENERAL ORDERABLES Final Result QUANG MIR Viridiana [facility] [place] [address] * Blood culture Blood (09/06/2024 8:40 PM CDT) Report Final Report: No growth Blood 09/06/2024 8:40 PM CDT 09/06/2024 8:53 PM CDT Narrative QUANG MIR - 09/11/2024 7:00 AM CDT Collection->Peripheral 1. [...] performance characteristics have been verified by the [facility]. For questions about this culture, contact the Microbiology Laboratory at [phone]. Interpretive data was last revised on 24. Alysa Perry MD LAB MICROBIOLOGY - G ENERAL ORDERABLES Final Result Performing Organization Address City/[facility]/ZIP Co de Phone Number QUANG Kemp [facility] Department [place] [address] * Troponin I high-sensitivity series (baseline, 2hr, 4hr, 6hr) (09/06/2024 7:25 PM CDT) Trop I hs 32 <=35 ng/L Comment: Interpretive Data For further hscTnI resources including the diagnostic algorithm and an aid in interpretation, copy and paste this link: https://bjhlab.testcatalog.org/show/[email or web address] Current Interpretive Data last revised 2019. Blood 09/06/2024 7:25 PM CDT 09/06/2024 8:50 PM CDT us Pb Monroy MD LAB BLOOD ORDERABLES Final Result QUANG MIR [facility] [place] [address] * eGFR (09/06/2024 7:25 PM CDT) eGFR 85 >=60 mL/min/1. 73 m2 [...] Monroy MD LAB BLOOD ORDERABLES Final Result QUANG MIR [facility] [place] [address] * (ABNORMAL) Differential, auto (09/06/2024 7:25 PM CDT) Neutrophil abs 11.15(H) 1.50 - 6.50 K/cumm Imm gran abs 0.09 0.00 - 0.10 K/cumm [facility] Lymphocyte abs 2.05 0.80 - 3.30 K/cumm [facility] Monocyte abs 1.47(H) 0.20 - 0.80 K/cumm [facility] Eosinophil abs 0.04 0.00 - 0.50 K/cumm [facility] Basophil abs 0.03 0.00 - 0.10 K/cumm [facility] Neutrophil pct 75.2 % [facility] Comment: Interpretive Data Percent cell count reference ranges are not reported, since discordance with absolute values may lead to misinterpretation of CBC data. Current Interpretive Data was last revised on 2017. Imm gran pct 0.6 % [facility] Comment: Interpretive Data Percent cell count reference ranges are not reported, since discordance with absolute values may lead to misinterpretation of CBC data. Current Interpretive Data was last revised on 2017. Lymphocyte pct 13.8 % [facility] Comment: Interpretive Data Percent cell count reference ranges are not reported, since discordance with absolute values may lead to misinterpretation of CBC data. Current Interpretive Data was last revised on 2017. Monocyte pct 9.9 % [facility] Comment: Interpretive Data Percent cell count reference ranges are not reported, since discordance with absolute values may lead to misinterpretation of CBC data. Current Interpretive Data was last revised on 2017. Eosinophil pct 0.3 % [facility] Comment: Interpretive Data Percent cell count reference ranges are not reported, since discordance with absolute values may lead to misinterpretation of CBC data. Current Interpretive Data was last revised on 2017. Basophil pct 0.2 % [facility] Comment: Interpretive Data Percent cell count reference ranges are not reported, since discordance with absolute values may lead to misinterpretation of CBC data. Current Interpretive Data was last revised on 2017. Blood 09/06/2024 7:25 PM CDT 09/06/2024 8:03 PM CDT Pb Monroy MD LAB BLOOD ORDERABLES Final Result Performing Organization Address City/[facility]/ZIP Co de Phone Number [facility] [place] [address] * (ABNORMAL) CBC with auto differential (09/06/2024 7:25 PM CDT) Pathologist [facility] WBC 14.83(H) 3.80 - 9.90 K/cumm Hgb 10.6(L) 13.0 - 17.5 g/dL [facility] Hct 30.7(L) 38.9 - 50.3 % [facility] Plt 173 150 - 400 K/cumm [facility] MPV 9.8 9.1 - 12.3 fL [facility] RBC 3.62(L) 4.30 - 5.80 M/cumm [facility] MCV 84.8 81.3 - 96.4 fL [facility] MCH 29.3 27.1 - 33.3 pg [facility] [facility] MCHC 34.5 32.3 - 35.7 g/dL [facility] RDW CV 13.2 11.1 - 14.9 % [facility] RDW SD 40.9 35.7 - 48.1 fL [facility] NRBC abs 0.00 0.00 - 0.01 K/cumm [facility] Blood Venous blood specimen / Unknown 09/06/2024 7:25 PM CDT 09/06/2024 8:03 PM CDT Pb Monroy MD LAB BLOOD ORDERABLES Final Result Performing Organization Address City/[facility]/ZIP Co de Phone Number [facility] [place] [address] * Phosphorus (09/06/2024 7:25 PM CDT) Pathologist [facility] Phosphorus, pl 3.0 2.3 - 4.5 mg/dL Blood 09/06/2024 7:25 PM CDT 09/06/2024 8:03 PM CDT us Virgen Awad MD LAB BLOOD ORDERABLES Final Res ult Performing Organization Address City/[facility]/ZIP Co de Phone Number [facility] [place] [address] * Magnesium (09/06/2024 7:25 PM CDT) [facility] Magnesium 2.1 1.4 - 2.5 mg/dL Blood 09/06/2024 7:25 PM CDT 09/06/2024 8:03 PM CDT us Virgen Awad MD LAB BLOOD ORDERABLES Final Res ult Performing Organization Address [facility] de Phone Number [facility] [place] [address] * (ABNORMAL) Comprehensive metabolic panel (09/06/2024 7:25 PM CDT) [facility] Sodium 134(L) 135 - 145 mmol/L Potassium, pl 4.2 3.3 - 4.9 mmol/L [facility] Chloride 98 97 - 110 mmol/L [facility] CO2 26 22 - 32 mmol/L [facility] Anion gap 10 2 - 15 mmol/L [facility] BUN 16 6 - 25 mg/dL [facility] Creatinine 0.90 0.80 - 1.30 mg/dL [facility] Glucose 141 70 - 199 mg/dL [facility] Comment: Interpretive Data Fasting glucose >/= 126 [...] 2022. Calcium 8.8 8.5 - 10.3 mg/dL [facility] Bilirubin, total 0.4 0.1 - 1.2 mg/dL [facility] Protein, pl 7.0 6.5 - 8.5 g/dL [facility] Albumin 3.6 3.5 - 5.0 g/dL [facility] Alk phos 87 40 - 130 Units/L [facility] ALT 18 7 - 55 Units/L [facility] AST 27 10 - 50 Units/L [facility] Blood 09/06/2024 7:25 PM CDT 09/06/2024 8:03 PM CDT us Pb Monroy MD LAB BLOOD ORDERABLES Final Result Performing Organization Address City/State/[facility] Co de Phone Number [facility] [place] [address] * ECG 12-LEAD (09/06/2024 2:45 PM CDT) Narrative [facility] - 09/06/2024 2:45 PM CDT Olivier Lovell [...] normal sinus rhythm rate of 87; normal NM, QRS, and QTC intervals; normal P, R, [...] manifest normal sinus rhythm rate of87; normal NM, QRS, and QTC intervals; normal P, R, and T-wave axis; noevidence of atrial enlargement but possible ventricular hypertrophy;incomplete right bundle-branch block. Normal ST segments and T-waveswithout evidence of active myocardial ischemia; Murtaza Agrawal MD 09/06/24 1447 Olivier Lovell MD 09/06/24 2228 us Pb Monroy MD ECG ORDERABLES Edited Res ult - Final [facility] * XR Chest Pa Lateral 2 Views [...] CDT) WBC 17.6(H) 3.5 - 10.0 K/uL [facility] RBC 3.91(L) 4.60 - 6.20 M/uL [facility] Hemoglobin 11.8(L) 13.9 - 17.7 g/dL [facility] Hematocrit 32.7(L) 35.0 - 55.0 % [facility] MCV 83.7 75.0 - 100.0 fL [facility] MCH 30.20 25.00 - 35.00 pg [facility] MCHC 36.10 31.00 - 38.00 g/dL [facility] RDW 12.9 11.0 - 16.0 % [facility] Platelets 204 140 - 400 K/uL [facility] MPV 9.0 8.0 - 11.0 fL [facility] Granulocyte, Absolute 14.9(H) 1.2 - 8.0 K/uL [facility] Lymphocyte, Absolute 2.0 0.5 - 5.0 K/uL [facility] Monocyte, Absolute 0.7 0.1 - 1.5 K/uL [facility] Granulocyte, Percentage 84.8(H) 35.0 - 80.0 % [facility] Lymphocyte, Percentage 11.4(L) 15.0 - 50.0 % [facility] Monocyte, Percentage 3.8 2.0 - 15.0 % [facility] Blood 09/05/2024 1:05 PM CDT 09/05/2024 1:24 PM CDT London Santos MD LAB BLOOD ORDERABLES F inal Result Performing Organization Address [facility] de Phone Number [facility] [address] [place] [address] * (ABNORMAL) Basic metabolic panel (09/05/2024 1:05 PM CDT) [facility] Glucose 108 74 - 200 mg/dL [facility] BUN 18 18 - 23 mg/dL [facility] Creatinine 0.9 0.7 - 1.3 mg/dL [facility] BUN/Creat Ratio 19 Ratio [facility] eGFR 77 mL/min/1.7 3m2 [facility] Calcium 9.3 8.8 - 10.2 mg/dL [facility] Sodium 127(L) 135 - 145 mEq/L [facility] Potassium 4.5 3.5 - 5.1 mEq/L [facility] Chloride 93(L) 98 - 107 mEq/L [facility] CO2 24.7 22.0 - 32.0 mEq/L [facility] Anion Gap 9 3 - 12 mEq/L [facility] Blood 09/05/2024 1:05 PM CDT 09/05/2024 1:24 PM CDT London Santos MD LAB BLOOD ORDERABLES F inal Result Performing Organization Address [facility] de Phone Number [facility] [address] [place] [address] * eGFR (08/31/2024 9:44 PM CDT) Pathologist [facility] eGFR 63 >=60 mL/min/1. 73 m2 Comment: [...] Dominguez MD LAB BLOOD ORDERABLES Final Result [facility] [place] [address] * (ABNORMAL) Differential, auto (08/31/2024 9:44 PM CDT) Pathologist [facility] Neutrophil abs 9.27(H) 1.50 - 6.50 K/cumm Imm gran abs 0.08 0.00 - 0.10 K/cumm [facility] Lymphocyte abs 1.90 0.80 - 3.30 K/cumm [facility] Monocyte abs 1.20(H) 0.20 - 0.80 K/cumm [facility] Eosinophil abs 0.13 0.00 - 0.50 K/cumm [facility] Basophil abs 0.02 0.00 - 0.10 K/cumm [facility] Neutrophil pct 73.6 % [facility] Comment: Interpretive Data Percent cell count reference ranges are not reported, since discordance with absolute values may lead to misinterpretation of CBC data. Current Interpretive Data was last revised on 2017. Imm gran pct 0.6 % [facility] Comment: Interpretive Data Percent cell count reference ranges are not reported, since discordance with absolute values may lead to misinterpretation of CBC data. Current Interpretive Data was last revised on 2017. Lymphocyte pct 15.1 % [facility] Comment: Interpretive Data Percent cell count reference ranges are not reported, since discordance with absolute values may lead to misinterpretation of CBC data. Current Interpretive Data was last revised on 2017. Monocyte pct 9.5 % [facility] Comment: Interpretive Data Percent cell count reference ranges are not reported, since discordance with absolute values may lead to misinterpretation of CBC data. Current Interpretive Data was last revised on 2017. Eosinophil pct 1.0 % [facility] Comment: Interpretive Data Percent cell count reference ranges are not reported, since discordance with absolute values may lead to misinterpretation of CBC data. Current Interpretive Data was last revised on 2017. Basophil pct 0.2 % [facility] Comment: Interpretive Data Percent cell count reference ranges are not reported, since discordance with absolute values may lead to misinterpretation of CBC data. Current Interpretive Data was last revised on 2017. Blood 08/31/2024 9:44 PM CDT 08/31/2024 10:34 PM CDT us Dyana Dominguez MD LAB BLOOD ORDERABLES Final Result [facility] [place] [address] * (ABNORMAL) CBC with auto differential (08/31/2024 9:44 PM CDT) WBC 12.60(H) 3.80 - 9.90 K/cumm Hgb 9.6(L) 13.0 - 17.5 g/dL [facility] Hct 27.5(L) 38.9 - 50.3 % [facility] Plt 184 150 - 400 K/cumm [facility] MPV 9.7 9.1 - 12.3 fL [facility] RBC 3.22(L) 4.30 - 5.80 M/cumm [facility] MCV 85.4 81.3 - 96.4 fL [facility] MCH 29.8 27.1 - 33.3 pg [facility] MCHC 34.9 32.3 - 35.7 g/dL [facility] RDW CV 12.9 11.1 - 14.9 % [facility] RDW SD 39.7 35.7 - 48.1 fL [facility] NRBC abs 0.00 0.00 - 0.01 K/cumm [facility] Blood 08/31/2024 9:44 PM CDT 08/31/2024 10:34 PM CDT Dyana Dominguez MD LAB BLOOD ORDERABLES Final Result [facility] One [facility] [place] [address] * (ABNORMAL) Basic metabolic panel (08/31/2024 9:44 PM CDT) Sodium 130(L) 135 - 145 mmol/L Potassium, pl 4.1 3.3 - 4.9 mmol/L [facility] Chloride 98 97 - 110 mmol/L [facility] CO2 27 22 - 32 mmol/L [facility] Anion gap 5 2 - 15 mmol/L [facility] BUN 15 6 - 25 mg/dL [facility] Creatinine 1.16 0.80 - 1.30 mg/dL [facility] Glucose 99 70 - 199 mg/dL [facility] Comment: Interpretive Data Fasting glucose >/= 126 [...] Calcium 8.8 8.5 - 10.3 mg/dL [facility] Blood 08/31/2024 9:44 PM CDT 08/31/2024 10:34 PM CDT Dyana Dominguez MD LAB BLOOD ORDERABLES Final Result [facility] [employer] [place] [address] * eGFR (08/30/2024 11:41 PM CDT) eGFR [...] Dominguez MD LAB BLOOD ORDERABLES Final Result [facility] [place] [address] * (ABNORMAL) Differential, auto (08/30/2024 11:41 PM CDT) Neutrophil abs 11.14(H) 1.50 - 6.50 K/cumm Imm gran abs 0.09 0.00 - 0.10 K/cumm [facility] Lymphocyte abs 1.97 0.80 - 3.30 K/cumm [facility] Monocyte abs 1.14(H) 0.20 - 0.80 K/cumm [facility] Eosinophil abs 0.09 0.00 - 0.50 K/cumm [facility] Basophil abs 0.02 0.00 - 0.10 K/cumm [facility] Neutrophil pct 77.2 % [facility] Comment: Interpretive Data Percent cell count reference ranges are not reported, since discordance with absolute values may lead to misinterpretation of CBC data. Current Interpretive Data was last revised on 2017. Imm gran pct 0.6 % [facility] Comment: Interpretive Data Percent cell count reference ranges are not reported, since discordance with absolute values may lead to misinterpretation of CBC data. Current Interpretive Data was last revised on 2017. Lymphocyte pct 13.6 % [facility] Comment: Interpretive Data Percent cell count reference ranges are not reported, since discordance with absolute values may lead to misinterpretation of CBC data. Current Interpretive Data was last revised on 2017. Monocyte pct 7.9 % [facility] Comment: Interpretive Data Percent cell count reference ranges are not reported, since discordance with absolute values may lead to misinterpretation of CBC data. Current Interpretive Data was last revised on 2017. Eosinophil pct 0.6 % [facility] Comment: Interpretive Data Percent cell count reference ranges are not reported, since discordance with absolute values may lead to misinterpretation of CBC data. Current Interpretive Data was last revised on 2017. Basophil pct 0.1 % [facility] Comment: Interpretive Data Percent cell count reference ranges are not reported, since discordance with absolute values may lead to misinterpretation of CBC data. Current Interpretive Data was last revised on 2017. Blood 08/30/2024 11:4 1 PM CDT 08/30/2024 11:52 PM CDT Dyana Dominguez MD LAB BLOOD ORDERABLES Final Result [facility] Department [place] [address] * (ABNORMAL) CBC with auto differential (08/30/2024 11:41 PM CDT) Pathologist [facility] WBC 14.45(H) 3.80 - 9.90 K/cumm Hgb 9.7(L) 13.0 - 17.5 g/dL [facility] Hct 27.9(L) 38.9 - 50.3 % [facility] Plt 177 150 - 400 K/cumm [facility] MPV 9.8 9.1 - 12.3 fL [facility] RBC 3.28(L) 4.30 - 5.80 M/cumm [facility] MCV 85.1 81.3 - 96.4 fL [facility] MCH 29.6 27.1 - 33.3 pg [facility] MCHC 34.8 32.3 - 35.7 g/dL [facility] RDW CV 12.8 11.1 - 14.9 % [facility] RDW SD 38.9 35.7 - 48.1 fL [facility] NRBC abs 0.00 0.00 - 0.01 K/cumm [facility] Blood 08/30/2024 11:4 1 PM CDT 08/30/2024 11:52 PM CDT Dyana Dominguez MD LAB BLOOD ORDERABLES Final Result [facility] [place] [address] * (ABNORMAL) Basic metabolic panel (08/30/2024 11:41 PM CDT) Pathologist [facility] Sodium 134(L) 135 - 145 mmol/L Potassium, pl 4.4 3.3 - 4.9 mmol/L [facility] Chloride 100 97 - 110 mmol/L [facility] CO2 26 22 - 32 mmol/L [facility] Anion gap 8 2 - 15 mmol/L [facility] BUN 13 6 - 25 mg/dL [facility] Creatinine 0.93 0.80 - 1.30 mg/dL [facility] Glucose 107 70 - 199 mg/dL [facility] Comment: Interpretive Data Fasting glucose >/= 126 [...] 2022. Calcium 8.0(L) 8.5 - 10.3 mg/dL [facility] Blood 08/30/2024 11:4 1 PM CDT 08/30/2024 11:50 PM CDT Dyana Dominguez MD LAB BLOOD ORDERABLES Final Result Performing Organization Address City/[facility]/ZIP Co de Phone Number [facility] [place] [address] * Sodium, urine, random (08/30/2024 1:46 PM CDT) Sodium, ur 50 mmol/L Comment: Interpretive Data No reference range established. Current interpretive data was last revised 2018. Urine 08/30/2024 1:46 PM CDT 08/30/2024 2:42 PM CDT us Stacie Curry MD LAB URINE ORDERABLES Kinjal l Result [facility] [place] [address] * Osmolality, urine (08/30/2024 1:46 PM CDT) Osmo, ur 283 mOsm/kg Urine 08/30/2024 1:46 PM CDT 08/30/2024 2:42 PM CDT us Stacie Curry MD LAB URINE ORDERABLES Kinjal jama Result [facility] [place] [address] * TRANSESOPHAGEAL ECHO (JESSICA) W DOPPLER/CF WO CONTRAST (08/30/2024 11:33 AM CDT) Anatomical Region Laterality Modality Echocardiography 08/30/2024 10:4 6 AM CDT Narrative 08/30/2024 3:32 PM CDT [facility] [place] [address] Transesophageal Echocardiographic Report Patient Name: JAMSHID INTERIANO J : 1940 (83y 9m) Gender: M Study Date: 08/30/2024 10:46:01 AM Ht(Inch): Wt(Lb): BSA: Jewel Staker: Location: [id number] Order Provider: STACIE CURRY BMI: Ref Provider: [...] Procedure Note Avery Ulloa MD - 08/30/2024 [facility] [place] [address] [place] [address] Transesophageal Echocardiographic Report Patient Name: JAMSHID INTERIANO J : 1940 (83y 9m) Gender: M Study Date: 08/30/2024 10:46:01 AM Ht(Inch): Wt(Lb): BSA: Jewel Staker: Location: [id number] Order Provider: STACIE CURRY BMI: Ref Provider: [...] Avery Ulloa MD 08/30/2024 3:31:56 PM CDT Stacie Curry MD CV ECHO PROCEDURES Final Result [...] Dominguez MD LAB BLOOD ORDERABLES Final Result [facility] One [facility] [place] [address] * (ABNORMAL) Differential, auto (08/29/2024 9:11 PM CDT) Neutrophil abs 13.20(H) 1.50 - 6.50 K/cumm Imm gran abs 0.13(H) 0.00 - 0.10 K/cumm [facility] Lymphocyte abs 2.05 0.80 - 3.30 K/cumm [facility] Monocyte abs 1.39(H) 0.20 - 0.80 K/cumm [facility] Eosinophil abs 0.03 0.00 - 0.50 K/cumm [facility] Basophil abs 0.03 0.00 - 0.10 K/cumm [facility] Neutrophil pct 78.3 % [facility] Comment: Interpretive Data Percent cell count reference ranges are not reported, since discordance with absolute values may lead to misinterpretation of CBC data. Current Interpretive Data was last revised on 2017. Imm gran pct 0.8 % [facility] Comment: Interpretive Data Percent cell count reference ranges are not reported, since discordance with absolute values may lead to misinterpretation of CBC data. Current Interpretive Data was last revised on 2017. Lymphocyte pct 12.2 % [facility] Comment: Interpretive Data Percent cell count reference ranges are not reported, since discordance with absolute values may lead to misinterpretation of CBC data. Current Interpretive Data was last revised on 2017. Monocyte pct 8.3 % [facility] Comment: Interpretive Data Percent cell count reference ranges are not reported, since discordance with absolute values may lead to misinterpretation of CBC data. Current Interpretive Data was last revised on 2017. Eosinophil pct 0.2 % [facility] Comment: Interpretive Data Percent cell count reference ranges are not reported, since discordance with absolute values may lead to misinterpretation of CBC data. Current Interpretive Data was last revised on 2017. Basophil pct 0.2 % [facility] Comment: Interpretive Data Percent cell count reference ranges are not reported, since discordance with absolute values may lead to misinterpretation of CBC data. Current Interpretive Data was last revised on 2017. Blood 08/29/2024 9:11 PM CDT 08/29/2024 11:31 PM CDT Dyana Dominguez MD LAB BLOOD ORDERABLES Final Result [facility] One [facility] [place] [address] * (ABNORMAL) CBC with auto differential (08/29/2024 9:11 PM CDT) WBC 16.83(H) 3.80 - 9.90 K/cumm Hgb 11.4(L) 13.0 - 17.5 g/dL [facility] Hct 32.5(L) 38.9 - 50.3 % [facility] Plt 188 150 - 400 K/cumm [facility] MPV 10.3 9.1 - 12.3 fL [facility] RBC 3.75(L) 4.30 - 5.80 M/cumm [facility] MCV 86.7 81.3 - 96.4 fL [facility] MCH 30.4 27.1 - 33.3 pg [facility] MCHC 35.1 32.3 - 35.7 g/dL [facility] RDW CV 12.9 11.1 - 14.9 % [facility] RDW SD 40.5 35.7 - 48.1 fL [facility] NRBC abs 0.00 0.00 - 0.01 K/cumm [facility] Blood 08/29/2024 9:11 PM CDT 08/29/2024 11:31 PM CDT Dyana Dominguez MD LAB BLOOD ORDERABLES Final Result [facility] [place] [address] * (ABNORMAL) Osmolality, blood (08/29/2024 9:11 PM CDT) Pathologist [facility] Osmo 274(L) 275 - 300 mOsm/kg Blood 08/29/2024 9:11 PM CDT 08/29/2024 11:33 PM CDT us Iramntra Shobha Jenkins MD PhD LAB BLOOD ORDERABLE S Final Result Performing Organization Address [facility] Co de Phone Number [facility] [place] [address] * (ABNORMAL) Basic metabolic panel (08/29/2024 9:11 PM CDT) [facility] Sodium 130(L) 135 - 145 mmol/L Potassium, pl 4.4 3.3 - 4.9 mmol/L [facility] Chloride 95(L) 97 - 110 mmol/L [facility] CO2 27 22 - 32 mmol/L [facility] Anion gap 8 2 - 15 mmol/L [facility] BUN 14 6 - 25 mg/dL [facility] Creatinine 1.11 0.80 - 1.30 mg/dL [facility] Glucose 89 70 - 199 mg/dL [facility] Comment: Interpretive Data Fasting glucose >/= 126 [...] 2022. Calcium 9.4 8.5 - 10.3 mg/dL [facility] Blood 08/29/2024 9:11 PM CDT 08/29/2024 11:33 PM CDT Dyana Dominguez MD LAB BLOOD ORDERABLES Final Result Performing Organization Address City/[facility]/ZIP Co de Phone Number [facility] [place] [address] * eGFR (08/28/2024 10:48 PM CDT) eGFR [...] MD LAB BLOOD ORDERABLES Final Result [facility] [place] [address] * (ABNORMAL) Differential, auto (08/28/2024 10:48 PM CDT) Neutrophil abs 10.46(H) 1.50 - 6.50 K/cumm Imm gran abs 0.11(H) 0.00 - 0.10 K/cumm [facility] Lymphocyte abs 2.26 0.80 - 3.30 K/cumm [facility] Monocyte abs 1.36(H) 0.20 - 0.80 K/cumm [facility] Eosinophil abs 0.06 0.00 - 0.50 K/cumm [facility] Basophil abs 0.04 0.00 - 0.10 K/cumm [facility] Neutrophil pct 73.2 % [facility] Comment: Interpretive Data Percent cell count reference ranges are not reported, since discordance with absolute values may lead to misinterpretation of CBC data. Current Interpretive Data was last revised on 2017. Imm gran pct 0.8 % [facility] Comment: Interpretive Data Percent cell count reference ranges are not reported, since discordance with absolute values may lead to misinterpretation of CBC data. Current Interpretive Data was last revised on 2017. Lymphocyte pct 15.8 % [facility] Comment: Interpretive Data Percent cell count reference ranges are not reported, since discordance with absolute values may lead to misinterpretation of CBC data. Current Interpretive Data was last revised on 2017. Monocyte pct 9.5 % [facility] Comment: Interpretive Data Percent cell count reference ranges are not reported, since discordance with absolute values may lead to misinterpretation of CBC data. Current Interpretive Data was last revised on 2017. Eosinophil pct 0.4 % [facility] Comment: Interpretive Data Percent cell count reference ranges are not reported, since discordance with absolute values may lead to misinterpretation of CBC data. Current Interpretive Data was last revised on 2017. Basophil pct 0.3 % [facility] Comment: Interpretive Data Percent cell count reference ranges are not reported, since discordance with absolute values may lead to misinterpretation of CBC data. Current Interpretive Data was last revised on 2017. Blood 08/28/2024 10:4 8 PM CDT 08/28/2024 11:27 PM CDT us Dyana Dominguez MD LAB BLOOD ORDERABLES Final Result [facility] [place] [address] * (ABNORMAL) CBC with auto differential (08/28/2024 10:48 PM CDT) [facility] WBC 14.29(H) 3.80 - 9.90 K/cumm Hgb 10.9(L) 13.0 - 17.5 g/dL [facility] Hct 31.7(L) 38.9 - 50.3 % [facility] Plt 185 150 - 400 K/cumm [facility] MPV 10.2 9.1 - 12.3 fL [facility] RBC 3.71(L) 4.30 - 5.80 M/cumm [facility] MCV 85.4 81.3 - 96.4 fL [facility] MCH 29.4 27.1 - 33.3 pg [facility] MCHC 34.4 32.3 - 35.7 g/dL [facility] RDW CV 12.6 11.1 - 14.9 % [facility] RDW SD 39.4 35.7 - 48.1 fL [facility] NRBC abs 0.00 0.00 - 0.01 K/cumm [facility] Blood 08/28/2024 10:4 8 PM CDT 08/28/2024 11:27 PM CDT Dyana Dominguez MD LAB BLOOD ORDERABLES Final Result [facility] [place] [address] * (ABNORMAL) Basic metabolic panel (08/28/2024 10:48 PM CDT) [facility] Sodium 131(L) 135 - 145 mmol/L Potassium, pl 4.1 3.3 - 4.9 mmol/L [facility] Chloride 97 97 - 110 mmol/L [facility] CO2 27 22 - 32 mmol/L [facility] Anion gap 7 2 - 15 mmol/L [facility] BUN 17 6 - 25 mg/dL [facility] Creatinine 1.03 0.80 - 1.30 mg/dL [facility] Glucose 108 70 - 199 mg/dL [facility] Comment: Interpretive Data Fasting glucose >/= 126 [...] 2022. Calcium 8.8 8.5 - 10.3 mg/dL [facility] Blood 08/28/2024 10:4 8 PM CDT 08/28/2024 11:28 PM CDT Dyana Dominguez MD LAB BLOOD ORDERABLES Final Result [facility] [place] [address] * eGFR (08/27/2024 8:57 PM CDT) eGFR 65 >=60 mL/min/1. 73 m2 Comment: [...] Dominguez MD LAB BLOOD ORDERABLES Final Result [facility] [place] [address] * (ABNORMAL) Differential, auto (08/27/2024 8:57 PM CDT) Neutrophil abs 9.27(H) 1.50 - 6.50 K/cumm Imm gran abs 0.10 0.00 - 0.10 K/cumm [facility] Lymphocyte abs 2.40 0.80 - 3.30 [facility] Monocyte abs 1.42(H) 0.20 - 0.80 K/cumm [facility] Eosinophil abs 0.04 0.00 - 0.50 K/cumm [facility] Basophil abs 0.03 0.00 - 0.10 K/cumm [facility] Neutrophil pct 69.9 % [facility] Comment: Interpretive Data Percent cell count reference ranges are not reported, since discordance with absolute values may lead to misinterpretation of CBC data. Current Interpretive Data was last revised on 2017. Imm gran pct 0.8 % [facility] Comment: Interpretive Data Percent cell count reference ranges are not reported, since discordance with absolute values may lead to misinterpretation of CBC data. Current Interpretive Data was last revised on 2017. Lymphocyte pct 18.1 % [facility] Comment: Interpretive Data Percent cell count reference ranges are not reported, since discordance with absolute values may lead to misinterpretation of CBC data. Current Interpretive Data was last revised on 2017. Monocyte pct 10.7 % [facility] Comment: Interpretive Data Percent cell count reference ranges are not reported, since discordance with absolute values may lead to misinterpretation of CBC data. Current Interpretive Data was last revised on 2017. Eosinophil pct 0.3 % [facility] Comment: Interpretive Data Percent cell count reference ranges are not reported, since discordance with absolute values may lead to misinterpretation of CBC data. Current Interpretive Data was last revised on 2017. Basophil pct 0.2 % [facility] Comment: Interpretive Data Percent cell count reference ranges are not reported, since discordance with absolute values may lead to misinterpretation of CBC data. Current Interpretive Data was last revised on 2017. Blood 08/27/2024 8:57 PM CDT 08/27/2024 9:16 PM CDT Dyana Dominguez MD LAB BLOOD ORDERABLES Final Result [facility] [place] [address] * (ABNORMAL) CBC with auto differential (08/27/2024 8:57 PM CDT) WBC 13.26(H) 3.80 - 9.90 K/cumm Hgb 10.7(L) 13.0 - 17.5 g/dL [facility] Hct 30.6(L) 38.9 - 50.3 % [facility] Plt 153 150 - 400 K/cumm [facility] MPV 10.0 9.1 - 12.3 fL [facility] RBC 3.58(L) 4.30 - 5.80 M/cumm [facility] MCV 85.5 81.3 - 96.4 fL [facility] MCH 29.9 27.1 - 33.3 pg [facility] MCHC 35.0 32.3 - 35.7 g/dL [facility] RDW CV 12.6 11.1 - 14.9 % [facility] RDW SD 39.1 35.7 - 48.1 fL [facility] NRBC abs 0.00 0.00 - 0.01 K/cumm [facility] Blood 08/27/2024 8:57 PM CDT 08/27/2024 9:16 PM CDT Dyana Dominguez MD LAB BLOOD ORDERABLES Final Result [facility] [place] [address] * Hepatitis A antibody, IgM Blood (08/27/2024 8:57 PM CDT) Pathologist [facility] Hep A IgM Nonreactive Nonreactive Blood 08/27/2024 8:57 PM CDT 08/27/2024 9:16 PM CDT us Stacie Curry MD LAB MICROBIOLOGY - GENERA L ORDERABLES Final Result Performing Organization Address [facility] Co de Phone Number [facility] Department [place] [address] * (ABNORMAL) Basic metabolic panel (08/27/2024 8:57 PM CDT) [facility] Sodium 134(L) 135 - 145 mmol/L Potassium, pl 4.5 3.3 - 4.9 mmol/L [facility] Chloride 100 97 - 110 mmol/L [facility] CO2 28 22 - 32 mmol/L [facility] Anion gap 6 2 - 15 mmol/L [facility] BUN 14 6 - 25 mg/dL [facility] Creatinine 1.13 0.80 - 1.30 mg/dL [facility] Glucose 129 70 - 199 mg/dL [facility] Comment: Interpretive Data Fasting glucose >/= 126 [...] 2022. Calcium 8.5 8.5 - 10.3 mg/dL [facility] Blood 08/27/2024 8:57 PM CDT 08/27/2024 9:15 PM CDT Dyana Dominguez MD LAB BLOOD ORDERABLES Final Result Performing Organization Address City/[facility] Co de Phone Number [facility] Department [place] [address] * eGFR (08/26/2024 10:13 PM CDT) eGFR [...] 3 PM CDT 08/26/2024 11:45 PM CDT Dyana Dominguez MD LAB BLOOD ORDERABLES Final Result Performing Organization Address City/[facility]/ZIP Co de Phone Number QUANG [facility] [place] [address] * (ABNORMAL) Differential, auto (08/26/2024 10:13 PM CDT) Neutrophil abs 8.68(H) 1.50 - 6.50 K/cumm Imm gran abs 0.07 0.00 - 0.10 K/cumm [facility] Lymphocyte abs 2.28 0.80 - 3.30 K/cumm [facility] Monocyte abs 1.71(H) 0.20 - 0.80 K/cumm [facility] Eosinophil abs 0.05 0.00 - 0.50 K/cumm [facility] Basophil abs 0.03 0.00 - 0.10 K/cumm [facility] Neutrophil pct 67.8 % [facility] Comment: Interpretive Data Percent cell count reference ranges are not reported, since discordance with absolute values may lead to misinterpretation of CBC data. Current Interpretive Data was last revised on 2017. Imm gran pct 0.5 % [facility] Comment: Interpretive Data Percent cell count reference ranges are not reported, since discordance with absolute values may lead to misinterpretation of CBC data. Current Interpretive Data was last revised on 2017. Lymphocyte pct 17.8 % [facility] Comment: Interpretive Data Percent cell count reference ranges are not reported, since discordance with absolute values may lead to misinterpretation of CBC data. Current Interpretive Data was last revised on 2017. Monocyte pct 13.3 % [facility] Comment: Interpretive Data Percent cell count reference ranges are not reported, since discordance with absolute values may lead to misinterpretation of CBC data. Current Interpretive Data was last revised on 2017. Eosinophil pct 0.4 % [facility] Comment: Interpretive Data Percent cell count reference ranges are not reported, since discordance with absolute values may lead to misinterpretation of CBC data. Current Interpretive Data was last revised on 2017. Basophil pct 0.2 % [facility] Comment: Interpretive Data Percent cell count reference ranges are not reported, since discordance with absolute values may lead to misinterpretation of CBC data. Current Interpretive Data was last revised on 2017. Blood 08/26/2024 10:1 3 PM CDT 08/26/2024 11:44 PM CDT us Dyana Dominguez MD LAB BLOOD ORDERABLES Final Result [facility] [place] [address] * (ABNORMAL) CBC with auto differential (08/26/2024 10:13 PM CDT) [facility] WBC 12.82(H) 3.80 - 9.90 K/cumm Hgb 11.1(L) 13.0 - 17.5 g/dL [facility] Hct 31.8(L) 38.9 - 50.3 % [facility] Plt 161 150 - 400 K/cumm [facility] MPV 9.9 9.1 - 12.3 fL [facility] RBC 3.74(L) 4.30 - 5.80 M/cumm [facility] MCV 85.0 81.3 - 96.4 fL [facility] MCH 29.7 27.1 - 33.3 pg [facility] MCHC 34.9 32.3 - 35.7 g/dL [facility] RDW CV 12.7 11.1 - 14.9 % [facility] RDW SD 39.3 35.7 - 48.1 fL [facility] NRBC abs 0.00 0.00 - 0.01 K/cumm [facility] Blood 08/26/2024 10:1 3 PM CDT 08/26/2024 11:44 PM CDT us Dyana Dominguez MD LAB BLOOD ORDERABLES Final Result Performing Organization Address City/[facility] de Phone Number [facility] [place] [address] * Hepatitis C antibody Blood (08/26/2024 10:13 PM CDT) [facility] Hep C Ab Nonreactive Nonreactive Comment:Antibodies to HCV no t detected. Does NOT exclude the possibility of recent exposure to HCV. Current interpretive data was last revised on 22 Blood 08/26/2024 10:1 3 PM CDT 08/26/2024 11:45 PM CDT us Stacie Curry MD LAB MICROBIOLOGY - GENERA L ORDERABLES Final Result Performing Organization Address City/State/[facility] Co de Phone Number [facility] [place] [address] * (ABNORMAL) Hepatitis A antibody, total Blood (08/26/2024 10:13 PM CDT) Pathologist [facility] Hep A total Reactive(A ) Nonreactive Blood 08/26/2024 10:1 3 PM CDT 08/26/2024 11:45 PM CDT Stacie Curry MD LAB MICROBIOLOGY - GENERA L ORDERABLES Final Result Performing Organization Address [facility] Co de Phone Number [facility] [place] [address] * Hepatitis B core antibody, total Blood (08/26/2024 10:13 PM CDT) [facility] Hep B core IgG/IgM Nonreactive Nonreactive Blood 08/26/2024 10:1 3 PM CDT 08/26/2024 11:45 PM CDT Stacie Curry MD LAB MICROBIOLOGY - GENERA L ORDERABLES Final Result Performing Organization Address [facility] Co de Phone Number [facility] [place] [address] * Hepatitis B surface antibody (immune status) Blood (08/26/2024 10:13 PM CDT) Pathologist [facility] HBsAb (immune status) Reactive Comment:This result is consi stent with immunity to Hepatitis B Virus when used in the setting of routine screening. Current interpretive data was last revised on 22 HBsAb (immune status) index 29.3 mIUnits/m L [facility] Blood 08/26/2024 10:1 3 PM CDT 08/26/2024 11:45 PM CDT tSacie Curry MD LAB MICROBIOLOGY - GENERA L ORDERABLES Final Result [facility] Department [place] [address] * Hepatitis B Surface Antigen Blood (08/26/2024 10:13 PM CDT) Pathologist [facility] HepBsAg Nonreactive Nonreactive Blood 08/26/2024 10:1 3 PM CDT 08/26/2024 11:45 PM CDT us Stacie Curry MD LAB MICROBIOLOGY - GENERA L ORDERABLES Final Result Performing Organization Address City/[facility] Co de Phone Number [facility] Department [place] [address] * Basic metabolic panel (08/26/2024 10:13 PM CDT) [facility] Sodium 135 135 - 145 mmol/L Potassium, pl 4.4 3.3 - 4.9 mmol/L [facility] Chloride 100 97 - 110 mmol/L [facility] CO2 26 22 - 32 mmol/L [facility] Anion gap 9 2 - 15 mmol/L [facility] BUN 16 6 - 25 mg/dL [facility] Creatinine 1.06 0.80 - 1.30 mg/dL [facility] Glucose 108 70 - 199 mg/dL [facility] Comment: Interpretive Data Fasting glucose >/= 126 [...] 2022. Calcium 8.8 8.5 - 10.3 mg/dL [facility] Blood 08/26/2024 10:1 3 PM CDT 08/26/2024 11:45 PM CDT us Dyana Dominguez MD LAB BLOOD ORDERABLES Final Result [facility] [place] [address] * TRANSTHORACIC ECHO (TTE) COMPLETE W DOPPLER/CF W CONTRAST (08/26/2024 2:51 PM CDT) Anatomical Region Laterality Modality Ultrasound 08/26/2024 1:37 PM CDT Narrative 08/28/2024 4:16 PM CDT [facility] [place] [address] Transthoracic Echocardiographic Report Patient Name: JAMSHID INTERIANO J : 1940 (83y 9m) Gender: M Study Date: 08/26/2024 01:37:55 PM Ht(Inch): 67 Wt(Lb): 151.02 BSA: 1.8 Jewel Staker: Augustina Oconnell RDCS Location: [id number] Order Provider: DYANA DOMINGUEZ Heart Rate: 71 [...] Procedure Note Cale Ruby MD - 08/28/2024 [facility] [place] [address] Transthoracic Echocardiographic Report Patient Name: JAMSHID INTERIANO J : 1940 (83y 9m) Gender: M Study Date: 08/26/2024 01:37:55 PM Ht(Inch): 67 Wt(Lb): 151.02 BSA: 1.8 Jewel Staker: Augustina Oconnell RDCS Location: [id number] Order Provider:DYANA DOMINGUEZ Heart Rate: 71 BMI: [...] LA Length 4C 5.79 cm MV Decel Ffbp526.75 msec [ 104.00 - 258.00 ] LA [...] AM CDT 08/26/2024 10:43 AM CDT Gio [place] [facility] - 08/30/2024 12:00 PM CDT Collection->Peripheral 1. [...] performance characteristics have been verified by the [facility]. For questions about this culture, contact the Microbiology Laboratory at [phone]. Interpretive data was last revised on 24. Stacie Curry MD LAB MICROBIOLOGY - GENERA L ORDERABLES Final Result Performing Organization Address [facility]/ZIP Co de Phone Number QUANG [facility] [place] [address] * Blood culture Blood (08/26/2024 10:30 AM CDT) Report Final Report: No growth Blood 08/26/2024 10:3 0 AM CDT 08/26/2024 10:42 AM CDT Gio [place] [facility] - 08/30/2024 12:00 PM CDT Collection->Peripheral 1. [...] This assay has been cleared by the [place] Food and Drug Administration and its performance characteristics have been verified by the [facility]. For questions about this culture, contact the Microbiology Laboratory at [phone]. Interpretive data was last revised on 24. Stacie Curry MD LAB MICROBIOLOGY - GENERA L ORDERABLES Final Result Performing Organization Address [facility]/ZIP Co de Phone Number [facility] MIR [facility] Department [place] [address] * XR Orthopantogram Panorex (08/26/2024 10:00 AM [...] lucencies Electronically signed by: Jenny Mary MD Dyana Dominguez MD IMG XR PROCEDURES Final [...] Dominguez MD LAB BLOOD ORDERABLES Final Result [facility] [place] [address] * (ABNORMAL) Differential, auto (08/25/2024 8:53 PM CDT) Neutrophil abs 11.78(H) 1.50 - 6.50 K/cumm Imm gran abs 0.12(H) 0.00 - 0.10 K/cumm [facility] Lymphocyte abs 1.25 0.80 - 3.30 [facility] Monocyte abs 1.44(H) 0.20 - 0.80 K/cumm [facility] Eosinophil abs 0.02 0.00 - 0.50 K/cumm [facility] Basophil abs 0.03 0.00 - 0.10 [facility] Neutrophil pct 80.6 % [facility] Comment: Interpretive Data Percent cell count reference ranges are not reported, since discordance with absolute values may lead to misinterpretation of CBC data. Current Interpretive Data was last revised on 2017. Imm gran pct 0.8 % [facility] Comment: Interpretive Data Percent cell count reference ranges are not reported, since discordance with absolute values may lead to misinterpretation of CBC data. Current Interpretive Data was last revised on 2017. Lymphocyte pct 8.5 % [facility] Comment: Interpretive Data Percent cell count reference ranges are not reported, since discordance with absolute values may lead to misinterpretation of CBC data. Current Interpretive Data was last revised on 2017. Monocyte pct 9.8 % [facility] Comment: Interpretive Data Percent cell count reference ranges are not reported, since discordance with absolute values may lead to misinterpretation of CBC data. Current Interpretive Data was last revised on 2017. Eosinophil pct 0.1 % [facility] Comment: Interpretive Data Percent cell count reference ranges are not reported, since discordance with absolute values may lead to misinterpretation of CBC data. Current Interpretive Data was last revised on 2017. Basophil pct 0.2 % [facility] Comment: Interpretive Data Percent cell count reference ranges are not reported, since discordance with absolute values may lead to misinterpretation of CBC data. Current Interpretive Data was last revised on 2017. Blood 08/25/2024 8:53 PM CDT 08/25/2024 10:22 PM CDT Dyana Dominguez MD LAB BLOOD ORDERABLES Final Result [facility] [place] [address] * Blood parasite examination Blood (08/25/2024 8:53 [...] 8:53 PM CDT 08/25/2024 10:19 PM CDT Narrative [facility] - 08/26/2024 10:57 AM CDT Specimen was received in the laboratory greater than 1 hour from collection time of 20:48 pm_. Test performed by microscopic examination for blood parasites including Plasmodium, Babesia, Trypanosoma spp and microfilariae. If present, the parasite is reported, however test sensitivity for microfilariae and trypanosomes can be limited. Stacie Curry MD LAB MICROBIOLOGY - GENERA L ORDERABLES Final Result Performing Organization Address City/[facility]/ZIP Co de Phone Number [facility] [place] [address] * (ABNORMAL) CBC with auto differential (08/25/2024 8:53 PM CDT) Pathologist [facility] WBC 14.64(H) 3.80 - 9.90 K/cumm Hgb 12.5(L) 13.0 - 17.5 g/dL [facility] Hct 36.2(L) 38.9 - 50.3 % [facility] Plt 164 150 - 400 K/cumm [facility] MPV 9.6 9.1 - 12.3 fL [facility] RBC 4.21(L) 4.30 - 5.80 M/cumm [facility] MCV 86.0 81.3 - 96.4 fL [facility] MCH 29.7 27.1 - 33.3 pg [facility] MCHC 34.5 32.3 - 35.7 g/dL [facility] RDW CV 12.8 11.1 - 14.9 % [facility] RDW SD 39.9 35.7 - 48.1 fL [facility] NRBC abs 0.00 0.00 - 0.01 K/cumm [facility] Blood 08/25/2024 8:53 PM CDT 08/25/2024 10:22 PM CDT Dyana Dominguez MD LAB BLOOD ORDERABLES Final Result [facility] [place] [address] * (ABNORMAL) Erythrocyte sedimentation rate (08/25/2024 8:53 PM CDT) Erythrocyte sedimentation rate 21(H) 1 - 20 mm/hr Blood 08/25/2024 8:53 PM CDT 08/25/2024 10:22 PM CDT Dyana Dominguez MD LAB BLOOD ORDERABLES Final Result [facility] [place] [address] * (ABNORMAL) CRP (acute phase) (08/25/2024 8:53 PM CDT) Pathologist [facility] CRP 103.9(H) <=10.0 mg/L Blood 08/25/2024 8:53 PM CDT 08/25/2024 10:23 PM CDT Dyana Dominguez MD LAB BLOOD ORDERABLES Final Result Performing Organization Address [facility] Co de Phone Number [facility] [place] [address] * Basic metabolic panel (08/25/2024 8:53 PM CDT) Pathologist [facility] Sodium 136 135 - 145 mmol/L Potassium, pl 4.3 3.3 - 4.9 mmol/L [facility] Chloride 100 97 - 110 mmol/L [facility] CO2 25 22 - 32 mmol/L [facility] Anion gap 11 2 - 15 mmol/L [facility] BUN 18 6 - 25 mg/dL [facility] Creatinine 0.91 0.80 - 1.30 mg/dL [facility] Glucose 95 70 - 199 mg/dL [facility] Comment: Interpretive Data Fasting glucose >/= 126 [...] 2022. Calcium 9.2 8.5 - 10.3 mg/dL [facility] Blood 08/25/2024 8:53 PM CDT 08/25/2024 10:23 PM CDT us Dyana Dominguez MD LAB BLOOD ORDERABLES Final Result Performing Organization Address City/[facility]/ZIP Co de Phone Number [facility] [place] [address] * Urinalysis reflex to microscopic and culture Urine (08/25/2024 7:45 PM CDT) Color, ur Straw Yellow Clarity, ur Clear Clear [facility] Specific gravity, ur 1.012 1.003 - 1.030 [facility] pH, urine 7.5 [facility] Comment: Interpretive Data U rine pH is affected by diet, medications, systemic acid-base disturbances, and renal tubular function. pH may affect urinary stone formation. For example, urine pH below 6.0 may help reduce the tendency for calcium phosphate stones and pH greater than 6.0 may reduce the tendency for uric acid stone formation. Source: [facility] Current Interpretive Data was last revised on 2017 Protein, ur ql Negative Negative [facility] Glucose, ur ql Negative Negative [facility] Ketones, ur Negative Negative [facility] Bilirubin, ur Negative Negative [facility] Blood, ur Negative Negative [facility] Urobilinogen, ur <2.0 <2.0 mg/dL [facility] Nitrite, ur Negative Negative [facility] Leukocyte esterase, ur Negative Negative [facility] UA reflex comment Reflex conditions for microscopic UA and culture not met. [facility] Urine 08/25/2024 7:45 PM CDT 08/25/2024 7:51 PM CDT us Carey Ayala MD LAB MICROBIOLOGY - GEN ERAL ORDERABLES Final Result Performing Organization Address City/[facility]/ZIP Co de Phone Number [facility] [place] [address] * XR Chest 1 View (08/25/2024 4:49 [...] by: Lan Vitale M.D. us Neida Hutchinson SAUSAGE CUTTER IMG XR PROCEDURES Final Res ult * [...] et.al. Eur Heart J. 2006:27:330-337. 2. Michael RW, Ramakrishna AM. J. AM Rukhsana Cardiol: Cardiovasc Imag. 2009;2: 216- 225. Interpretive Data Last Revised Date: 2018. Blood 08/25/2024 1:48 PM CDT 08/25/2024 2:01 PM CDT Carey Ayala MD LAB BLOOD ORDERABLES F inal Result [facility] [place] [address] * Thyroid Function [place] (08/25/2024 1:48 PM CDT) [facility] TSH 1.50 0.30 - 4.20 mcIUnit/mL Blood 08/25/2024 1:48 PM CDT 08/25/2024 2:01 PM CDT Carey Ayala MD LAB BLOOD ORDERABLES F inal Result Performing Organization Address [facility] Co de Phone Number [facility] [place] [address] * Extra slide preparation (08/25/2024 1:48 PM CDT) [facility] Extra slide prep Slide available for pickup from the lab. Blood 08/25/2024 1:48 PM CDT 08/25/2024 2:01 PM CDT Carey Ayala MD LAB BLOOD ORDERABLES F inal Result Performing Organization Address [facility] Co de Phone Number [facility] [place] [address] * Respiratory pathogen panel Nasopharyngeal (08/25/2024 1:48 PM CDT) [facility] Influenza A RNA Not Detected Not Detected Influenza B RNA Not Detected Not Detected [facility] RSV RNA Not Detected Not Detected [facility] COVID-19 RNA Not Detected Not Detected [facility] Coronavirus 229E RNA Not Detected Not Detected [facility] Coronavirus HKU1 RNA Not Detected Not Detected [facility] Coronavirus NL63 RNA Not Detected Not Detected [facility] Coronavirus OC43 RNA Not Detected Not Detected [facility] Adenovirus DNA Not Detected Not Detected [facility] Metapneumovirus RNA Not Detected Not Detected [facility] Rhinovirus/Enterov irus RNA Not Detected Not Detected [facility] Parainfluenza 1 RNA Not Detected Not Detected [facility] Parainfluenza 2 RNA Not Detected Not Detected [facility] Parainfluenza 3 RNA Not Detected Not Detected [facility] Parainfluenza 4 RNA Not Detected Not Detected [facility] B. pertussis DNA Not Detected Not Detected [facility] B. parapertussis DNA Not Detected Not Detected [facility] C. pneumoniae DNA Not Detected Not Detected [facility] M. pneumoniae DNA Not Detected Not Detected [facility] Nasopharyngeal 08/25/2024 1: 48 PM CDT 08/25/2024 2:37 PM CDT Narrative CERN[facility] - 08/25/2024 4:29 PM CDT Is the Patient experiencing symptoms consistent with COVID?->Yes Surveillance testing for transplant patient?->No Interpretive Data The [employer] FilmArray Respiratory Panel (RP2.1) assay is a [...] assay has FDA clearance for testing of SAUSAGE C[employer]TER swabs. The performance of additional specimen types has been assessed by the performing laboratory. The performance characteristics of this assay have been determined by [facility] Molecular Infectious Disease Laboratory. Current interpretive data was last revised on 22. us Carey Ayala MD LAB MICROBIOLOGY - GEN ERAL ORDERABLES Final Result [facility] Department [place] [address] * (ABNORMAL) Blood culture Blood Peripheral (08/25/2024 1:48 PM CDT) Direct Specimen Exam Stain: Gram Positive Cocci in pairs and chains Time to culture positivity (anaerobic media): 12.6 hours Time to culture positivity (aerobic media): 14.4 hours Report Final Report: Streptococcus sanguinis (S. mitis group) Streptococcus sanguinis (S. mitis group) #2 For susceptibility results, refer to accession number [id number] on the blood culture from 08/24/2024 (.) [facility] Organism STREPTOCOCCUS SANGUINIS (S. MITIS GROUP) [facility] Organism STREPTOCOCCUS SANGUINIS (S. MITIS GROUP) [facility] Blood (Peripheral) 08/25/2024 1:48 PM CDT 08/25/2024 2:27 PM CDT Narrative [facility] - 08/29/2024 1:54 PM CDT From a [...] performance characteristics have been verified by the [facility]. For questions about this culture, contact the Microbiology Laboratory at [phone]. Interpretive data was last revised on 24. Carey Ayala MD LAB MICROBIOLOGY - GEN ERAL ORDERABLES Final Result [facility] [place] [address] * (ABNORMAL) Blood culture Blood Peripheral (08/25/2024 1:48 PM CDT) Direct Specimen Exam Stain: Gram Positive Cocci in pairs and chains Time to culture positivity (aerobic media): 14.8 hours Time to culture positivity (anaerobic media): 11.6 hours Report Final Report: Streptococcus sanguinis (S. mitis group) Streptococcus sanguinis (S. mitis group) #2 For susceptibility results, refer to accession number [id number] on the blood culture from 08/24/2024 (.) [facility] Organism STREPTOCOCCUS SANGUINIS (S. MITIS GROUP) [facility] Organism STREPTOCOCCUS SANGUINIS (S. MITIS GROUP) [facility] Blood (Peripheral) 08/25/2024 1:48 PM CDT 08/25/2024 2:28 PM CDT Narrative [facility] - 08/29/2024 1:53 PM CDT Draw Blood [...] performance characteristics have been verified by the [facility]. For questions about this culture, contact the Microbiology Laboratory at [phone]. Interpretive data was last revised on 24. Carey Ayala MD LAB MICROBIOLOGY - GEN ERAL ORDERABLES Final Result [facility] [place] [address] * eGFR (08/24/2024 10:33 AM CDT) Pathologist [facility] eGFR 87 >=60 mL/min/1. 73 m2 Comment: [...] MD LAB BLOOD ORDERABLES F inal Result [facility] [address] Department [place] [address] * (ABNORMAL) Differential, auto (08/24/2024 10:33 AM CDT) Neutrophil abs 12.53(H) 1.50 - 6.50 K/cumm Imm gran abs 0.08 0.00 - 0.10 K/cumm [facility] Lymphocyte abs 1.25 0.80 - 3.30 K/cumm [facility] Monocyte abs 1.16(H) 0.20 - 0.80 K/cumm [facility] Eosinophil abs 0.01 0.00 - 0.50 K/cumm [facility] Basophil abs 0.02 0.00 - 0.10 K/cumm [facility] Neutrophil pct 83.3 % [facility] Comment: Interpretive Data Percent cell count reference ranges are not reported, since discordance with absolute values may lead to misinterpretation of CBC data. Current Interpretive Data was last revised on 2017. Imm gran pct 0.5 % [facility] Comment: Interpretive Data Percent cell count reference ranges are not reported, since discordance with absolute values may lead to misinterpretation of CBC data. Current Interpretive Data was last revised on 2017. Lymphocyte pct 8.3 % [facility] Comment: Interpretive Data Percent cell count reference ranges are not reported, since discordance with absolute values may lead to misinterpretation of CBC data. Current Interpretive Data was last revised on 2017. Monocyte pct 7.7 % [facility] Comment: Interpretive Data Percent cell count reference ranges are not reported, since discordance with absolute values may lead to misinterpretation of CBC data. Current Interpretive Data was last revised on 2017. Eosinophil pct 0.1 % [facility] Comment: Interpretive Data Percent cell count reference ranges are not reported, since discordance with absolute values may lead to misinterpretation of CBC data. Current Interpretive Data was last revised on 2017. Basophil pct 0.1 % [facility] Comment: Interpretive Data Percent cell count reference ranges are not reported, since discordance with absolute values may lead to misinterpretation of CBC data. Current Interpretive Data was last revised on 2017. Blood 08/24/2024 10:3 3 AM CDT 08/24/2024 7:01 PM CDT London Santos MD LAB BLOOD ORDERABLES F inal Result [facility] [address] [place] [address] * Ehrlichia and Anaplasma PCR Blood (08/24/2024 10:33 AM CDT) Ehrlichia species DNA Not Detected Not Detected [facility] Comment:Testing performed by : [facility], [address] [place] [address], [place]., [address] Anaplasma Phagocytophilum DNA Not Detected Not Detected [facility] Comment: This assay tests for the presence of Anaplasma phagocytophilum, Ehrlichia chaffeensis, Ehrlichia ewingii and Ehrlichia canis. This test is laboratory developed and its performance characteristics were determined by the performing laboratory in a manner consistent with CLIA requirements. This test has not been cleared or approved by the U.S. Food and Drug Administration. Testing performed by: [facility], [address] [place]., [address] Blood 08/24/2024 10:3 3 AM CDT 08/25/2024 10:12 AM CDT London Santos MD LAB MICROBIOLOGY - GEN ERAL ORDERABLES Final Result Performing Organization Address [facility]/ZIP Co de Phone Number [facility] [address] [place] [address] [facility] * HIV 1/2 Antibody plus p24 Antigen Blood (08/24/2024 10:33 AM CDT) Pathologist [facility] HIV 1/2 ab + p24 ag Nonreactive Nonreactive Comment: Nonreactive for HIV-1 antigen and HIV-1/HIV-2 antibodies. No laboratory evidence of HIV infection. If acute HIV infection is suspected, consider testing for HIV-1 RNA. Blood 08/24/2024 10:3 3 AM CDT 08/24/2024 3:35 PM CDT London Santos MD LAB MICROBIOLOGY - GEN ERAL ORDERABLES Final Result Performing Organization Address [facility] Co de Phone Number [facility]ANG [facility] [address] [place], [place] [id number] * (ABNORMAL) CBC with auto differential (08/24/2024 10:33 AM CDT) [facility] WBC 15.05(H) 3.80 - 9.90 K/cumm Hgb 11.8(L) 13.0 - 17.5 g/dL [facility] Hct 35.6(L) 38.9 - 50.3 % [facility] Plt 165 150 - 400 K/cumm [facility] MPV 9.5 9.1 - 12.3 fL [facility] RBC 3.94(L) 4.30 - 5.80 M/cumm [facility] MCV 90.4 81.3 - 96.4 fL [facility] MCH 29.9 27.1 - 33.3 pg [facility] MCHC 33.1 32.3 - 35.7 g/dL [facility] RDW CV 12.8 11.1 - 14.9 % [facility] RDW SD 43.0 35.7 - 48.1 fL [facility] NRBC abs 0.00 0.00 - 0.01 K/cumm [facility] Blood 08/24/2024 10:3 3 AM CDT 08/24/2024 7:01 PM CDT London Santos MD LAB BLOOD ORDERABLES F inal Result Performing Organization Address City/[facility]/ZIP Co de Phone Number [facility] [address] Department [place] [address] * (ABNORMAL) Shahana-Ramirez virus (EBV) antibody panel Blood (08/24/2024 10:33 AM CDT) EBV nuclear Ab Positive(A) Negative Comment: Indicates the presence of detectable IgG antibody to EBV Nuclear Antigen. Testing performed by: [facility], [address] [place] [address]., [address] EBV VCA IgG Positive(A) Negative [facility] Comment: Indicates the presence of antibody; 90% of the adult population will have been infected with EBV sometime in the past. Testing performed by: [facility], [address] [place]., [address] EBV VCA IgM Negative Negative [facility] Comment: No detectable IgM antibody to EBV-VCA. A negative result indicates no current infection with EBV. If clinical suspicion of acute EBV infection is present, testing should be repeated after one week. Testing performed by: [facility], [address] [place]., [address] EBV interp Past Infection [facility] Comment:Testing performed by : [address] [address] Blood 08/24/2024 10:3 3 AM CDT 08/25/2024 10:06 AM CDT London Santos MD LAB MICROBIOLOGY - GEN ERAL ORDERABLES Final Result [facility] [address] Department [place] [address] * (ABNORMAL) Blood culture Blood (08/24/2024 10:33 AM CDT) Direct Specimen Exam Molecular Analysis: Streptococcus species detected by [facility] BCID-GP panel. This test does not exclude the possibility of a mixed bacterial infection. Comment:Testing performed by : [facility], [address] [place] [address]., [address] Direct Specimen Exam Stain: Gram Positive Cocci in pairs and chains Time to culture positivity (anaerobic media): 11.5 hours Time to culture positivity (aerobic media): 12.5 hours [facility] Comment:Testing performed by : [facility], [address] [place] [address]., [id number] Report Final Report: Streptococcus sanguinis (S. mitis group) Organism failed to grow adequately for susceptibility testing. Streptococcus sanguinis (S. mitis group) #2 Organism failed to grow adequately for susceptibility testing. (.) [facility]ANG Comment:Testing performed by : [facility], [address] [place] [address]., [address] Organism STREPTOCOCCUS SANGUINIS (S. MITIS GROUP) [facility] Organism STREPTOCOCCUS SANGUINIS (S. MITIS GROUP) [facility] Blood 08/24/2024 10:3 3 AM CDT 08/24/2024 8:33 PM CDT Narrative [facility] - 08/31/2024 2:04 PM CDT 1. Blood [...] performance characteristics have been verified by the [facility]. For questions about this culture, contact the Microbiology Laboratory at [phone]. Interpretive data was last revised on 24. us London Santos MD LAB MICROBIOLOGY - GEN ERAL ORDERABLES Final Result [facility] [address] Department [place] [address] * (ABNORMAL) Blood culture Blood (08/24/2024 10:33 AM CDT) Direct Specimen Exam Molecular Analysis: Streptococcus species detected by [facility] BCID-GP panel. This test does not exclude the possibility of a mixed bacterial infection. Notification of: Streptococcus species called to and read back by: Dyana Ramos MT [phone] on 08/25/2024 10:01:01 by: Diony Pineda MLS * * * * * * * * * * * * * * * * * * * * Test result called to and read back by Hannah Smiley on 08/25/2024 10:24:37 by Dyana Ramos MT Comment:Testing performed by : [facility], [address] [place]., [address] Direct Specimen Exam Stain: Gram Positive Cocci [...] by CAMI Falcon Comment:Testing performed by : [facility], [address] [place]., [address] Report Final Report: Streptococcus sanguinis (S. mitis group) Streptococcus sanguinis (S. mitis group) #2 For susceptibility results, refer to accession number [id number] on the blood culture from 08/24/2024 (.) [facility] Comment:Testing performed by : [facility], [address] [place]., [address] Organism STREPTOCOCCUS SANGUINIS (S. MITIS GROUP) [facility] Organism STREPTOCOCCUS SANGUINIS (S. MITIS GROUP) [facility] Blood 08/24/2024 10:3 3 AM CDT 08/24/2024 8:33 PM CDT Narrative [facility] - 08/28/2024 9:50 AM CDT 1. Blood [...] performance characteristics have been verified by the [facility]. For questions about this culture, contact the Microbiology Laboratory at [phone]. Interpretive data was last revised on 24. London Santos MD LAB MICROBIOLOGY - GEN ERAL ORDERABLES Final Result Performing Organization Address City/[facility]/ZIP Co de Phone Number [facility] [address] [place] [address] * (ABNORMAL) Comprehensive metabolic panel (08/24/2024 10:33 [...] ORDERABLES F inal Result Performing Organization Address [facility]/ZIP Co de Phone Number [facility]ANG [facility] [address] Department [place] [address] * (ABNORMAL) Haptoglobin (08/19/2024 1:54 PM CDT) Pathologist [facility] Haptoglobin 220(H) 43 - 212 mg/dL [facility] Blood 08/19/2024 1:54 PM CDT 08/20/2024 8:34 AM CDT Rin Ramos NP LAB BLOOD ORDERABLES F inal Result Performing Organization Address City/[facility]/ZIP Co de Phone Number [facility] [address] [place] [address] * Ehrlichia detection PCR (08/18/2024 9:56 AM CDT) [facility] E. chaffeensis DNA NOT DETECTED [facility], Comment: REFERENCE RANGE: NOT DETECTED This test was developed and its analytical performance characteristics have been determined by [facility]. It has not been cleared or approved by FDA. This assay has been validated pursuant to the CLIA regulations and is used for clinical purposes. 08/18/2024 9:56 AM CDT 08/18/2024 9:57 AM CDT Rin Ramos NP LAB MICROBIOLOGY - GEN ERAL ORDERABLES Final Result Performing Organization Address City/[facility]/ZIP Co de Phone Number [facility], [address] [place] [address] * (ABNORMAL) CBC with auto differential (08/18/2024 9:56 AM CDT) Pathologist [facility] WBC 14.2(H) 3.8 - 10.8 Thousand/ uL [facility] RBC, POC 4.02(L) 4.20 - 5.80 Million/u L [facility] Hgb 12.2(L) 13.2 - 17.1 g/dL [facility] Hct 37.3(L) 38.5 - 50.0 % [facility] MCV 92.8 80.0 - 100.0 fL [facility] MCH 30.3 27.0 - 33.0 pg [facility] MCHC 32.7 32.0 - 36.0 g/dL [facility] Comment: For adults, a slight decrease in the calculated MCHC value (in the range of 30 to 32 g/dL) is most likely not clinically significant; however, it should be interpreted with caution in correlation with other red cell parameters and the patient's clinical condition. Rdw 12.0 11.0 - 15.0 % [facility] Platelets 166 140 - 400 Thousand/ uL [facility] MPV 9.5 7.5 - 12.5 fL [facility] Neutrophils, abs 11,062(H) 1,500 - 7,800 cells/uL [facility] Lymphocytes, abs 1,491 850 - 3,900 cells/uL [facility] Monocyte abs 1,576(H) 200 - 950 cells/uL [facility] Eosinophils, abs 43 15 - 500 cells/uL [facility] Basophils, abs 28 0 - 200 cells/uL [facility] Neutrophils 77.9 % [facility] Lymphocyte pct 10.5 % [facility] Monocytes 11.1 % [facility] Eosinophils 0.3 % [facility] Basophils 0.2 % [facility] Blood 08/18/2024 9:56 AM CDT 08/18/2024 9:57 AM CDT us Rin Ramos SAUSAGE CUTTER LAB BLOOD ORDERABLES F inal Result [facility] [place] [address] [place] [address] * (ABNORMAL) Iron profile w/ IBC (08/17/2024 3:04 PM CDT) Iron 21.9(L) 59.0 - 158.0 ug/dL [facility] Total Iron Binding Capacity 206.5 ug/dL [facility] Unsaturated Iron Binding Capacity 184.6 112.0 - 346.0 ug/dL [facility] % Iron Saturation 10.6(L) 25.0 - 45.0 % [facility] Blood 08/17/2024 3:04 PM CDT 08/17/2024 3:07 PM CDT Rin Ramos [employer] C[employer]TER LAB BLOOD ORDERABLES F inal Result Performing Organization Address [facility]/ZIP Co de Phone Number [address] [address] * Vitamin D 25 hydroxy (08/17/2024 3:04 PM CDT) Vitamin D 54.07 >29.00 ng/ml [facility] Blood 08/17/2024 3:04 PM CDT 08/17/2024 3:07 PM CDT Rin Ramos [employer]TER LAB BLOOD ORDERABLES F inal Result Performing Organization Address [facility] Co de Phone Number [address] [address] * Folate (08/17/2024 3:04 PM CDT) Folate 13.3 4.5 - 37.3 ng/mL [facility] Blood 08/17/2024 3:04 PM CDT 08/17/2024 3:07 PM CDT Rin Ramos [employer]TER LAB BLOOD ORDERABLES F inal Result Performing Organization Address [facility] Co de Phone Number [address] [address] * (ABNORMAL) Ferritin (08/17/2024 3:04 PM CDT) Ferritin 472.60(H) 30.00 - 400.00 ng/mL [facility] Blood 08/17/2024 3:04 PM CDT 08/17/2024 3:07 PM CDT Rin Ramos [employer]TER LAB BLOOD ORDERABLES F inal Result [facility] [address] [place] [address] * (ABNORMAL) Comprehensive metabolic panel (08/17/2024 3:04 PM CDT) [facility] Glucose 103 74 - 200 mg/dL [facility] BUN 17(L) 18 - 23 mg/dL [facility] Creatinine 1.0 0.7 - 1.3 mg/dL [facility] eGFR 71 mL/min/1.7 3m2 [facility] BUN/Creat Ratio 17 Ratio [facility] Bilirubin, Total 0.5 0.0 - 1.2 mg/dL [facility] AST (SGOT) 18 0 - 40 U/L [facility] ALT (SGPT) 15 10 - 50 U/L [facility] Alkaline phosphatase 95 40 - 129 U/L [facility] Calcium 9.1 8.8 - 10.2 mg/dL [facility] Sodium 130(L) 135 - 145 mEq/L [facility] Potassium 5.4(H) 3.5 - 5.1 mEq/L [facility] Chloride 97(L) 98 - 107 mEq/L [facility] CO2 26.2 22.0 - 32.0 mEq/L [facility] Anion Gap 7 3 - 12 mEq/L [facility] Total Protein 6.3 6.0 - 8.1 g/dL [facility] Albumin 3.8 3.5 - 5.2 g/dL [facility] Globulin 2.5 g/dL [facility] Albumin/Globulin 1.5 Ratio [facility] Blood 08/17/2024 3:04 PM CDT 08/17/2024 3:07 PM CDT Rin Ramos [employer]TER LAB BLOOD ORDERABLES F inal Result [facility] [address] [place] [address] * COVID-19 POC (08/17/2024 2:40 PM CDT) COVID-19 RNA PCR POC Negative Not Detected, Negative, Undetected [facility] Nasal 08/17/2024 2:40 PM CDT Rin Ramos NP POINT OF CARE TEST ORD ERABLES Final Result [facility] [address] [facility], [place] [address], [facility] * POCT influenza A/B (08/17/2024 2:34 PM CDT) Pathologist [facility] Rapid Influenza A Ag Negative Negative, Invalid [...] it. Electronically signed by: Mac Wright M.D. London Santos MD IMG MRI PROCEDURES Fin al Result * Thyroid Function [place] (08/04/2024 9:23 AM CDT) TSH 2.80 0.27 - 4.20 uIU/mL [facility] Blood 08/04/2024 9:23 AM CDT 08/04/2024 9:31 AM CDT Rin Ramos [employer]TER LAB BLOOD ORDERABLES F inal Result [facility] [address] [place] [address] * (ABNORMAL) CBC with auto differential (08/04/2024 9:23 AM CDT) WBC 11.4(H) 3.5 - 10.0 K/uL [facility] RBC 4.42(L) 4.60 - 6.20 M/uL [facility] Hemoglobin 13.7(L) 13.9 - 17.7 g/dL [facility] Hematocrit 38.5 35.0 - 55.0 % [facility] MCV 87.0 75.0 - 100.0 fL [facility] MCH 30.90 25.00 - 35.00 pg [facility] MCHC 35.60 31.00 - 38.00 g/dL [facility] RDW 13.0 11.0 - 16.0 % [facility] Platelets 191 140 - 400 K/uL [facility] MPV 8.4 8.0 - 11.0 fL [facility] Granulocyte, Absolute 8.9(H) 1.2 - 8.0 K/uL [facility] Lymphocyte, Absolute 1.9 0.5 - 5.0 K/uL [facility] Monocyte, Absolute 0.6 0.1 - 1.5 K/uL [facility] Granulocyte, Percentage 78.3 35.0 - 80.0 % [facility] Lymphocyte, Percentage 16.8 15.0 - 50.0 % [facility] Monocyte, Percentage 4.9 2.0 - 15.0 % [facility] Blood 08/04/2024 9:23 AM CDT 08/04/2024 9:31 AM CDT Rin Ramos [employer] LAB BLOOD ORDERABLES F inal Result Performing Organization Address City/[facility]/ZIP Co de Phone Number [facility] [address] [place] [address] * (ABNORMAL) Vitamin B12 (08/04/2024 9:23 AM CDT) Vitamin B12 1,501(H) 232 - 1,245 pg/mL [facility] Blood 08/04/2024 9:23 AM CDT 08/04/2024 9:31 AM CDT Rin Ramos [employer] LAB BLOOD ORDERABLES F inal Result Performing Organization Address [facility] Co de Phone Number [address] [address] * (ABNORMAL) Basic metabolic panel (08/04/2024 9:23 AM CDT) Glucose 100 74 - 200 mg/dL [facility] BUN 13(L) 18 - 23 mg/dL [facility] Creatinine 0.9 0.7 - 1.3 mg/dL [facility] BUN/Creat Ratio 13 Ratio [facility] eGFR 76 mL/min/1.7 3m2 [facility] Calcium 8.9 8.8 - 10.2 mg/dL [facility] Sodium 131(L) 135 - 145 mEq/L [facility] Potassium 4.7 3.5 - 5.1 mEq/L [facility] Chloride 96(L) 98 - 107 mEq/L [facility] CO2 25.9 22.0 - 32.0 mEq/L [facility] Anion Gap 9 3 - 12 mEq/L [facility] Blood 08/04/2024 9:23 AM CDT 08/04/2024 9:31 AM CDT Rin Ramos [employer] LAB BLOOD ORDERABLES F inal Result Performing Organization Address City/[facility]/ZIP Co de Phone Number [address] [address] from Last 3 Months Insurance [facility] T MEDICARE [facility] Advance Directives For more information, please contact: [phone] Documents on File Type Date Recorded Patient Printing Screen Assembler Expl anation ADVANCE DIRECTIVE 08/26/2024 1:31 PM POWER OF HABITAT BIOLOGIST-MEDICAL * Full Code (Latest Code Status on [...] 3:27 PM 01/26/2019 11:16 PM Care Teams Station Chief Relationship Specialty Start Date End Date London Santos MD PCP - General Internal Medicine 01/09/22 Avery Ulloa MD [address] [place] [address] Referring Physician Cardiology 07/25/22 Lucy Robbins MD [address] [place] [address] Cardiothoracic Surgery 10/17/22 Madhuri Ferreira MD [address] [place] [address] Consulting Physician Cardiology 10/17/22
--- OUTSIDE RECORDS SUMMARY | 2024-10-30 09:27 | XMS_ITS | Encounter Summary ---
Author Organization [facility] Address [address] [place] [address] Phone Care Team Providers Care Carpenter/Labor Name Role Phone Jarrod Arango MD Primary Care Provider [phone] London Santos MD Primary Care Provider Avery Ulloa MD Unavailable [phone] Lucy Robbins MD Unavailable Madhuri Ferreira MD Unavailable [phone] Encounter Details Date Type Department Care Team (Late st Contact Info) Description 01/26/2018 Telephone [facility] Cardiology [address] [facility] 8[address] [place] [address] [place] [address] Avery Ulloa MD [address] [facility] [address] [place] [address] Social History Tobacco Use Types Packs/Day Years Used Date Smoking Tobacco: Never Smokeless Tobacco: Never Alcohol Use Standard Drinks/Week Comments Yes 0 (1 standard drink = 0.6 oz pur e alcohol) Sex and Gender Information Value Date Recorded Sex Assigned at Not on file 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
--- OUTSIDE RECORDS SUMMARY | 2024-10-30 09:27 | XMS_ITS | Clinical Summary ---
Author Organization [facility] Address [address] [place] [address] Phone Care Team Providers Care Carpenter Supervisor Name Role Phone London Santos MD Primary [...] topic Insurance MEDICARE C [employer] Care Teams Carpenter Supervisor Relationship Specialty Start Date End Date London Santos MD [address] [place] [address] PCP - General Internal Medicine 10/18/22
--- OUTSIDE RECORDS SUMMARY | 2024-10-30 09:27 | XMS_ITS | Encounter Summary ---
Author Organization [facility] Address [address] [place] [address] Phone Care Team Providers Care Aeronautical Project Engineer Name Role Phone London Santos MD Primary Care Provider Avery Ulloa MD Unavailable Lucy Robbins MD Unavailable [phone] Madhuri Ferreira MD Unavailable [phone] Encounter Details Date Type Department Care Team (Late st Contact Info) Description 10/20/2024 Documentation [facility] Infectious Diseases [address] [place] [address] [address] [place] [address] Alexandr Lopez MD [address] [facility] [address] [place] [address] Social History Tobacco Use Types Packs/Day Years Used Date Smoking Tobacco: Never Passive Smoke Exposure: Never Smokeless Tobacco: Never Alcohol Use Standard Drinks/Week Comments Yes 1 (1 standard drink = 0.6 oz pur e alcohol) 1 - 2 per day [facility] Utilities Answer Date Recorded In the past 12 months has e [employer], gas, oil, or water [employer] threatened to shut off services in your [...] often do you attend chur ch or oriental orthodox services? Never 09/11/2024 Do you belong to [...] staff should administer the PHQ-9) 0 09/11/2024 [facility] - Occupational [...] any time in the past 12 m [facility], were you homeless or living in a fpc (including now)? No 09/11/2024 Personal Safety Answer Date Recorded Have you ever been in or are you currently in a harmful physical or emotional relationship or is someone making you feel afraid or unsafe? 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 Not on file Not on file Not on fi le documented as of this encounter Plan of Treatment Not on file documented as of this encounter Visit Diagnoses Not on filedocumented in this encounter Care Teams Aeronautical Project Engineer Relationship Specialty Start Date End Date London Santos MD PCP - General Internal Medicine 01/09/22 Avery Ulloa MD [address] [place] [address] Referring Physician Cardiology 07/25/22 Lucy Robbins MD [address] [place] [address] Cardiothoracic Surgery 10/17/22 Madhuri Ferreira MD [address] [place] [address] Consulting Physician Cardiology 10/17/22 documented as of this encounter
--- OUTSIDE RECORDS SUMMARY | 2024-10-30 09:27 | XMS_ITS | Referral Summary ---
Author Organization [facility] D Address [address] [place] [address] Care Team Providers Care Sorting Supervisor Name Role Phone London Santos MD Primary Care Provider Avery Ulloa MD Unavailable [phone] Lucy Robbins MD Unavailable [phone] Madhuri Ferreira MD Unavailable [phone] Encounters Date Type Department Care Team Description 10/25/2024 3:20 PM CDT Office Visit [facility] [address] [place] [address] [address] [place] [address] London Santos MD Chronic tension-type headache, intractable (Primary Dx); Subacute bacterial endocarditis 10/24/2024 Telephone [facility] Cardiology [address] [facility] Medical Office Building [address] [place] [address] Avery Ulloa MD JESSICA 10/20/2024 Documentation [facility] Infectious Diseases [address] [place] [address] Alexandr Lopez MD 10/19/2024 3:25 PM CDT - 10/19/2024 11:59 PM CDT Hospital Encounter [facility] [address] [place] [address] Discharge Disposition: Discharge to home or self care 10/19/2024 Telephone [facility] [address] [place] [address] [address] [place] [address] London Santos MD 10/19/2024 2:20 PM CDT Office Visit [facility] Infectious Diseases [address] [place] [address] [address] [place] [address] Cinthia Godoy NP Bacteremia 10/17/2024 Results Follow-Up [facility] at [address] [address] Mora Camacho NP Influenza A/B, RSV, and COVID-19 PCR Nasopharyngeal 10/17/2024 1:55 PM CDT - 10/17/2024 11:59 PM CDT Hospital Encounter [id number] [place] [address] Episodic cluster headache, not intractable; Fatigue, unspecified type Discharge Disposition: Discharge to home or self care 10/17/2024 10:00 AM CDT Office Visit [facility] at [address] [address] Mora Camacho NP Episodic cluster headache, not intractable (Primary Dx); Fatigue, unspecified type 10/10/2024 2:30 PM CDT Office Visit [facility] Cardiology [facility] [address] [place] [address] Avery Ulloa MD Subacute bacterial endocarditis (Primary Dx); S/P TAVR (transcatheter aortic valve replacement); Hypertension; Dyslipidemia; 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; 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 Telephone [facility] Infectious Diseases [address] [place] [address] [address] [place] [phone] Chuy, Mikki ROXANE Olivas 10/03/2024 Orders Only [facility] Infectious Diseases [address] [place] [address] [address] [place] [phone] Cinthia Godoy NP Bacteremia (Primary Dx) 10/03/2024 Telephone [facility] Infectious Diseases [address] [place] [address] [address] [place] [phone] Chuy, Mikki ROXANE Olivas 09/29/2024 12:40 PM CDT Office Visit [facility] Infectious Diseases [address] [place] [address] Cinthia Godoy, CECIL Encounter for screening examination for sexually transmitted disease; Bacteremia 09/23/2024 Orders Only [facility] Cardiology [address] [facility] Medicine 8th [place] [address] [place] [address] Avery Ulloa MD 09/16/2024 CHAIREZ Transitional Care Outreach [facility] Care Coordination [address] [place] [address] Lo Bruno RN 09/06/2024 6:51 PM CDT - 09/15/2024 2:47 PM CDT Hospital Encounter [address] [address] Olivier Lovell MD Heath, MD Deandre Baxter Marc, MD Lee, Eileen May, MD Leukocytosis, unspecified type (Primary Dx); History of endocarditis; History of bacteremia; Palpitations; Bacteremia; Endocarditis determined by echocardiography Discharge Disposition: Discharge to home or self care 09/13/2024 Documentation [facility] Infectious Diseases [address] [address] Melinda Christianson MD OPAT Sign-Off 09/13/2024 9:17 AM CDT Anesthesia Event [facility] 1 [place] [address] Elias Roblero MD Eddins, Daniel Raymond, CRNA 09/12/2024 8:45 AM CDT Ancillary Procedure [facility] Vascular Lab IP 1 [facility] [address] [place] [address] 09/08/2024 Telephone [facility] Cardiology [address] [facility] Medicine 8th [place] [address] [place] [address] Kanika Viveros 09/06/2024 Telephone [facility] [address] [place] [address] London Santos MD 09/05/2024 Results Follow-Up [address] [phone] London Santos MD CBC with auto differential, Basic metabolic panel 09/05/2024 1:00 PM CDT Office Visit [address] [phone] London Santos MD Bacteremia (Primary Dx); 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 09/02/2024 CHAIREZ Transitional Care Outreach [facility] Care Coordination [address] [place] [phone] Lo Bruno RN 09/01/[address] [phone] London Santos MD 08/25/2024 12:07 PM CDT - 09/01/2024 1:58 PM CDT Hospital Encounter [address] [address] Dallas Joshua MD Chow, Kelsey Sarah, MD Girardi, Margo Renee, MD Bacteremia (Primary Dx); History of transcatheter aortic valve replacement (TAVR); Fever of unknown origin; Streptococcal bacteremia; Subacute bacterial endocarditis Discharge Disposition: Discharge to home, home health skilled care 08/30/2024 Documentation [facility] Infectious Diseases [address] [address] Gilda Vargas NP 08/30/2024 Documentation [facility] Infectious Diseases [address] [address] Gilda Vargas NP 08/30/2024 10:34 AM CDT Anesthesia Event [facility] 1 [facility] [place] [address] Kenneth Crump MD PhD 08/25/2024 [facility] [address] [place] [address] [address] [facility] [place] [phone] London Santos MD 08/25/2024 11:00 AM CDT Office Visit [address] [phone] London Santos MD Bacteremia (Primary Dx); Chronic nonintractable headache, unspecified headache type 08/24/2024 10:33 AM CDT - 08/24/2024 11:59 PM CDT Hospital Encounter [address] [phone] Fever, unspecified fever cause Discharge Disposition: Discharge to home or self care 08/24/2024 10:30 AM CDT Lab [facility] Outpatient Lab at [address] [address] Fever (Primary Dx) 08/23/2024 Results Follow-Up [address] [phone] Rin Ramos NP Haptoglobin 08/17/2024 2:30 PM CDT Office Visit [address] [phone] Rin Ramos NP Fatigue, unspecified type (Primary Dx); Vitamin D deficiency, unspecified; Abnormal finding of blood chemistry, unspecified; History of tick-borne disease; Other iron deficiency anemia 08/09/2024 Results Follow-Up [address] [address] London Santos MD MRI Abdomen W WO Contrast 08/08/2024 2:10 PM CDT - 08/08/2024 11:59 PM CDT Hospital Encounter [facility] [address] [place] [phone] Bilateral renal masses Discharge Disposition: Discharge to home or self care 08/05/2024 Results Follow-Up [address] [address] Rin Ramos NP Thyroid Function Timpson 08/04/2024 9:00 AM CDT Office Visit [address] [address] Rin Ramos NP Muscle spasm (Primary Dx); Fatigue, unspecified type 08/03/[address] [address] London Santos MD from Last [...] cyst Assessment & Plan (07/11/2020 12:37 PM HAT STEAMER): We will cover w/ Abx and refer to see if excision warranted Assessment & Plan (05/10/2020 9:37 AM HAT STEAMER): Likely inflammed from squeezing. We will give [...] some Assessment & Plan (07/11/2020 12:44 PM HAT STEAMER): The onset of what must be seems [...] (01/11/2019): Added automatically from request for surgery [id number] Preop cardiovascular exam 01/11/2019 Overview (01/11/2019): Added automatically from request for surgery [id number] Hypertension 09/23/2017 03/01/2021 Overview (02/07/2019): Pre-op HTN [...] to the floor, pt was hypertensive and POLISH MAKER was immediately turned off. Nicardipine gtts started [...] in Epic but I originally identified in [id number] and have been proactively following and monitoring. He still has likely a CT angio and L HC to complete. Hyperlipidemia 06/13/2013 03/01/2021 Immunizations Immunization Administration Dates Next Due COVID-19 mRNA ([employer]) 0.3 m L (30 mcg) vaccine (12 [...] 1 - 2 per day [facility] Utilities Answer Date Recorded In the past 12 months has e [employer], gas, oil, or water [employer] threatened to shut off services in your [...] How often do you attend chur or temple services? Never 09/11/2024 Do you belong to any clubs o r organizations such as spiritism groups, unions, fraternal or athletic groups, or [...] staff should administer the PHQ-9) 0 09/11/2024 [facility] - Occupational Stress Questionnaire [...] any time in the past 12 m [facility], were you homeless or living in a snf (including now)? No 09/11/2024 Personal Safety Answer Date Recorded Have you ever been in or are you currently in a harmful physical or emotional relationship or is someone making you feel afraid or unsafe? 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 Not on file Not on [...] on file Medical Devices Implanted Type Area Rate And Cost Analyst Device Identifier Shelf Expiration Date Model / Serial / Lot [employer] [id number] Inspiris Resilia Leaflet Sewing Ring 25mm Valve Aortic Bovine - [id number] - [id number] Implanted:Qty: 1 on 02/07/2019 by Shamir Patel MD at [facility] Prosthetic Valve N/A: Heart [employer] 08/09/2020 [id number] / [id number] / [employer] Valve Heart 26mm Magy 3 Transcatheter [id number] - [id number] - [id number] Implanted:Qty: 1 on 10/16/2022 by Charli David MD PhD at [facility] Prosthetic Valve N/A: Aortic Valve [employer] 07/04/2025 [id number] / [id number] / [id number] [employer]or Angio-Seal Vip 6fr Closere Device [id number] - [id number] - [id number] Implanted:Qty: 1 on 09/19/2022 by Alex Fisher MD at [facility] Vascular Closure Device Left: Common Femoral Artery [employer] 03/24/2023 [id number] / [id number] / [id number] Armijo Vascular Device Clsr Perclose Prostyle Sut-Mediatd Closure-Repair Sys [id number] - [id number] - [id number] Implanted:Qty: 1 on 10/16/2022 by Charli David MD PhD at [facility] Vascular Closure Device Right: Common Femoral Artery [employer] 05/24/2024 [id number] / [id number] / [id number] Procedures Procedure Name Priority Date/Time Associated Diagnosis [...] 1:05 PM CDT 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 73 m2 Comment: [...] Godoy NP LAB BLOOD ORDERABLES Final Result [facility] Department [place] [address] * (ABNORMAL) Differential, auto (10/19/2024 3:25 PM CDT) Pathologist [facility] Neutrophil abs 9.25(H) 1.50 - 6.50 K/cumm Imm gran abs 0.07 0.00 - 0.10 K/cumm [facility] Lymphocyte abs 2.05 0.80 - 3.30 K/cumm [facility] Monocyte abs 1.20(H) 0.20 - 0.80 K/cumm [facility] Eosinophil abs 0.03 0.00 - 0.50 K/cumm [facility] Basophil abs 0.03 0.00 - 0.10 K/cumm [facility] Neutrophil pct 73.3 % [facility] Comment: Interpretive Data Percent cell count reference ranges are not reported, since discordance with absolute values may lead to misinterpretation of CBC data. Current Interpretive Data was last revised on 2017. Imm gran pct 0.6 % [facility] Comment: Interpretive Data Percent cell count reference ranges are not reported, since discordance with absolute values may lead to misinterpretation of CBC data. Current Interpretive Data was last revised on 2017. Lymphocyte pct 16.2 % [facility] Comment: Interpretive Data Percent cell count reference ranges are not reported, since discordance with absolute values may lead to misinterpretation of CBC data. Current Interpretive Data was last revised on 2017. Monocyte pct 9.5 % [facility] Comment: Interpretive Data Percent cell count reference ranges are not reported, since discordance with absolute values may lead to misinterpretation of CBC data. Current Interpretive Data was last revised on 2017. Eosinophil pct 0.2 % [facility] Comment: Interpretive Data Percent cell count reference ranges are not reported, since discordance with absolute values may lead to misinterpretation of CBC data. Current Interpretive Data was last revised on 2017. Basophil pct 0.2 % [facility] Comment: Interpretive Data Percent cell count reference ranges are not reported, since discordance with absolute values may lead to misinterpretation of CBC data. Current Interpretive Data was last revised on 2017. Blood 10/19/2024 3:25 PM CDT 10/19/2024 5:37 PM CDT us Cinthia Godoy NP LAB BLOOD ORDERABLES Final Result [facility] Department [place] [address] * (ABNORMAL) Comprehensive metabolic panel, without glucose (Outreach) (10/19/2024 3:25 PM CDT) Sodium 133(L) 135 - 145 mmol/L Potassium, pl 4.5 3.3 - 4.9 mmol/L [facility] Chloride 95(L) 97 - 110 mmol/L [facility] CO2 26 22 - 32 mmol/L [facility] Anion gap 12 2 - 15 mmol/L [facility] BUN 17 6 - 25 mg/dL [facility] Creatinine 0.94 0.80 - 1.30 mg/dL [facility] Calcium 9.5 8.5 - 10.3 mg/dL [facility] Protein, pl 8.3 6.5 - 8.5 g/dL [facility] Albumin 4.3 3.5 - 5.0 g/dL [facility] Bilirubin, total 0.7 0.1 - 1.2 mg/dL [facility] Alk phos 107 40 - 130 Units/L [facility] AST 24 10 - 50 Units/L [facility] ALT 16 7 - 55 Units/L [facility] Blood 10/19/2024 3:25 PM CDT 10/19/2024 5:37 PM CDT Cinthia Godoy PRODUCTION UNDERWRITER LAB BLOOD ORDERABLES Final Result [facility] Department [place] [address] * (ABNORMAL) CBC with auto differential (10/19/2024 3:25 PM CDT) WBC 12.63(H) 3.80 - 9.90 K/cumm Hgb 12.1(L) 13.0 - 17.5 g/dL [facility] Hct 36.0(L) 38.9 - 50.3 % [facility] Plt 209 150 - 400 K/cumm [facility] MPV 9.7 9.1 - 12.3 fL [facility] RBC 4.24(L) 4.30 - 5.80 M/cumm [facility] MCV 84.9 81.3 - 96.4 fL [facility] MCH 28.5 27.1 - 33.3 pg [facility] MCHC 33.6 32.3 - 35.7 g/dL [facility] RDW CV 14.6 11.1 - 14.9 % [facility] RDW SD 46.0 35.7 - 48.1 fL [facility] NRBC abs 0.00 0.00 - 0.01 K/cumm [facility] Blood 10/19/2024 3:25 PM CDT 10/19/2024 5:37 PM CDT Cinthia Godoy NP LAB BLOOD ORDERABLES Final Result [facility] Department [place] [address] * Blood culture Blood (10/19/2024 3:25 PM CDT) Report Final Report: No growth Blood 10/19/2024 3:25 PM CDT 10/19/2024 5:48 PM CDT Narrative [facility] - 10/24/2024 7:00 AM CDT L [...] performance characteristics have been verified by the [facility] Microbiology Laboratory. For questions about this culture, contact the Microbiology Laboratory at [phone]. Interpretive data was last revised on 24. Cinthia Godoy NP LAB MICROBIOLOGY - GENERAL ORDERABLES Final Result [facility] Department [place] [address] * Blood culture Blood (10/19/2024 3:25 PM [...] performance characteristics have been verified by the [facility] Microbiology Laboratory. For questions about this culture, contact the Microbiology Laboratory at [phone]. Interpretive data was last revised on 24. Cinthia Godoy NP LAB MICROBIOLOGY - GENERAL ORDERABLES Final Result Performing Organization Address City/[facility]/ZIP Co de Phone Number [facility] Department [place] [address] * Influenza A/B, RSV, and COVID-19 PCR Nasopharyngeal (10/17/2024 12:00 PM CDT) COVID-19 RNA Negative Negative Influenza A RNA Negative Negative [facility] Influenza B RNA Negative Negative [facility] RSV RNA Negative Negative [facility] Comment: Interpretive data: Testing performed by [facility] Laboratory. This test is performed using the [employer] Xpert Xpress CoV-2/Flu/RSV plus assay. This is a multiplex, real-time reverse transcriptase PCR assay intended for the qualitative detection of nucleic acid from SARS-CoV-2, influenza A, influenza B, and respiratory syncytial virus. This assay has been cleared by the [place] Food and Drug administration. The performance characteristics have been verified by the [facility] Laboratory. Results must be considered in the clinical context, and a negative result does not rule out infection. Interpretive Data last revised 2023 Nasopharyngeal 10/17/2024 12 :00 PM CDT 10/17/2024 2:20 PM CDT Narrative [facility] - 10/17/2024 3:13 PM CDT Is the Patient experiencing symptoms consistent with COVID?->Yes Reason for testing?->Symptomatic Is the patient experiencing any symptoms consistent with COVID (eg. Fever, cough, shortness of breath)?->Yes Mora Camacho NP LAB MICROBIOLOGY - GENERAL ORDERABLES Final Result [facility] [id number] Department [place] [address] * SCAN - LABS (09/19/2024) us Provider Scanning Final Result * eGFR (09/15/2024 8:44 AM CDT) [facility] eGFR 86 >=60 mL/min/1. 73 m2 Comment: [...] MD LAB BLOOD ORDERABLES Final Res ult [facility] Department [place] [address] * (ABNORMAL) Basic metabolic panel (09/15/2024 8:44 AM CDT) Sodium 129(L) 135 - 145 mmol/L Potassium, pl 4.6 3.3 - 4.9 mmol/L [facility] Chloride 96(L) 97 - 110 mmol/L [facility] CO2 25 22 - 32 mmol/L [facility] Anion gap 8 2 - 15 mmol/L [facility] BUN 14 6 - 25 mg/dL [facility] Creatinine 0.89 0.80 - 1.30 mg/dL [facility] Glucose 138 70 - 199 mg/dL [facility] Comment: Interpretive Data Fasting glucose >/= [...] 2022. Calcium 8.5 8.5 - 10.3 mg/dL [facility] Blood 09/15/2024 8:44 AM CDT 09/15/2024 9:06 AM CDT Virgen Awad MD LAB BLOOD ORDERABLES Final Res ult Performing Organization Address [facility] Co de Phone Number QUANG [facility] [place] [address] * eGFR (09/14/2024 8:33 PM CDT) eGFR [...] ORDERABLES Final Res ult Performing Organization Address City/[facility]/ZIP Co de Phone Number QUANG [facility] Department [place] [address] * (ABNORMAL) Differential, auto (09/14/2024 8:33 PM CDT) Neutrophil abs 12.28(H) 1.50 - 6.50 K/cumm Imm gran abs 0.14(H) 0.00 - 0.10 K/cumm [facility] Lymphocyte abs 1.52 0.80 - 3.30 K/cumm [facility] Monocyte abs 1.12(H) 0.20 - 0.80 K/cumm [facility] Eosinophil abs 0.13 0.00 - 0.50 K/cumm [facility] Basophil abs 0.03 0.00 - 0.10 K/cumm [facility] Neutrophil pct 80.6 % [facility] Comment: Interpretive Data Percent cell count reference ranges are not reported, since discordance with absolute values may lead to misinterpretation of CBC data. Current Interpretive Data was last revised on 2017. Imm gran pct 0.9 % [facility] Comment: Interpretive Data Percent cell count reference ranges are not reported, since discordance with absolute values may lead to misinterpretation of CBC data. Current Interpretive Data was last revised on 2017. Lymphocyte pct 10.0 % [facility] Comment: Interpretive Data Percent cell count reference ranges are not reported, since discordance with absolute values may lead to misinterpretation of CBC data. Current Interpretive Data was last revised on 2017. Monocyte pct 7.4 % [facility] Comment: Interpretive Data Percent cell count reference ranges are not reported, since discordance with absolute values may lead to misinterpretation of CBC data. Current Interpretive Data was last revised on 2017. Eosinophil pct 0.9 % [facility] Comment: Interpretive Data Percent cell count reference ranges are not reported, since discordance with absolute values may lead to misinterpretation of CBC data. Current Interpretive Data was last revised on 2017. Basophil pct 0.2 % [facility] Comment: Interpretive Data Percent cell count reference ranges are not reported, since discordance with absolute values may lead to misinterpretation of CBC data. Current Interpretive Data was last revised on 2017. Blood 09/14/2024 8:33 PM CDT 09/14/2024 9:53 PM CDT us Virgen Awad MD LAB BLOOD ORDERABLES Final Res ult [facility] Department [place] [address] * (ABNORMAL) CBC with auto differential (09/14/2024 8:33 PM CDT) Pathologist [facility] WBC 15.22(H) 3.80 - 9.90 K/cumm Hgb 9.8(L) 13.0 - 17.5 g/dL [facility] Hct 28.5(L) 38.9 - 50.3 % [facility] Plt 194 150 - 400 K/cumm [facility] MPV 9.7 9.1 - 12.3 fL [facility] RBC 3.33(L) 4.30 - 5.80 M/cumm [facility] MCV 85.6 81.3 - 96.4 fL [facility] MCH 29.4 27.1 - 33.3 pg [facility] MCHC 34.4 32.3 - 35.7 g/dL [facility] RDW CV 13.2 11.1 - 14.9 % [facility] RDW SD 41.2 35.7 - 48.1 fL [facility] NRBC abs 0.00 0.00 - 0.01 K/cumm [facility] Blood 09/14/2024 8:33 PM CDT 09/14/2024 9:53 PM CDT us Virgen Awad MD LAB BLOOD ORDERABLES Final Res ult Performing Organization Address City/[facility] Co de Phone Number [facility] Department [place] [address] * Magnesium (09/14/2024 8:33 PM CDT) [facility] Magnesium 2.0 1.4 - 2.5 mg/dL Blood 09/14/2024 8:33 PM CDT 09/14/2024 9:53 PM CDT us Virgen Awad MD LAB BLOOD ORDERABLES Final Res ult [facility] Department [place] [address] * (ABNORMAL) Basic metabolic panel (09/14/2024 8:33 PM CDT) Pathologist [facility] Sodium 128(L) 135 - 145 mmol/L Potassium, pl 4.4 3.3 - 4.9 mmol/L [facility] Chloride 94(L) 97 - 110 mmol/L [facility] CO2 28 22 - 32 mmol/L [facility] Anion gap 6 2 - 15 mmol/L [facility] BUN 20 6 - 25 mg/dL [facility] Creatinine 1.20 0.80 - 1.30 mg/dL [facility] Glucose 126 70 - 199 mg/dL [facility] Comment: Interpretive Data Fasting glucose >/= [...] 2022. Calcium 8.9 8.5 - 10.3 mg/dL [facility] Blood 09/14/2024 8:33 PM CDT 09/14/2024 9:53 PM CDT Virgen Awad MD LAB BLOOD ORDERABLES Final Res ult [facility] Department [place] [address] * eGFR (09/13/2024 11:42 PM CDT) Pathologist [facility] eGFR 73 >=60 mL/min/1. 73 m2 Comment: [...] MD LAB BLOOD ORDERABLES Final Res ult [facility] Department [place] [address] * (ABNORMAL) Differential, auto (09/13/2024 11:42 PM CDT) Pathologist [facility] Neutrophil abs 12.38(H) 1.50 - 6.50 K/cumm Imm gran abs 0.09 0.00 - 0.10 K/cumm [facility] Lymphocyte abs 1.78 0.80 - 3.30 K/cumm [facility] Monocyte abs 1.01(H) 0.20 - 0.80 K/cumm [facility] Eosinophil abs 0.09 0.00 - 0.50 K/cumm [facility] Basophil abs 0.03 0.00 - 0.10 K/cumm [facility] Neutrophil pct 80.4 % [facility] Comment: Interpretive Data Percent cell count reference ranges are not reported, since discordance with absolute values may lead to misinterpretation of CBC data. Current Interpretive Data was last revised on 2017. Imm gran pct 0.6 % [facility] Comment: Interpretive Data Percent cell count reference ranges are not reported, since discordance with absolute values may lead to misinterpretation of CBC data. Current Interpretive Data was last revised on 2017. Lymphocyte pct 11.6 % [facility] Comment: Interpretive Data Percent cell count reference ranges are not reported, since discordance with absolute values may lead to misinterpretation of CBC data. Current Interpretive Data was last revised on 2017. Monocyte pct 6.6 % [facility] Comment: Interpretive Data Percent cell count reference ranges are not reported, since discordance with absolute values may lead to misinterpretation of CBC data. Current Interpretive Data was last revised on 2017. Eosinophil pct 0.6 % [facility] Comment: Interpretive Data Percent cell count reference ranges are not reported, since discordance with absolute values may lead to misinterpretation of CBC data. Current Interpretive Data was last revised on 2017. Basophil pct 0.2 % [facility] Comment: Interpretive Data Percent cell count reference ranges are not reported, since discordance with absolute values may lead to misinterpretation of CBC data. Current Interpretive Data was last revised on 2017. Blood 09/13/2024 11:4 2 PM CDT 09/14/2024 12:42 AM CDT us Virgen Awad MD LAB BLOOD ORDERABLES Final Res ult [facility] Department [place] [address] * (ABNORMAL) CBC with auto differential (09/13/2024 11:42 PM CDT) WBC 15.38(H) 3.80 - 9.90 K/cumm Hgb 9.4(L) 13.0 - 17.5 g/dL [facility] Hct 28.0(L) 38.9 - 50.3 % [facility] Plt 196 150 - 400 K/cumm [facility] MPV 9.7 9.1 - 12.3 fL [facility] RBC 3.23(L) 4.30 - 5.80 M/cumm [facility] MCV 86.7 81.3 - 96.4 fL [facility] MCH 29.1 27.1 - 33.3 pg [facility] MCHC 33.6 32.3 - 35.7 g/dL [facility] RDW CV 13.2 11.1 - 14.9 % [facility] RDW SD 41.5 35.7 - 48.1 fL [facility] NRBC abs 0.00 0.00 - 0.01 K/cumm [facility] Blood 09/13/2024 11:4 2 PM CDT 09/14/2024 12:42 AM CDT Virgen Awad MD LAB BLOOD ORDERABLES Final Res ult Performing Organization Address City/[facility]/ZIP Co de Phone Number [facility] [place] [address] * Magnesium (09/13/2024 11:42 PM CDT) [facility] Magnesium 2.0 1.4 - 2.5 mg/dL Blood 09/13/2024 11:4 2 PM CDT 09/14/2024 12:32 AM CDT Virgen Awad MD LAB BLOOD ORDERABLES Final Res ult Performing Organization Address [facility] de Phone Number [facility] Department [place] [address] * (ABNORMAL) Basic metabolic panel (09/13/2024 11:42 PM CDT) Pathologist [facility] Sodium 133(L) 135 - 145 mmol/L Potassium, pl 4.3 3.3 - 4.9 mmol/L [facility] Chloride 98 97 - 110 mmol/L [facility] CO2 27 22 - 32 mmol/L [facility] Anion gap 8 2 - 15 mmol/L [facility] BUN 17 6 - 25 mg/dL [facility] Creatinine 1.03 0.80 - 1.30 mg/dL [facility] Glucose 119 70 - 199 mg/dL [facility] Comment: Interpretive Data Fasting glucose >/= [...] 2022. Calcium 8.4(L) 8.5 - 10.3 mg/dL [facility] Blood 09/13/2024 11:4 2 PM CDT 09/14/2024 12:32 AM CDT us Virgen Awad MD LAB BLOOD ORDERABLES Final Res ult [facility] Department [place] [address] * XR Chest 1 View (09/13/2024 6:50 [...] AM CDT Narrative 09/13/2024 1:57 PM CDT [facility] [place] [address] Transesophageal Echocardiographic Report Patient Name: JAMSHID INTERIANO J : 1940 (83y 9m) Gender: M Study Date: 09/13/2024 09:26:56 AM Ht(Inch): Wt(Lb): 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: Location: [id number] Order Provider: VIRGEN AWAD Heart Rate: 74 [...] Procedure Note Avery Ulloa MD - 09/13/2024 [facility] [place] [address] Transesophageal Echocardiographic Report Patient Name: JAMSHID INTERIANO J : 1940 (83y 9m) Gender: M Study Date: 09/13/2024 09:26:56 AM Ht(Inch): Wt(Lb): 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: Location: [id number] Order Provider: OTILIA,VIRGEN Heart Rate: 74 BMI: [...] BPM [facility] Atrial Rate 74 BPM [facility] MS-Interval (MSEC) 182 ms [facility] QRS-Interval (MSEC) 112 ms [facility] QT-Interval (MSEC) 404 ms [facility] QTc 448 ms [facility] P [place] 76 degrees [facility] R [place] -10 degrees [facility] T [place] 44 degrees [facility] Diagnosis Normal sinus rhythm Moderate voltage criteria for LVH, may be normal variant ( R in aVL , Martin product ) Borderline ECG When compared with ECG of 08-SEP-2024 12:08, PREVIOUS ECG IS PRESENT Confirmed by ADOLFO PEÑA M.D ([id number]) on 09/14/2024 11:28:42 AM [facility] 09/13/2024 8:57 AM CDT 09/14/2024 11:28 AM CDT us Avery Ulloa MD ECG ORDERABLES Final Result [facility] * eGFR (09/13/2024 12:23 AM CDT) Pathologist [facility] eGFR 67 >=60 mL/min/1. 73 m2 Comment: [...] MD LAB BLOOD ORDERABLES Final Res ult [facility] Department [place] [address] * (ABNORMAL) Differential, auto (09/13/2024 12:23 AM CDT) Neutrophil abs 10.01(H) 1.50 - 6.50 K/cumm Imm gran abs 0.11(H) 0.00 - 0.10 K/cumm [facility] Lymphocyte abs 2.14 0.80 - 3.30 K/cumm [facility] Monocyte abs 0.89(H) 0.20 - 0.80 K/cumm [facility] Eosinophil abs 0.13 0.00 - 0.50 K/cumm [facility] Basophil abs 0.02 0.00 - 0.10 K/cumm [facility] Neutrophil pct 75.2 % [facility] Comment: Interpretive Data Percent cell count reference ranges are not reported, since discordance with absolute values may lead to misinterpretation of CBC data. Current Interpretive Data was last revised on 2017. Imm gran pct 0.8 % [facility] Comment: Interpretive Data Percent cell count reference ranges are not reported, since discordance with absolute values may lead to misinterpretation of CBC data. Current Interpretive Data was last revised on 2017. Lymphocyte pct 16.1 % [facility] Comment: Interpretive Data Percent cell count reference ranges are not reported, since discordance with absolute values may lead to misinterpretation of CBC data. Current Interpretive Data was last revised on 2017. Monocyte pct 6.7 % [facility] Comment: Interpretive Data Percent cell count reference ranges are not reported, since discordance with absolute values may lead to misinterpretation of CBC data. Current Interpretive Data was last revised on 2017. Eosinophil pct 1.0 % [facility] Comment: Interpretive Data Percent cell count reference ranges are not reported, since discordance with absolute values may lead to misinterpretation of CBC data. Current Interpretive Data was last revised on 2017. Basophil pct 0.2 % [facility] Comment: Interpretive Data Percent cell count reference ranges are not reported, since discordance with absolute values may lead to misinterpretation of CBC data. Current Interpretive Data was last revised on 2017. Blood 09/13/2024 12:2 3 AM CDT 09/13/2024 12:40 AM CDT us Virgen Awad MD LAB BLOOD ORDERABLES Final Res ult [facility] Department [place] [address] * (ABNORMAL) CBC with auto differential (09/13/2024 12:23 AM CDT) WBC 13.30(H) 3.80 - 9.90 K/cumm Hgb 9.6(L) 13.0 - 17.5 g/dL [facility] Hct 28.0(L) 38.9 - 50.3 % [facility] Plt 178 150 - 400 K/cumm [facility] MPV 9.4 9.1 - 12.3 fL [facility] RBC 3.25(L) 4.30 - 5.80 M/cumm [facility] MCV 86.2 81.3 - 96.4 fL [facility] MCH 29.5 27.1 - 33.3 pg [facility] MCHC 34.3 32.3 - 35.7 g/dL [facility] RDW CV 13.1 11.1 - 14.9 % [facility] RDW SD 40.8 35.7 - 48.1 fL [facility] NRBC abs 0.00 0.00 - 0.01 K/cumm [facility] Blood 09/13/2024 12:2 3 AM CDT 09/13/2024 12:40 AM CDT Virgen Awad MD LAB BLOOD ORDERABLES Final Res ult Performing Organization Address City/[facility]/ZIP Co de Phone Number [facility] [place] [address] * Magnesium (09/13/2024 12:23 AM CDT) [facility] Magnesium 2.1 1.4 - 2.5 mg/dL Blood 09/13/2024 12:2 3 AM CDT 09/13/2024 12:40 AM CDT Virgen Awad MD LAB BLOOD ORDERABLES Final Res ult Performing Organization Address City/[facility]/ZIP Co de Phone Number [facility] [place] [address] * (ABNORMAL) Basic metabolic panel (09/13/2024 12:23 AM CDT) [facility] Sodium 132(L) 135 - 145 mmol/L Potassium, pl 4.2 3.3 - 4.9 mmol/L [facility] Chloride 99 97 - 110 mmol/L [facility] CO2 26 22 - 32 mmol/L [facility] Anion gap 7 2 - 15 mmol/L [facility] BUN 18 6 - 25 mg/dL [facility] Creatinine 1.10 0.80 - 1.30 mg/dL [facility] Glucose 114 70 - 199 mg/dL [facility] Comment: Interpretive Data Fasting glucose >/= [...] Calcium 9.0 8.5 - 10.3 mg/dL [facility] Blood 09/13/2024 12:2 3 AM CDT 09/13/2024 12:40 AM CDT us Virgen Awad MD LAB BLOOD ORDERABLES Final Res ult [facility] Department of Laboratories [place], [place] [id number] * US Vein Duplex Lower Extremity Bilateral Complete (09/12/2024 9:47 AM CDT) Anatomical Region Laterality Modality Vascular Bilateral Ultrasound 09/12/2024 9:09 AM CDT Narrative 09/14/2024 3:43 PM CDT [facility] - Department of Vascular Surgery, Vascular Laboratory [address] [place] [id number] Lower Extremity Venous Ultrasound Report Patient Name: JAMSHID INTERIANO J : 1940 (83y 9m) Study Date: 09/12/2024 9:09:59 AM Gender: M Tech: [place] Location: [id number] Ref Provider: VIRGEN AWAD Quality: Adequate Order [...] Pain in Leg, Right - FINDINGS: Performing Suction Plate Carrier Cleaner: Jeanne Benoit RVT. Bilateral: Venous Doppler signals [...] Procedure Note Yunior Crockett MD - 09/14/2024 [facility] - Department of Vascular Surgery,Vascular Laboratory [address] [place] [id number] Lower Extremity Venous Ultrasound Report Patient Name: JAMSHID INTERIANOBora : 1940 (83y 9m) Study Date: 09/12/2024 9:09:59 AM Gender: M Tech: [place] Location: [id number] Ref Provider: VIRGEN AWAD Quality: Adequate Order Provider: VIRGEN AWAD PROCEDURES: Vascular Report: Venous Duplex imaging was performed bilaterally in the lower extremities.The common femoral, femoral, popliteal, posterior tibial, peroneal veins wereevaluated for patency, spontaneity and phasicity with Doppler, compression and augmentationmaneuvers. Great saphenous vein proximal at the junction was evaluated with compressionmaneuvers. INDICATIONS: Pain in Leg, Right - FINDINGS: Performing Suction Plate Carrier Cleaner: Jeanne Benoit RVT. Bilateral: Venous Doppler signals [...] MD LAB BLOOD ORDERABLES Final Re sult [facility] Department [place] [address] * (ABNORMAL) Differential, auto (09/12/2024 6:21 AM CDT) Neutrophil abs 10.39(H) 1.50 - 6.50 K/cumm Imm gran abs 0.08 0.00 - 0.10 K/cumm [facility] Lymphocyte abs 1.24 0.80 - 3.30 K/cumm [facility] Monocyte abs 0.83(H) 0.20 - 0.80 K/cumm [facility] Eosinophil abs 0.09 0.00 - 0.50 K/cumm [facility] Basophil abs 0.03 0.00 - 0.10 K/cumm [facility] Neutrophil pct 82.1 % [facility] Comment: Interpretive Data Percent cell count reference ranges are not reported, since discordance with absolute values may lead to misinterpretation of CBC data. Current Interpretive Data was last revised on 2017. Imm gran pct 0.6 % [facility] Comment: Interpretive Data Percent cell count reference ranges are not reported, since discordance with absolute values may lead to misinterpretation of CBC data. Current Interpretive Data was last revised on 2017. Lymphocyte pct 9.8 % [facility] Comment: Interpretive Data Percent cell count reference ranges are not reported, since discordance with absolute values may lead to misinterpretation of CBC data. Current Interpretive Data was last revised on 2017. Monocyte pct 6.6 % [facility] Comment: Interpretive Data Percent cell count reference ranges are not reported, since discordance with absolute values may lead to misinterpretation of CBC data. Current Interpretive Data was last revised on 2017. Eosinophil pct 0.7 % [facility] Comment: Interpretive Data Percent cell count reference ranges are not reported, since discordance with absolute values may lead to misinterpretation of CBC data. Current Interpretive Data was last revised on 2017. Basophil pct 0.2 % [facility] Comment: Interpretive Data Percent cell count reference ranges are not reported, since discordance with absolute values may lead to misinterpretation of CBC data. Current Interpretive Data was last revised on 2017. Blood 09/12/2024 6:21 AM CDT 09/12/2024 6:42 AM CDT us Virgen Awad MD LAB BLOOD ORDERABLES Final Res ult [facility] Department [place] [address] * (ABNORMAL) CBC with auto differential (09/12/2024 6:21 AM CDT) Pathologist [facility] WBC 12.66(H) 3.80 - 9.90 K/cumm Hgb 10.1(L) 13.0 - 17.5 g/dL [facility] Hct 29.2(L) 38.9 - 50.3 % [facility] Plt 199 150 - 400 K/cumm [facility] MPV 9.5 9.1 - 12.3 fL [facility] RBC 3.43(L) 4.30 - 5.80 M/cumm [facility] MCV 85.1 81.3 - 96.4 fL [facility] MCH 29.4 27.1 - 33.3 pg [facility] MCHC 34.6 32.3 - 35.7 g/dL [facility] RDW CV 13.2 11.1 - 14.9 % [facility] RDW SD 40.3 35.7 - 48.1 fL [facility] NRBC abs 0.00 0.00 - 0.01 K/cumm [facility] Blood 09/12/2024 6:21 AM CDT 09/12/2024 6:42 AM CDT Virgen Awad MD LAB BLOOD ORDERABLES Final Res ult Performing Organization Address City/[facility]/ZIP Co de Phone Number [facility] [place] [address] * Magnesium (09/12/2024 6:21 AM CDT) [facility] Magnesium 2.0 1.4 - 2.5 mg/dL Blood 09/12/2024 6:21 AM CDT 09/12/2024 6:42 AM CDT Donell Awad MD LAB BLOOD ORDERABLES Final Re sult Performing Organization Address City/[facility]/ZIP Co de Phone Number [facility] Department [place] [address] * (ABNORMAL) Basic metabolic panel (09/12/2024 6:21 AM CDT) Sodium 134(L) 135 - 145 mmol/L Potassium, pl 4.3 3.3 - 4.9 mmol/L [facility] Chloride 98 97 - 110 mmol/L [facility] CO2 27 22 - 32 mmol/L [facility] Anion gap 9 2 - 15 mmol/L [facility] BUN 10 6 - 25 mg/dL [facility] Creatinine 0.90 0.80 - 1.30 mg/dL [facility] Glucose 105 70 - 199 mg/dL [facility] Comment: Interpretive Data Fasting glucose >/= [...] 2022. Calcium 8.9 8.5 - 10.3 mg/dL [facility] Blood 09/12/2024 6:21 AM CDT 09/12/2024 6:42 AM CDT us Donell Awad MD LAB BLOOD ORDERABLES Final Re sult [facility] Department [place] [address] * eGFR (09/11/2024 8:30 PM CDT) eGFR [...] ORDERABLES Final Res ult Performing Organization Address City/[facility]/ZIP Co de Phone Number [facility] Department [place] [address] * Magnesium (09/11/2024 8:30 PM CDT) [facility] Magnesium 2.1 1.4 - 2.5 mg/dL Blood 09/11/2024 8:30 PM CDT 09/12/2024 6:42 AM CDT Virgen Awad MD LAB BLOOD ORDERABLES Final Res ult [facility] Department [place] [address] * (ABNORMAL) Basic metabolic panel (09/11/2024 8:30 PM CDT) Sodium 134(L) 135 - 145 mmol/L Potassium, pl 4.3 3.3 - 4.9 mmol/L [facility] Chloride 99 97 - 110 mmol/L [facility] CO2 26 22 - 32 mmol/L [facility] Anion gap 9 2 - 15 mmol/L [facility] BUN 10 6 - 25 mg/dL [facility] Creatinine 0.89 0.80 - 1.30 mg/dL [facility] Glucose 106 70 - 199 mg/dL [facility] Comment: Interpretive Data Fasting glucose >/= [...] 2022. Calcium 9.0 8.5 - 10.3 mg/dL [facility] Blood 09/11/2024 8:30 PM CDT 09/12/2024 6:42 AM CDT us Virgen Awad MD LAB BLOOD ORDERABLES Final Res ult [facility] Department [place] [address] * eGFR (09/11/2024 9:47 AM CDT) eGFR [...] MD LAB BLOOD ORDERABLES Final Res ult [facility] Department [place] [address] * (ABNORMAL) Differential, auto (09/11/2024 9:47 AM CDT) Neutrophil abs 9.53(H) 1.50 - 6.50 K/cumm Imm gran abs 0.08 0.00 - 0.10 K/cumm [facility] Lymphocyte abs 1.24 0.80 - 3.30 K/cumm [facility] Monocyte abs 1.11(H) 0.20 - 0.80 K/cumm [facility] Eosinophil abs 0.10 0.00 - 0.50 K/cumm [facility] Basophil abs 0.02 0.00 - 0.10 K/cumm [facility] Neutrophil pct 78.8 % [facility] Comment: Interpretive Data Percent cell count reference ranges are not reported, since discordance with absolute values may lead to misinterpretation of CBC data. Current Interpretive Data was last revised on 2017. Imm gran pct 0.7 % [facility] Comment: Interpretive Data Percent cell count reference ranges are not reported, since discordance with absolute values may lead to misinterpretation of CBC data. Current Interpretive Data was last revised on 2017. Lymphocyte pct 10.3 % [facility] Comment: Interpretive Data Percent cell count reference ranges are not reported, since discordance with absolute values may lead to misinterpretation of CBC data. Current Interpretive Data was last revised on 2017. Monocyte pct 9.2 % [facility] Comment: Interpretive Data Percent cell count reference ranges are not reported, since discordance with absolute values may lead to misinterpretation of CBC data. Current Interpretive Data was last revised on 2017. Eosinophil pct 0.8 % [facility] Comment: Interpretive Data Percent cell count reference ranges are not reported, since discordance with absolute values may lead to misinterpretation of CBC data. Current Interpretive Data was last revised on 2017. Basophil pct 0.2 % [facility] [facility] Comment: Interpretive Data Percent cell count reference ranges are not reported, since discordance with absolute values may lead to misinterpretation of CBC data. Current Interpretive Data was last revised on 2017. Blood 09/11/2024 9:47 AM CDT 09/11/2024 11:01 AM CDT Virgen Awad MD LAB BLOOD ORDERABLES Final Res ult [facility] Department [place] [address] * (ABNORMAL) CBC with auto differential (09/11/2024 9:47 AM CDT) WBC 12.08(H) 3.80 - 9.90 K/cumm Hgb 9.7(L) 13.0 - 17.5 g/dL [facility] Hct 28.6(L) 38.9 - 50.3 % [facility] Plt 164 150 - 400 K/cumm [facility] MPV 9.8 9.1 - 12.3 fL [facility] RBC 3.34(L) 4.30 - 5.80 M/cumm [facility] MCV 85.6 81.3 - 96.4 fL [facility] MCH 29.0 27.1 - 33.3 pg [facility] MCHC 33.9 32.3 - 35.7 g/dL [facility] RDW CV 13.2 11.1 - 14.9 % [facility] RDW SD 40.3 35.7 - 48.1 fL [facility] NRBC abs 0.00 0.00 - 0.01 K/cumm [facility] Blood 09/11/2024 9:47 AM CDT 09/11/2024 11:01 AM CDT Virgen Awad MD LAB BLOOD ORDERABLES Final Res ult [facility] Department [place] [address] * Magnesium (09/11/2024 9:47 AM CDT) Pathologist [facility] Magnesium 1.9 1.4 - 2.5 mg/dL Blood 09/11/2024 9:47 AM CDT 09/11/2024 11:01 AM CDT Virgen Awad MD LAB BLOOD ORDERABLES Final Res ult Performing Organization Address [facility] Co de Phone Number [facility] One [facility] [place] [address] * Basic metabolic panel (09/11/2024 9:47 AM CDT) Pathologist [facility] Sodium 136 135 - 145 mmol/L Potassium, pl 4.0 3.3 - 4.9 mmol/L [facility] Chloride 103 97 - 110 mmol/L [facility] CO2 24 22 - 32 mmol/L [facility] Anion gap 9 2 - 15 mmol/L [facility] BUN 10 6 - 25 mg/dL [facility] Creatinine 0.83 0.80 - 1.30 mg/dL [facility] Glucose 102 70 - 199 mg/dL [facility] Comment: Interpretive Data Fasting glucose >/= [...] 2022. Calcium 8.6 8.5 - 10.3 mg/dL [facility] Blood 09/11/2024 9:4 7 AM CDT 09/11/2024 11:01 AM CDT Virgen Awad MD LAB BLOOD ORDERABLES Final Res ult Performing Organization Address City/[facility] Co de Phone Number [facility] Department [place] [address] * eGFR (09/09/2024 8:32 PM CDT) eGFR [...] ORDERABLES Final Res ult Performing Organization Address City/[facility]/ZIP Co de Phone Number [facility] [place] [address] * (ABNORMAL) Differential, auto (09/09/2024 8:32 PM CDT) Neutrophil abs 9.30(H) 1.50 - 6.50 K/cumm Imm gran abs 0.06 0.00 - 0.10 K/cumm [facility] Lymphocyte abs 1.68 0.80 - 3.30 K/cumm [facility] Monocyte abs 1.18(H) 0.20 - 0.80 K/cumm [facility] Eosinophil abs 0.08 0.00 - 0.50 K/cumm [facility] Basophil abs 0.04 0.00 - 0.10 K/cumm [facility] Neutrophil pct 75.4 % [facility] Comment: Interpretive Data Percent cell count reference ranges are not reported, since discordance with absolute values may lead to misinterpretation of CBC data. Current Interpretive Data was last revised on 2017. Imm gran pct 0.5 % [facility] Comment: Interpretive Data Percent cell count reference ranges are not reported, since discordance with absolute values may lead to misinterpretation of CBC data. Current Interpretive Data was last revised on 2017. Lymphocyte pct 13.6 % [facility] Comment: Interpretive Data Percent cell count reference ranges are not reported, since discordance with absolute values may lead to misinterpretation of CBC data. Current Interpretive Data was last revised on 2017. Monocyte pct 9.6 % [facility] Comment: Interpretive Data Percent cell count reference ranges are not reported, since discordance with absolute values may lead to misinterpretation of CBC data. Current Interpretive Data was last revised on 2017. Eosinophil pct 0.6 % [facility] Comment: Interpretive Data Percent cell count reference ranges are not reported, since discordance with absolute values may lead to misinterpretation of CBC data. Current Interpretive Data was last revised on 2017. Basophil pct 0.3 % [facility] Comment: Interpretive Data Percent cell count reference ranges are not reported, since discordance with absolute values may lead to misinterpretation of CBC data. Current Interpretive Data was last revised on 2017. Blood 09/09/2024 8:32 PM CDT 09/09/2024 9:53 PM CDT us Virgen Awad MD LAB BLOOD ORDERABLES Final Res ult [facility] Department [place] [address] * (ABNORMAL) CBC with auto differential (09/09/2024 8:32 PM CDT) [facility] WBC 12.34(H) 3.80 - 9.90 K/cumm Hgb 9.3(L) 13.0 - 17.5 g/dL [facility] Hct 27.1(L) 38.9 - 50.3 % [facility] Plt 167 150 - 400 K/cumm [facility] MPV 10.3 9.1 - 12.3 fL [facility] RBC 3.15(L) 4.30 - 5.80 M/cumm [facility] MCV 86.0 81.3 - 96.4 fL [facility] MCH 29.5 27.1 - 33.3 pg [facility] MCHC 34.3 32.3 - 35.7 g/dL [facility] RDW CV 13.2 11.1 - 14.9 % [facility] RDW SD 40.9 35.7 - 48.1 fL [facility] NRBC abs 0.00 0.00 - 0.01 K/cumm [facility] Blood 09/09/2024 8:32 PM CDT 09/09/2024 9:53 PM CDT us Virgen Awad MD LAB BLOOD ORDERABLES Final Res ult Performing Organization Address [facility] Co de Phone Number [facility] [place] [address] * Magnesium (09/09/2024 8:32 PM CDT) [facility] Magnesium 2.0 1.4 - 2.5 mg/dL Blood 09/09/2024 8:32 PM CDT 09/09/2024 9:53 PM CDT us Virgen Awad MD LAB BLOOD ORDERABLES Final Res ult Performing Organization Address City/[facility]/ZIP Co de Phone Number [facility] [place] [address] * (ABNORMAL) Basic metabolic panel (09/09/2024 8:32 PM CDT) Sodium 131(L) 135 - 145 mmol/L Potassium, pl 4.3 3.3 - 4.9 mmol/L [facility] Chloride 96(L) 97 - 110 mmol/L [facility] CO2 27 22 - 32 mmol/L [facility] Anion gap 8 2 - 15 mmol/L [facility] BUN 13 6 - 25 mg/dL [facility] Creatinine 1.00 0.80 - 1.30 mg/dL [facility] Glucose 117 70 - 199 mg/dL [facility] Comment: Interpretive Data Fasting glucose >/= [...] 2022. Calcium 8.8 8.5 - 10.3 mg/dL [facility] Blood 09/09/2024 8:32 PM CDT 09/09/2024 9:53 PM CDT us Virgen Awad MD LAB BLOOD ORDERABLES Final Res ult [facility] Department [place] [address] * CT TAVR (09/09/2024 10:46 AM CDT) Anatomical Region Laterality Modality Chest N/A Computed Tomogra phy 09/09/2024 2:19 PM CDT Impressions 09/09/2024 2:49 PM CDT Bioprosthetic aortic valve replacement and [id number] transcatheter aortic valve replacement. Mild non-specific thickening [...] post-processing. FINDINGS: Bioprosthetic aortic valve replacement and [id number] noted. Normal coaptation of the leaflets. Mild [...] post-processing. FINDINGS: Bioprosthetic aortic valve replacement and [id number] noted. Normal coaptation of the leaflets. Mild [...] abnormality. IMPRESSION: Bioprosthetic aortic valve replacement and [id number] transcatheter aortic valve replacement. Mild non-specific thickening [...] AM CDT Narrative 09/09/2024 2:10 PM CDT [facility] [place] [address] Transthoracic Echocardiographic Report Patient Name: JAMSHID INTERIANO J : 1940 (83y 9m) Gender: M Study Date: 09/09/2024 08:16:12 Ht(Inch): 67 Wt(Lb): 143.96 BSA: 1.76 Suction Plate Carrier Cleaner: Mary Zuniga RDCS Location: [id number] Order Provider: VIRGEN AWAD Heart Rate: 110 [...] Procedure Note Khari Nj MD - 09/09/2024 [facility] [place] [address] Transthoracic Echocardiographic Report Patient Name: JAMSHID INTERIANO J : 1940 (83y 9m) Gender: M Study Date: 09/09/2024 08:16:12 Ht(Inch): 67 Wt(Lb): 143.96 BSA: 1.76 Suction Plate Carrier Cleaner: Mary Zuniga [facility] Location: [id number] Order Provider:VIRGEN AWAD Heart Rate: 110 BMI: [...] hyperdynamic left ventricular systolic function. TheEjection Fraction (Mairn's) is measured at 64 %. Left ventricular [...] cm [ 1.71 - 5.00 ] RA Lpbqln21.83 ml RA Volume Index26.04 ml/m2 AoR Diam [...] I hs delta See Comment ng/L [facility] Comment:Inappropriate collec tion time to report a delta. Trop I hs pct delta See Comment % [facility] Comment:Inappropriate collec tion time to report a delta. Trop I hs interp See Comment [facility] Comment:Inappropriate collec tion time to report a delta. Blood 09/08/2024 8:34 PM CDT 09/08/2024 9:45 PM CDT us Pb Monroy MD LAB BLOOD ORDERABLES Final Result [facility] Department [place] [address] * eGFR (09/08/2024 8:34 PM CDT) eGFR [...] MD LAB BLOOD ORDERABLES Final Res ult [facility] Department [place] [address] * (ABNORMAL) Differential, auto (09/08/2024 8:34 PM CDT) Pathologist [facility] Neutrophil abs 12.02(H) 1.50 - 6.50 K/cumm Imm gran abs 0.08 0.00 - 0.10 K/cumm [facility] Lymphocyte abs 1.48 0.80 - 3.30 K/cumm [facility] Monocyte abs 1.25(H) 0.20 - 0.80 K/cumm [facility] Eosinophil abs 0.02 0.00 - 0.50 K/cumm [facility] Basophil abs 0.03 0.00 - 0.10 K/cumm [facility] Neutrophil pct 80.9 % [facility] Comment: Interpretive Data Percent cell count reference ranges are not reported, since discordance with absolute values may lead to misinterpretation of CBC data. Current Interpretive Data was last revised on 2017. Imm gran pct 0.5 % [facility] Comment: Interpretive Data Percent cell count reference ranges are not reported, since discordance with absolute values may lead to misinterpretation of CBC data. Current Interpretive Data was last revised on 2017. Lymphocyte pct 9.9 % [facility] Comment: Interpretive Data Percent cell count reference ranges are not reported, since discordance with absolute values may lead to misinterpretation of CBC data. Current Interpretive Data was last revised on 2017. Monocyte pct 8.4 % [facility] Comment: Interpretive Data Percent cell count reference ranges are not reported, since discordance with absolute values may lead to misinterpretation of CBC data. Current Interpretive Data was last revised on 2017. Eosinophil pct 0.1 % [facility] Comment: Interpretive Data Percent cell count reference ranges are not reported, since discordance with absolute values may lead to misinterpretation of CBC data. Current Interpretive Data was last revised on 2017. Basophil pct 0.2 % [facility] Comment: Interpretive Data Percent cell count reference ranges are not reported, since discordance with absolute values may lead to misinterpretation of CBC data. Current Interpretive Data was last revised on 2017. Blood 09/08/2024 8:34 PM CDT 09/08/2024 9:45 PM CDT Virgen Awad MD LAB BLOOD ORDERABLES Final Res ult Performing Organization Address City/[facility]/ZIP Co de Phone Number [facility] Department [place] [address] * (ABNORMAL) CBC with auto differential (09/08/2024 8:34 PM CDT) WBC 14.88(H) 3.80 - 9.90 K/cumm Hgb 10.2(L) 13.0 - 17.5 g/dL [facility] Hct 28.9(L) 38.9 - 50.3 % [facility] Plt 166 150 - 400 K/cumm [facility] MPV 10.3 9.1 - 12.3 fL [facility] RBC 3.42(L) 4.30 - 5.80 M/cumm [facility] MCV 84.5 81.3 - 96.4 fL [facility] MCH 29.8 27.1 - 33.3 pg [facility] MCHC 35.3 32.3 - 35.7 g/dL [facility] RDW CV 13.2 11.1 - 14.9 % [facility] RDW SD 40.8 35.7 - 48.1 fL [facility] NRBC abs 0.00 0.00 - 0.01 K/cumm [facility] Blood 09/08/2024 8:34 PM CDT 09/08/2024 9:45 PM CDT Virgen Awad MD LAB BLOOD ORDERABLES Final Res ult Performing Organization Address City/[facility]/ZIP Co de Phone Number [facility] [place] [address] * (ABNORMAL) Erythrocyte sedimentation rate (09/08/2024 8:34 PM CDT) Pathologist [facility] Erythrocyte sedimentation rate 32(H) 1 - 20 mm/hr Blood 09/08/2024 8:34 PM CDT 09/08/2024 9:45 PM CDT us Vigren Awad MD LAB BLOOD ORDERABLES Final Res ult Performing Organization Address [facility] [place] [address] * (ABNORMAL) CRP (acute phase) (09/08/2024 8:34 PM CDT) Pathologist [facility] CRP 115.3(H) <=10.0 mg/L Blood 09/08/2024 8:34 PM CDT 09/08/2024 9:45 PM CDT us Virgen Awad MD LAB BLOOD ORDERABLES Final Res ult Performing Organization Address [facility] Co de Phone Number [facility] [place] [address] * Magnesium (09/08/2024 8:34 PM CDT) Pathologist [facility] Magnesium 2.0 1.4 - 2.5 mg/dL Blood 09/08/2024 8:34 PM CDT 09/08/2024 9:45 PM CDT us iVrgen Awad MD LAB BLOOD ORDERABLES Final Res ult Performing Organization Address [facility] Co de Phone Number [facility] [place] [address] * (ABNORMAL) Basic metabolic panel (09/08/2024 8:34 PM CDT) Pathologist [facility] Sodium 132(L) 135 - 145 mmol/L Potassium, pl 4.1 3.3 - 4.9 mmol/L [facility] Chloride 97 97 - 110 mmol/L [facility] CO2 25 22 - 32 mmol/L [facility] Anion gap 10 2 - 15 mmol/L [facility] BUN 12 6 - 25 mg/dL [facility] Creatinine 1.09 0.80 - 1.30 mg/dL [facility] Glucose 140 70 - 199 mg/dL [facility] Comment: Interpretive Data Fasting glucose >/= [...] 2022. Calcium 8.2(L) 8.5 - 10.3 mg/dL [facility] Blood 09/08/2024 8:34 PM CDT 09/08/2024 9:45 PM CDT us Virgen Awad MD LAB BLOOD ORDERABLES Final Res ult [facility] Department [place] [address] * ECG 12 lead (09/08/2024 12:08 PM CDT) [facility] Ventricular Rate EKG/Min 95 BPM [facility] Atrial Rate 105 BPM [facility] QRS-Interval (MSEC) 110 ms [facility] QT-Interval (MSEC) 312 ms [facility] QTc 392 ms [facility] R [place] -15 degrees [facility] T [place] 81 degrees [facility] Diagnosis Normal sinus rhythm Second degree av-block (Mobitz I) Moderate voltage criteria for LVH, may be normal variant ( R in aVL , Brilliant product ) Poor precordial R wave progression consistent with faulty lead placement, copd, etc. ; consider septal infarct, lead placement, or normal variant Abnormal ECG When compared with ECG of 17-OCT-2022 05:09, RSR' pattern in V1 is no longer Present Confirmed by ADOLFO PEÑA M.D ([id number]) on 09/08/2024 5:10:47 PM [facility] 09/08/2024 12:0 8 PM CDT 09/08/2024 5:10 PM CDT Virgen Awad MD ECG ORDERABLES Final Result Performing Organization Address City/[facility]/ZIP Co de Phone Number [facility] * eGFR (09/08/2024 8:35 AM CDT) eGFR [...] MD LAB BLOOD ORDERABLES Final Res ult [facility] Department [place] [address] * (ABNORMAL) CBC without differential (09/08/2024 8:35 AM CDT) [facility] WBC 13.53(H) 3.80 - 9.90 K/cumm Hgb 10.6(L) 13.0 - 17.5 g/dL [facility] Hct 30.5(L) 38.9 - 50.3 % [facility] Plt 161 150 - 400 K/cumm [facility] MPV 10.2 9.1 - 12.3 fL [facility] RBC 3.55(L) 4.30 - 5.80 M/cumm [facility] MCV 85.9 81.3 - 96.4 fL [facility] MCH 29.9 27.1 - 33.3 pg [facility] MCHC 34.8 32.3 - 35.7 g/dL [facility] RDW CV 13.2 11.1 - 14.9 % [facility] RDW SD 40.6 35.7 - 48.1 fL [facility] NRBC abs 0.00 0.00 - 0.01 K/cumm [facility] Blood 09/08/2024 8:35 AM CDT 09/08/2024 9:26 AM CDT us Virgen Awad MD LAB BLOOD ORDERABLES Final Res ult [facility] Department [place] [address] * (ABNORMAL) Basic metabolic panel (09/08/2024 8:35 AM CDT) [facility] Sodium 132(L) 135 - 145 mmol/L Potassium, pl 4.1 3.3 - 4.9 mmol/L [facility] Chloride 96(L) 97 - 110 mmol/L [facility] CO2 27 22 - 32 mmol/L [facility] Anion gap 9 2 - 15 mmol/L [facility] BUN 14 6 - 25 mg/dL [facility] Creatinine 0.96 0.80 - 1.30 mg/dL [facility] Glucose 121 70 - 199 mg/dL [facility] Comment: Interpretive Data Fasting glucose >/= [...] 2022. Calcium 8.6 8.5 - 10.3 mg/dL [facility] Blood 09/08/2024 8:35 AM CDT 09/08/2024 9:26 AM CDT Virgen Awad MD LAB BLOOD ORDERABLES Final Res ult Performing Organization Address City/[facility]/ZIP Co de Phone Number [facility] [place] [address] * Troponin I high-sensitivity 2-hour (09/06/2024 9:35 PM CDT) Trop I hs 35 <=35 ng/L Comment: Interpretive Data For further hscTnI resources including the diagnostic algorithm and an aid in interpretation, copy and paste this link: [email or web address].[email or web address]/[email or web address] Current Interpretive Data last revised 2019. Trop I hs delta 3 ng/L [facility] Trop I hs interp Insignificant [facility] Blood 09/06/2024 9:35 PM CDT 09/06/2024 9:50 PM CDT Pb Monroy MD LAB BLOOD ORDERABLES Final Result Performing Organization Address City/[facility]/ZIP Co de Phone Number [facility] [place] [address] * Thyroid Function Timpson (09/06/2024 8:40 PM CDT) TSH 2.57 0.30 - 4.20 mcIUnit/mL Blood 09/06/2024 8:40 PM CDT 09/06/2024 8:57 PM CDT Alysa Perry MD LAB BLOOD ORDERABLES Final Result [facility] Department [place] [address] * Blood culture Blood (09/06/2024 8:40 PM CDT) Report Final Report: No growth Blood 09/06/2024 8:40 PM CDT 09/06/2024 8:53 PM CDT [facility]ative [facility] - 09/11/2024 7:00 AM CDT Collection->Peripheral 1. [...] performance characteristics have been verified by the [facility] Microbiology Laboratory. For questions about this culture, contact the Microbiology Laboratory at [phone]. Interpretive data was last revised on 24. Alysa Perry MD LAB MICROBIOLOGY - G ENERAL ORDERABLES Final Result [facility]IR [facility] Department [place] [address] * Blood culture Blood (09/06/2024 8:40 PM [...] performance characteristics have been verified by the [facility] Microbiology Laboratory. For questions about this culture, contact the Microbiology Laboratory at [phone]. Interpretive data was last revised on 24. Alysa Perry MD LAB MICROBIOLOGY - G ENERAL ORDERABLES Final Result Performing Organization Address City/[facility]/ZIP Co de Phone Number QUANG Kemp [facility] Department [place] [address] * Troponin I high-sensitivity series (baseline, 2hr, [...] BLOOD ORDERABLES Final Result [facility] MIR [facility] Department [place] [address] * eGFR (09/06/2024 7:25 PM CDT) eGFR [...] BLOOD ORDERABLES Final Result [facility] Department [place] [address] * (ABNORMAL) Differential, auto (09/06/2024 7:25 PM CDT) Neutrophil abs 11.15(H) 1.50 - 6.50 K/cumm Imm gran abs 0.09 0.00 - 0.10 K/cumm [facility] Lymphocyte abs 2.05 0.80 - 3.30 K/cumm [facility] Monocyte abs 1.47(H) 0.20 - 0.80 K/cumm [facility] Eosinophil abs 0.04 0.00 - 0.50 K/cumm [facility] Basophil abs 0.03 0.00 - 0.10 K/cumm [facility] Neutrophil pct 75.2 % [facility] Comment: Interpretive Data Percent cell count reference ranges are not reported, since discordance with absolute values may lead to misinterpretation of CBC data. Current Interpretive Data was last revised on 2017. Imm gran pct 0.6 % [facility] Comment: Interpretive Data Percent cell count reference ranges are not reported, since discordance with absolute values may lead to misinterpretation of CBC data. Current Interpretive Data was last revised on 2017. Lymphocyte pct 13.8 % [facility] Comment: Interpretive Data Percent cell count reference ranges are not reported, since discordance with absolute values may lead to misinterpretation of CBC data. Current Interpretive Data was last revised on 2017. Monocyte pct 9.9 % [facility] Comment: Interpretive Data Percent cell count reference ranges are not reported, since discordance with absolute values may lead to misinterpretation of CBC data. Current Interpretive Data was last revised on 2017. Eosinophil pct 0.3 % [facility] Comment: Interpretive Data Percent cell count reference ranges are not reported, since discordance with absolute values may lead to misinterpretation of CBC data. Current Interpretive Data was last revised on 2017. Basophil pct 0.2 % [facility] [facility] Comment: Interpretive Data Percent cell count reference ranges are not reported, since discordance with absolute values may lead to misinterpretation of CBC data. Current Interpretive Data was last revised on 2017. Blood 09/06/2024 7:25 PM CDT 09/06/2024 8:03 PM CDT Pb Monroy MD LAB BLOOD ORDERABLES Final Result Performing Organization Address City/[facility]/ZIP Co de Phone Number [facility] Department [place] [address] * (ABNORMAL) CBC with auto differential (09/06/2024 7:25 PM CDT) Pathologist [facility] WBC 14.83(H) 3.80 - 9.90 K/cumm Hgb 10.6(L) 13.0 - 17.5 g/dL [facility] Hct 30.7(L) 38.9 - 50.3 % [facility] Plt 173 150 - 400 K/cumm [facility] MPV 9.8 9.1 - 12.3 fL [facility] RBC 3.62(L) 4.30 - 5.80 M/cumm [facility] MCV 84.8 81.3 - 96.4 fL [facility] MCH 29.3 27.1 - 33.3 pg [facility] MCHC 34.5 32.3 - 35.7 g/dL [facility] RDW CV 13.2 11.1 - 14.9 % [facility] RDW SD 40.9 35.7 - 48.1 fL [facility] NRBC abs 0.00 0.00 - 0.01 K/cumm [facility] Blood Venous blood specimen / Unknown 09/06/2024 7:25 PM CDT 09/06/2024 8:03 PM CDT Pb Monroy MD LAB BLOOD ORDERABLES Final Result Performing Organization Address City/[facility]/ZIP Co de Phone Number [facility] Department [place] [address] * Phosphorus (09/06/2024 7:25 PM CDT) Pathologist [facility] Phosphorus, pl 3.0 2.3 - 4.5 mg/dL Blood 09/06/2024 7:25 PM CDT 09/06/2024 8:03 PM CDT us Virgen Awad MD LAB BLOOD ORDERABLES Final Res ult Performing Organization Address City/[facility]/ZIP Co de Phone Number [facility] Department [place] [address] * Magnesium (09/06/2024 7:25 PM CDT) [facility] Magnesium 2.1 1.4 - 2.5 mg/dL Blood 09/06/2024 7:25 PM CDT 09/06/2024 8:03 PM CDT us Virgen Awad MD LAB BLOOD ORDERABLES Final Res ult Performing Organization Address [facility] de Phone Number [facility] [place] [address] * (ABNORMAL) Comprehensive metabolic panel (09/06/2024 7:25 PM CDT) [facility] Sodium 134(L) 135 - 145 mmol/L Potassium, pl 4.2 3.3 - 4.9 mmol/L [facility] Chloride 98 97 - 110 mmol/L [facility] CO2 26 22 - 32 mmol/L [facility] Anion gap 10 2 - 15 mmol/L [facility] BUN 16 6 - 25 mg/dL [facility] Creatinine 0.90 0.80 - 1.30 mg/dL [facility] Glucose 141 70 - 199 mg/dL [facility] Comment: Interpretive Data Fasting glucose >/= [...] 2022. Calcium 8.8 8.5 - 10.3 mg/dL [facility] Bilirubin, total 0.4 0.1 - 1.2 mg/dL [facility] Protein, pl 7.0 6.5 - 8.5 g/dL [facility] Albumin 3.6 3.5 - 5.0 g/dL [facility] Alk phos 87 40 - 130 Units/L [facility] ALT 18 7 - 55 Units/L [facility] AST 27 10 - 50 Units/L [facility] Blood 09/06/2024 7:25 PM CDT 09/06/2024 8:03 PM CDT us Pb Monroy MD LAB BLOOD ORDERABLES Final Result Performing Organization Address City/State/[facility] Co de Phone Number [facility] Department [place] [address] * ECG 12-LEAD (09/06/2024 2:45 PM CDT) [...] normal sinus rhythm rate of 87; normal MS, QRS, and QTC intervals; normal P, R, [...] manifest normal sinus rhythm rate of87; normal MS, QRS, and QTC intervals; normal P, R, and T-wave axis; noevidence of atrial enlargement but possible ventricular hypertrophy;incomplete right bundle-branch block. Normal ST segments and T-waveswithout evidence of active myocardial ischemia; Murtaza Agrawal MD 09/06/24 1447 Olivier Lovell MD 09/06/24 2228 us Pb Monroy MD ECG ORDERABLES Edited Res ult - Final [facility] * XR Chest Pa Lateral 2 [...] CDT) WBC 17.6(H) 3.5 - 10.0 K/uL [facility] RBC 3.91(L) 4.60 - 6.20 M/uL [facility] Hemoglobin 11.8(L) 13.9 - 17.7 g/dL [facility] Hematocrit 32.7(L) 35.0 - 55.0 % [facility] MCV 83.7 75.0 - 100.0 fL [facility] MCH 30.20 25.00 - 35.00 pg [facility] MCHC 36.10 31.00 - 38.00 g/dL [facility] RDW 12.9 11.0 - 16.0 % [facility] Platelets 204 140 - 400 K/uL [facility] MPV 9.0 8.0 - 11.0 fL [facility] Granulocyte, Absolute 14.9(H) 1.2 - 8.0 K/uL [facility] Lymphocyte, Absolute 2.0 0.5 - 5.0 K/uL [facility] Monocyte, Absolute 0.7 0.1 - 1.5 K/uL [facility] Granulocyte, Percentage 84.8(H) 35.0 - 80.0 % [facility] Lymphocyte, Percentage 11.4(L) 15.0 - 50.0 % [facility] Monocyte, Percentage 3.8 2.0 - 15.0 % [facility] Blood 09/05/2024 1:05 PM CDT 09/05/2024 1:24 PM CDT London Santos MD LAB BLOOD ORDERABLES F inal Result Performing Organization Address [facility] de Phone Number [facility] [address] [place] [address] * (ABNORMAL) Basic metabolic panel (09/05/2024 1:05 PM CDT) [facility] Glucose 108 74 - 200 mg/dL [facility] BUN 18 18 - 23 mg/dL [facility] Creatinine 0.9 0.7 - 1.3 mg/dL [facility] BUN/Creat Ratio 19 Ratio [facility] eGFR 77 mL/min/1.7 3m2 [facility] Calcium 9.3 8.8 - 10.2 mg/dL [facility] Sodium 127(L) 135 - 145 mEq/L [facility] Potassium 4.5 3.5 - 5.1 mEq/L [facility] Chloride 93(L) 98 - 107 mEq/L [facility] CO2 24.7 22.0 - 32.0 mEq/L [facility] Anion Gap 9 3 - 12 mEq/L [facility] Blood 09/05/2024 1:05 PM CDT 09/05/2024 1:24 PM CDT London aSntos MD LAB BLOOD ORDERABLES F inal Result Performing Organization Address [facility] de Phone Number [facility] [address] [place] [address] * eGFR (08/31/2024 9:44 PM CDT) Pathologist [facility] eGFR 63 >=60 mL/min/1. 73 m2 Comment: [...] Dominguez MD LAB BLOOD ORDERABLES Final Result [facility] Department [place] [address] * (ABNORMAL) Differential, auto (08/31/2024 9:44 PM CDT) Pathologist [facility] Neutrophil abs 9.27(H) 1.50 - 6.50 K/cumm Imm gran abs 0.08 0.00 - 0.10 K/cumm [facility] Lymphocyte abs 1.90 0.80 - 3.30 K/cumm [facility] Monocyte abs 1.20(H) 0.20 - 0.80 K/cumm [facility] Eosinophil abs 0.13 0.00 - 0.50 K/cumm [facility] Basophil abs 0.02 0.00 - 0.10 K/cumm [facility] Neutrophil pct 73.6 % [facility] Comment: Interpretive Data Percent cell count reference ranges are not reported, since discordance with absolute values may lead to misinterpretation of CBC data. Current Interpretive Data was last revised on 2017. Imm gran pct 0.6 % [facility] Comment: Interpretive Data Percent cell count reference ranges are not reported, since discordance with absolute values may lead to misinterpretation of CBC data. Current Interpretive Data was last revised on 2017. Lymphocyte pct 15.1 % [facility] Comment: Interpretive Data Percent cell count reference ranges are not reported, since discordance with absolute values may lead to misinterpretation of CBC data. Current Interpretive Data was last revised on 2017. Monocyte pct 9.5 % [facility] Comment: Interpretive Data Percent cell count reference ranges are not reported, since discordance with absolute values may lead to misinterpretation of CBC data. Current Interpretive Data was last revised on 2017. Eosinophil pct 1.0 % [facility] Comment: Interpretive Data Percent cell count reference ranges are not reported, since discordance with absolute values may lead to misinterpretation of CBC data. Current Interpretive Data was last revised on 2017. Basophil pct 0.2 % [facility] Comment: Interpretive Data Percent cell count reference ranges are not reported, since discordance with absolute values may lead to misinterpretation of CBC data. Current Interpretive Data was last revised on 2017. Blood 08/31/2024 9:44 PM CDT 08/31/2024 10:34 PM CDT us Dyana Dominguez MD LAB BLOOD ORDERABLES Final Result [facility] Department [place] [address] * (ABNORMAL) CBC with auto differential (08/31/2024 9:44 PM CDT) WBC 12.60(H) 3.80 - 9.90 K/cumm Hgb 9.6(L) 13.0 - 17.5 g/dL [facility] Hct 27.5(L) 38.9 - 50.3 % [facility] Plt 184 150 - 400 K/cumm [facility] MPV 9.7 9.1 - 12.3 fL [facility] RBC 3.22(L) 4.30 - 5.80 M/cumm [facility] MCV 85.4 81.3 - 96.4 fL [facility] MCH 29.8 27.1 - 33.3 pg [facility] MCHC 34.9 32.3 - 35.7 g/dL [facility] RDW CV 12.9 11.1 - 14.9 % [facility] RDW SD 39.7 35.7 - 48.1 fL [facility] NRBC abs 0.00 0.00 - 0.01 K/cumm [facility] Blood 08/31/2024 9:44 PM CDT 08/31/2024 10:34 PM CDT Dyana Dominguez MD LAB BLOOD ORDERABLES Final Result [facility] Department [place] [address] * (ABNORMAL) Basic metabolic panel (08/31/2024 9:44 PM CDT) Sodium 130(L) 135 - 145 mmol/L Potassium, pl 4.1 3.3 - 4.9 mmol/L [facility] Chloride 98 97 - 110 mmol/L [facility] CO2 27 22 - 32 mmol/L [facility] Anion gap 5 2 - 15 mmol/L [facility] BUN 15 6 - 25 mg/dL [facility] Creatinine 1.16 0.80 - 1.30 mg/dL [facility] Glucose 99 70 - 199 mg/dL [facility] Comment: Interpretive Data Fasting glucose >/= [...] Dominguez MD LAB BLOOD ORDERABLES Final Result [facility] [place] [address] * eGFR (08/30/2024 11:41 PM CDT) eGFR [...] Dominguez MD LAB BLOOD ORDERABLES Final Result [facility] [place] [address] * (ABNORMAL) Differential, auto (08/30/2024 11:41 PM [...] 2017. Imm gran pct 0.6 % [facility] Comment: Interpretive Data Percent cell count reference ranges are not reported, since discordance with absolute values may lead to misinterpretation of CBC data. Current Interpretive Data was last revised on 2017. Lymphocyte pct 13.6 % [facility] Comment: Interpretive Data Percent cell count reference ranges are not reported, since discordance with absolute values may lead to misinterpretation of CBC data. Current Interpretive Data was last revised on 2017. Monocyte pct 7.9 % [facility] Comment: Interpretive Data Percent cell count reference ranges are not reported, since discordance with absolute values may lead to misinterpretation of CBC data. Current Interpretive Data was last revised on 2017. Eosinophil pct 0.6 % [facility] Comment: Interpretive Data Percent cell count [...] Dominguez MD LAB BLOOD ORDERABLES Final Result [facility] Department [place] [address] * (ABNORMAL) CBC with auto differential (08/30/2024 11:41 PM CDT) Pathologist [facility] WBC 14.45(H) 3.80 - 9.90 K/cumm Hgb 9.7(L) 13.0 - 17.5 g/dL [facility] Hct 27.9(L) 38.9 - 50.3 % [facility] Plt 177 150 - 400 K/cumm [facility] MPV 9.8 9.1 - 12.3 fL [facility] RBC 3.28(L) 4.30 - 5.80 M/cumm [facility] MCV 85.1 81.3 - 96.4 fL [facility] MCH 29.6 27.1 - 33.3 pg [facility] MCHC 34.8 32.3 - 35.7 g/dL [facility] RDW CV 12.8 11.1 - 14.9 % [facility] RDW SD 38.9 35.7 - 48.1 fL [facility] NRBC abs 0.00 0.00 - 0.01 K/cumm [facility] Blood 08/30/2024 11:4 1 PM CDT 08/30/2024 11:52 PM CDT Dyana Dominguez MD LAB BLOOD ORDERABLES Final Result [facility] Department [place] [address] * (ABNORMAL) Basic metabolic panel (08/30/2024 11:41 PM CDT) Pathologist [facility] Sodium 134(L) 135 - 145 mmol/L Potassium, pl 4.4 3.3 - 4.9 mmol/L [facility] Chloride 100 97 - 110 mmol/L [facility] CO2 26 22 - 32 mmol/L [facility] Anion gap 8 2 - 15 mmol/L [facility] BUN 13 6 - 25 mg/dL [facility] Creatinine 0.93 0.80 - 1.30 mg/dL [facility] Glucose 107 70 - 199 mg/dL [facility] Comment: Interpretive Data Fasting glucose >/= [...] 2022. Calcium 8.0(L) 8.5 - 10.3 mg/dL [facility] Blood 08/30/2024 11:4 1 PM CDT 08/30/2024 11:50 PM CDT Dyana Dominguez MD LAB BLOOD ORDERABLES Final Result Performing Organization Address City/[facility]/ZIP Co de Phone Number [facility] [place] [address] * Sodium, urine, random (08/30/2024 1:46 PM CDT) Sodium, ur 50 mmol/L Comment: Interpretive Data No reference range established. Current interpretive data was last revised 2018. Urine 08/30/2024 1:46 PM CDT 08/30/2024 2:42 PM CDT us Stacie Curry MD LAB URINE ORDERABLES Kinjal l Result [facility] Department [place] [address] * Osmolality, urine (08/30/2024 1:46 PM CDT) Osmo, ur 283 mOsm/kg Urine 08/30/2024 1:46 PM CDT 08/30/2024 2:42 PM CDT us Stacie Curry MD LAB URINE ORDERABLES Kinjal jama Result [facility] Department [place] [address] * TRANSESOPHAGEAL ECHO (JESSICA) W DOPPLER/CF WO CONTRAST (08/30/2024 11:33 AM CDT) Anatomical Region Laterality Modality Echocardiography 08/30/2024 10:4 6 AM CDT Narrative 08/30/2024 3:32 PM CDT [facility] [place] [address] Transesophageal Echocardiographic Report Patient Name: JAMSHID INTERIANO J : 1940 (83y 9m) Gender: M Study Date: 08/30/2024 10:46:01 AM Ht(Inch): Wt(Lb): 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: Location: [id number] Order Provider: STACIE CURRY BMI: Ref Provider: [...] Procedure Note Avery Ulloa MD - 08/30/2024 [facility] [place] [address] Transesophageal Echocardiographic Report Patient Name: JAMSHID INTERIANO J : 1940 (83y 9m) Gender: M Study Date: 08/30/2024 10:46:01 AM Ht(Inch): Wt(Lb): 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: Location: [id number] Order Provider: STACIE CURRY BMI: Ref Provider: [...] Dominguez MD LAB BLOOD ORDERABLES Final Result [facility] Department [place] [address] * (ABNORMAL) Differential, auto (08/29/2024 9:11 PM CDT) Neutrophil abs 13.20(H) 1.50 - 6.50 K/cumm Imm gran abs 0.13(H) 0.00 - 0.10 K/cumm [facility] Lymphocyte abs 2.05 0.80 - 3.30 K/cumm [facility] Monocyte abs 1.39(H) 0.20 - 0.80 K/cumm [facility] Eosinophil abs 0.03 0.00 - 0.50 K/cumm [facility] Basophil abs 0.03 0.00 - 0.10 K/cumm [facility] Neutrophil pct 78.3 % [facility] Comment: Interpretive Data Percent cell count reference ranges are not reported, since discordance with absolute values may lead to misinterpretation of CBC data. Current Interpretive Data was last revised on 2017. Imm gran pct 0.8 % [facility] Comment: Interpretive Data Percent cell count reference ranges are not reported, since discordance with absolute values may lead to misinterpretation of CBC data. Current Interpretive Data was last revised on 2017. Lymphocyte pct 12.2 % [facility] Comment: Interpretive Data Percent cell count reference ranges are not reported, since discordance with absolute values may lead to misinterpretation of CBC data. Current Interpretive Data was last revised on 2017. Monocyte pct 8.3 % [facility] Comment: Interpretive Data Percent cell count reference ranges are not reported, since discordance with absolute values may lead to misinterpretation of CBC data. Current Interpretive Data was last revised on 2017. Eosinophil pct 0.2 % [facility] Comment: Interpretive Data Percent cell count reference ranges are not reported, since discordance with absolute values may lead to misinterpretation of CBC data. Current Interpretive Data was last revised on 2017. Basophil pct 0.2 % [facility] Comment: Interpretive Data Percent cell count reference ranges are not reported, since discordance with absolute values may lead to misinterpretation of CBC data. Current Interpretive Data was last revised on 2017. Blood 08/29/2024 9:11 PM CDT 08/29/2024 11:31 PM CDT Dyana Dominguez MD LAB BLOOD ORDERABLES Final Result [facility] Department [place] [address] * (ABNORMAL) CBC with auto differential (08/29/2024 9:11 PM CDT) WBC 16.83(H) 3.80 - 9.90 K/cumm Hgb 11.4(L) 13.0 - 17.5 g/dL [facility] Hct 32.5(L) 38.9 - 50.3 % [facility] Plt 188 150 - 400 K/cumm [facility] MPV 10.3 9.1 - 12.3 fL [facility] RBC 3.75(L) 4.30 - 5.80 M/cumm [facility] MCV 86.7 81.3 - 96.4 fL [facility] MCH 30.4 27.1 - 33.3 pg [facility] MCHC 35.1 32.3 - 35.7 g/dL [facility] RDW CV 12.9 11.1 - 14.9 % [facility] RDW SD 40.5 35.7 - 48.1 fL [facility] NRBC abs 0.00 0.00 - 0.01 K/cumm [facility] Blood 08/29/2024 9:11 PM CDT 08/29/2024 11:31 PM CDT Dyana Dominguez MD LAB BLOOD ORDERABLES Final Result [facility] Department [place] [address] * (ABNORMAL) Osmolality, blood (08/29/2024 9:11 PM CDT) Pathologist [facility] Osmo 274(L) 275 - 300 mOsm/kg Blood 08/29/2024 9:11 PM CDT 08/29/2024 11:33 PM CDT us Iramntra Shobha Jenkins MD PhD LAB BLOOD ORDERABLE S Final Result Performing Organization Address [facility] Co de Phone Number [facility] Department [place] [address] * (ABNORMAL) Basic metabolic panel (08/29/2024 9:11 PM CDT) [facility] Sodium 130(L) 135 - 145 mmol/L Potassium, pl 4.4 3.3 - 4.9 mmol/L [facility] Chloride 95(L) 97 - 110 mmol/L [facility] CO2 27 22 - 32 mmol/L [facility] Anion gap 8 2 - 15 mmol/L [facility] BUN 14 6 - 25 mg/dL [facility] Creatinine 1.11 0.80 - 1.30 mg/dL [facility] Glucose 89 70 - 199 mg/dL [facility] Comment: Interpretive Data Fasting glucose >/= [...] 2022. Calcium 9.4 8.5 - 10.3 mg/dL [facility] Blood 08/29/2024 9:11 PM CDT 08/29/2024 11:33 PM CDT Dyana Dominguez MD LAB BLOOD ORDERABLES Final Result Performing Organization Address City/[facility]/ZIP Co de Phone Number [facility] [place] [address] * eGFR (08/28/2024 10:48 PM CDT) eGFR [...] Dominguez MD LAB BLOOD ORDERABLES Final Result [facility] [place] [address] * (ABNORMAL) Differential, auto (08/28/2024 10:48 PM CDT) Neutrophil abs 10.46(H) 1.50 - 6.50 K/cumm Imm gran abs 0.11(H) 0.00 - 0.10 K/cumm [facility] Lymphocyte abs 2.26 0.80 - 3.30 K/cumm [facility] Monocyte abs 1.36(H) 0.20 - 0.80 K/cumm [facility] Eosinophil abs 0.06 0.00 - 0.50 K/cumm [facility] Basophil abs 0.04 0.00 - 0.10 K/cumm [facility] Neutrophil pct 73.2 % [facility] Comment: Interpretive Data Percent cell count reference ranges are not reported, since discordance with absolute values may lead to misinterpretation of CBC data. Current Interpretive Data was last revised on 2017. Imm gran pct 0.8 % [facility] Comment: Interpretive Data Percent cell count reference ranges are not reported, since discordance with absolute values may lead to misinterpretation of CBC data. Current Interpretive Data was last revised on 2017. Lymphocyte pct 15.8 % [facility] Comment: Interpretive Data Percent cell count reference ranges are not reported, since discordance with absolute values may lead to misinterpretation of CBC data. Current Interpretive Data was last revised on 2017. Monocyte pct 9.5 % [facility] Comment: Interpretive Data Percent cell count reference ranges are not reported, since discordance with absolute values may lead to misinterpretation of CBC data. Current Interpretive Data was last revised on 2017. Eosinophil pct 0.4 % [facility] Comment: Interpretive Data Percent cell count reference ranges are not reported, since discordance with absolute values may lead to misinterpretation of CBC data. Current Interpretive Data was last revised on 2017. Basophil pct 0.3 % [facility] Comment: Interpretive Data Percent cell count reference ranges are not reported, since discordance with absolute values may lead to misinterpretation of CBC data. Current Interpretive Data was last revised on 2017. Blood 08/28/2024 10:4 8 PM CDT 08/28/2024 11:27 PM CDT us Dyana Dominguez MD LAB BLOOD ORDERABLES Final Result [facility] Department [place] [address] * (ABNORMAL) CBC with auto differential (08/28/2024 10:48 PM CDT) [facility] WBC 14.29(H) 3.80 - 9.90 K/cumm Hgb 10.9(L) 13.0 - 17.5 g/dL [facility] Hct 31.7(L) 38.9 - 50.3 % [facility] Plt 185 150 - 400 K/cumm [facility] MPV 10.2 9.1 - 12.3 fL [facility] RBC 3.71(L) 4.30 - 5.80 M/cumm [facility] MCV 85.4 81.3 - 96.4 fL [facility] MCH 29.4 27.1 - 33.3 pg [facility] MCHC 34.4 32.3 - 35.7 g/dL [facility] RDW CV 12.6 11.1 - 14.9 % [facility] RDW SD 39.4 35.7 - 48.1 fL [facility] NRBC abs 0.00 0.00 - 0.01 K/cumm [facility] Blood 08/28/2024 10:4 8 PM CDT 08/28/2024 11:27 PM CDT Dyana Dominguez MD LAB BLOOD ORDERABLES Final Result [facility] Department [place] [address] * (ABNORMAL) Basic metabolic panel (08/28/2024 10:48 PM CDT) [facility] Sodium 131(L) 135 - 145 mmol/L Potassium, pl 4.1 3.3 - 4.9 mmol/L [facility] Chloride 97 97 - 110 mmol/L [facility] CO2 27 22 - 32 mmol/L [facility] Anion gap 7 2 - 15 mmol/L [facility] BUN 17 6 - 25 mg/dL [facility] Creatinine 1.03 0.80 - 1.30 mg/dL [facility] Glucose 108 70 - 199 mg/dL [facility] Comment: Interpretive Data Fasting glucose >/= [...] 2022. Calcium 8.8 8.5 - 10.3 mg/dL [facility] Blood 08/28/2024 10:4 8 PM CDT 08/28/2024 11:28 PM CDT Dyana Dominguez MD LAB BLOOD ORDERABLES Final Result [facility] Department [place] [address] * eGFR (08/27/2024 8:57 PM CDT) eGFR [...] Dominguez MD LAB BLOOD ORDERABLES Final Result [facility] Department [place] [address] * (ABNORMAL) Differential, auto (08/27/2024 8:57 PM CDT) Neutrophil abs 9.27(H) 1.50 - 6.50 K/cumm Imm gran abs 0.10 0.00 - 0.10 K/cumm [facility] Lymphocyte abs 2.40 0.80 - 3.30 [facility] Monocyte abs 1.42(H) 0.20 - 0.80 K/cumm [facility] Eosinophil abs 0.04 0.00 - 0.50 K/cumm [facility] Basophil abs 0.03 0.00 - 0.10 K/cumm [facility] Neutrophil pct 69.9 % [facility] Comment: Interpretive Data Percent cell count reference ranges are not reported, since discordance with absolute values may lead to misinterpretation of CBC data. Current Interpretive Data was last revised on 2017. Imm gran pct 0.8 % [facility] Comment: Interpretive Data Percent cell count reference ranges are not reported, since discordance with absolute values may lead to misinterpretation of CBC data. Current Interpretive Data was last revised on 2017. Lymphocyte pct 18.1 % [facility] Comment: Interpretive Data Percent cell count reference ranges are not reported, since discordance with absolute values may lead to misinterpretation of CBC data. Current Interpretive Data was last revised on 2017. Monocyte pct 10.7 % [facility] Comment: Interpretive Data Percent cell count reference ranges are not reported, since discordance with absolute values may lead to misinterpretation of CBC data. Current Interpretive Data was last revised on 2017. Eosinophil pct 0.3 % [facility] Comment: Interpretive Data Percent cell count reference ranges are not reported, since discordance with absolute values may lead to misinterpretation of CBC data. Current Interpretive Data was last revised on 2017. Basophil pct 0.2 % [facility] Comment: Interpretive Data Percent cell count reference ranges are not reported, since discordance with absolute values may lead to misinterpretation of CBC data. Current Interpretive Data was last revised on 2017. Blood 08/27/2024 8:57 PM CDT 08/27/2024 9:16 PM CDT Dyana Dominguez MD LAB BLOOD ORDERABLES Final Result [facility] Department [place] [address] * (ABNORMAL) CBC with auto differential (08/27/2024 8:57 PM CDT) WBC 13.26(H) 3.80 - 9.90 K/cumm Hgb 10.7(L) 13.0 - 17.5 g/dL [facility] Hct 30.6(L) 38.9 - 50.3 % [facility] Plt 153 150 - 400 K/cumm [facility] MPV 10.0 9.1 - 12.3 fL [facility] RBC 3.58(L) 4.30 - 5.80 M/cumm [facility] MCV 85.5 81.3 - 96.4 fL [facility] MCH 29.9 27.1 - 33.3 pg [facility] MCHC 35.0 32.3 - 35.7 g/dL [facility] RDW CV 12.6 11.1 - 14.9 % [facility] RDW SD 39.1 35.7 - 48.1 fL [facility] NRBC abs 0.00 0.00 - 0.01 K/cumm [facility] Blood 08/27/2024 8:57 PM CDT 08/27/2024 9:16 PM CDT Dyana Dominguez MD LAB BLOOD ORDERABLES Final Result [facility] Department [place] [address] * Hepatitis A antibody, IgM Blood (08/27/2024 8:57 PM CDT) Pathologist [facility] Hep A IgM Nonreactive Nonreactive Blood 08/27/2024 8:57 PM CDT 08/27/2024 9:16 PM CDT us Stacie Curry MD LAB MICROBIOLOGY - GENERA L ORDERABLES Final Result Performing Organization Address [facility] Co de Phone Number [facility] Department [place] [address] * (ABNORMAL) Basic metabolic panel (08/27/2024 8:57 PM CDT) [facility] Sodium 134(L) 135 - 145 mmol/L Potassium, pl 4.5 3.3 - 4.9 mmol/L [facility] Chloride 100 97 - 110 mmol/L [facility] CO2 28 22 - 32 mmol/L [facility] Anion gap 6 2 - 15 mmol/L [facility] BUN 14 6 - 25 mg/dL [facility] Creatinine 1.13 0.80 - 1.30 mg/dL [facility] Glucose 129 70 - 199 mg/dL [facility] Comment: Interpretive Data Fasting glucose >/= [...] 2022. Calcium 8.5 8.5 - 10.3 mg/dL [facility] Blood 08/27/2024 8:57 PM CDT 08/27/2024 9:15 PM CDT Dyana Dominguez MD LAB BLOOD ORDERABLES Final Result Performing Organization Address City/[facility] Co de Phone Number [facility] Department [place] [address] * eGFR (08/26/2024 10:13 PM CDT) eGFR [...] BLOOD ORDERABLES Final Result Performing Organization Address City/[facility]/ZIP Co de Phone Number [facility] Department [place] [address] * (ABNORMAL) Differential, auto (08/26/2024 10:13 PM CDT) Neutrophil abs 8.68(H) 1.50 - 6.50 K/cumm Imm gran abs 0.07 0.00 - 0.10 K/cumm [facility] Lymphocyte abs 2.28 0.80 - 3.30 K/cumm [facility] Monocyte abs 1.71(H) 0.20 - 0.80 K/cumm [facility] Eosinophil abs 0.05 0.00 - 0.50 K/cumm [facility] Basophil abs 0.03 0.00 - 0.10 K/cumm [facility] Neutrophil pct 67.8 % [facility] Comment: Interpretive Data Percent cell count reference ranges are not reported, since discordance with absolute values may lead to misinterpretation of CBC data. Current Interpretive Data was last revised on 2017. Imm gran pct 0.5 % [facility] Comment: Interpretive Data Percent cell count reference ranges are not reported, since discordance with absolute values may lead to misinterpretation of CBC data. Current Interpretive Data was last revised on 2017. Lymphocyte pct 17.8 % [facility] Comment: Interpretive Data Percent cell count reference ranges are not reported, since discordance with absolute values may lead to misinterpretation of CBC data. Current Interpretive Data was last revised on 2017. Monocyte pct 13.3 % [facility] Comment: Interpretive Data Percent cell count reference ranges are not reported, since discordance with absolute values may lead to misinterpretation of CBC data. Current Interpretive Data was last revised on 2017. Eosinophil pct 0.4 % [facility] Comment: Interpretive Data Percent cell count reference ranges are not reported, since discordance with absolute values may lead to misinterpretation of CBC data. Current Interpretive Data was last revised on 2017. Basophil pct 0.2 % [facility] Comment: Interpretive Data Percent cell count reference ranges are not reported, since discordance with absolute values may lead to misinterpretation of CBC data. Current Interpretive Data was last revised on 2017. Blood 08/26/2024 10:1 3 PM CDT 08/26/2024 11:44 PM CDT us Dyana Dominguez MD LAB BLOOD ORDERABLES Final Result [facility] Department [place] [address] * (ABNORMAL) CBC with auto differential (08/26/2024 10:13 PM CDT) [facility] WBC 12.82(H) 3.80 - 9.90 K/cumm Hgb 11.1(L) 13.0 - 17.5 g/dL [facility] Hct 31.8(L) 38.9 - 50.3 % [facility] Plt 161 150 - 400 K/cumm [facility] MPV 9.9 9.1 - 12.3 fL [facility] RBC 3.74(L) 4.30 - 5.80 M/cumm [facility] MCV 85.0 81.3 - 96.4 fL [facility] MCH 29.7 27.1 - 33.3 pg [facility] MCHC 34.9 32.3 - 35.7 g/dL [facility] RDW CV 12.7 11.1 - 14.9 % [facility] RDW SD 39.3 35.7 - 48.1 fL [facility] NRBC abs 0.00 0.00 - 0.01 K/cumm [facility] Blood 08/26/2024 10:1 3 PM CDT 08/26/2024 11:44 PM CDT us Dyana Dominguez MD LAB BLOOD ORDERABLES Final Result Performing Organization Address City/[facility] de Phone Number [facility] Department [place] [address] * Hepatitis C antibody Blood (08/26/2024 10:13 PM CDT) [facility] Hep C Ab Nonreactive Nonreactive Comment:Antibodies to HCV no t detected. Does NOT exclude the possibility of recent exposure to HCV. Current interpretive data was last revised on 22 Blood 08/26/2024 10:1 3 PM CDT 08/26/2024 11:45 PM CDT us Stacie Curry MD LAB MICROBIOLOGY - GENERA L ORDERABLES Final Result Performing Organization Address City/State/[facility] Co de Phone Number [facility] Department [place] [address] * (ABNORMAL) Hepatitis A antibody, total Blood (08/26/2024 10:13 PM CDT) Pathologist [facility] Hep A total Reactive(A ) Nonreactive Blood 08/26/2024 10:1 3 PM CDT 08/26/2024 11:45 PM CDT Stacie Curry MD LAB MICROBIOLOGY - GENERA L ORDERABLES Final Result Performing Organization Address [facility] Co de Phone Number [facility] [place] [address] * Hepatitis B core antibody, total Blood (08/26/2024 10:13 PM CDT) [facility] Hep B core IgG/IgM Nonreactive Nonreactive Blood 08/26/2024 10:1 3 PM CDT 08/26/2024 11:45 PM CDT Stacie Curry MD LAB MICROBIOLOGY - GENERA L ORDERABLES Final Result Performing Organization Address [facility] Co de Phone Number [facility] Department [place] [address] * Hepatitis B surface antibody (immune status) Blood (08/26/2024 10:13 PM CDT) Pathologist [facility] HBsAb (immune status) Reactive Comment:This result is consi stent with immunity to Hepatitis B Virus when used in the setting of routine screening. Current interpretive data was last revised on 22 HBsAb (immune status) index 29.3 mIUnits/m L [facility] Blood 08/26/2024 10:1 3 PM CDT 08/26/2024 11:45 PM CDT Stacie Curry MD LAB MICROBIOLOGY - GENERA L ORDERABLES Final Result [facility] Department [place] [address] * Hepatitis B Surface Antigen Blood (08/26/2024 10:13 PM CDT) Pathologist [facility] HepBsAg Nonreactive Nonreactive Blood 08/26/2024 10:1 3 PM CDT 08/26/2024 11:45 PM CDT us Stacie Curry MD LAB MICROBIOLOGY - GENERA L ORDERABLES Final Result Performing Organization Address City/[facility] Co de Phone Number [facility] Department [place] [address] * Basic metabolic panel (08/26/2024 10:13 PM CDT) [facility] Sodium 135 135 - 145 mmol/L Potassium, pl 4.4 3.3 - 4.9 mmol/L [facility] Chloride 100 97 - 110 mmol/L [facility] CO2 26 22 - 32 mmol/L [facility] Anion gap 9 2 - 15 mmol/L [facility] BUN 16 6 - 25 mg/dL [facility] Creatinine 1.06 0.80 - 1.30 mg/dL [facility] Glucose 108 70 - 199 mg/dL [facility] Comment: Interpretive Data Fasting glucose >/= [...] 2022. Calcium 8.8 8.5 - 10.3 mg/dL [facility] Blood 08/26/2024 10:1 3 PM CDT 08/26/2024 11:45 PM CDT us Dyana Dominguez MD LAB BLOOD ORDERABLES Final Result [facility] Department [place] [address] * TRANSTHORACIC ECHO (TTE) COMPLETE W DOPPLER/CF W CONTRAST (08/26/2024 2:51 PM CDT) Anatomical Region Laterality Modality Ultrasound 08/26/2024 1:37 PM CDT Narrative 08/28/2024 4:16 PM CDT [facility] [place] [address] Transthoracic Echocardiographic Report Patient Name: JAMSHID INTERIANO J : 1940 (83y 9m) Gender: M Study Date: 08/26/2024 01:37:55 PM Ht(Inch): 67 Wt(Lb): 151.02 BSA: 1.8 Suction Plate Carrier Cleaner: Augustina Oconnell RDCS Location: [id number] Order Provider: DYANA DOMINGUEZ Heart Rate: 71 [...] Procedure Note Cale Ruby MD - 08/28/2024 [facility] [place] [address] Transthoracic Echocardiographic Report Patient Name: JAMSHID INTERIANO J : 1940 (83y 9m) Gender: M Study Date: 08/26/2024 01:37:55 PM Ht(Inch): 67 Wt(Lb): 151.02 BSA: 1.8 Suction Plate Carrier Cleaner: Augustina Oconnell RDCS Location: [id number] Order Provider:DYANA DOMINGUEZ Heart Rate: 71 BMI: [...] LA Length 4C 5.79 cm MV Decel [id number] msec [ 104.00 - 258.00 ] LA [...] AM CDT 08/26/2024 10:43 AM CDT Gio DLE RIO [facility] - 08/30/2024 12:00 PM CDT Collection->Peripheral 1. [...] performance characteristics have been verified by the [facility] Microbiology Laboratory. For questions about this culture, contact the Microbiology Laboratory at [phone]. Interpretive data was last revised on 24. Stacie Curry MD LAB MICROBIOLOGY - GENERA L ORDERABLES Final Result Performing Organization Address [facility]/ZIP Co de Phone Number [facility] Department [place] [address] * Blood culture Blood (08/26/2024 10:30 AM CDT) Report Final Report: No growth Blood 08/26/2024 10:3 0 AM CDT 08/26/2024 10:42 AM CDT Gio DEL RIO [facility] - 08/30/2024 12:00 PM CDT Collection->Peripheral 1. [...] This assay has been cleared by the [place] Food and Drug Administration and its performance characteristics have been verified by the [facility] Microbiology Laboratory. For questions about this culture, contact the Microbiology Laboratory at [phone]. Interpretive data was last revised on 24. Stacie Curry MD LAB MICROBIOLOGY - GENERA L ORDERABLES Final Result Performing Organization Address [facility]/ZIP Co de Phone Number [facility] Department [place] [address] * XR Orthopantogram Panorex (08/26/2024 10:00 AM [...] Dominguez MD LAB BLOOD ORDERABLES Final Result [facility] Department [place] [address] * (ABNORMAL) Differential, auto (08/25/2024 8:53 PM CDT) Neutrophil abs 11.78(H) 1.50 - 6.50 K/cumm Imm gran abs 0.12(H) 0.00 - 0.10 K/cumm [facility] Lymphocyte abs 1.25 0.80 - 3.30 [facility] Monocyte abs 1.44(H) 0.20 - 0.80 K/cumm [facility] Eosinophil abs 0.02 0.00 - 0.50 K/cumm [facility] Basophil abs 0.03 0.00 - 0.10 K/cumm [facility] Neutrophil pct 80.6 % [facility] Comment: Interpretive Data Percent cell count reference ranges are not reported, since discordance with absolute values may lead to misinterpretation of CBC data. Current Interpretive Data was last revised on 2017. Imm gran pct 0.8 % [facility] Comment: Interpretive Data Percent cell count reference ranges are not reported, since discordance with absolute values may lead to misinterpretation of CBC data. Current Interpretive Data was last revised on 2017. Lymphocyte pct 8.5 % [facility] Comment: Interpretive Data Percent cell count reference ranges are not reported, since discordance with absolute values may lead to misinterpretation of CBC data. Current Interpretive Data was last revised on 2017. Monocyte pct 9.8 % [facility] Comment: Interpretive Data Percent cell count reference ranges are not reported, since discordance with absolute values may lead to misinterpretation of CBC data. Current Interpretive Data was last revised on 2017. Eosinophil pct 0.1 % [facility] Comment: Interpretive Data Percent cell count reference ranges are not reported, since discordance with absolute values may lead to misinterpretation of CBC data. Current Interpretive Data was last revised on 2017. Basophil pct 0.2 % [facility] Comment: Interpretive Data Percent cell count reference ranges are not reported, since discordance with absolute values may lead to misinterpretation of CBC data. Current Interpretive Data was last revised on 2017. Blood 08/25/2024 8:53 PM CDT 08/25/2024 10:22 PM CDT Dyana Dominguez MD LAB BLOOD ORDERABLES Final Result [facility] Department [place] [address] * Blood parasite examination Blood (08/25/2024 8:53 [...] CDT 08/25/2024 10:19 PM CDT Narrative [facility] - 08/26/2024 10:57 AM CDT Specimen was [...] L ORDERABLES Final Result Performing Organization Address City/[facility]/ZIP Co de Phone Number [facility] Department [place] [address] * (ABNORMAL) CBC with auto differential (08/25/2024 8:53 PM CDT) Pathologist [facility] WBC 14.64(H) 3.80 - 9.90 K/cumm Hgb 12.5(L) 13.0 - 17.5 g/dL [facility] Hct 36.2(L) 38.9 - 50.3 % [facility] Plt 164 150 - 400 K/cumm [facility] MPV 9.6 9.1 - 12.3 fL [facility] RBC 4.21(L) 4.30 - 5.80 M/cumm [facility] MCV 86.0 81.3 - 96.4 fL [facility] MCH 29.7 27.1 - 33.3 pg [facility] MCHC 34.5 32.3 - 35.7 g/dL [facility] RDW CV 12.8 11.1 - 14.9 % [facility] RDW SD 39.9 35.7 - 48.1 fL [facility] NRBC abs 0.00 0.00 - 0.01 K/cumm [facility] Blood 08/25/2024 8:53 PM CDT 08/25/2024 10:22 PM CDT Dyana Dominguez MD LAB BLOOD ORDERABLES Final Result [facility] Department [place] [address] * (ABNORMAL) Erythrocyte sedimentation rate (08/25/2024 8:53 PM CDT) Erythrocyte sedimentation rate 21(H) 1 - 20 mm/hr Blood 08/25/2024 8:53 PM CDT 08/25/2024 10:22 PM CDT Dyana Dominguez MD LAB BLOOD ORDERABLES Final Result [facility] Department [place] [address] * (ABNORMAL) CRP (acute phase) (08/25/2024 8:53 PM CDT) Pathologist [facility] CRP 103.9(H) <=10.0 mg/L Blood 08/25/2024 8:53 PM CDT 08/25/2024 10:23 PM CDT Dyana Dominguez MD LAB BLOOD ORDERABLES Final Result Performing Organization Address [facility] Co de Phone Number [facility] [place] [address] * Basic metabolic panel (08/25/2024 8:53 PM CDT) Pathologist [facility] Sodium 136 135 - 145 mmol/L Potassium, pl 4.3 3.3 - 4.9 mmol/L [facility] Chloride 100 97 - 110 mmol/L [facility] CO2 25 22 - 32 mmol/L [facility] Anion gap 11 2 - 15 mmol/L [facility] BUN 18 6 - 25 mg/dL [facility] Creatinine 0.91 0.80 - 1.30 mg/dL [facility] Glucose 95 70 - 199 mg/dL [facility] Comment: Interpretive Data Fasting glucose >/= [...] 2022. Calcium 9.2 8.5 - 10.3 mg/dL [facility] Blood 08/25/2024 8:53 PM CDT 08/25/2024 10:23 PM CDT us Dyana Dominguez MD LAB BLOOD ORDERABLES Final Result Performing Organization Address City/[facility]/ZIP Co de Phone Number [facility] Department [place] [address] * Urinalysis reflex to microscopic and culture Urine (08/25/2024 7:45 PM CDT) Color, ur Straw Yellow Clarity, ur Clear Clear [facility] Specific gravity, ur 1.012 1.003 - 1.030 [facility] pH, urine 7.5 [facility] Comment: Interpretive Data U rine pH is affected by diet, medications, systemic acid-base disturbances, and renal tubular function. pH may affect urinary stone formation. For example, urine pH below 6.0 may help reduce the tendency for calcium phosphate stones and pH greater than 6.0 may reduce the tendency for uric acid stone formation. Source: [facility] Current Interpretive Data was last revised on 2017 Protein, ur ql Negative Negative [facility] Glucose, ur ql Negative Negative [facility] Ketones, ur Negative Negative [facility] Bilirubin, ur Negative Negative [facility] Blood, ur Negative Negative [facility] Urobilinogen, ur <2.0 <2.0 mg/dL [facility] Nitrite, ur Negative Negative [facility] Leukocyte esterase, ur Negative Negative [facility] HOSPITAL UA reflex comment Reflex conditions for microscopic UA and culture not met. [facility] Urine 08/25/2024 7:45 PM CDT 08/25/2024 7:51 PM CDT us Carey Ayala MD LAB MICROBIOLOGY - GEN ERAL ORDERABLES Final Result Performing Organization Address City/[facility]/ZIP Co de Phone Number [facility] Department [place] [address] * XR Chest 1 View (08/25/2024 4:49 [...] by: Lan Vitale M.D. us Neida Hutchinson PRODUCTION UNDERWRITER IMG XR PROCEDURES Final Res ult * [...] MD LAB BLOOD ORDERABLES F inal Result [facility] Department [place] [address] * Thyroid Function Timpson (08/25/2024 1:48 PM CDT) [facility] TSH 1.50 0.30 - 4.20 mcIUnit/mL Blood 08/25/2024 1:48 PM CDT 08/25/2024 2:01 PM CDT Carey Ayala MD LAB BLOOD ORDERABLES F inal Result Performing Organization Address [facility] Co de Phone Number [facility] [place] [address] * Extra slide preparation (08/25/2024 1:48 PM CDT) [facility] Extra slide prep Slide available for pickup from the lab. Blood 08/25/2024 1:48 PM CDT 08/25/2024 2:01 PM CDT Carey Ayala MD LAB BLOOD ORDERABLES F inal Result Performing Organization Address [facility] Co de Phone Number [facility] Department [place] [address] * Respiratory pathogen panel Nasopharyngeal (08/25/2024 1:48 PM CDT) [facility] Influenza A RNA Not Detected Not Detected Influenza B RNA Not Detected Not Detected [facility] RSV RNA Not Detected Not Detected [facility] COVID-19 RNA Not Detected Not Detected [facility] Coronavirus 229E RNA Not Detected Not Detected [facility] Coronavirus HKU1 RNA Not Detected Not Detected [facility] Coronavirus NL63 RNA Not Detected Not Detected [facility] Coronavirus OC43 RNA Not Detected Not Detected [facility] Adenovirus DNA Not Detected Not Detected [facility] Metapneumovirus RNA Not Detected Not Detected [facility] Rhinovirus/Enterov irus RNA Not Detected Not Detected [facility] Parainfluenza 1 RNA Not Detected Not Detected [facility] Parainfluenza 2 RNA Not Detected Not Detected [facility] Parainfluenza 3 RNA Not Detected Not Detected [facility] Parainfluenza 4 RNA Not Detected Not Detected [facility] B. pertussis DNA Not Detected Not Detected [facility] B. parapertussis DNA Not Detected Not Detected [facility] C. pneumoniae DNA Not Detected Not Detected [facility] M. pneumoniae DNA Not Detected Not Detected [facility] Nasopharyngeal 08/25/2024 1: 48 PM CDT 08/25/2024 2:37 PM CDT Narrative CERN[facility] - 08/25/2024 4:29 PM CDT Is the Patient experiencing symptoms consistent with COVID?->Yes Surveillance testing for transplant patient?->No Interpretive Data The KLab FilmArray Respiratory Panel (RP2.1) assay is a [...] assay has FDA clearance for testing of PRODUCTION UNDERWRITER swabs. The performance of additional specimen types has been assessed by the performing laboratory. The performance characteristics of this assay have been determined by [facility] Molecular Infectious Disease Laboratory. Current interpretive data was last revised on 22. us Carey Ayala MD LAB MICROBIOLOGY - GEN ERAL ORDERABLES Final Result [facility] Department [place] [address] * (ABNORMAL) Blood culture Blood Peripheral (08/25/2024 1:48 PM CDT) Direct Specimen Exam Stain: Gram Positive Cocci in pairs and chains Time to culture positivity (anaerobic media): 12.6 hours Time to culture positivity (aerobic media): 14.4 hours Report Final Report: Streptococcus sanguinis (S. mitis group) Streptococcus sanguinis (S. mitis group) #2 For susceptibility results, refer to accession number [id number] on the blood culture from 08/24/2024 (.) [facility] Organism STREPTOCOCCUS SANGUINIS (S. MITIS GROUP) [facility] Organism STREPTOCOCCUS SANGUINIS (S. MITIS GROUP) [facility] Blood (Peripheral) 08/25/2024 1:48 PM CDT 08/25/2024 2:27 PM CDT Narrative [facility] - 08/29/2024 1:54 PM CDT From a [...] performance characteristics have been verified by the [facility] Microbiology Laboratory. For questions about this culture, contact the Microbiology Laboratory at [phone]. Interpretive data was last revised on 24. Carey Ayala MD LAB MICROBIOLOGY - GEN ERAL ORDERABLES Final Result [facility] Department [place] [address] * (ABNORMAL) Blood culture Blood Peripheral (08/25/2024 1:48 PM CDT) Direct Specimen Exam Stain: Gram Positive Cocci in pairs and chains Time to culture positivity (aerobic media): 14.8 hours Time to culture positivity (anaerobic media): 11.6 hours Report Final Report: Streptococcus sanguinis (S. mitis group) Streptococcus sanguinis (S. mitis group) #2 For susceptibility results, refer to accession number [id number] on the blood culture from 08/24/2024 (.) [...] performance characteristics have been verified by the [facility] Microbiology Laboratory. For questions about this culture, contact the Microbiology Laboratory at [phone]. Interpretive data was last revised on 24. Carey Ayala MD LAB MICROBIOLOGY - GEN ERAL ORDERABLES Final Result [facility] Department [place] [address] * eGFR (08/24/2024 10:33 AM CDT) Pathologist [facility] eGFR 87 >=60 mL/min/1. 73 m2 Comment: [...] MD LAB BLOOD ORDERABLES F inal Result [facility] [address] Department [place] [address] * (ABNORMAL) Differential, auto (08/24/2024 10:33 AM CDT) Neutrophil abs 12.53(H) 1.50 - 6.50 K/cumm Imm gran abs 0.08 0.00 - 0.10 K/cumm [facility] Lymphocyte abs 1.25 0.80 - 3.30 K/cumm [facility] Monocyte abs 1.16(H) 0.20 - 0.80 K/cumm [facility] Eosinophil abs 0.01 0.00 - 0.50 K/cumm [facility] Basophil abs 0.02 0.00 - 0.10 K/cumm [facility] Neutrophil pct 83.3 % [facility] Comment: Interpretive Data Percent cell count reference ranges are not reported, since discordance with absolute values may lead to misinterpretation of CBC data. Current Interpretive Data was last revised on 2017. Imm gran pct 0.5 % [facility] Comment: Interpretive Data Percent cell count reference ranges are not reported, since discordance with absolute values may lead to misinterpretation of CBC data. Current Interpretive Data was last revised on 2017. Lymphocyte pct 8.3 % [facility] Comment: Interpretive Data Percent cell count [...] MD LAB BLOOD ORDERABLES F inal Result [facility] [address] [address] Department [place] [address] * Ehrlichia and Anaplasma PCR Blood (08/24/2024 10:33 AM CDT) Ehrlichia species DNA Not Detected Not Detected [facility] Comment:Testing performed by : [facility], [address] [place] [address], [place]., [address] Anaplasma Phagocytophilum DNA Not Detected Not Detected [...] Food and Drug Administration. Testing performed by: [facility], [address] [place]., [address] Blood 08/24/2024 10:3 3 AM CDT 08/25/2024 10:12 AM CDT London Santos MD LAB MICROBIOLOGY - GEN ERAL ORDERABLES Final Result Performing Organization Address [facility]/ZIP Co de Phone Number [facility] [address] Department [place] [place] [address] [facility] * HIV 1/2 Antibody plus p24 Antigen Blood (08/24/2024 10:33 AM CDT) Pathologist [facility] HIV 1/2 ab + p24 ag Nonreactive Nonreactive Comment: Nonreactive for HIV-1 antigen and HIV-1/HIV-2 antibodies. No laboratory evidence of HIV infection. If acute HIV infection is suspected, consider testing for HIV-1 RNA. Blood 08/24/2024 10:3 3 AM CDT 08/24/2024 3:35 PM CDT London Santos MD LAB MICROBIOLOGY - GEN ERAL ORDERABLES Final Result Performing Organization Address [facility] Co de Phone Number [facility] [address] Department [employer] [place], [place] [id number] * (ABNORMAL) CBC with auto differential (08/24/2024 10:33 AM CDT) [facility] WBC 15.05(H) 3.80 - 9.90 K/cumm Hgb 11.8(L) 13.0 - 17.5 g/dL [facility] Hct 35.6(L) 38.9 - 50.3 % [facility] Plt 165 150 - 400 K/cumm [facility] MPV 9.5 9.1 - 12.3 fL [facility] RBC 3.94(L) 4.30 - 5.80 M/cumm [facility] MCV 90.4 81.3 - 96.4 fL [facility] MCH 29.9 27.1 - 33.3 pg [facility] MCHC 33.1 32.3 - 35.7 g/dL [facility] RDW CV 12.8 11.1 - 14.9 % [facility] RDW SD 43.0 35.7 - 48.1 fL [facility] NRBC abs 0.00 0.00 - 0.01 K/cumm [facility] Blood 08/24/2024 10:3 3 AM CDT 08/24/2024 7:01 PM CDT London Santos MD LAB BLOOD ORDERABLES F inal Result Performing Organization Address City/[facility]/ZIP Co de Phone Number [facility] [address] [address] Department [place] [address] * (ABNORMAL) Shahana-Ramirez virus (EBV) antibody panel Blood (08/24/2024 10:33 AM CDT) EBV nuclear Ab Positive(A) Negative Comment: Indicates the presence of detectable IgG antibody to EBV Nuclear Antigen. Testing performed by: [facility], [address] [place] [address]., [address] EBV VCA IgG Positive(A) Negative [facility] Comment: Indicates the presence of antibody; 90% of the adult population will have been infected with EBV sometime in the past. Testing performed by: [facility], [address] [place]., [address] EBV VCA IgM Negative Negative [facility] Comment: No detectable IgM antibody to EBV-VCA. A negative result indicates no current infection with EBV. If clinical suspicion of acute EBV infection is present, testing should be repeated after one week. Testing performed by: [facility], [address] [place]., [address] EBV interp Past Infection [facility] Comment:Testing performed by : [address] [address] Blood 08/24/2024 10:3 3 AM CDT 08/25/2024 10:06 AM CDT London Santos MD LAB MICROBIOLOGY - GEN ERAL ORDERABLES Final Result [facility] [address] Department [place] [address] * (ABNORMAL) Blood culture Blood (08/24/2024 10:33 AM CDT) Direct Specimen Exam Molecular Analysis: Streptococcus species detected by [facility] BCID-GP panel. This test does not exclude the possibility of a mixed bacterial infection. Comment:Testing performed by : [facility], [address] [place] [address]., [address] Direct Specimen Exam Stain: Gram Positive Cocci in pairs and chains Time to culture positivity (anaerobic media): 11.5 hours Time to culture positivity (aerobic media): 12.5 hours [facility] Comment:Testing performed by : [facility], [address] [place] [address]., [address] Report Final Report: Streptococcus sanguinis (S. mitis group) Organism failed to grow adequately for susceptibility testing. Streptococcus sanguinis (S. mitis group) #2 Organism failed to grow adequately for susceptibility testing. (.) [facility] Comment:Testing performed by : [facility], [address] [place] [address]., [address] Organism STREPTOCOCCUS SANGUINIS (S. MITIS GROUP) [facility] Organism STREPTOCOCCUS SANGUINIS (S. MITIS GROUP) [facility] Blood 08/24/2024 10:3 3 AM CDT 08/24/2024 8:33 PM CDT [facility]ative [facility] - 08/31/2024 2:04 PM CDT 1. [...] performance characteristics have been verified by the [facility] Microbiology Laboratory. For questions about this culture, contact the Microbiology Laboratory at [phone]. Interpretive data was last revised on 24. us London aSntos MD LAB MICROBIOLOGY - GEN ERAL ORDERABLES Final Result [facility] [address] Department [place] [address] * (ABNORMAL) Blood culture Blood (08/24/2024 10:33 AM CDT) Direct Specimen Exam Molecular Analysis: Streptococcus species detected by [facility] BCID-GP panel. This test does not exclude the possibility of a mixed bacterial infection. Notification of: Streptococcus species called to and read back by: Dynaa Ramos MT [phone] on 08/25/2024 10:01:01 by: Diony Pineda MLS * * * * * * * * * * * * * * * * * * * * Test result called to and read back by Hannah Smiley on 08/25/2024 10:24:37 by Dyana Ramos MT Comment:Testing performed by : [facility], [address] [place]., [address] Direct Specimen Exam Stain: Gram Positive Cocci [...] by CAMI Falcon Comment:Testing performed by : [facility], [address] [place]., [address] Report Final Report: Streptococcus sanguinis (S. mitis group) Streptococcus sanguinis (S. mitis group) #2 For susceptibility results, refer to accession number [id number] on the blood culture from 08/24/2024 (.) [facility] Comment:Testing performed by : [facility], [address] [place]., [address] Organism STREPTOCOCCUS SANGUINIS (S. MITIS GROUP) [facility] Organism STREPTOCOCCUS SANGUINIS (S. MITIS GROUP) [facility] Blood 08/24/2024 10:3 3 AM CDT 08/24/2024 8:33 PM CDT Narrative [facility] - 08/28/2024 9:50 AM CDT 1. [...] performance characteristics have been verified by the [facility] Microbiology Laboratory. For questions about this culture, contact the Microbiology Laboratory at [phone]. Interpretive data was last revised on 24. London Santos MD LAB MICROBIOLOGY - GEN ERAL ORDERABLES Final Result Performing Organization Address City/[facility]/ZIP Co de Phone Number [facility] [address] Department [place] [address] * (ABNORMAL) Comprehensive metabolic panel (08/24/2024 10:33 [...] ORDERABLES F inal Result Performing Organization Address [facility]/ZIP Co de Phone Number [facility] [address] Department [place] [address] * (ABNORMAL) Haptoglobin (08/19/2024 1:54 PM CDT) Pathologist [facility] Haptoglobin 220(H) 43 - 212 mg/dL [facility] Blood 08/19/2024 1:54 PM CDT 08/20/2024 8:34 AM CDT Rin Ramos NP LAB BLOOD ORDERABLES F inal Result Performing Organization Address City/[facility]/ZIP Co de Phone Number [facility] [address] [place] [address] * Ehrlichia detection PCR (08/18/2024 9:56 AM CDT) [facility] E. chaffeensis DNA NOT DETECTED [facility], Comment: REFERENCE RANGE: NOT DETECTED This test was developed and its analytical performance characteristics have been determined by [facility]. It has not been cleared or approved by FDA. This assay has been validated pursuant to the CLIA regulations and is used for clinical purposes. 08/18/2024 9:56 AM CDT 08/18/2024 9:57 AM CDT Rin Ramos NP LAB MICROBIOLOGY - GEN ERAL ORDERABLES Final Result Performing Organization Address City/[facility]/ZIP Co de Phone Number [facility], [address] [place] [address] * (ABNORMAL) CBC with auto differential (08/18/2024 9:56 AM CDT) Pathologist [facility] WBC 14.2(H) 3.8 - 10.8 Thousand/ uL [...] 08/18/2024 9:57 AM CDT us Rin Ramos PRODUCTION UNDERWRITER LAB BLOOD ORDERABLES F inal Result [facility] [address] [place] [address] * (ABNORMAL) Iron profile w/ IBC (08/17/2024 3:04 PM CDT) Iron 21.9(L) 59.0 - 158.0 ug/dL [facility] Total Iron Binding Capacity 206.5 ug/dL [facility] Unsaturated Iron Binding Capacity 184.6 112.0 - 346.0 ug/dL [facility] % Iron Saturation 10.6(L) 25.0 - 45.0 % [facility] Blood 08/17/2024 3:04 PM CDT 08/17/2024 3:07 PM CDT Rin Ramos PRODUCTION UNDERWRITER LAB BLOOD ORDERABLES F inal Result Performing Organization Address [facility]/ZIP Co de Phone Number [address] [address] * Vitamin D 25 hydroxy (08/17/2024 3:04 PM CDT) Vitamin D 54.07 >29.00 ng/ml [facility] Blood 08/17/2024 3:04 PM CDT 08/17/2024 3:07 PM CDT Rin Ramos PRODUCTION UNDERWRITER LAB BLOOD ORDERABLES F inal Result Performing Organization Address [facility] Co de Phone Number [address] [address] * Folate (08/17/2024 3:04 PM CDT) Folate 13.3 4.5 - 37.3 ng/mL [facility] Blood 08/17/2024 3:04 PM CDT 08/17/2024 3:07 PM CDT Rin Ramos PRODUCTION UNDERWRITER LAB BLOOD ORDERABLES F inal Result Performing Organization Address [facility] Co de Phone Number [address] [address] * (ABNORMAL) Ferritin (08/17/2024 3:04 PM CDT) Ferritin 472.60(H) 30.00 - 400.00 ng/mL [facility] Blood 08/17/2024 3:04 PM CDT 08/17/2024 3:07 PM CDT Rin Ramos PRODUCTION UNDERWRITER LAB BLOOD ORDERABLES F inal Result [facility] [address] [place] [address] * (ABNORMAL) Comprehensive metabolic panel (08/17/2024 3:04 PM CDT) [facility] Glucose 103 74 - 200 mg/dL [facility] BUN 17(L) 18 - 23 mg/dL [facility] Creatinine 1.0 0.7 - 1.3 mg/dL [facility] eGFR 71 mL/min/1.7 3m2 [facility] BUN/Creat Ratio 17 Ratio [facility] Bilirubin, Total 0.5 0.0 - 1.2 mg/dL [facility] AST (SGOT) 18 0 - 40 U/L [facility] ALT (SGPT) 15 10 - 50 U/L [facility] Alkaline phosphatase 95 40 - 129 U/L [facility] Calcium 9.1 8.8 - 10.2 mg/dL [facility] Sodium 130(L) 135 - 145 mEq/L [facility] Potassium 5.4(H) 3.5 - 5.1 mEq/L [facility] Chloride 97(L) 98 - 107 mEq/L [facility] CO2 26.2 22.0 - 32.0 mEq/L [facility] Anion Gap 7 3 - 12 mEq/L [facility] Total Protein 6.3 6.0 - 8.1 g/dL [facility] Albumin 3.8 3.5 - 5.2 g/dL [facility] Globulin 2.5 g/dL [facility] Albumin/Globulin 1.5 Ratio [facility] Blood 08/17/2024 3:04 PM CDT 08/17/2024 3:07 PM CDT Rin Ramos PRODUCTION UNDERWRITER LAB BLOOD ORDERABLES F inal Result [facility] [address] [place] [address] * COVID-19 POC (08/17/2024 2:40 PM CDT) COVID-19 RNA PCR POC Negative Not Detected, Negative, Undetected [facility] Nasal 08/17/2024 2:40 PM CDT Rin Ramos NP POINT OF CARE TEST ORD ERABLES Final Result [facility] [address] [facility] [place] [address], [facility] * POCT influenza A/B (08/17/2024 2:34 PM CDT) Pathologist [facility] Rapid Influenza A Ag Negative Negative, Invalid [...] PROCEDURES Fin al Result * Thyroid Function Timpson (08/04/2024 9:23 AM CDT) TSH 2.80 0.27 - 4.20 uIU/mL [facility] Blood 08/04/2024 9:23 AM CDT 08/04/2024 9:31 AM CDT Rin Ramos PRODUCTION UNDERWRITER LAB BLOOD ORDERABLES F inal Result [facility] [address] [place] [address] * (ABNORMAL) CBC with auto differential (08/04/2024 9:23 AM CDT) WBC 11.4(H) 3.5 - 10.0 K/uL [facility] RBC 4.42(L) 4.60 - 6.20 M/uL [facility] Hemoglobin 13.7(L) 13.9 - 17.7 g/dL [facility] Hematocrit 38.5 35.0 - 55.0 % [facility] MCV 87.0 75.0 - 100.0 fL [facility] MCH 30.90 25.00 - 35.00 pg [facility] MCHC 35.60 31.00 - 38.00 g/dL [facility] RDW 13.0 11.0 - 16.0 % [facility] Platelets 191 140 - 400 K/uL [facility] MPV 8.4 8.0 - 11.0 fL [facility] Granulocyte, Absolute 8.9(H) 1.2 - 8.0 K/uL [facility] Lymphocyte, Absolute 1.9 0.5 - 5.0 K/uL [facility] Monocyte, Absolute 0.6 0.1 - 1.5 K/uL [facility] Granulocyte, Percentage 78.3 35.0 - 80.0 % [facility] Lymphocyte, Percentage 16.8 15.0 - 50.0 % [facility] Monocyte, Percentage 4.9 2.0 - 15.0 % [facility] Blood 08/04/2024 9:23 AM CDT 08/04/2024 9:31 AM CDT Rin Ramos PRODUCTION UNDERWRITER LAB BLOOD ORDERABLES F inal Result Performing Organization Address City/[facility]/ZIP Co de Phone Number [facility] [address] [place] [address] * (ABNORMAL) Vitamin B12 (08/04/2024 9:23 AM CDT) Vitamin B12 1,501(H) 232 - 1,245 pg/mL [facility] Blood 08/04/2024 9:23 AM CDT 08/04/2024 9:31 AM CDT Rin Ramos PRODUCTION UNDERWRITER LAB BLOOD ORDERABLES F inal Result Performing Organization Address [facility] Co de Phone Number [address] [address] * (ABNORMAL) Basic metabolic panel (08/04/2024 9:23 AM CDT) Glucose 100 74 - 200 mg/dL [facility] BUN 13(L) 18 - 23 mg/dL [facility] Creatinine 0.9 0.7 - 1.3 mg/dL [facility] BUN/Creat Ratio 13 Ratio [facility] eGFR 76 mL/min/1.7 3m2 [facility] Calcium 8.9 8.8 - 10.2 mg/dL [facility] Sodium 131(L) 135 - 145 mEq/L [facility] Potassium 4.7 3.5 - 5.1 mEq/L [facility] Chloride 96(L) 98 - 107 mEq/L [facility] CO2 25.9 22.0 - 32.0 mEq/L [facility] Anion Gap 9 3 - 12 mEq/L [facility] Blood 08/04/2024 9:23 AM CDT 08/04/2024 9:31 AM CDT Rin Ramos PRODUCTION UNDERWRITER LAB BLOOD ORDERABLES F inal Result Performing Organization Address City/[facility]/ZIP Co de Phone Number [address] [address] from Last 3 Months Insurance [facility] MEDICARE T MEDICARE [facility] MEDICARE Advance Directives For more information, please contact: [phone] Documents on File Type Date Recorded 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
--- OUTSIDE RECORDS SUMMARY | 2024-10-30 09:27 | XMS_ITS | Clinical Summary ---
Author Organization [facility] Address [address] [place] [address] Care Team Providers Care Architecture Professor Name Role Phone London Santos MD Primary Care Provider Source Comments [facility],non-owned Affiliates and Associated Physician Practices is amultiple site organization consisting of ambulatory clinics and hospital sitesin [place] and [place]. This disclosure is being madepursuant to the Care Everywhere program and may not contain all information available regarding this patient. Last updated 18.[facility] Sharecare Social History Tobacco Use Types Packs/Day Years [...] topic Insurance [employer] MEDICARE ADV Care Teams Architecture Professor Relationship Specialty Start Date End Date London Santos MD [address] [place] [address] PCP - General Internal Medicine 10/17/22
--- OUTSIDE RECORDS SUMMARY | 2024-10-30 09:27 | XMS_ITS | Encounter Summary ---
Author Organization [facility] Address [address] [place] [address] Phone Care Team Providers Care Line Out Man Name Role Phone London Santos MD Primary Care Provider Avery Ulloa MD Unavailable Lucy Robbins MD Unavailable Madhuri Ferreira MD Unavailable [phone] Encounter Details Date Type Department Care Team (Late st Contact Info) Description 08/30/2024 Documentation [facility] Infectious Diseases [address] [place] [address] [address] [place] [address] Gilda Vargas, CECIL [address] [facility] [address] [place] [address] Social History Tobacco Use Types [...] on file 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 Gender Identity Male 01/25/2019 8:02 AM CDT Sexual Orientation Not on file 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 Not on file Not on file Not on fi le documented as of this encounter Plan of Treatment Not on file documented as of this encounter Visit Diagnoses Not on filedocumented in this encounter Additional Health Concerns Infection Onset Date Last Indicated Resolved Time COVID: Suspected 10/17/2024 10/17/2024 10/17/2024 3:15 PM CDT documented as of this encounter Care Teams Line Out Man Relationship Specialty Start Date End Date London Santos MD PCP - General Internal Medicine 01/09/22 Avery Ulloa MD [address] [place] [address] Referring Physician Cardiology 07/25/22 Lucy Robbins MD [address] [place] [address] Cardiothoracic Surgery 10/17/22 Madhuri Ferreira MD [address] [place] [address] Consulting Physician Cardiology 10/17/22 documented as of this encounter
--- OUTSIDE RECORDS SUMMARY | 2024-10-30 09:27 | XMS_ITS | Encounter Summary ---
Author Organization [facility] Address [address] [place] [address] Care Team Providers Care Highway 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 Inspector Name Role Phone London Santos MD Primary Care Provider Avery Ulloa MD Unavailable [phone] Lucy Robbins MD Unavailable [phone] Madhuri Ferreira MD Unavailable [phone] Encounter Details Date Type Department Care Team (Late st Contact Info) Description 10/17/2024 Results Follow-Up [facility] [place] [address] [place] [address] Mora Camacho SOIL SURVEYOR [address] [facility] [address] [place] [address] Influenza A/B, RSV, and COVID-19 PCR Nasopharyngeal Social History Tobacco Use Types Packs/Day Years Used Date Smoking Tobacco: Never Passive Smoke Exposure: Never Smokeless Tobacco: Never Alcohol Use Standard Drinks/Week Comments Yes 1 (1 standard drink = 0.6 oz pur e alcohol) 1 - 2 per day [facility] Utilities Answer Date Recorded In the past 12 months has [employer], gas, oil, or water [email or web address] threatened to shut off services in your [...] often do you attend chur ch or voodoo services? Never 09/11/2024 Do you belong to any clubs o r organizations such as protestant groups, unions, fraternal or athletic groups, or [...] staff should administer the PHQ-9) 0 09/11/2024 [facility] - Occupational [...] time in the past 12 m [facility], were you homeless or living in a chcf (including now)? No 09/11/2024 Personal Safety Answer Date Recorded Have you ever been in or are you currently in a harmful physical or emotional relationship or is someone making you feel afraid or unsafe? 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 Not on file Not on file Not on fi le documented as of this encounter Plan of Treatment Not on file documented as of this encounter Visit Diagnoses Not on filedocumented in this encounter Additional Health Concerns Infection Onset Date Last Indicated Resolved Time COVID: Suspected 10/17/2024 10/17/2024 10/17/2024 3:15 PM CDT documented as of this encounter Care Teams Highway 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 Inspector Relationship Specialty Start Date End Date London Sanots MD PCP - General Internal Medicine 01/09/22 Avery Ulloa MD [address] [place] [address] Referring Physician Cardiology 07/25/22 Lucy Robbins MD [address] [place] [address] Cardiothoracic Surgery 10/17/22 Madhuri Ferreira MD [address] [place], [place] [id number] Consulting Physician Cardiology 10/17/22 documented as of this encounter
--- OUTSIDE RECORDS SUMMARY | 2024-10-30 09:27 | XMS_ITS | Encounter Summary ---
Author Organization [facility] Address [address] [place] [address] Phone Care Team Providers Care Professor Of Religious Studies Name Role Phone London Santos MD Primary Care Provider Avery Ulloa MD Unavailable Lucy Robbins MD Unavailable Madhuri Ferreira MD Unavailable [phone] Encounter Details Date Type Department Care Team (Late st Contact Info) Description 09/05/2024 Results Follow-Up [facility] [address] [place] [address] London Santos MD [address] [address] CBC with auto differential, Basic metabolic panel Social History Tobacco Use Types Packs/Day Years Used Date Smoking Tobacco: Never Smokeless Tobacco: Never Alcohol Use Standard Drinks/Week Comments Yes 1 (1 standard drink = 0.6 oz pur e alcohol) 1 - 2 per day [facility] Utilities Answer Date Recorded In the past 12 months has e [employer], gas, oil, or water [employer] threatened to shut off services in your [...] How often do you attend chur or yazidism services? Patient unable to answer 09/09/2024 Do you belong to any clubs o r organizations such as yarsani groups, unions, fraternal or athletic groups, or [...] staff should administer the PHQ-9) 0 09/05/2024 [facility] - [facility] Stress Questionnaire Answer Date [...] were you homeless or living in a jail (including now)? Patient unable to answer 09/09/2024 Personal Safety Answer Date Recorded Have you ever been in or are you currently in a harmful physical or emotional relationship or is someone making you feel afraid or unsafe? 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
--- OUTSIDE RECORDS SUMMARY | 2024-10-30 09:27 | XMS_ITS | Encounter Summary ---
Author Organization [facility] Address [address] [place] [address] Phone Care Team Providers Care Barrel Assembly Inspector Name Role Phone London Santos MD Primary Care Provider Avery Ulloa MD Unavailable [phone] Lucy Robbins MD Unavailable Madhuri Ferreira MD Unavailable [phone] Encounter Details Date Type Department Care Team (Late st Contact Info) Description 10/06/[address] [facility] Infectious Diseases [address] [place] [address] [address] [place] [address] [facility] ROXANE Olivas Social History Tobacco Use Types Packs/Day Years Used Date Smoking Tobacco: Never Smokeless Tobacco: Never Alcohol Use Standard Drinks/Week Comments Yes 1 (1 standard drink = 0.6 oz pur e alcohol) 1 - 2 per day [facility] Utilities Answer Date Recorded In the past 12 months has [employer], gas, oil, or water [employer] threatened to shut off services in your [...] often do you attend chur ch or amish services? Never 09/11/2024 Do you belong to any clubs o r organizations such as hoahaoism groups, unions, fraternal or athletic groups, or [...] staff should administer the PHQ-9) 0 09/11/2024 [facility] - Occupational Stress [...] time in the past 12 m [facility], were you homeless or living in a long term (including now)? No 09/11/2024 Personal Safety Answer Date Recorded Have you ever been in or are you currently in a harmful physical or emotional relationship or is someone making you feel afraid or unsafe? 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 Please advise. YANDEL [facility] [phone] documented in this encounter Plan of Treatment Not on file documented as of this encounter Visit Diagnoses Not on filedocumented in this encounter Additional Health Concerns Infection Onset Date Last Indicated Resolved Time COVID: Suspected 10/17/2024 10/17/2024 10/17/2024 3:15 PM CDT documented as of this encounter Care Teams Barrel Assembly Inspector Relationship Specialty Start Date End Date London Santos MD PCP - General Internal Medicine 01/09/22 Avery Ulloa MD [address] [place] [address] Referring Physician Cardiology 07/25/22 Lucy Robbins MD [address] [place] [address] Cardiothoracic Surgery 10/17/22 Madhuri Ferreira MD [address] [place] [address] Consulting Physician Cardiology 10/17/22 documented as of this encounter
--- OUTSIDE RECORDS SUMMARY | 2024-10-30 09:28 | XMS_ITS | Clinical Summary ---
Author Organization [facility] D Address [address] [place] [phone] Care Team Providers Care Bar Assistant Name Role Phone London Santos MD Primary Care Provider Avery Ulloa MD Unavailable [phone] Lucy Robbins MD Unavailable [phone] Madhuri Ferreira MD Unavailable [phone] Allergies No known active allergies Medications [...] cyst Assessment & Plan (07/11/2020 12:37 PM PRIVATE DETECTIVE): We will cover w/ Abx and refer to see if excision warranted Assessment & Plan (05/10/2020 9:37 AM PRIVATE DETECTIVE): Likely inflammed from squeezing. 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 Nicardipine gtts started [...] in Epic but I originally identified in [id number] and have been proactively following and monitoring. He still has likely a CT angio and L HC to complete. Hyperlipidemia 06/13/2013 03/01/2021 Encounters Date Type Department Care Team Description 10/25/2024 3:20 PM CDT Office Visit [facility] [address] [place] [address] [address] [place] [address] London Santos MD Chronic tension-type headache, intractable (Primary Dx); Subacute bacterial endocarditis 10/24/2024 Telephone [facility] Cardiology [address] [facility] Medical Office Building [address] [place] [phone] Avery Ulloa MD JESSICA 10/20/2024 Documentation [facility] Infectious Diseases [address] [facility] [address] [place] [phone] Alexandr Lopez MD 10/19/2024 3:25 PM CDT - 10/19/2024 11:59 PM CDT Hospital Encounter [facility] [address] [place] [address] Discharge Disposition: Discharge to home or self care 10/19/2024 2:20 PM CDT Office Visit [facility] Infectious Diseases [address] [facility] [address] [place] [phone] Cinthia Godoy NP Bacteremia 10/19/2024 Telephone [facility] [address] [place] [address] [address] [place] [phone] London Santos MD 10/17/2024 1:55 PM CDT - 10/17/2024 11:59 PM CDT Hospital Encounter [address] [place] [address] Episodic cluster headache, not intractable; Fatigue, unspecified type Discharge Disposition: Discharge to home or self care 10/17/2024 10:00 AM CDT Office Visit [facility] at [address] [phone] Mora Camacho NP Episodic cluster headache, not intractable (Primary Dx); Fatigue, unspecified type 10/17/2024 Results Follow-Up [facility] at [address] [phone] Mora Camacho NP Influenza A/B, RSV, and COVID-19 PCR Nasopharyngeal 10/10/2024 2:30 PM CDT Office Visit [facility] Cardiology [address] [facility] [address] [place] [address] Avery Ulloa MD Subacute bacterial endocarditis (Primary Dx); S/P TAVR (transcatheter aortic valve replacement); Hypertension; Dyslipidemia; 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; 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 Telephone [facility] Infectious Diseases [address] [place] [address] [place] [phone] [facility] 10/03/2024 Orders Only [facility] Infectious Diseases [address] [place] [address] [place] [phone] Cinthia Godoy NP Bacteremia (Primary Dx) 10/03/2024 Telephone [facility] Infectious Diseases [address] [place] [address] [place] [phone] [facility] [place] 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 1 [place] [address] Elias Roblero MD Eddins, Daniel Raymond, CRNA 09/13/2024 Documentation [facility] Infectious Diseases [address] [facility] [address] [place] [address] Melinda Christianson MD OPAT Sign-Off 09/12/2024 8:45 AM CDT Ancillary Procedure [facility] Vascular Lab IP 1 [facility] [address] [place] [address] 09/08/2024 Telephone [facility] Cardiology [facility] Advanced Medicine 8th Floor [address] [place] [phone] Kanika Viveros 09/06/2024 6:51 PM CDT - 09/15/2024 2:47 PM CDT Hospital Encounter [address] [phone] Olivier Lovell MD Heath, Krysta Lynn, MD Mendelsohn, Marc, MD Lee, Eileen May, MD Leukocytosis, unspecified type (Primary Dx); History of endocarditis; History of bacteremia; Palpitations; Bacteremia; Endocarditis determined by echocardiography Discharge Disposition: Discharge to home or self care 09/06/[address] [address] London Santos MD 09/05/2024 1:00 PM CDT Office Visit [address] [phone] London Santos MD Bacteremia (Primary Dx); 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 [address] [place] [phone] Mary Ortiz, [facility] 09/02/2024 CHAIREZ Transitional Care Outreach [facility] Care Coordination [address] [place] [phone] Lo Bruno RN 09/01/[address] [phone] London Santos MD 08/30/2024 10:34 AM CDT Anesthesia Event [facility] [address] [place] [phone] Kenneth Crump MD PhD 08/30/2024 Documentation [facility] Infectious Diseases [address] [place] [phone] Gilda Vargas NP 08/30/2024 Documentation [facility] Diseases [address] [place] [phone] Gilda Vargas NP 08/25/2024 12:07 PM CDT - 09/01/2024 1:58 PM CDT Hospital Encounter [address] [phone] Dallas Joshua MD Chow, Kelsey Sarah, MD Girardi, Stacie Wagner MD Bacteremia (Primary Dx); History of transcatheter aortic valve replacement (TAVR); Fever of unknown origin; Streptococcal bacteremia; Subacute bacterial endocarditis Discharge Disposition: Discharge to home, home health skilled care 08/25/2024 11:00 AM CDT Office Visit [address] [phone] London Santos MD Bacteremia (Primary Dx); Chronic nonintractable headache, unspecified headache type 08/25/2024 [facility] [address] [facility] [address] [facility] [place] [address] London Santos MD 08/24/2024 10:33 AM CDT - 08/24/2024 11:59 PM CDT Hospital Encounter [address] [address] Fever, unspecified fever cause Discharge Disposition: Discharge to home or self care 08/24/2024 10:30 AM CDT Lab [facility] Outpatient Lab at [address] [phone] Fever (Primary Dx) 08/23/2024 Results Follow-Up [address] [phone] Rin Ramos NP Haptoglobin 08/17/2024 2:30 PM CDT Office Visit [address] [phone] Rin Ramos NP Fatigue, unspecified type (Primary Dx); Vitamin D deficiency, unspecified; Abnormal finding of blood chemistry, unspecified; History of tick-borne disease; Other iron deficiency anemia 08/09/2024 Results Follow-Up [address] [phone] London Santos MD MRI Abdomen W WO Contrast 08/08/2024 2:10 PM CDT - 08/08/2024 11:59 PM CDT Hospital Encounter [facility] [address] [place] [address] Bilateral renal masses Discharge Disposition: Discharge to home or self care 08/05/2024 Results Follow-Up [address] [phone] Rin Ramos NP Thyroid Function [place] 08/04/2024 9:00 AM CDT Office Visit [address] [phone] Rin Ramos NP Muscle spasm (Primary Dx); Fatigue, unspecified type 08/03/[address] [phone] London Santos MD from Last 3 Months Immunizations Immunization Administration Dates Next Due COVID-19 mRNA (Tellyo) 0.3 m L (30 mcg) vaccine (12 [...] (Added by Conv) Chronic serous otitis media [place] royal serous otitis media - (Added by [...] 1 - 2 per day [facility] Utilities Answer Date Recorded In the past 12 months has [facility] [employer], gas, oil, or water [facility] threatened to shut off services in your [...] often do you attend chur ch or buddhist services? Never 09/11/2024 Do you belong to any clubs o r organizations such as jew groups, unions, fraternal or athletic groups, or [...] staff should administer the PHQ-9) 0 09/11/2024 [facility] - Occupational [...] were you homeless or living in a skilled nursing (including now)? No 09/11/2024 Personal Safety Answer Date Recorded Have you ever been in or are you currently in a harmful physical or emotional relationship or is someone making you feel afraid or unsafe? 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 Not on file Not on file [...] Completed 08/26/2024 Medical Devices Implanted Type Area Terrazzo Layer Device Identifier Shelf Expiration Date Model / Serial / Lot [employer] [id number] Inspiris Resilia Leaflet Sewing Ring 25mm Valve Aortic Bovine - [id number] - [id number] Implanted:Qty: 1 on 02/07/2019 by Shamir Patel MD at [facility] Prosthetic Valve N/A: Heart [employer] 08/09/2020 [id number] / [id number] / [employer] Valve Heart 26mm Magy 3 Transcatheter [id number] - [id number] - [id number] Implanted:Qty: 1 on 10/16/2022 by Charli David MD PhD at [facility] Prosthetic Valve N/A: Aortic Valve [employer] 07/04/2025 [id number] / [id number] / [id number] [facility] Medical Néstor Angio-Seal Vip 6fr Closere Device [id number] - [id number] - [id number] Implanted:Qty: 1 on 09/19/2022 by Alex Fisher MD at [facility] Vascular Closure Device Left: Common Femoral Artery [employer] Medical Néstor 03/24/2023 [id number] / [id number] / [id number] Armijo Vascular Device Clsr Perclose Prostyle Sut-Mediatd Closure-Repair Sys [id number] - [id number] - [id number] Implanted:Qty: 1 on 10/16/2022 by Charli David MD PhD at [facility] Vascular Closure Device Right: Common Femoral Artery [employer] 05/24/2024 [id number] / [id number] / [id number] Procedures Procedure Name Priority Date/Time Associated Diagnosis [...] 1:05 PM CDT 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 CBC WITH AUTO DIFFERENTIAL Routine 09/05/2024 1:05 PM CDT 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 EGFR Routine 08/31/2024 [...] random (Outreach) (10/19/2024 3:25 PM CDT) Pathologist [facility] Glucose 103 70 - 199 mg/dL Comment: [...] BLOOD ORDERABLES Final Result Performing Organization Address [facility]/ZIP Co de Phone Number QUANG [facility] [place] [employer] [place] [address] * eGFR (10/19/2024 3:25 PM CDT) eGFR [...] BLOOD ORDERABLES Final Result Performing Organization Address City/[facility]/ZIP Co de Phone Number QUANG [facility] Department [place] [address] * (ABNORMAL) Differential, auto (10/19/2024 3:25 PM [...] 2017. Imm gran pct 0.6 % [facility] Comment: Interpretive Data Percent cell count reference ranges are not reported, since discordance with absolute values may lead to misinterpretation of CBC data. Current Interpretive Data was last revised on 2017. Lymphocyte pct 16.2 % [facility] Comment: Interpretive Data Percent cell [...] on 2017. Eosinophil pct 0.2 % [facility] Comment: Interpretive Data Percent cell [...] NP LAB BLOOD ORDERABLES Final Result QUANG [facility] Department [place] [address] * (ABNORMAL) Comprehensive metabolic panel, without glucose (Outreach) (10/19/2024 3:25 PM CDT) Sodium 133(L) 135 - 145 mmol/L Potassium, pl 4.5 3.3 - 4.9 mmol/L [facility] Chloride 95(L) 97 - 110 mmol/L [facility] CO2 26 22 - 32 mmol/L [facility] Anion gap 12 2 - 15 mmol/L [facility] BUN 17 6 - 25 mg/dL [facility] Creatinine 0.94 0.80 - 1.30 mg/dL [facility] Calcium 9.5 8.5 - 10.3 mg/dL [facility] Protein, pl 8.3 6.5 - 8.5 g/dL [facility] Albumin 4.3 3.5 - 5.0 g/dL [facility] Bilirubin, total 0.7 0.1 - 1.2 mg/dL [facility] Alk phos 107 40 - 130 Units/L [facility] AST 24 10 - 50 Units/L [facility] ALT 16 7 - 55 Units/L [facility] Blood 10/19/2024 3:25 PM CDT 10/19/2024 5:37 PM CDT Cinthia Godoy NP LAB BLOOD ORDERABLES Final Result QUANG [facility] Department [place] [address] * (ABNORMAL) CBC with auto differential (10/19/2024 3:25 PM CDT) WBC 12.63(H) 3.80 - 9.90 K/cumm Hgb 12.1(L) 13.0 - 17.5 g/dL [facility] Hct 36.0(L) 38.9 - 50.3 % [facility] Plt 209 150 - 400 K/cumm [facility] MPV 9.7 9.1 - 12.3 fL [facility] RBC 4.24(L) 4.30 - 5.80 M/cumm [facility] MCV 84.9 81.3 - 96.4 fL [facility] MCH 28.5 27.1 - 33.3 pg [facility] MCHC 33.6 32.3 - 35.7 g/dL [facility] RDW CV 14.6 11.1 - 14.9 % [facility] RDW SD 46.0 35.7 - 48.1 fL [facility] NRBC abs 0.00 0.00 - 0.01 K/cumm [facility] Blood 10/19/2024 3:25 PM CDT 10/19/2024 5:37 PM CDT Cinthia Godoy ELECTRIC SYSTEM OPERATOR LAB BLOOD ORDERABLES Final Result [facility] Department [place] [address] * Blood culture Blood (10/19/2024 3:25 PM CDT) Report Final Report: No growth Blood 10/19/2024 3:25 PM CDT 10/19/2024 5:48 PM CDT Narrative [facility] - 10/24/2024 7:00 AM CDT L A [...] performance characteristics have been verified by the [facility] Microbiology Laboratory. For questions about this culture, contact the Microbiology Laboratory at [phone]. Interpretive data was last revised on 24. Cinthia Godoy NP LAB MICROBIOLOGY - GENERAL ORDERABLES Final Result QUANG [facility]IR [facility] [place] [address] * Blood culture Blood (10/19/2024 3:25 PM CDT) Report Final Report: No growth Blood 10/19/2024 3:25 PM CDT 10/19/2024 5:49 PM CDT Narrative [facility] - 10/24/2024 7:00 AM CDT R A [...] performance characteristics have been verified by the [facility] Microbiology Laboratory. For questions about this culture, contact the Microbiology Laboratory at [phone]. Interpretive data was last revised on 24. Cinthia Godoy ELECTRIC SYSTEM OPERATOR LAB MICROBIOLOGY - GENERAL ORDERABLES Final Result Performing Organization Address [facility] Co de Phone Number QUANG MIR [facility] Department [place] [address] * Influenza A/B, RSV, and COVID-19 PCR Nasopharyngeal (10/17/2024 12:00 PM CDT) [facility] COVID-19 RNA Negative Negative Influenza A RNA Negative Negative [facility] Influenza B RNA Negative Negative [facility] RSV RNA Negative Negative [facility] Comment: Interpretive data: Testing performed by [facility]. This test is performed using the [employer] Xpert Xpress CoV-2/Flu/RSV plus assay. This is a multiplex, real-time reverse transcriptase PCR assay intended for the qualitative detection of nucleic acid from SARS-CoV-2, influenza A, influenza B, and respiratory syncytial virus. This assay has been cleared by the [place] Food and Drug administration. The performance characteristics have been verified by the [facility]. Results must be considered in the clinical context, and a negative result does not rule out infection. Interpretive Data last revised 2023 Nasopharyngeal 10/17/2024 12 :00 PM CDT 10/17/2024 2:20 PM CDT Narrative [facility] - 10/17/2024 3:13 PM CDT Is the Patient experiencing symptoms consistent with COVID?->Yes Reason for testing?->Symptomatic Is the patient experiencing any symptoms consistent with COVID (eg. Fever, cough, shortness of breath)?->Yes Mora Camacho ELECTRIC SYSTEM OPERATOR LAB MICROBIOLOGY - GENERAL ORDERABLES Final Result Performing Organization Address [facility]/ZIP Co de Phone Number QUANG [address] [address] Department [place] [address] CH * SCAN - LABS (09/19/2024) us [...] MD LAB BLOOD ORDERABLES Final Res ult [facility] [place] [address] * (ABNORMAL) Basic metabolic panel (09/15/2024 8:44 AM CDT) Sodium 129(L) 135 - 145 mmol/L Potassium, pl 4.6 3.3 - 4.9 mmol/L [facility] Chloride 96(L) 97 - 110 mmol/L [facility] CO2 25 22 - 32 mmol/L [facility] Anion gap 8 2 - 15 mmol/L [facility] BUN 14 6 - 25 mg/dL [facility] Creatinine 0.89 0.80 - 1.30 mg/dL [facility] Glucose 138 70 - 199 mg/dL [facility] Comment: Interpretive Data Fasting glucose >/= 126 [...] 2022. Calcium 8.5 8.5 - 10.3 mg/dL [facility] Blood 09/15/2024 8:44 AM CDT 09/15/2024 9:06 AM CDT us Virgen Awad MD LAB BLOOD ORDERABLES Final Res ult [facility] Department [place] [address] * eGFR (09/14/2024 8:33 PM CDT) eGFR [...] MD LAB BLOOD ORDERABLES Final Res ult [facility] [place] [address] * (ABNORMAL) Differential, auto (09/14/2024 8:33 PM CDT) Neutrophil abs 12.28(H) 1.50 - 6.50 K/cumm Imm gran abs 0.14(H) 0.00 - 0.10 K/cumm [facility] Lymphocyte abs 1.52 0.80 - 3.30 K/cumm [facility] Monocyte abs 1.12(H) 0.20 - 0.80 K/cumm [facility] Eosinophil abs 0.13 0.00 - 0.50 K/cumm [facility] Basophil abs 0.03 0.00 - 0.10 K/cumm [facility] Neutrophil pct 80.6 % [facility] Comment: Interpretive Data Percent cell count reference ranges are not reported, since discordance with absolute values may lead to misinterpretation of CBC data. Current Interpretive Data was last revised on 2017. Imm gran pct 0.9 % [facility] Comment: Interpretive Data Percent cell count reference ranges are not reported, since discordance with absolute values may lead to misinterpretation of CBC data. Current Interpretive Data was last revised on 2017. Lymphocyte pct 10.0 % [facility] Comment: Interpretive Data Percent cell count reference ranges are not reported, since discordance with absolute values may lead to misinterpretation of CBC data. Current Interpretive Data was last revised on 2017. Monocyte pct 7.4 % [facility] Comment: Interpretive Data Percent cell count reference ranges are not reported, since discordance with absolute values may lead to misinterpretation of CBC data. Current Interpretive Data was last revised on 2017. Eosinophil pct 0.9 % [facility] Comment: Interpretive Data Percent cell count reference ranges are not reported, since discordance with absolute values may lead to misinterpretation of CBC data. Current Interpretive Data was last revised on 2017. Basophil pct 0.2 % [facility] Comment: Interpretive Data Percent cell count reference ranges are not reported, since discordance with absolute values may lead to misinterpretation of CBC data. Current Interpretive Data was last revised on 2017. Blood 09/14/2024 8:33 PM CDT 09/14/2024 9:53 PM CDT Virgen Awad MD LAB BLOOD ORDERABLES Final Res ult Performing Organization Address [facility]/ZIP Co de Phone Number [facility] Department [place] [address] * (ABNORMAL) CBC with auto differential (09/14/2024 8:33 PM CDT) WBC 15.22(H) 3.80 - 9.90 K/cumm Hgb 9.8(L) 13.0 - 17.5 g/dL [facility] Hct 28.5(L) 38.9 - 50.3 % [facility] Plt 194 150 - 400 K/cumm [facility] MPV 9.7 9.1 - 12.3 fL [facility] RBC 3.33(L) 4.30 - 5.80 M/cumm [facility] MCV 85.6 81.3 - 96.4 fL [facility] MCH 29.4 27.1 - 33.3 pg [facility] MCHC 34.4 32.3 - 35.7 g/dL [facility] RDW CV 13.2 11.1 - 14.9 % [facility] RDW SD 41.2 35.7 - 48.1 fL [facility] NRBC abs 0.00 0.00 - 0.01 K/cumm [facility] Blood 09/14/2024 8:33 PM CDT 09/14/2024 9:53 PM CDT Virgen Awad MD LAB BLOOD ORDERABLES Final Res ult [facility] [place] [address] * Magnesium (09/14/2024 8:33 PM CDT) [facility] Magnesium 2.0 1.4 - 2.5 mg/dL Blood 09/14/2024 8:33 PM CDT 09/14/2024 9:53 PM CDT Virgen Awad MD LAB BLOOD ORDERABLES Final Res ult Performing Organization Address City/State/[facility] Co de Phone Number [facility] [place] [address] * (ABNORMAL) Basic metabolic panel (09/14/2024 8:33 PM CDT) [facility] Sodium 128(L) 135 - 145 mmol/L Potassium, pl 4.4 3.3 - 4.9 mmol/L [facility] Chloride 94(L) 97 - 110 mmol/L [facility] CO2 28 22 - 32 mmol/L [facility] Anion gap 6 2 - 15 mmol/L [facility] BUN 20 6 - 25 mg/dL [facility] Creatinine 1.20 0.80 - 1.30 mg/dL [facility] Glucose 126 70 - 199 mg/dL [facility] Comment: Interpretive Data Fasting glucose >/= 126 [...] 2022. Calcium 8.9 8.5 - 10.3 mg/dL [facility] Blood 09/14/2024 8:33 PM CDT 09/14/2024 9:53 PM CDT Virgen Awad MD LAB BLOOD ORDERABLES Final Res ult Performing Organization Address City/[facility] Co de Phone Number QUANG [facility] Department [place] [address] * eGFR (09/13/2024 11:42 PM CDT) eGFR [...] ORDERABLES Final Res ult Performing Organization Address City/[facility]/ZIP Co de Phone Number QUANG [facility] Department [place] [address] * (ABNORMAL) Differential, auto (09/13/2024 11:42 PM CDT) Neutrophil abs 12.38(H) 1.50 - 6.50 K/cumm Imm gran abs 0.09 0.00 - 0.10 K/cumm [facility] Lymphocyte abs 1.78 0.80 - 3.30 K/cumm [facility] Monocyte abs 1.01(H) 0.20 - 0.80 K/cumm [facility] Eosinophil abs 0.09 0.00 - 0.50 K/cumm [facility] Basophil abs 0.03 0.00 - 0.10 K/cumm [facility] Neutrophil pct 80.4 % [facility] Comment: Interpretive Data Percent cell count reference ranges are not reported, since discordance with absolute values may lead to misinterpretation of CBC data. Current Interpretive Data was last revised on 2017. Imm gran pct 0.6 % [facility] Comment: Interpretive Data Percent cell count reference ranges are not reported, since discordance with absolute values may lead to misinterpretation of CBC data. Current Interpretive Data was last revised on 2017. Lymphocyte pct 11.6 % [facility] Comment: Interpretive Data Percent cell count reference ranges are not reported, since discordance with absolute values may lead to misinterpretation of CBC data. Current Interpretive Data was last revised on 2017. Monocyte pct 6.6 % [facility] Comment: Interpretive Data Percent cell count reference ranges are not reported, since discordance with absolute values may lead to misinterpretation of CBC data. Current Interpretive Data was last revised on 2017. Eosinophil pct 0.6 % [facility] Comment: Interpretive Data Percent cell count reference ranges are not reported, since discordance with absolute values may lead to misinterpretation of CBC data. Current Interpretive Data was last revised on 2017. Basophil pct 0.2 % [facility] Comment: Interpretive Data Percent cell count reference ranges are not reported, since discordance with absolute values may lead to misinterpretation of CBC data. Current Interpretive Data was last revised on 2017. Blood 09/13/2024 11:4 2 PM CDT 09/14/2024 12:42 AM CDT us Virgen Awad MD LAB BLOOD ORDERABLES Final Res ult [facility] Department [place] [address] * (ABNORMAL) CBC with auto differential (09/13/2024 11:42 PM CDT) Pathologist [facility] WBC 15.38(H) 3.80 - 9.90 K/cumm Hgb 9.4(L) 13.0 - 17.5 g/dL [facility] Hct 28.0(L) 38.9 - 50.3 % [facility] Plt 196 150 - 400 K/cumm [facility] MPV 9.7 9.1 - 12.3 fL [facility] RBC 3.23(L) 4.30 - 5.80 M/cumm [facility] MCV 86.7 81.3 - 96.4 fL [facility] MCH 29.1 27.1 - 33.3 pg [facility] MCHC 33.6 32.3 - 35.7 g/dL [facility] RDW CV 13.2 11.1 - 14.9 % [facility] RDW SD 41.5 35.7 - 48.1 fL [facility] NRBC abs 0.00 0.00 - 0.01 K/cumm [facility] Blood 09/13/2024 11:4 2 PM CDT 09/14/2024 12:42 AM CDT us Virgen Awad MD LAB BLOOD ORDERABLES Final Res ult Performing Organization Address [facility] Co de Phone Number [facility] [place] [address] * Magnesium (09/13/2024 11:42 PM CDT) [facility] Magnesium 2.0 1.4 - 2.5 mg/dL Blood 09/13/2024 11:4 2 PM CDT 09/14/2024 12:32 AM CDT us Virgen Awad MD LAB BLOOD ORDERABLES Final Res ult [facility] [place] [address] * (ABNORMAL) Basic metabolic panel (09/13/2024 11:42 PM CDT) Sodium 133(L) 135 - 145 mmol/L Potassium, pl 4.3 3.3 - 4.9 mmol/L [facility] Chloride 98 97 - 110 mmol/L [facility] CO2 27 22 - 32 mmol/L [facility] Anion gap 8 2 - 15 mmol/L [facility] BUN 17 6 - 25 mg/dL [facility] Creatinine 1.03 0.80 - 1.30 mg/dL [facility] Glucose 119 70 - 199 mg/dL [facility] Comment: Interpretive Data Fasting glucose >/= 126 [...] 2022. 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: Location: [id number] Order Provider: VIRGEN AWAD Heart Rate: 74 [...] Procedure Note Avery Ulloa MD - 09/13/2024 [facility] [place] [address] Transesophageal Echocardiographic Report Patient Name: JAMSHID INTERIANO J : 1940 (83y 9m) Gender: M Study Date: 09/13/2024 09:26:56 AM Ht(Inch): Wt(Lb): BSA: 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 Rigger: Location: [id number] Order Provider: VIRGEN AWAD Heart Rate: 74 [...] HEALTHCARE Atrial Rate 74 BPM [facility] [place]-Interval (MSEC) 182 ms [facility] QRS-Interval (MSEC) 112 ms [facility] QT-Interval (MSEC) 404 ms [facility] QTc 448 ms [facility] P [place] 76 degrees [facility] R [place] -10 degrees [facility] T [place] 44 degrees [facility] Diagnosis Normal sinus rhythm Moderate voltage criteria for LVH, may be normal variant ( R in aVL , [place] product ) Borderline ECG When compared with ECG of 08-SEP-2024 12:08, PREVIOUS ECG IS PRESENT Confirmed by ADOLFO PEÑA M.D ([id number]) on 09/14/2024 11:28:42 AM [facility] 09/13/2024 8:57 AM CDT 09/14/2024 11:28 AM CDT us Avery Ulloa MD ECG ORDERABLES Final Result Performing Organization Address City/[facility]/ZIP Co de Phone Number [facility] * eGFR (09/13/2024 12:23 AM [...] ORDERABLES Final Res ult Performing Organization Address City/[facility]/ZIP Co de Phone Number [facility] Department [place] [address] * (ABNORMAL) Differential, auto (09/13/2024 12:23 AM CDT) Neutrophil abs 10.01(H) 1.50 - 6.50 K/cumm Imm gran abs 0.11(H) 0.00 - 0.10 K/cumm [facility] Lymphocyte abs 2.14 0.80 - 3.30 K/cumm [facility] Monocyte abs 0.89(H) 0.20 - 0.80 K/cumm [facility] Eosinophil abs 0.13 0.00 - 0.50 K/cumm [facility] Basophil abs 0.02 0.00 - 0.10 K/cumm [facility] Neutrophil pct 75.2 % [facility] Comment: Interpretive Data Percent cell count reference ranges are not reported, since discordance with absolute values may lead to misinterpretation of CBC data. Current Interpretive Data was last revised on 2017. Imm gran pct 0.8 % [facility] Comment: Interpretive Data Percent cell count reference ranges are not reported, since discordance with absolute values may lead to misinterpretation of CBC data. Current Interpretive Data was last revised on 2017. Lymphocyte pct 16.1 % [facility] Comment: Interpretive Data Percent cell count reference ranges are not reported, since discordance with absolute values may lead to misinterpretation of CBC data. Current Interpretive Data was last revised on 2017. Monocyte pct 6.7 % [facility] Comment: Interpretive Data Percent cell count reference ranges are not reported, since discordance with absolute values may lead to misinterpretation of CBC data. Current Interpretive Data was last revised on 2017. Eosinophil pct 1.0 % [facility] Comment: Interpretive Data Percent cell count reference ranges are not reported, since discordance with absolute values may lead to misinterpretation of CBC data. Current Interpretive Data was last revised on 2017. Basophil pct 0.2 % [facility] Comment: Interpretive Data Percent cell count reference ranges are not reported, since discordance with absolute values may lead to misinterpretation of CBC data. Current Interpretive Data was last revised on 2017. Blood 09/13/2024 12:2 3 AM CDT 09/13/2024 12:40 AM CDT us Virgen Awad MD LAB BLOOD ORDERABLES Final Res ult [facility] Department [place] [address] * (ABNORMAL) CBC with auto differential (09/13/2024 12:23 AM CDT) [facility] WBC 13.30(H) 3.80 - 9.90 K/cumm Hgb 9.6(L) 13.0 - 17.5 g/dL [facility] Hct 28.0(L) 38.9 - 50.3 % [facility] Plt 178 150 - 400 K/cumm [facility] MPV 9.4 9.1 - 12.3 fL [facility] RBC 3.25(L) 4.30 - 5.80 M/cumm [facility] MCV 86.2 81.3 - 96.4 fL [facility] MCH 29.5 27.1 - 33.3 pg [facility] MCHC 34.3 32.3 - 35.7 g/dL [facility] RDW CV 13.1 11.1 - 14.9 % [facility] RDW SD 40.8 35.7 - 48.1 fL [facility] NRBC abs 0.00 0.00 - 0.01 K/cumm [facility] Blood 09/13/2024 12:2 3 AM CDT 09/13/2024 12:40 AM CDT us Virgen Awad MD LAB BLOOD ORDERABLES Final Res ult Performing Organization Address City/[facility]/ZIP Co de Phone Number [facility] Department [place] [address] * Magnesium (09/13/2024 12:23 AM CDT) [facility] Magnesium 2.1 1.4 - 2.5 mg/dL Blood 09/13/2024 12:2 3 AM CDT 09/13/2024 12:40 AM CDT us Virgen Awad MD LAB BLOOD ORDERABLES Final Res ult [facility] [place] [address] * (ABNORMAL) Basic metabolic panel (09/13/2024 12:23 AM CDT) Sodium 132(L) 135 - 145 mmol/L Potassium, pl 4.2 3.3 - 4.9 mmol/L [facility] Chloride 99 97 - 110 mmol/L [facility] CO2 26 22 - 32 mmol/L [facility] Anion gap 7 2 - 15 mmol/L [facility] BUN 18 6 - 25 mg/dL [facility] Creatinine 1.10 0.80 - 1.30 mg/dL [facility] Glucose 114 70 - 199 mg/dL [facility] Comment: Interpretive Data Fasting glucose >/= 126 [...] 2022. Calcium 9.0 8.5 - 10.3 mg/dL [facility] Blood 09/13/2024 12:2 3 AM CDT 09/13/2024 12:40 AM CDT us Virgen Awad MD LAB BLOOD ORDERABLES Final Res ult [facility] Department [place] [address] * US Vein Duplex Lower Extremity Bilateral Complete (09/12/2024 9:47 AM CDT) Anatomical Region Laterality Modality Vascular Bilateral Ultrasound 09/12/2024 9:09 AM CDT Narrative 09/14/2024 3:43 PM CDT [facility] - Department of Vascular Surgery, Vascular Laboratory [address] [place] [id number] Lower Extremity Venous Ultrasound Report Patient Name: JAMSHID INTERIANO J : 1940 (83y 9m) Study Date: 09/12/2024 9:09:59 AM Gender: M Tech: HI Location: [id number] Ref Provider: VIRGEN AWAD Quality: Adequate Order [...] Pain in Leg, Right - FINDINGS: Performing 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 Rigger: Jeanne Benoit RVT. Bilateral: Venous Doppler signals [...] Procedure Note Yunior Crockett MD - 09/14/2024 [facility] - Department of Vascular Surgery,Vascular Laboratory [address] [place] [id number] Lower Extremity Venous Ultrasound Report Patient Name: JAMSHID INTERIANO J : 1940 (83y 9m) Study Date: 09/12/2024 9:09:59 AM Gender: M Tech: [place] Location: [id number] Ref Provider: VIRGEN AWAD Quality: Adequate Order Provider: VIRGEN AWAD PROCEDURES: Vascular Report: Venous Duplex imaging was performed bilaterally in the lower extremities.The common femoral, femoral, popliteal, posterior tibial, peroneal veins wereevaluated for patency, spontaneity and phasicity with Doppler, compression and augmentationmaneuvers. Great saphenous vein proximal at the junction was evaluated with compressionmaneuvers. INDICATIONS: Pain in Leg, Right - FINDINGS: Performing 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 Rigger: Jeanne Benoit RVT. Bilateral: Venous Doppler signals [...] above. Electronically Signed By: Yunior Crockett MD [facility] 09/14/2024 2:55:11 PM CDT us Virgen Awad MD [facility] US PROCEDURES Final Result * eGFR (09/12/2024 [...] MD LAB BLOOD ORDERABLES Final Re sult [facility] [place] [address] * (ABNORMAL) Differential, auto (09/12/2024 6:21 AM CDT) Neutrophil abs 10.39(H) 1.50 - 6.50 K/cumm Imm gran abs 0.08 0.00 - 0.10 K/cumm [facility] Lymphocyte abs 1.24 0.80 - 3.30 K/cumm [facility] Monocyte abs 0.83(H) 0.20 - 0.80 K/cumm [facility] Eosinophil abs 0.09 0.00 - 0.50 K/cumm [facility] Basophil abs 0.03 0.00 - 0.10 [facility] Neutrophil pct 82.1 % [facility] Comment: Interpretive Data Percent cell count reference ranges are not reported, since discordance with absolute values may lead to misinterpretation of CBC data. Current Interpretive Data was last revised on 2017. Imm gran pct 0.6 % [facility] Comment: Interpretive Data Percent cell count reference ranges are not reported, since discordance with absolute values may lead to misinterpretation of CBC data. Current Interpretive Data was last revised on 2017. Lymphocyte pct 9.8 % [facility] Comment: Interpretive Data Percent cell count reference ranges are not reported, since discordance with absolute values may lead to misinterpretation of CBC data. Current Interpretive Data was last revised on 2017. Monocyte pct 6.6 % [facility] Comment: Interpretive Data Percent cell count reference ranges are not reported, since discordance with absolute values may lead to misinterpretation of CBC data. Current Interpretive Data was last revised on 2017. Eosinophil pct 0.7 % [facility] Comment: Interpretive Data Percent cell count reference ranges are not reported, since discordance with absolute values may lead to misinterpretation of CBC data. Current Interpretive Data was last revised on 2017. Basophil pct 0.2 % [facility] Comment: Interpretive Data Percent cell count reference ranges are not reported, since discordance with absolute values may lead to misinterpretation of CBC data. Current Interpretive Data was last revised on 2017. Blood 09/12/2024 6:21 AM CDT 09/12/2024 6:42 AM CDT Virgen Awad MD LAB BLOOD ORDERABLES Final Res ult Performing Organization Address [facility] Co de Phone Number [facility] Department [place] [address] * (ABNORMAL) CBC with auto differential (09/12/2024 6:21 AM CDT) WBC 12.66(H) 3.80 - 9.90 K/cumm Hgb 10.1(L) 13.0 - 17.5 g/dL [facility] Hct 29.2(L) 38.9 - 50.3 % [facility] Plt 199 150 - 400 K/cumm [facility] MPV 9.5 9.1 - 12.3 fL [facility] RBC 3.43(L) 4.30 - 5.80 M/cumm [facility] MCV 85.1 81.3 - 96.4 fL [facility] MCH 29.4 27.1 - 33.3 pg [facility] MCHC 34.6 32.3 - 35.7 g/dL [facility] RDW CV 13.2 11.1 - 14.9 % [facility] RDW SD 40.3 35.7 - 48.1 fL [facility] NRBC abs 0.00 0.00 - 0.01 K/cumm [facility] Blood 09/12/2024 6:21 AM CDT 09/12/2024 6:42 AM CDT Virgen Awad MD LAB BLOOD ORDERABLES Final Res ult Performing Organization Address City/[facility]/ZIP Co de Phone Number [facility] Department [place] [address] * Magnesium (09/12/2024 6:21 AM CDT) Pathologist [facility] Magnesium 2.0 1.4 - 2.5 mg/dL Blood 09/12/2024 6:21 AM CDT 09/12/2024 6:42 AM CDT Donell Awad MD LAB BLOOD ORDERABLES Final Re sult Performing Organization Address City/[facility]/ZIP Co de Phone Number [facility] Department [place] [address] * (ABNORMAL) Basic metabolic panel (09/12/2024 6:21 AM CDT) [facility] Sodium 134(L) 135 - 145 mmol/L Potassium, pl 4.3 3.3 - 4.9 mmol/L [facility] Chloride 98 97 - 110 mmol/L [facility] CO2 27 22 - 32 mmol/L [facility] Anion gap 9 2 - 15 mmol/L [facility] BUN 10 6 - 25 mg/dL [facility] Creatinine 0.90 0.80 - 1.30 mg/dL [facility] Glucose 105 70 - 199 mg/dL [facility] Comment: Interpretive Data Fasting glucose >/= 126 [...] 2022. Calcium 8.9 8.5 - 10.3 mg/dL [facility] Blood 09/12/2024 6:21 AM CDT 09/12/2024 6:42 AM CDT Donell Awad MD LAB BLOOD ORDERABLES Final Re sult Performing Organization Address City/[facility]/ZIP Co de Phone Number [facility] Department [place] [address] * eGFR (09/11/2024 8:30 PM CDT) eGFR [...] ORDERABLES Final Res ult Performing Organization Address [facility] Co de Phone Number QUANG [facility] Department [place] [address] * Magnesium (09/11/2024 8:30 PM CDT) Magnesium 2.1 1.4 - 2.5 mg/dL Blood 09/11/2024 8:30 PM CDT 09/12/2024 6:42 AM CDT Virgen Awad MD LAB BLOOD ORDERABLES Final Res ult Performing Organization Address [facility] Co de Phone Number QUANG [facility] Department [place] [address] * (ABNORMAL) Basic metabolic panel (09/11/2024 8:30 PM CDT) Pathologist [facility] Sodium 134(L) 135 - 145 mmol/L Potassium, pl 4.3 3.3 - 4.9 mmol/L [facility] Chloride 99 97 - 110 mmol/L [facility] CO2 26 22 - 32 mmol/L [facility] Anion gap 9 2 - 15 mmol/L [facility] BUN 10 6 - 25 mg/dL [facility] Creatinine 0.89 0.80 - 1.30 mg/dL [facility] Glucose 106 70 - 199 mg/dL [facility] Comment: Interpretive Data Fasting glucose >/= 126 [...] 2022. Calcium 9.0 8.5 - 10.3 mg/dL [facility] Blood 09/11/2024 8:30 PM CDT 09/12/2024 6:42 AM CDT Virgen Awad MD LAB BLOOD ORDERABLES Final Res ult [facility] Department [place] [address] * eGFR (09/11/2024 9:47 AM CDT) Pathologist [facility] eGFR 87 >=60 mL/min/1. 73 m2 Comment: [...] MD LAB BLOOD ORDERABLES Final Res ult [facility] Department [place] [address] * (ABNORMAL) Differential, auto (09/11/2024 9:47 AM CDT) Pathologist [facility] Neutrophil abs 9.53(H) 1.50 - 6.50 K/cumm Imm gran abs 0.08 0.00 - 0.10 K/cumm [facility] Lymphocyte abs 1.24 0.80 - 3.30 K/cumm [facility] Monocyte abs 1.11(H) 0.20 - 0.80 K/cumm [facility] Eosinophil abs 0.10 0.00 - 0.50 K/cumm [facility] Basophil abs 0.02 0.00 - 0.10 K/cumm [facility] Neutrophil pct 78.8 % [facility] Comment: Interpretive Data Percent cell count reference ranges are not reported, since discordance with absolute values may lead to misinterpretation of CBC data. Current Interpretive Data was last revised on 2017. Imm gran pct 0.7 % [facility] Comment: Interpretive Data Percent cell count reference ranges are not reported, since discordance with absolute values may lead to misinterpretation of CBC data. Current Interpretive Data was last revised on 2017. Lymphocyte pct 10.3 % [facility] Comment: Interpretive Data Percent cell count reference ranges are not reported, since discordance with absolute values may lead to misinterpretation of CBC data. Current Interpretive Data was last revised on 2017. Monocyte pct 9.2 % [facility] Comment: Interpretive Data Percent cell count reference ranges are not reported, since discordance with absolute values may lead to misinterpretation of CBC data. Current Interpretive Data was last revised on 2017. Eosinophil pct 0.8 % [facility] Comment: Interpretive Data Percent cell count reference ranges are not reported, since discordance with absolute values may lead to misinterpretation of CBC data. Current Interpretive Data was last revised on 2017. Basophil pct 0.2 % [facility] Comment: Interpretive Data Percent cell count reference ranges are not reported, since discordance with absolute values may lead to misinterpretation of CBC data. Current Interpretive Data was last revised on 2017. Blood 09/11/2024 9:47 AM CDT 09/11/2024 11:01 AM CDT us Virgen Awad MD LAB BLOOD ORDERABLES Final Res ult [facility] [place] [address] * (ABNORMAL) CBC with auto differential (09/11/2024 9:47 AM CDT) WBC 12.08(H) 3.80 - 9.90 K/cumm Hgb 9.7(L) 13.0 - 17.5 g/dL [facility] Hct 28.6(L) 38.9 - 50.3 % [facility] Plt 164 150 - 400 K/cumm [facility] MPV 9.8 9.1 - 12.3 fL [facility] RBC 3.34(L) 4.30 - 5.80 M/cumm [facility] MCV 85.6 81.3 - 96.4 fL [facility] MCH 29.0 27.1 - 33.3 pg [facility] MCHC 33.9 32.3 - 35.7 g/dL [facility] RDW CV 13.2 11.1 - 14.9 % [facility] RDW SD 40.3 35.7 - 48.1 fL [facility] NRBC abs 0.00 0.00 - 0.01 K/cumm [facility] Blood 09/11/2024 9:47 AM CDT 09/11/2024 11:01 AM CDT Virgen Awad MD LAB BLOOD ORDERABLES Final Res ult Performing Organization Address City/[facility]/ZIP Co de Phone Number [facility] Department [place] [address] * Magnesium (09/11/2024 9:47 AM CDT) [facility] Magnesium 1.9 1.4 - 2.5 mg/dL Blood 09/11/2024 9:47 AM CDT 09/11/2024 11:01 AM CDT Virgen Awad MD LAB BLOOD ORDERABLES Final Res ult Performing Organization Address [facility] Co de Phone Number [facility] [place] [address] * Basic metabolic panel (09/11/2024 9:47 AM CDT) Pathologist [facility] Sodium 136 135 - 145 mmol/L Potassium, pl 4.0 3.3 - 4.9 mmol/L [facility] Chloride 103 97 - 110 mmol/L [facility] CO2 24 22 - 32 mmol/L [facility] Anion gap 9 2 - 15 mmol/L [facility] BUN 10 6 - 25 mg/dL [facility] Creatinine 0.83 0.80 - 1.30 mg/dL [facility] Glucose 102 70 - 199 mg/dL [facility] Comment: Interpretive Data Fasting glucose >/= 126 [...] 2022. Calcium 8.6 8.5 - 10.3 mg/dL [facility] Blood 09/11/2024 9:47 AM CDT 09/11/2024 11:01 AM CDT Virgen Awad MD LAB BLOOD ORDERABLES Final Res ult [facility] [place] [address] * eGFR (09/09/2024 8:32 PM CDT) eGFR [...] MD LAB BLOOD ORDERABLES Final Res ult [facility] [place] [address] * (ABNORMAL) Differential, auto (09/09/2024 8:32 PM CDT) Neutrophil abs 9.30(H) 1.50 - 6.50 K/cumm Imm gran abs 0.06 0.00 - 0.10 K/cumm [facility] Lymphocyte abs 1.68 0.80 - 3.30 K/cumm [facility] Monocyte abs 1.18(H) 0.20 - 0.80 K/cumm [facility] Eosinophil abs 0.08 0.00 - 0.50 K/cumm [facility] Basophil abs 0.04 0.00 - 0.10 K/cumm [facility] Neutrophil pct 75.4 % [facility] Comment: Interpretive Data Percent cell count reference ranges are not reported, since discordance with absolute values may lead to misinterpretation of CBC data. Current Interpretive Data was last revised on 2017. Imm gran pct 0.5 % [facility] Comment: Interpretive Data Percent cell count reference ranges are not reported, since discordance with absolute values may lead to misinterpretation of CBC data. Current Interpretive Data was last revised on 2017. Lymphocyte pct 13.6 % [facility] Comment: Interpretive Data Percent cell count reference ranges are not reported, since discordance with absolute values may lead to misinterpretation of CBC data. Current Interpretive Data was last revised on 2017. Monocyte pct 9.6 % [facility] Comment: Interpretive Data Percent cell count reference ranges are not reported, since discordance with absolute values may lead to misinterpretation of CBC data. Current Interpretive Data was last revised on 2017. Eosinophil pct 0.6 % [facility] Comment: Interpretive Data Percent cell count reference ranges are not reported, since discordance with absolute values may lead to misinterpretation of CBC data. Current Interpretive Data was last revised on 2017. Basophil pct 0.3 % [facility] Comment: Interpretive Data Percent cell count reference ranges are not reported, since discordance with absolute values may lead to misinterpretation of CBC data. Current Interpretive Data was last revised on 2017. Blood 09/09/2024 8:32 PM CDT 09/09/2024 9:53 PM CDT Virgen Awad MD LAB BLOOD ORDERABLES Final Res ult Performing Organization Address City/[facility]/ZIP Co de Phone Number [facility] [place] [employer] [place] [address] * (ABNORMAL) CBC with auto differential (09/09/2024 8:32 PM CDT) WBC 12.34(H) 3.80 - 9.90 K/cumm Hgb 9.3(L) 13.0 - 17.5 g/dL [facility] Hct 27.1(L) 38.9 - 50.3 % [facility] Plt 167 150 - 400 K/cumm [facility] MPV 10.3 9.1 - 12.3 fL [facility] RBC 3.15(L) 4.30 - 5.80 M/cumm [facility] MCV 86.0 81.3 - 96.4 fL [facility] MCH 29.5 27.1 - 33.3 pg [facility] MCHC 34.3 32.3 - 35.7 g/dL [facility] RDW CV 13.2 11.1 - 14.9 % [facility] RDW SD 40.9 35.7 - 48.1 fL [facility] NRBC abs 0.00 0.00 - 0.01 K/cumm [facility] Blood 09/09/2024 8:32 PM CDT 09/09/2024 9:53 PM CDT Virgen Awad MD LAB BLOOD ORDERABLES Final Res ult Performing Organization Address City/[facility]/ZIP Co de Phone Number [facility] Department [place] [address] * Magnesium (09/09/2024 8:32 PM CDT) Pathologist [facility] Magnesium 2.0 1.4 - 2.5 mg/dL Blood 09/09/2024 8:32 PM CDT 09/09/2024 9:53 PM CDT Virgen Awad MD LAB BLOOD ORDERABLES Final Res ult [facility] [place] [address] * (ABNORMAL) Basic metabolic panel (09/09/2024 8:32 PM CDT) Pathologist [facility] Sodium 131(L) 135 - 145 mmol/L Potassium, pl 4.3 3.3 - 4.9 mmol/L [facility] Chloride 96(L) 97 - 110 mmol/L [facility] CO2 27 22 - 32 mmol/L [facility] Anion gap 8 2 - 15 mmol/L [facility] BUN 13 6 - 25 mg/dL [facility] Creatinine 1.00 0.80 - 1.30 mg/dL [facility] Glucose 117 70 - 199 mg/dL [facility] Comment: Interpretive Data Fasting glucose >/= 126 [...] 2022. 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 Mild non-specific thickening [...] post-processing. FINDINGS: Bioprosthetic aortic valve replacement and qycce-vo-mpons noted. Normal coaptation of the leaflets. Mild [...] post-processing. FINDINGS: Bioprosthetic aortic valve replacement and [id number] noted. Normal coaptation of the leaflets. Mild [...] abnormality. 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 Mild non-specific thickening noted on the non-coronary cusp of the TAVR however the leaflet opens normally with no motion abnormality. Dictated by: Ayesha Kimbrough MD The radiology attending physician has personally reviewed this study, and had reviewed and/or edited this written report and agrees with it. Electronically signed by: Richar Tillman M.D. Virgen Awad MD [facility] CT PROCEDURES Final Result * TRANSTHORACIC ECHO (TTE) COMPLETE W DOPPLER/CF W CONTRAST (09/09/2024 9:15 AM CDT) Anatomical Region Laterality Modality Ultrasound 09/09/2024 8:16 AM CDT Narrative 09/09/2024 2:10 PM CDT [facility] [place] [address] Transthoracic Echocardiographic Report Patient Name: JAMSHID INTERIANO J : 1940 (83y 9m) Gender: M Study Date: 09/09/2024 08:16:12 Ht(Inch): 67 Wt(Lb): 143.96 BSA: 1.76 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 Rigger: Mary Zuniga LILO Location: [id number] Order Provider: VIRGEN AWAD Heart Rate: 110 [...] Procedure Note Khari Nj MD - 09/09/2024 [facility] [place] [address] Transthoracic Echocardiographic Report Patient Name: JAMSHID INTERIANO J : 1940 (83y 9m) Gender: M Study Date: 09/09/2024 08:16:12 Ht(Inch): 67 Wt(Lb): 143.96 BSA: 1.76 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 Rigger: Mary Zuniga [facility] Location: [id number] Order Provider:VIRGEN AWAD Heart Rate: 110 BMI: [...] cm [ 1.71 - 5.00 ] RA Chszec72.83 ml RA Volume Index26.04 ml/m2 AoR Diam [...] I hs delta See Comment ng/L [facility] Comment:Inappropriate collec tion time to report a delta. Trop I hs pct delta See Comment % [facility] Comment:Inappropriate collec tion time to report a delta. Trop I hs interp See Comment [facility] Comment:Inappropriate collec tion time to report a delta. Blood 09/08/2024 8:34 PM CDT 09/08/2024 9:45 PM CDT us Pb Monroy MD LAB BLOOD ORDERABLES Final Result [facility] Department [place] [address] * eGFR (09/08/2024 8:34 PM CDT) Pathologist [facility] eGFR 68 >=60 mL/min/1. 73 m2 Comment: [...] MD LAB BLOOD ORDERABLES Final Res ult [facility] Department [place] [address] * (ABNORMAL) Differential, auto (09/08/2024 8:34 PM CDT) Neutrophil abs 12.02(H) 1.50 - 6.50 K/cumm Imm gran abs 0.08 0.00 - 0.10 K/cumm [facility] Lymphocyte abs 1.48 0.80 - 3.30 K/cumm [facility] Monocyte abs 1.25(H) 0.20 - 0.80 K/cumm [facility] Eosinophil abs 0.02 0.00 - 0.50 K/cumm [facility] Basophil abs 0.03 0.00 - 0.10 K/cumm [facility] Neutrophil pct 80.9 % [facility] Comment: Interpretive Data Percent cell count reference ranges are not reported, since discordance with absolute values may lead to misinterpretation of CBC data. Current Interpretive Data was last revised on 2017. Imm gran pct 0.5 % [facility] Comment: Interpretive Data Percent cell count reference ranges are not reported, since discordance with absolute values may lead to misinterpretation of CBC data. Current Interpretive Data was last revised on 2017. Lymphocyte pct 9.9 % [facility] Comment: Interpretive Data Percent cell count reference ranges are not reported, since discordance with absolute values may lead to misinterpretation of CBC data. Current Interpretive Data was last revised on 2017. Monocyte pct 8.4 % [facility] Comment: Interpretive Data Percent cell count reference ranges are not reported, since discordance with absolute values may lead to misinterpretation of CBC data. Current Interpretive Data was last revised on 2017. Eosinophil pct 0.1 % [facility] Comment: Interpretive Data Percent cell count reference ranges are not reported, since discordance with absolute values may lead to misinterpretation of CBC data. Current Interpretive Data was last revised on 2017. Basophil pct 0.2 % [facility] Comment: Interpretive Data Percent cell count reference ranges are not reported, since discordance with absolute values may lead to misinterpretation of CBC data. Current Interpretive Data was last revised on 2017. Blood 09/08/2024 8:34 PM CDT 09/08/2024 9:45 PM CDT us Virgen Awad MD LAB BLOOD ORDERABLES Final Res ult [facility] [place] [address] * (ABNORMAL) CBC with auto differential (09/08/2024 8:34 PM CDT) WBC 14.88(H) 3.80 - 9.90 K/cumm Hgb 10.2(L) 13.0 - 17.5 g/dL [facility] Hct 28.9(L) 38.9 - 50.3 % [facility] Plt 166 150 - 400 K/cumm [facility] MPV 10.3 9.1 - 12.3 fL [facility] RBC 3.42(L) 4.30 - 5.80 M/cumm [facility] MCV 84.5 81.3 - 96.4 fL [facility] MCH 29.8 27.1 - 33.3 pg [facility] MCHC 35.3 32.3 - 35.7 g/dL [facility] RDW CV 13.2 11.1 - 14.9 % [facility] RDW SD 40.8 35.7 - 48.1 fL [facility] NRBC abs 0.00 0.00 - 0.01 K/cumm [facility] Blood 09/08/2024 8:34 PM CDT 09/08/2024 9:45 PM CDT Virgen Awad MD LAB BLOOD ORDERABLES Final Res ult Performing Organization Address [facility] Co de Phone Number [facility] [place] [employer] [place] [address] * (ABNORMAL) Erythrocyte sedimentation rate (09/08/2024 8:34 PM CDT) Erythrocyte sedimentation rate 32(H) 1 - 20 mm/hr Blood 09/08/2024 8:34 PM CDT 09/08/2024 9:45 PM CDT Virgen Awad MD LAB BLOOD ORDERABLES Final Res ult Performing Organization Address [facility] Co de Phone Number [facility] [place] [address] * (ABNORMAL) CRP (acute phase) (09/08/2024 8:34 PM CDT) CRP 115.3(H) <=10.0 mg/L Blood 09/08/2024 8:34 PM CDT 09/08/2024 9:45 PM CDT us Virgen Awad MD LAB BLOOD ORDERABLES Final Res ult Performing Organization Address [facility] Co de Phone Number [facility] [place] [address] * Magnesium (09/08/2024 8:34 PM CDT) Pathologist [facility] Magnesium 2.0 1.4 - 2.5 mg/dL Blood 09/08/2024 8:34 PM CDT 09/08/2024 9:45 PM CDT Virgen Awad MD LAB BLOOD ORDERABLES Final Res ult Performing Organization Address City/[facility]/ZIP Co de Phone Number [facility] [place] [address] * (ABNORMAL) Basic metabolic panel (09/08/2024 8:34 PM CDT) [facility] Sodium 132(L) 135 - 145 mmol/L Potassium, pl 4.1 3.3 - 4.9 mmol/L [facility] Chloride 97 97 - 110 mmol/L [facility] CO2 25 22 - 32 mmol/L [facility] Anion gap 10 2 - 15 mmol/L [facility] BUN 12 6 - 25 mg/dL [facility] Creatinine 1.09 0.80 - 1.30 mg/dL [facility] Glucose 140 70 - 199 mg/dL [facility] Comment: Interpretive Data Fasting glucose >/= 126 [...] 2022. Calcium 8.2(L) 8.5 - 10.3 mg/dL [facility] Blood 09/08/2024 8:34 PM CDT 09/08/2024 9:45 PM CDT us Virgen Awad MD LAB BLOOD ORDERABLES Final Res ult Performing Organization Address [facility]/ZIP Co de Phone Number [facility] [place] [address] * ECG 12 lead (09/08/2024 12:08 PM CDT) Pathologist [facility] Ventricular Rate EKG/Min 95 BPM [facility] Atrial Rate 105 BPM [facility] QRS-Interval (MSEC) 110 ms [facility] QT-Interval (MSEC) 312 ms [facility] QTc 392 ms [facility] R [place] -15 degrees [facility] T [place] 81 degrees [facility] Diagnosis Normal sinus rhythm Second degree av-block (Mobitz I) Moderate voltage criteria for LVH, may be normal variant ( R in aVL , [place] product ) Poor precordial R wave progression consistent with faulty lead placement, copd, etc. ; consider septal infarct, lead placement, or normal variant Abnormal ECG When compared with ECG of 17-OCT-2022 05:09, RSR' pattern in V1 is no longer Present Confirmed by ADOLFO PEÑA M.D ([id number]) on 09/08/2024 5:10:47 PM [facility] 09/08/2024 12:0 8 PM CDT 09/08/2024 5:10 PM CDT Virgen Awad MD ECG ORDERABLES Final Result [facility] [place] * eGFR (09/08/2024 8:35 AM CDT) Pathologist [facility] eGFR 79 >=60 mL/min/1. 73 m2 Comment: [...] MD LAB BLOOD ORDERABLES Final Res ult [facility] Department [place] [address] * (ABNORMAL) CBC without differential (09/08/2024 8:35 AM CDT) WBC 13.53(H) 3.80 - 9.90 K/cumm Hgb 10.6(L) 13.0 - 17.5 g/dL [facility] Hct 30.5(L) 38.9 - 50.3 % [facility] Plt 161 150 - 400 K/cumm [facility] MPV 10.2 9.1 - 12.3 fL [facility] RBC 3.55(L) 4.30 - 5.80 M/cumm [facility] MCV 85.9 81.3 - 96.4 fL [facility] MCH 29.9 27.1 - 33.3 pg [facility] MCHC 34.8 32.3 - 35.7 g/dL [facility] RDW CV 13.2 11.1 - 14.9 % [facility] RDW SD 40.6 35.7 - 48.1 fL [facility] NRBC abs 0.00 0.00 - 0.01 K/cumm [facility] Blood 09/08/2024 8:35 AM CDT 09/08/2024 9:26 AM CDT Virgen Awad MD LAB BLOOD ORDERABLES Final Res ult [facility] Department [place] [address] * (ABNORMAL) Basic metabolic panel (09/08/2024 8:35 AM CDT) Sodium 132(L) 135 - 145 mmol/L Potassium, pl 4.1 3.3 - 4.9 mmol/L [facility] Chloride 96(L) 97 - 110 mmol/L [facility] CO2 27 22 - 32 mmol/L [facility] Anion gap 9 2 - 15 mmol/L [facility] BUN 14 6 - 25 mg/dL [facility] Creatinine 0.96 0.80 - 1.30 mg/dL [facility] Glucose 121 70 - 199 mg/dL [facility] Comment: Interpretive Data Fasting glucose >/= 126 [...] 2022. Calcium 8.6 8.5 - 10.3 mg/dL [facility] Blood 09/08/2024 8:35 AM CDT 09/08/2024 9:26 AM CDT us Virgen Awad MD LAB BLOOD ORDERABLES Final Res ult [facility] [place] [address] * Troponin I high-sensitivity 2-hour (09/06/2024 9:35 PM CDT) Pathologist [facility] Trop I hs 35 <=35 ng/L Comment: Interpretive Data For further [facility] resources including the diagnostic algorithm and an aid in interpretation, copy and paste this link: https://bjhlab.testcatalog.org/show/hsTrop-[email or web address] Current Interpretive Data last revised 2019. Trop I hs delta 3 ng/L [facility] Trop I hs interp Insignificant [facility] Blood 09/06/2024 9:35 PM CDT 09/06/2024 9:50 PM CDT Pb Monroy MD LAB BLOOD ORDERABLES Final Result [facility] Department [place] [address] * Thyroid Function [place] (09/06/2024 8:40 PM CDT) TSH 2.57 0.30 - 4.20 mcIUnit/mL Blood 09/06/2024 8:40 PM CDT 09/06/2024 8:57 PM CDT Alysa Perry MD LAB BLOOD ORDERABLES Final Result Performing Organization Address City/[facility] Co de Phone Number [facility] Department [place] [address] * Blood culture Blood (09/06/2024 8:40 PM CDT) Report Final Report: No growth Blood 09/06/2024 8:40 PM CDT 09/06/2024 8:53 PM CDT Narrative [facility] - 09/11/2024 7:00 AM CDT [...] performance characteristics have been verified by the [facility] Microbiology Laboratory. For questions about this culture, contact the Microbiology Laboratory at [phone]. Interpretive data was last revised on 24. Alysa Perry MD LAB MICROBIOLOGY - G ENERAL ORDERABLES Final Result [facility] [place] [address] * Blood culture Blood (09/06/2024 8:40 PM CDT) Report Final Report: No growth Blood 09/06/2024 8:40 PM CDT 09/06/2024 8:53 PM CDT Narrative [facility] - 09/11/2024 7:00 AM CDT [...] performance characteristics have been verified by the [facility] Microbiology Laboratory. For questions about this culture, contact the Microbiology Laboratory at [phone]. Interpretive data was last revised on 24. Alysa Perry MD LAB MICROBIOLOGY - G ENERAL ORDERABLES Final Result Performing Organization Address [facility]/ZIP Co de Phone Number [facility] Department [place] [address] * Troponin I high-sensitivity series (baseline, 2hr, 4hr, 6hr) (09/06/2024 7:25 PM CDT) Pathologist [facility] Trop I hs 32 <=35 ng/L Comment: Interpretive Data For further hscTnI resources including the diagnostic algorithm and an aid in interpretation, copy and paste this link: https://bjhlab.testcatalog.org/show/hsTrop-1 Current Interpretive Data last revised 2019. Blood 09/06/2024 7:25 PM CDT 09/06/2024 8:50 PM CDT Pb Monroy MD LAB BLOOD ORDERABLES Final Result Performing Organization Address [facility] Co de Phone Number [facility] Department [place] [address] * eGFR (09/06/2024 7:25 PM CDT) [facility] eGFR 85 >=60 mL/min/1. 73 m2 [...] Monroy MD LAB BLOOD ORDERABLES Final Result [facility] [place] [address] * (ABNORMAL) Differential, auto (09/06/2024 7:25 PM CDT) Neutrophil abs 11.15(H) 1.50 - 6.50 K/cumm Imm gran abs 0.09 0.00 - 0.10 K/cumm [facility] Lymphocyte abs 2.05 0.80 - 3.30 K/cumm [facility] Monocyte abs 1.47(H) 0.20 - 0.80 K/cumm [facility] Eosinophil abs 0.04 0.00 - 0.50 K[facility]cumm [facility] Basophil abs 0.03 0.00 - 0.10 K/cumm [facility] Neutrophil pct 75.2 % [facility] Comment: Interpretive Data Percent cell count reference ranges are not reported, since discordance with absolute values may lead to misinterpretation of CBC data. Current Interpretive Data was last revised on 2017. Imm gran pct 0.6 % [facility] Comment: Interpretive Data Percent cell count reference ranges are not reported, since discordance with absolute values may lead to misinterpretation of CBC data. Current Interpretive Data was last revised on 2017. Lymphocyte pct 13.8 % [facility] Comment: Interpretive Data Percent cell count reference ranges are not reported, since discordance with absolute values may lead to misinterpretation of CBC data. Current Interpretive Data was last revised on 2017. Monocyte pct 9.9 % [facility] Comment: Interpretive Data Percent cell count reference ranges are not reported, since discordance with absolute values may lead to misinterpretation of CBC data. Current Interpretive Data was last revised on 2017. Eosinophil pct 0.3 % [facility] Comment: Interpretive Data Percent cell count reference ranges are not reported, since discordance with absolute values may lead to misinterpretation of CBC data. Current Interpretive Data was last revised on 2017. Basophil pct 0.2 % [facility] Comment: Interpretive Data Percent cell count reference ranges are not reported, since discordance with absolute values may lead to misinterpretation of CBC data. Current Interpretive Data was last revised on 2017. Blood 09/06/2024 7:25 PM CDT 09/06/2024 8:03 PM CDT us Pb Monroy MD LAB BLOOD ORDERABLES Final Result [facility] [place] [address] * (ABNORMAL) CBC with auto differential (09/06/2024 7:25 PM CDT) WBC 14.83(H) 3.80 - 9.90 K/cumm Hgb 10.6(L) 13.0 - 17.5 g/dL [facility] Hct 30.7(L) 38.9 - 50.3 % [facility] Plt 173 150 - 400 K/cumm [facility] MPV 9.8 9.1 - 12.3 fL [facility] RBC 3.62(L) 4.30 - 5.80 M/cumm [facility] MCV 84.8 81.3 - 96.4 fL [facility] MCH 29.3 27.1 - 33.3 pg [facility] MCHC 34.5 32.3 - 35.7 g/dL [facility] RDW CV 13.2 11.1 - 14.9 % [facility] RDW SD 40.9 35.7 - 48.1 fL [facility] NRBC abs 0.00 0.00 - 0.01 K/cumm [facility] Blood Venous blood specimen / Unknown 09/06/2024 7:25 PM CDT 09/06/2024 8:03 PM CDT Pb Monroy MD LAB BLOOD ORDERABLES Final Result Performing Organization Address City/[facility]/ZIP Co de Phone Number [facility] [place] [address] * Phosphorus (09/06/2024 7:25 PM CDT) [facility] Phosphorus, pl 3.0 2.3 - 4.5 mg/dL Blood 09/06/2024 7:25 PM CDT 09/06/2024 8:03 PM CDT Virgen Awad MD LAB BLOOD ORDERABLES Final Res ult Performing Organization Address [facility]/ZIP Co de Phone Number [facility] [place] [address] * Magnesium (09/06/2024 7:25 PM CDT) [facility] Magnesium 2.1 1.4 - 2.5 mg/dL Blood 09/06/2024 7:25 PM CDT 09/06/2024 8:03 PM CDT Virgen Awad MD LAB BLOOD ORDERABLES Final Res ult Performing Organization Address City/[facility]/[place] [address] * (ABNORMAL) Comprehensive metabolic panel (09/06/2024 7:25 PM CDT) [facility] Sodium 134(L) 135 - 145 mmol/L Potassium, pl 4.2 3.3 - 4.9 mmol/L [facility] Chloride 98 97 - 110 mmol/L [facility] CO2 26 22 - 32 mmol/L [facility] Anion gap 10 2 - 15 mmol/L [facility] BUN 16 6 - 25 mg/dL [facility] Creatinine 0.90 0.80 - 1.30 mg/dL [facility] Glucose 141 70 - 199 mg/dL [facility] Comment: Interpretive Data Fasting glucose >/= 126 [...] 2022. Calcium 8.8 8.5 - 10.3 mg/dL [facility] Bilirubin, total 0.4 0.1 - 1.2 mg/dL [facility] Protein, pl 7.0 6.5 - 8.5 g/dL [facility] Albumin 3.6 3.5 - 5.0 g/dL [facility] Alk phos 87 40 - 130 Units/L [facility] ALT 18 7 - 55 Units/L [facility] AST 27 10 - 50 Units/L [facility] Blood 09/06/2024 7:25 PM CDT 09/06/2024 8:03 PM CDT Pb Monroy MD LAB BLOOD ORDERABLES Final Result [facility] [place] [address] * ECG 12-LEAD (09/06/2024 2:45 PM CDT) Narrative [facility] - 09/06/2024 2:45 PM CDT Olivier Lovell [...] normal sinus rhythm rate of 87; normal NJ, QRS, and QTC intervals; normal P, R, and T-wave axis; no evidence of atrial enlargement but possible ventricular hypertrophy; incomplete right bundle-branch block. Normal ST segments and T-waves without evidence of active myocardial ischemia; Procedure Note Olivier Loevll MD - 09/06/2024 2:45 PM CDT Procedure [...] manifest normal sinus rhythm rate of87; normal NJ, QRS, and QTC intervals; normal P, R, and T-wave axis; noevidence of atrial enlargement but possible ventricular hypertrophy;incomplete right bundle-branch block. Normal ST segments and T-waveswithout evidence of active myocardial ischemia; Murtaza Agrawal MD 09/06/24 [id number] Olivier Lovell MD 09/06/24 2312 us Pb Monroy MD ECG ORDERABLES Edited [...] MEDICAL RBC 3.91(L) 4.60 - 6.20 M/uL [facility] Hemoglobin 11.8(L) 13.9 - 17.7 g/dL [facility] Hematocrit 32.7(L) 35.0 - 55.0 % [facility] MCV 83.7 75.0 - 100.0 fL [facility] MCH 30.20 25.00 - 35.00 pg [facility] MCHC 36.10 31.00 - 38.00 g/dL [facility] RDW 12.9 11.0 - 16.0 % [facility] Platelets 204 140 - 400 K/uL [facility] MPV 9.0 8.0 - 11.0 fL [facility] Granulocyte, Absolute 14.9(H) 1.2 - 8.0 K/uL [facility] Lymphocyte, Absolute 2.0 0.5 - 5.0 K/uL [facility] Monocyte, Absolute 0.7 0.1 - 1.5 K/uL [facility] Granulocyte, Percentage 84.8(H) 35.0 - 80.0 % [facility] Lymphocyte, Percentage 11.4(L) 15.0 - 50.0 % [facility] Monocyte, Percentage 3.8 2.0 - 15.0 % [facility] Blood 09/05/2024 1:05 PM CDT 09/05/2024 1:24 PM CDT us London Santos MD LAB BLOOD ORDERABLES F inal Result Performing Organization Address City/State/[facility] Co de Phone Number [facility] [address] [place] [address] * (ABNORMAL) Basic metabolic panel (09/05/2024 1:05 PM CDT) Glucose 108 74 - 200 mg/dL [facility] BUN 18 18 - 23 mg/dL [facility] Creatinine 0.9 0.7 - 1.3 mg/dL [facility] BUN/Creat Ratio 19 Ratio [facility] eGFR 77 mL/min/1.7 3m2 [facility] Calcium 9.3 8.8 - 10.2 mg/dL [facility] Sodium 127(L) 135 - 145 mEq/L [facility] Potassium 4.5 3.5 - 5.1 mEq/L [facility] Chloride 93(L) 98 - 107 mEq/L [facility] CO2 24.7 22.0 - 32.0 mEq/L [facility] Anion Gap 9 3 - 12 mEq/L [facility] Blood 09/05/2024 1:05 PM CDT 09/05/2024 1:24 PM CDT London Santos MD LAB BLOOD ORDERABLES F inal Result [facility] [address] [place] [address] * eGFR (08/31/2024 9:44 PM CDT) eGFR [...] MD LAB BLOOD ORDERABLES Final Result [facility] Department [place] [address] * (ABNORMAL) Differential, auto (08/31/2024 9:44 PM CDT) Neutrophil abs 9.27(H) 1.50 - 6.50 K/cumm Imm gran abs 0.08 0.00 - 0.10 K/cumm [facility] Lymphocyte abs 1.90 0.80 - 3.30 K[facility]cumm [facility] Monocyte abs 1.20(H) 0.20 - 0.80 K/cumm [facility] Eosinophil abs 0.13 0.00 - 0.50 K/cumm [facility] Basophil abs 0.02 0.00 - 0.10 K/cumm [facility] Neutrophil pct 73.6 % [facility] Comment: Interpretive Data Percent cell count reference ranges are not reported, since discordance with absolute values may lead to misinterpretation of CBC data. Current Interpretive Data was last revised on 2017. Imm gran pct 0.6 % [facility] Comment: Interpretive Data Percent cell count reference ranges are not reported, since discordance with absolute values may lead to misinterpretation of CBC data. Current Interpretive Data was last revised on 2017. Lymphocyte pct 15.1 % [facility] Comment: Interpretive Data Percent cell count reference ranges are not reported, since discordance with absolute values may lead to misinterpretation of CBC data. Current Interpretive Data was last revised on 2017. Monocyte pct 9.5 % [facility] Comment: Interpretive Data Percent cell count reference ranges are not reported, since discordance with absolute values may lead to misinterpretation of CBC data. Current Interpretive Data was last revised on 2017. Eosinophil pct 1.0 % [facility] Comment: Interpretive Data Percent cell count reference ranges are not reported, since discordance with absolute values may lead to misinterpretation of CBC data. Current Interpretive Data was last revised on 2017. Basophil pct 0.2 % [facility] Comment: Interpretive Data Percent cell count reference ranges are not reported, since discordance with absolute values may lead to misinterpretation of CBC data. Current Interpretive Data was last revised on 2017. Blood 08/31/2024 9:44 PM CDT 08/31/2024 10:34 PM CDT Dyana Dominguez MD LAB BLOOD ORDERABLES Final Result Performing Organization Address City/[facility]/ZIP Co de Phone Number [facility] Department [place] [address] * (ABNORMAL) CBC with auto differential (08/31/2024 9:44 PM CDT) Pathologist [facility] WBC 12.60(H) 3.80 - 9.90 K/cumm Hgb 9.6(L) 13.0 - 17.5 g/dL [facility] Hct 27.5(L) 38.9 - 50.3 % [facility] Plt 184 150 - 400 K/cumm [facility] MPV 9.7 9.1 - 12.3 fL [facility] RBC 3.22(L) 4.30 - 5.80 M/cumm [facility] MCV 85.4 81.3 - 96.4 fL [facility] MCH 29.8 27.1 - 33.3 pg [facility] MCHC 34.9 32.3 - 35.7 g/dL [facility] RDW CV 12.9 11.1 - 14.9 % [facility] RDW SD 39.7 35.7 - 48.1 fL [facility] NRBC abs 0.00 0.00 - 0.01 K/cumm [facility] Blood 08/31/2024 9:44 PM CDT 08/31/2024 10:34 PM CDT Dyana Dominguez MD LAB BLOOD ORDERABLES Final Result [facility] Department [place] [address] * (ABNORMAL) Basic metabolic panel (08/31/2024 9:44 PM CDT) Pathologist [facility] Sodium 130(L) 135 - 145 mmol/L Potassium, pl 4.1 3.3 - 4.9 mmol/L [facility] Chloride 98 97 - 110 mmol/L [facility] CO2 27 22 - 32 mmol/L [facility] Anion gap 5 2 - 15 mmol/L [facility] BUN 15 6 - 25 mg/dL [facility] Creatinine 1.16 0.80 - 1.30 mg/dL [facility] Glucose 99 70 - 199 mg/dL [facility] Comment: Interpretive Data Fasting glucose >/= 126 [...] 2022. Calcium 8.8 8.5 - 10.3 mg/dL [facility] Blood 08/31/2024 9:44 PM CDT 08/31/2024 10:34 PM CDT Dyana Dominguez MD LAB BLOOD ORDERABLES Final Result [facility] Department [place] [address] * eGFR (08/30/2024 11:41 PM CDT) eGFR [...] Dominguez MD LAB BLOOD ORDERABLES Final Result [facility] [place] [address] * (ABNORMAL) Differential, auto (08/30/2024 11:41 PM CDT) Neutrophil abs 11.14(H) 1.50 - 6.50 K/cumm Imm gran abs 0.09 0.00 - 0.10 K/cumm [facility] Lymphocyte abs 1.97 0.80 - 3.30 K/cumm [facility] Monocyte abs 1.14(H) 0.20 - 0.80 K/cumm [facility] Eosinophil abs 0.09 0.00 - 0.50 K/cumm [facility] Basophil abs 0.02 0.00 - 0.10 K/cumm [facility] Neutrophil pct 77.2 % [facility] Comment: Interpretive Data Percent cell count reference ranges are not reported, since discordance with absolute values may lead to misinterpretation of CBC data. Current Interpretive Data was last revised on 2017. Imm gran pct 0.6 % [facility] Comment: Interpretive Data Percent cell count reference ranges are not reported, since discordance with absolute values may lead to misinterpretation of CBC data. Current Interpretive Data was last revised on 2017. Lymphocyte pct 13.6 % [facility] Comment: Interpretive Data Percent cell count reference ranges are not reported, since discordance with absolute values may lead to misinterpretation of CBC data. Current Interpretive Data was last revised on 2017. Monocyte pct 7.9 % [facility] Comment: Interpretive Data Percent cell count reference ranges are not reported, since discordance with absolute values may lead to misinterpretation of CBC data. Current Interpretive Data was last revised on 2017. Eosinophil pct 0.6 % [facility] Comment: Interpretive Data Percent cell count reference ranges are not reported, since discordance with absolute values may lead to misinterpretation of CBC data. Current Interpretive Data was last revised on 2017. Basophil pct 0.1 % [facility] Comment: Interpretive Data Percent cell count reference ranges are not reported, since discordance with absolute values may lead to misinterpretation of CBC data. Current Interpretive Data was last revised on 2017. Blood 08/30/2024 11:4 1 PM CDT 08/30/2024 11:52 PM CDT Dyana Dominguez MD LAB BLOOD ORDERABLES Final Result [facility] Department [place] [address] * (ABNORMAL) CBC with auto differential (08/30/2024 11:41 PM CDT) WBC 14.45(H) 3.80 - 9.90 K/cumm Hgb 9.7(L) 13.0 - 17.5 g/dL [facility] Hct 27.9(L) 38.9 - 50.3 % [facility] Plt 177 150 - 400 K/cumm [facility] MPV 9.8 9.1 - 12.3 fL [facility] RBC 3.28(L) 4.30 - 5.80 M/cumm [facility] MCV 85.1 81.3 - 96.4 fL [facility] MCH 29.6 27.1 - 33.3 pg [facility] MCHC 34.8 32.3 - 35.7 g/dL [facility] RDW CV 12.8 11.1 - 14.9 % [facility] RDW SD 38.9 35.7 - 48.1 fL [facility] NRBC abs 0.00 0.00 - 0.01 K/cumm [facility] Blood 08/30/2024 11:4 1 PM CDT 08/30/2024 11:52 PM CDT Dyana Dominguez MD LAB BLOOD ORDERABLES Final Result Performing Organization Address City/[facility]/ZIP Co de Phone Number [facility] Department [place] [address] * (ABNORMAL) Basic metabolic panel (08/30/2024 11:41 PM CDT) [facility] Sodium 134(L) 135 - 145 mmol/L Potassium, pl 4.4 3.3 - 4.9 mmol/L [facility] Chloride 100 97 - 110 mmol/L [facility] CO2 26 22 - 32 mmol/L [facility] Anion gap 8 2 - 15 mmol/L [facility] BUN 13 6 - 25 mg/dL [facility] Creatinine 0.93 0.80 - 1.30 mg/dL [facility] Glucose 107 70 - 199 mg/dL [facility] Comment: Interpretive Data Fasting glucose >/= 126 [...] 2022. Calcium 8.0(L) 8.5 - 10.3 mg/dL [facility] Blood 08/30/2024 11:4 1 PM CDT 08/30/2024 11:50 PM CDT Dyana Dominguez MD LAB BLOOD ORDERABLES Final Result Performing Organization Address [facility] Co de Phone Number [facility] Department [place] [address] * Sodium, urine, random (08/30/2024 1:46 PM CDT) Sodium, ur 50 mmol/L Comment: Interpretive Data No reference range established. Current interpretive data was last revised 2018. Urine 08/30/2024 1:46 PM CDT 08/30/2024 2:42 PM CDT Stacie Curry MD LAB URINE ORDERABLES Kinjal l Result Performing Organization Address [facility] de Phone Number [facility] Department [place] [address] * Osmolality, urine (08/30/2024 1:46 PM CDT) Pathologist [facility] Osmo, ur 283 mOsm/kg Urine 08/30/2024 1:46 PM CDT 08/30/2024 2:42 PM CDT Result [facility] Stacie Curry MD LAB URINE ORDERABLES Kinjal l Result Performing Organization Address [facility] de Phone Number [facility] Department [place] [address] * TRANSESOPHAGEAL ECHO (JESSICA) W DOPPLER/CF WO CONTRAST (08/30/2024 11:33 AM CDT) Anatomical Region Laterality Modality Echocardiography 08/30/2024 10:4 6 AM CDT Narrative 08/30/2024 3:32 PM CDT [facility] [place] [address] Transesophageal Echocardiographic Report Patient Name: JAMSHID INTERIANO J : 1940 (83y 9m) Gender: M Study Date: 08/30/2024 10:46:01 AM Ht(Inch): Wt(Lb): 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..] Dominguez MD LAB BLOOD ORDERABLES Final Result [facility] Department [place] [address] * (ABNORMAL) Differential, auto (08/29/2024 9:11 PM CDT) Neutrophil abs 13.20(H) 1.50 - 6.50 K/cumm Imm gran abs 0.13(H) 0.00 - 0.10 K/cumm [facility] Lymphocyte abs 2.05 0.80 - 3.30 K/cumm [facility] Monocyte abs 1.39(H) 0.20 - 0.80 K/cumm [facility] Eosinophil abs 0.03 0.00 - 0.50 K/cumm [facility] Basophil abs 0.03 0.00 - 0.10 K/cumm [facility] Neutrophil pct 78.3 % [facility] Comment: Interpretive Data Percent cell count reference ranges are not reported, since discordance with absolute values may lead to misinterpretation of CBC data. Current Interpretive Data was last revised on 2017. Imm gran pct 0.8 % [facility] Comment: Interpretive Data Percent cell count reference ranges are not reported, since discordance with absolute values may lead to misinterpretation of CBC data. Current Interpretive Data was last revised on 2017. Lymphocyte pct 12.2 % [facility] Comment: Interpretive Data Percent cell count reference ranges are not reported, since discordance with absolute values may lead to misinterpretation of CBC data. Current Interpretive Data was last revised on 2017. Monocyte pct 8.3 % [facility] Comment: Interpretive Data Percent cell count reference ranges are not reported, since discordance with absolute values may lead to misinterpretation of CBC data. Current Interpretive Data was last revised on 2017. Eosinophil pct 0.2 % [facility] Comment: Interpretive Data Percent cell count reference ranges are not reported, since discordance with absolute values may lead to misinterpretation of CBC data. Current Interpretive Data was last revised on 2017. Basophil pct 0.2 % [facility] Comment: Interpretive Data Percent cell count reference ranges are not reported, since discordance with absolute values may lead to misinterpretation of CBC data. Current Interpretive Data was last revised on 2017. Blood 08/29/2024 9:11 PM CDT 08/29/2024 11:31 PM CDT Dyana Dominguez MD LAB BLOOD ORDERABLES Final Result [facility] Department [place] [address] * (ABNORMAL) CBC with auto differential (08/29/2024 9:11 PM CDT) WBC 16.83(H) 3.80 - 9.90 K/cumm Hgb 11.4(L) 13.0 - 17.5 g/dL [facility] Hct 32.5(L) 38.9 - 50.3 % [facility] Plt 188 150 - 400 K/cumm [facility] MPV 10.3 9.1 - 12.3 fL [facility] RBC 3.75(L) 4.30 - 5.80 M/cumm [facility] MCV 86.7 81.3 - 96.4 fL [facility] MCH 30.4 27.1 - 33.3 pg [facility] MCHC 35.1 32.3 - 35.7 g/dL [facility] RDW CV 12.9 11.1 - 14.9 % [facility] RDW SD 40.5 35.7 - 48.1 fL [facility] NRBC abs 0.00 0.00 - 0.01 K/cumm [facility] Blood 08/29/2024 9:11 PM CDT 08/29/2024 11:31 PM CDT us Dyana Dominguez MD LAB BLOOD ORDERABLES Final Result [facility] Department [place] [address] * (ABNORMAL) Osmolality, blood (08/29/2024 9:11 PM CDT) Pathologist [facility] Osmo 274(L) 275 - 300 mOsm/kg Blood 08/29/2024 9:11 PM CDT 08/29/2024 11:33 PM CDT Diane Jenkins MD PhD LAB BLOOD ORDERABLE S Final Result [facility] Department [place] [address] * (ABNORMAL) Basic metabolic panel (08/29/2024 9:11 PM CDT) Sodium 130(L) 135 - 145 mmol/L Potassium, pl 4.4 3.3 - 4.9 mmol/L [facility] Chloride 95(L) 97 - 110 mmol/L [facility] CO2 27 22 - 32 mmol/L [facility] Anion gap 8 2 - 15 mmol/L [facility] BUN 14 6 - 25 mg/dL [facility] Creatinine 1.11 0.80 - 1.30 mg/dL [facility] Glucose 89 70 - 199 mg/dL [facility] Comment: Interpretive Data Fasting glucose >/= 126 [...] Calcium 9.4 8.5 - 10.3 mg/dL [facility] Blood 08/29/2024 9:11 PM CDT 08/29/2024 11:33 PM CDT Dyana Dominguez MD LAB BLOOD ORDERABLES Final Result [facility] Department [place] [address] * eGFR (08/28/2024 10:48 PM CDT) eGFR [...] Dominguez MD LAB BLOOD ORDERABLES Final Result [facility] [place] [address] * (ABNORMAL) Differential, auto (08/28/2024 10:48 PM CDT) Neutrophil abs 10.46(H) 1.50 - 6.50 K/cumm Imm gran abs 0.11(H) 0.00 - 0.10 K/cumm [facility] Lymphocyte abs 2.26 0.80 - 3.30 K/cumm [facility] Monocyte abs 1.36(H) 0.20 - 0.80 K/cumm [facility] Eosinophil abs 0.06 0.00 - 0.50 K/cumm [facility] Basophil abs 0.04 0.00 - 0.10 K/cumm [facility] Neutrophil pct 73.2 % [facility] Comment: Interpretive Data Percent cell count reference ranges are not reported, since discordance with absolute values may lead to misinterpretation of CBC data. Current Interpretive Data was last revised on 2017. Imm gran pct 0.8 % [facility] Comment: Interpretive Data Percent cell count reference ranges are not reported, since discordance with absolute values may lead to misinterpretation of CBC data. Current Interpretive Data was last revised on 2017. Lymphocyte pct 15.8 % [facility] Comment: Interpretive Data Percent cell count reference ranges are not reported, since discordance with absolute values may lead to misinterpretation of CBC data. Current Interpretive Data was last revised on 2017. Monocyte pct 9.5 % [facility] Comment: Interpretive Data Percent cell count reference ranges are not reported, since discordance with absolute values may lead to misinterpretation of CBC data. Current Interpretive Data was last revised on 2017. Eosinophil pct 0.4 % [facility] Comment: Interpretive Data Percent cell count reference ranges are not reported, since discordance with absolute values may lead to misinterpretation of CBC data. Current Interpretive Data was last revised on 2017. Basophil pct 0.3 % [facility] Comment: Interpretive Data Percent cell count reference ranges are not reported, since discordance with absolute values may lead to misinterpretation of CBC data. Current Interpretive Data was last revised on 2017. Blood 08/28/2024 10:4 8 PM CDT 08/28/2024 11:27 PM CDT Dyana Dominguez MD LAB BLOOD ORDERABLES Final Result [facility] Department [place] [address] * (ABNORMAL) CBC with auto differential (08/28/2024 10:48 PM CDT) WBC 14.29(H) 3.80 - 9.90 K/cumm Hgb 10.9(L) 13.0 - 17.5 g/dL [facility] Hct 31.7(L) 38.9 - 50.3 % [facility] Plt 185 150 - 400 K/cumm [facility] MPV 10.2 9.1 - 12.3 fL [facility] RBC 3.71(L) 4.30 - 5.80 M/cumm [facility] MCV 85.4 81.3 - 96.4 fL [facility] MCH 29.4 27.1 - 33.3 pg [facility] MCHC 34.4 32.3 - 35.7 g/dL [facility] RDW CV 12.6 11.1 - 14.9 % [facility] RDW SD 39.4 35.7 - 48.1 fL [facility] NRBC abs 0.00 0.00 - 0.01 K/cumm [facility] Blood 08/28/2024 10:4 8 PM CDT 08/28/2024 11:27 PM CDT Dyana Dominguez MD LAB BLOOD ORDERABLES Final Result Performing Organization Address City/[facility]/ZIP Co de Phone Number [facility] Department [place] [address] * (ABNORMAL) Basic metabolic panel (08/28/2024 10:48 PM CDT) Pathologist [facility] Sodium 131(L) 135 - 145 mmol/L Potassium, pl 4.1 3.3 - 4.9 mmol/L [facility] Chloride 97 97 - 110 mmol/L [facility] CO2 27 22 - 32 mmol/L [facility] Anion gap 7 2 - 15 mmol/L [facility] BUN 17 6 - 25 mg/dL [facility] Creatinine 1.03 0.80 - 1.30 mg/dL [facility] Glucose 108 70 - 199 mg/dL [facility] Comment: Interpretive Data Fasting glucose >/= 126 [...] 2022. Calcium 8.8 8.5 - 10.3 mg/dL [facility] Blood 08/28/2024 10:4 8 PM CDT 08/28/2024 11:28 PM CDT Dyana Dominguez MD LAB BLOOD ORDERABLES Final Result [facility] [place] [address] * eGFR (08/27/2024 8:57 PM CDT) Pathologist [facility] eGFR 65 >=60 mL/min/1. 73 m2 Comment: [...] Dominguez MD LAB BLOOD ORDERABLES Final Result [facility] [place] [address] * (ABNORMAL) Differential, auto (08/27/2024 8:57 PM CDT) Neutrophil abs 9.27(H) 1.50 - 6.50 K/cumm Imm gran abs 0.10 0.00 - 0.10 K/cumm [facility] Lymphocyte abs 2.40 0.80 - 3.30 K/cumm [facility] Monocyte abs 1.42(H) 0.20 - 0.80 K/cumm [facility] Eosinophil abs 0.04 0.00 - 0.50 K/cumm [facility] Basophil abs 0.03 0.00 - 0.10 K/cumm [facility] Neutrophil pct 69.9 % [facility] Comment: Interpretive Data Percent cell count reference ranges are not reported, since discordance with absolute values may lead to misinterpretation of CBC data. Current Interpretive Data was last revised on 2017. Imm gran pct 0.8 % [facility] Comment: Interpretive Data Percent cell count reference ranges are not reported, since discordance with absolute values may lead to misinterpretation of CBC data. Current Interpretive Data was last revised on 2017. Lymphocyte pct 18.1 % [facility] Comment: Interpretive Data Percent cell count reference ranges are not reported, since discordance with absolute values may lead to misinterpretation of CBC data. Current Interpretive Data was last revised on 2017. Monocyte pct 10.7 % [facility] Comment: Interpretive Data Percent cell count reference ranges are not reported, since discordance with absolute values may lead to misinterpretation of CBC data. Current Interpretive Data was last revised on 2017. Eosinophil pct 0.3 % [facility] Comment: Interpretive Data Percent cell count reference ranges are not reported, since discordance with absolute values may lead to misinterpretation of CBC data. Current Interpretive Data was last revised on 2017. Basophil pct 0.2 % [facility] Comment: Interpretive Data Percent cell count reference ranges are not reported, since discordance with absolute values may lead to misinterpretation of CBC data. Current Interpretive Data was last revised on 2017. Blood 08/27/2024 8:57 PM CDT 08/27/2024 9:16 PM CDT Dyana Dominguez MD LAB BLOOD ORDERABLES Final Result [facility] [place] [address] * (ABNORMAL) CBC with auto differential (08/27/2024 8:57 PM CDT) WBC 13.26(H) 3.80 - 9.90 K/cumm Hgb 10.7(L) 13.0 - 17.5 g/dL [facility] Hct 30.6(L) 38.9 - 50.3 % [facility] Plt 153 150 - 400 K/cumm [facility] MPV 10.0 9.1 - 12.3 fL [facility] RBC 3.58(L) 4.30 - 5.80 M/cumm [facility] MCV 85.5 81.3 - 96.4 fL [facility] MCH 29.9 27.1 - 33.3 pg [facility] MCHC 35.0 32.3 - 35.7 g/dL [facility] RDW CV 12.6 11.1 - 14.9 % [facility] RDW SD 39.1 35.7 - 48.1 fL [facility] NRBC abs 0.00 0.00 - 0.01 K/cumm [facility] Blood 08/27/2024 8:57 PM CDT 08/27/2024 9:16 PM CDT us Dyana Dominguez MD LAB BLOOD ORDERABLES Final Result [facility] Department [place] [address] * Hepatitis A antibody, IgM Blood (08/27/2024 8:57 PM CDT) [facility] Hep A IgM Nonreactive Nonreactive Blood 08/27/2024 8:57 PM CDT 08/27/2024 9:16 PM CDT us Stacie Curry MD LAB MICROBIOLOGY - GENERA L ORDERABLES Final Result Performing Organization Address [facility] Co de Phone Number [facility] Department [place] [address] * (ABNORMAL) Basic metabolic panel (08/27/2024 8:57 PM CDT) [facility] Sodium 134(L) 135 - 145 mmol/L Potassium, pl 4.5 3.3 - 4.9 mmol/L [facility] Chloride 100 97 - 110 mmol/L [facility] CO2 28 22 - 32 mmol/L [facility] Anion gap 6 2 - 15 mmol/L [facility] BUN 14 6 - 25 mg/dL [facility] Creatinine 1.13 0.80 - 1.30 mg/dL [facility] Glucose 129 70 - 199 mg/dL [facility] Comment: Interpretive Data Fasting glucose >/= 126 [...] 2022. Calcium 8.5 8.5 - 10.3 mg/dL [facility] Blood 08/27/2024 8:57 PM CDT 08/27/2024 9:15 PM CDT us Dyana Dominguez MD LAB BLOOD ORDERABLES Final Result [facility] [place] [address] * eGFR (08/26/2024 10:13 PM CDT) eGFR [...] Dominguez MD LAB BLOOD ORDERABLES Final Result [facility] [place] [address] * (ABNORMAL) Differential, auto (08/26/2024 10:13 PM CDT) Neutrophil abs 8.68(H) 1.50 - 6.50 K/cumm Imm gran abs 0.07 0.00 - 0.10 K/cumm [facility] Lymphocyte abs 2.28 0.80 - 3.30 K/cumm [facility] Monocyte abs 1.71(H) 0.20 - 0.80 K/cumm [facility] Eosinophil abs 0.05 0.00 - 0.50 K/cumm [facility] Basophil abs 0.03 0.00 - 0.10 K/cumm [facility] Neutrophil pct 67.8 % [facility] Comment: Interpretive Data Percent cell count reference ranges are not reported, since discordance with absolute values may lead to misinterpretation of CBC data. Current Interpretive Data was last revised on 2017. Imm gran pct 0.5 % [facility] Comment: Interpretive Data Percent cell count reference ranges are not reported, since discordance with absolute values may lead to misinterpretation of CBC data. Current Interpretive Data was last revised on 2017. Lymphocyte pct 17.8 % [facility] Comment: Interpretive Data Percent cell count reference ranges are not reported, since discordance with absolute values may lead to misinterpretation of CBC data. Current Interpretive Data was last revised on 2017. Monocyte pct 13.3 % [facility] Comment: Interpretive Data Percent cell count reference ranges are not reported, since discordance with absolute values may lead to misinterpretation of CBC data. Current Interpretive Data was last revised on 2017. Eosinophil pct 0.4 % [facility] Comment: Interpretive Data Percent cell count reference ranges are not reported, since discordance with absolute values may lead to misinterpretation of CBC data. Current Interpretive Data was last revised on 2017. Basophil pct 0.2 % [facility] Comment: Interpretive Data Percent cell count reference ranges are not reported, since discordance with absolute values may lead to misinterpretation of CBC data. Current Interpretive Data was last revised on 2017. Blood 08/26/2024 10:1 3 PM CDT 08/26/2024 11:44 PM CDT Dyana Dominguez MD LAB BLOOD ORDERABLES Final Result Performing Organization Address City/[facility]/ZIP Co de Phone Number [facility] Department [place] [employer] [place] [address] * (ABNORMAL) CBC with auto differential (08/26/2024 10:13 PM CDT) WBC 12.82(H) 3.80 - 9.90 K/cumm Hgb 11.1(L) 13.0 - 17.5 g/dL [facility] Hct 31.8(L) 38.9 - 50.3 % [facility] Plt 161 150 - 400 K/cumm [facility] MPV 9.9 9.1 - 12.3 fL [facility] RBC 3.74(L) 4.30 - 5.80 M/cumm [facility] MCV 85.0 81.3 - 96.4 fL [facility] MCH 29.7 27.1 - 33.3 pg [facility] MCHC 34.9 32.3 - 35.7 g/dL [facility] RDW CV 12.7 11.1 - 14.9 % [facility] RDW SD 39.3 35.7 - 48.1 fL [facility] NRBC abs 0.00 0.00 - 0.01 K/cumm [facility] Blood 08/26/2024 10:1 3 PM CDT 08/26/2024 11:44 PM CDT Dyana Dominguez MD LAB BLOOD ORDERABLES Final Result Performing Organization Address City/[facility]/ZIP Co de Phone Number [facility] [place] [address] * Hepatitis C antibody Blood (08/26/2024 10:13 PM CDT) Pathologist [facility] Hep C Ab Nonreactive Nonreactive Comment:Antibodies to HCV no t detected. Does NOT exclude the possibility of recent exposure to HCV. Current interpretive data was last revised on 22 Blood 08/26/2024 10:1 3 PM CDT 08/26/2024 11:45 PM CDT Stacie Curry MD LAB MICROBIOLOGY - GENERA L ORDERABLES Final Result [facility] [place] [employer] [place] [address] * (ABNORMAL) Hepatitis A antibody, total Blood (08/26/2024 10:13 PM CDT) [facility] Hep A total Reactive(A ) Nonreactive Blood 08/26/2024 10:1 3 PM CDT 08/26/2024 11:45 PM CDT Stacie Curry MD LAB MICROBIOLOGY - GENERA L ORDERABLES Final Result Performing Organization Address City/[facility]/ZIP Co de Phone Number [facility] [place] [employer] [place] [address] * Hepatitis B core antibody, total Blood (08/26/2024 10:13 PM CDT) [facility] Hep B core IgG/IgM Nonreactive Nonreactive Blood 08/26/2024 10:1 3 PM CDT 08/26/2024 11:45 PM CDT Stacie Curry MD LAB MICROBIOLOGY - GENERA L ORDERABLES Final Result Performing Organization Address City/[facility]/ZIP Co de Phone Number [facility] [place] [address] * Hepatitis B surface antibody (immune status) Blood (08/26/2024 10:13 PM CDT) [facility] HBsAb (immune status) Reactive Comment:This result is consi stent with immunity to Hepatitis B Virus when used in the setting of routine screening. Current interpretive data was last revised on 22 HBsAb (immune status) index 29.3 mIUnits/m L [facility] Blood 08/26/2024 10:1 3 PM CDT 08/26/2024 11:45 PM CDT Stacie Curry MD LAB MICROBIOLOGY - GENERA L ORDERABLES Final Result Performing Organization Address City/[facility]/ZIP Co de Phone Number [facility] Department [place] [address] * Hepatitis B Surface Antigen Blood (08/26/2024 10:13 PM CDT) [facility] HepBsAg Nonreactive Nonreactive Blood 08/26/2024 10:1 3 PM CDT 08/26/2024 11:45 PM CDT Stacie Curry MD LAB MICROBIOLOGY - GENERA L ORDERABLES Final Result Performing Organization Address City/[facility]/ZIP Co de Phone Number [facility] Department [place] [address] * Basic metabolic panel (08/26/2024 10:13 PM CDT) [facility] Sodium 135 135 - 145 mmol/L Potassium, pl 4.4 3.3 - 4.9 mmol/L [facility] Chloride 100 97 - 110 mmol/L [facility] CO2 26 22 - 32 mmol/L [facility] Anion gap 9 2 - 15 mmol/L [facility] BUN 16 6 - 25 mg/dL [facility] Creatinine 1.06 0.80 - 1.30 mg/dL [facility] Glucose 108 70 - 199 mg/dL [facility] Comment: Interpretive Data Fasting glucose >/= 126 [...] Calcium 8.8 8.5 - 10.3 mg/dL [facility] Blood 08/26/2024 10:1 3 PM CDT 08/26/2024 11:45 PM CDT us Dyana Dominguez MD LAB BLOOD ORDERABLES Final Result [facility] Department [place] [address] * TRANSTHORACIC ECHO (TTE) COMPLETE W DOPPLER/CF W CONTRAST (08/26/2024 2:51 PM CDT) Anatomical Region Laterality Modality Ultrasound 08/26/2024 1:37 PM CDT Narrative 08/28/2024 4:16 PM CDT [facility] [place] [address] Transthoracic Echocardiographic Report Patient Name: JAMSHID INTERIANO J : 1940 (83y 9m) Gender: M Study Date: 08/26/2024 01:37:55 PM Ht(Inch): 67 Wt(Lb): 151.02 BSA: 1.8 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 Rigger: Augustina Oconnell RDCS Location: [id number] Order Provider: DYANA DOMINGUEZ Heart Rate: 71 [...] Procedure Note Cale Ruby MD - 08/28/2024 [facility] [place] [address] Transthoracic Echocardiographic Report Patient Name: JAMSHID INTERIANO J : 1940 (83y 9m) Gender: M Study Date: 08/26/2024 01:37:55 PM Ht(Inch): 67 Wt(Lb): 151.02 BSA: 1.8 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 Rigger: Augustina Oconnell RDCS Location: [id number] Order Provider:DYANA DOMINGUEZ Heart Rate: 71 BMI: [...] LA Length 4C 5.79 cm MV Decel Efkj156.75 msec [ 104.00 - 258.00 ] LA [...] CDT 08/26/2024 10:43 AM CDT [facility] - 08/30/2024 12:00 PM CDT [...] performance characteristics have been verified by the [facility] Microbiology Laboratory. For questions about this culture, contact the Microbiology Laboratory at [phone]. Interpretive data was last revised on 24. us Stacie Curry MD LAB MICROBIOLOGY - GENERA L ORDERABLES Final Result [facility] Department [place] [address] * Blood culture Blood (08/26/2024 10:30 AM CDT) Report Final Report: No growth Blood 08/26/2024 10:3 0 AM CDT 08/26/2024 10:42 AM CDT [facility] - 08/30/2024 12:00 PM CDT [...] performance characteristics have been verified by the [facility] Microbiology Laboratory. For questions about this culture, contact the Microbiology Laboratory at [phone]. Interpretive data was last revised on 24. us Stacie Curry MD LAB MICROBIOLOGY - GENERA L ORDERABLES Final Result [facility] Department [place] [address] * XR Orthopantogram Panorex (08/26/2024 10:00 AM [...] Dominguez MD LAB BLOOD ORDERABLES Final Result [facility] [place] [address] * (ABNORMAL) Differential, auto (08/25/2024 8:53 PM CDT) Pathologist [facility] Neutrophil abs 11.78(H) 1.50 - 6.50 K/cumm Imm gran abs 0.12(H) 0.00 - 0.10 K/cumm [facility] Lymphocyte abs 1.25 0.80 - 3.30 K/cumm [facility] Monocyte abs 1.44(H) 0.20 - 0.80 K/cumm [facility] Eosinophil abs 0.02 0.00 - 0.50 K/cumm [facility] Basophil abs 0.03 0.00 - 0.10 K/cumm [facility] Neutrophil pct 80.6 % [facility] Comment: Interpretive Data Percent cell count reference ranges are not reported, since discordance with absolute values may lead to misinterpretation of CBC data. Current Interpretive Data was last revised on 2017. Imm gran pct 0.8 % [facility] Comment: Interpretive Data Percent cell count reference ranges are not reported, since discordance with absolute values may lead to misinterpretation of CBC data. Current Interpretive Data was last revised on 2017. Lymphocyte pct 8.5 % [facility] Comment: Interpretive Data Percent cell count reference ranges are not reported, since discordance with absolute values may lead to misinterpretation of CBC data. Current Interpretive Data was last revised on 2017. Monocyte pct 9.8 % [facility] Comment: Interpretive Data Percent cell count reference ranges are not reported, since discordance with absolute values may lead to misinterpretation of CBC data. Current Interpretive Data was last revised on 2017. Eosinophil pct 0.1 % [facility] Comment: Interpretive Data Percent cell count reference ranges are not reported, since discordance with absolute values may lead to misinterpretation of CBC data. Current Interpretive Data was last revised on 2017. Basophil pct 0.2 % [facility] Comment: Interpretive Data Percent cell count reference ranges are not reported, since discordance with absolute values may lead to misinterpretation of CBC data. Current Interpretive Data was last revised on 2017. Blood 08/25/2024 8:53 PM CDT 08/25/2024 10:22 PM CDT Dyana Dominguez MD LAB BLOOD ORDERABLES Final Result [facility] [place] [address] * Blood parasite examination Blood (08/25/2024 8:53 [...] 08/25/2024 10:19 PM CDT [facility] - 08/26/2024 10:57 AM CDT [...] MICROBIOLOGY - GENERA L ORDERABLES Final Result [facility] Department [place] [address] * (ABNORMAL) CBC with auto differential (08/25/2024 8:53 PM CDT) WBC 14.64(H) 3.80 - 9.90 K/cumm Hgb 12.5(L) 13.0 - 17.5 g/dL [facility] Hct 36.2(L) 38.9 - 50.3 % [facility] Plt 164 150 - 400 K/cumm [facility] MPV 9.6 9.1 - 12.3 fL [facility] RBC 4.21(L) 4.30 - 5.80 M/cumm [facility] MCV 86.0 81.3 - 96.4 fL [facility] MCH 29.7 27.1 - 33.3 pg [facility] MCHC 34.5 32.3 - 35.7 g/dL [facility] RDW CV 12.8 11.1 - 14.9 % [facility] RDW SD 39.9 35.7 - 48.1 fL [facility] NRBC abs 0.00 0.00 - 0.01 K/cumm [facility] Blood 08/25/2024 8:53 PM CDT 08/25/2024 10:22 PM CDT Dyana Dominguez MD LAB BLOOD ORDERABLES Final Result Performing Organization Address [facility] Co de Phone Number [facility] [place] [address] * (ABNORMAL) Erythrocyte sedimentation rate (08/25/2024 8:53 PM CDT) Pathologist [facility] Erythrocyte sedimentation rate 21(H) 1 - 20 mm/hr Blood 08/25/2024 8:53 PM CDT 08/25/2024 10:22 PM CDT Dyana Dominguez MD LAB BLOOD ORDERABLES Final Result Performing Organization Address [facility] de Phone Number [facility] [place] [address] * (ABNORMAL) CRP (acute phase) (08/25/2024 8:53 PM CDT) [facility] CRP 103.9(H) <=10.0 mg/L Blood 08/25/2024 8:53 PM CDT 08/25/2024 10:23 PM CDT Dyana Dominguez MD LAB BLOOD ORDERABLES Final Result Performing Organization Address [facility] [place] [address] * Basic metabolic panel (08/25/2024 8:53 PM CDT) Sodium 136 135 - 145 mmol/L Potassium, pl 4.3 3.3 - 4.9 mmol/L [facility] Chloride 100 97 - 110 mmol/L [facility] CO2 25 22 - 32 mmol/L [facility] Anion gap 11 2 - 15 mmol/L [facility] BUN 18 6 - 25 mg/dL [facility] Creatinine 0.91 0.80 - 1.30 mg/dL [facility] Glucose 95 70 - 199 mg/dL [facility] Comment: Interpretive Data Fasting glucose >/= 126 [...] 2022. Calcium 9.2 8.5 - 10.3 mg/dL [facility] Blood 08/25/2024 8:53 PM CDT 08/25/2024 10:23 PM CDT Dyana Dominguez MD LAB BLOOD ORDERABLES Final Result [facility] [place] [address] * Urinalysis reflex to microscopic and culture Urine (08/25/2024 7:45 PM CDT) Color, ur Straw Yellow Clarity, ur Clear Clear [facility] Specific gravity, ur 1.012 1.003 - 1.030 [facility] pH, urine 7.5 [facility] Comment: Interpretive Data U rine pH is affected by diet, medications, systemic acid-base disturbances, and renal tubular function. pH may affect urinary stone formation. For example, urine pH below 6.0 may help reduce the tendency for calcium phosphate stones and pH greater than 6.0 may reduce the tendency for uric acid stone formation. Source: [facility] [employer] Current Interpretive Data was last revised on 2017 Protein, ur ql Negative Negative [facility] Glucose, ur ql Negative Negative [facility] Ketones, ur Negative Negative [facility] Bilirubin, ur Negative Negative [facility] Blood, ur Negative Negative [facility] Urobilinogen, ur <2.0 <2.0 mg/dL [facility] Nitrite, ur Negative Negative [facility] Leukocyte esterase, ur Negative Negative [facility] UA reflex comment Reflex conditions for microscopic UA and culture not met. [facility] Urine 08/25/2024 7:45 PM CDT 08/25/2024 7:51 PM CDT us Carey Ayala MD LAB MICROBIOLOGY - GEN ERAL ORDERABLES Final Result [facility] [place] [address] * XR Chest 1 View (08/25/2024 4:49 [...] by: Lan Vitale M.D. us Neida Hutchinson ELECTRIC SYSTEM OPERATOR IMG XR PROCEDURES Final Res ult * [...] ORDERABLES F inal Result Performing Organization Address [facility] Co de Phone Number [facility] [place] [employer] [address] * Thyroid Function [place] (08/25/2024 1:48 PM CDT) Pathologist [facility] TSH 1.50 0.30 - 4.20 mcIUnit/mL Blood 08/25/2024 1:48 PM CDT 08/25/2024 2:01 PM CDT Carey Ayala MD LAB BLOOD ORDERABLES F inal Result Performing Organization Address [facility] de Phone Number [facility] [place] [employer] [place] [address] * Extra slide preparation (08/25/2024 1:48 PM CDT) Pathologist [facility] Extra slide prep Slide available for pickup from the lab. Blood 08/25/2024 1:48 PM CDT 08/25/2024 2:01 PM CDT Carey Ayala MD LAB BLOOD ORDERABLES F inal Result Performing Organization Address [facility] Co de Phone Number [facility] [place] [address] * Respiratory pathogen panel Nasopharyngeal (08/25/2024 1:48 PM CDT) Pathologist [facility] Influenza A RNA Not Detected Not Detected Influenza B RNA Not Detected Not Detected [facility] RSV RNA Not Detected Not Detected [facility] COVID-19 RNA Not Detected Not Detected [facility] Coronavirus 229E RNA Not Detected Not Detected [facility] Coronavirus HKU1 RNA Not Detected Not Detected [facility] Coronavirus NL63 RNA Not Detected Not Detected [facility] Coronavirus OC43 RNA Not Detected Not Detected [facility] Adenovirus DNA Not Detected Not Detected [facility] Metapneumovirus RNA Not Detected Not Detected [facility] Rhinovirus/Enterov irus RNA Not Detected Not Detected [facility] Parainfluenza 1 RNA Not Detected Not Detected [facility] Parainfluenza 2 RNA Not Detected Not Detected [facility] Parainfluenza 3 RNA Not Detected Not Detected [facility] Parainfluenza 4 RNA Not Detected Not Detected [facility] B. pertussis DNA Not Detected Not Detected [facility] B. parapertussis DNA Not Detected Not Detected [facility] C. pneumoniae DNA Not Detected Not Detected [facility] M. pneumoniae DNA Not Detected Not Detected [facility] Nasopharyngeal 08/25/2024 1: 48 PM CDT 08/25/2024 2:37 PM CDT Narrative [facility] - 08/25/2024 4:29 PM CDT Is the Patient experiencing symptoms consistent with COVID?->Yes Surveillance testing for transplant patient?->No Interpretive Data The [employer] FilmArray Respiratory Panel (RP2.1) assay is a [...] assay has FDA clearance for testing of ELECTRIC SYSTEM OPERATOR swabs. The performance of additional specimen types has been assessed by the performing laboratory. The performance characteristics of this assay have been determined by [facility] Molecular Infectious Disease Laboratory. Current interpretive data was last revised on 22. Carey Ayala MD LAB MICROBIOLOGY - GEN ERAL ORDERABLES Final Result [facility] Department [place] [address] * (ABNORMAL) Blood culture Blood Peripheral (08/25/2024 1:48 PM CDT) Direct Specimen Exam Stain: Gram Positive Cocci in pairs and chains Time to culture positivity (anaerobic media): 12.6 hours Time to culture positivity (aerobic media): 14.4 hours Report Final Report: Streptococcus sanguinis (S. mitis group) Streptococcus sanguinis (S. mitis group) #2 For susceptibility results, refer to accession number [id number] on the blood culture from 08/24/2024 (.) [facility] Organism STREPTOCOCCUS SANGUINIS (S. MITIS GROUP) [facility] Organism STREPTOCOCCUS SANGUINIS (S. MITIS GROUP) [facility] Blood (Peripheral) 08/25/2024 1:48 PM CDT 08/25/2024 2:27 PM CDT [facility] - 08/29/2024 1:54 PM CDT [...] performance characteristics have been verified by the [facility] Microbiology Laboratory. For questions about this culture, contact the Microbiology Laboratory at [phone]. Interpretive data was last revised on 24. us Carey Ayala MD LAB MICROBIOLOGY - GEN ERAL ORDERABLES Final Result QUANG MIR [facility] [place] [address] * (ABNORMAL) Blood culture Blood Peripheral (08/25/2024 1:48 PM CDT) Direct Specimen Exam Stain: Gram Positive Cocci in pairs and chains Time to culture positivity (aerobic media): 14.8 hours Time to culture positivity (anaerobic media): 11.6 hours Report Final Report: Streptococcus sanguinis (S. mitis group) Streptococcus sanguinis (S. mitis group) #2 For susceptibility results, refer to accession number [id number] on the blood culture from 08/24/2024 (.) [facility] Organism STREPTOCOCCUS SANGUINIS (S. MITIS GROUP) [facility] Organism STREPTOCOCCUS SANGUINIS (S. MITIS GROUP) [facility] Blood (Peripheral) 08/25/2024 1:48 PM CDT 08/25/2024 2:28 PM CDT Narrative [facility] - 08/29/2024 1:53 PM CDT Draw Blood [...] performance characteristics have been verified by the [facility] Microbiology Laboratory. For questions about this culture, contact the Microbiology Laboratory at [phone]. Interpretive data was last revised on 24. Carey Ayala MD LAB MICROBIOLOGY - GEN ERAL ORDERABLES Final Result QUANG MIR[facility] Department [place] [address] * eGFR (08/24/2024 10:33 AM CDT) eGFR [...] ORDERABLES F inal Result Performing Organization Address City/[facility] Co de Phone Number QUANG ESPARZA [address] Department [place] [address] * (ABNORMAL) Differential, auto (08/24/2024 10:33 AM CDT) Neutrophil abs 12.53(H) 1.50 - 6.50 K/cumm Imm gran abs 0.08 0.00 - 0.10 K/cumm [facility] Lymphocyte abs 1.25 0.80 - 3.30 K/cumm [facility] Monocyte abs 1.16(H) 0.20 - 0.80 K/cumm [facility] Eosinophil abs 0.01 0.00 - 0.50 K/cumm [facility] Basophil abs 0.02 0.00 - 0.10 K/cumm [facility] Neutrophil pct 83.3 % [facility] Comment: Interpretive Data Percent cell count reference ranges are not reported, since discordance with absolute values may lead to misinterpretation of CBC data. Current Interpretive Data was last revised on 2017. Imm gran pct 0.5 % [facility] Comment: Interpretive Data Percent cell count reference ranges are not reported, since discordance with absolute values may lead to misinterpretation of CBC data. Current Interpretive Data was last revised on 2017. Lymphocyte pct 8.3 % [facility] Comment: Interpretive Data Percent cell count reference ranges are not reported, since discordance with absolute values may lead to misinterpretation of CBC data. Current Interpretive Data was last revised on 2017. Monocyte pct 7.7 % [facility] Comment: Interpretive Data Percent cell count reference ranges are not reported, since discordance with absolute values may lead to misinterpretation of CBC data. Current Interpretive Data was last revised on 2017. Eosinophil pct 0.1 % [facility] Comment: Interpretive Data Percent cell count reference ranges are not reported, since discordance with absolute values may lead to misinterpretation of CBC data. Current Interpretive Data was last revised on 2017. Basophil pct 0.1 % [facility] Comment: Interpretive Data Percent cell count reference ranges are not reported, since discordance with absolute values may lead to misinterpretation of CBC data. Current Interpretive Data was last revised on 2017. Blood 08/24/2024 10:3 3 AM CDT 08/24/2024 7:01 PM CDT us London Santos MD LAB BLOOD ORDERABLES F inal Result QUANG [address] Department [place] [address] * Ehrlichia and Anaplasma PCR Blood (08/24/2024 10:33 AM CDT) Pathologist [facility] Ehrlichia species DNA Not Detected Not Detected [facility] Comment:Testing performed by : [facility], [address] [place]., [address] Anaplasma Phagocytophilum DNA Not Detected Not Detected [...] Food and Drug Administration. Testing performed by: [facility], [address] [place]., [address] Blood 08/24/2024 10:3 3 AM CDT 08/25/2024 10:12 AM CDT London Santos MD LAB MICROBIOLOGY - GEN ERAL ORDERABLES Final Result Performing Organization Address [facility] de Phone Number QUANG [address] [place] [address] BJ * HIV 1/2 Antibody plus p24 Antigen Blood (08/24/2024 10:33 AM CDT) Pathologist [facility] HIV 1/2 ab + p24 ag Nonreactive Nonreactive Comment: Nonreactive for HIV-1 antigen and HIV-1/HIV-2 antibodies. No laboratory evidence of HIV infection. If acute HIV infection is suspected, consider testing for HIV-1 RNA. Blood 08/24/2024 10:3 3 AM CDT 08/24/2024 3:35 PM CDT London Santos MD LAB MICROBIOLOGY - GEN ERAL ORDERABLES Final Result Performing Organization Address City/[facility] Co de Phone Number [facility] [address] [place] [address] * (ABNORMAL) CBC with auto differential (08/24/2024 10:33 AM CDT) WBC 15.05(H) 3.80 - 9.90 K/cumm Hgb 11.8(L) 13.0 - 17.5 g/dL [facility] Hct 35.6(L) 38.9 - 50.3 % [facility] Plt 165 150 - 400 K/cumm [facility] MPV 9.5 9.1 - 12.3 fL [facility] RBC 3.94(L) 4.30 - 5.80 M/cumm [facility] MCV 90.4 81.3 - 96.4 fL [facility] MCH 29.9 27.1 - 33.3 pg [facility] MCHC 33.1 32.3 - 35.7 g/dL [facility] RDW CV 12.8 11.1 - 14.9 % [facility] RDW SD 43.0 35.7 - 48.1 fL [facility] NRBC abs 0.00 0.00 - 0.01 K/cumm [facility] Blood 08/24/2024 10:3 3 AM CDT 08/24/2024 7:01 PM CDT London Santos MD LAB BLOOD ORDERABLES F inal Result [facility] [address] Department [place] [address] * (ABNORMAL) Shahana-Ramirez virus (EBV) antibody panel Blood (08/24/2024 10:33 AM CDT) Pathologist [facility] EBV nuclear Ab Positive(A) Negative Comment: Indicates the presence of detectable IgG antibody to EBV Nuclear Antigen. Testing performed by: [facility], [address] [place]., [address] EBV VCA IgG Positive(A) Negative [facility] Comment: Indicates the presence of antibody; 90% of the adult population will have been infected with EBV sometime in the past. Testing performed by: [facility], [address] [place]., [address] EBV VCA IgM Negative Negative [facility] Comment: No detectable IgM antibody to EBV-VCA. A negative result indicates no current infection with EBV. If clinical suspicion of acute EBV infection is present, testing should be repeated after one week. Testing performed by: [facility], [address] [place] [address] EBV interp Past Infection QUANG Comment:Testing performed by : [facility], [address] [place]., [address] Blood 08/24/2024 10:3 3 AM CDT 08/25/2024 10:06 AM CDT London Santos MD LAB MICROBIOLOGY - GEN ERAL ORDERABLES Final Result QUANG [address] [address] Department [place] [address] * (ABNORMAL) Blood culture Blood (08/24/2024 10:33 AM CDT) Direct Specimen Exam Molecular Analysis: Streptococcus species detected by [facility] BCID-GP panel. This test does not exclude the possibility of a mixed bacterial infection. Comment:Testing performed by : [facility], [address] [place] [address] Direct Specimen Exam Stain: Gram Positive Cocci in pairs and chains Time to culture positivity (anaerobic media): 11.5 hours Time to culture positivity (aerobic media): 12.5 hours QUANG Comment:Testing performed by : [facility], [address] [place] [address]., [id number] Report Final Report: Streptococcus sanguinis (S. mitis group) Organism failed to grow adequately for susceptibility testing. Streptococcus sanguinis (S. mitis group) #2 Organism failed to grow adequately for susceptibility testing. (.) QUANG Comment:Testing performed by : [facility], [address] [place]., [address] Organism STREPTOCOCCUS SANGUINIS (S. MITIS GROUP) QUANG [...] performance characteristics have been verified by the [facility] Microbiology Laboratory. For questions about this culture, contact the Microbiology Laboratory at [phone]. Interpretive data was last revised on 24. London Santos MD LAB MICROBIOLOGY - GEN ERAL ORDERABLES Final Result QUANG ESPARZA [address] Department [place] [address] * (ABNORMAL) Blood culture Blood (08/24/2024 10:33 AM CDT) Direct Specimen Exam Molecular Analysis: Streptococcus species detected by [facility] [employer] BCID-GP panel. This test does not exclude the possibility of a mixed bacterial infection. Notification of: Streptococcus species called to and read back by: Dyana Ramos MT [phone] on 08/25/2024 10:01:01 by: Diony Pineda MLS * * * * * * * * * * * * * * * * * * * * Test result called to and read back by Hannah Smiley on 08/25/2024 10:24:37 by Dyana Ramos MT Comment:Testing performed by : [facility], [address] [place] [address]., [address] Direct Specimen Exam Stain: Gram Positive Cocci [...] by CAMI Falcon Comment:Testing performed by : [facility], [address] [place] [address]., [address] Report Final Report: Streptococcus sanguinis (S. mitis group) Streptococcus sanguinis (S. mitis group) #2 For susceptibility results, refer to accession number [id number] on the blood culture from 08/24/2024 (.) QUANG Comment:Testing performed by : [facility], [address] [place] [address]., [address] Organism STREPTOCOCCUS SANGUINIS (S. MITIS GROUP) [facility] Organism STREPTOCOCCUS SANGUINIS (S. MITIS GROUP) [facility] Blood 08/24/2024 10:3 3 AM CDT 08/24/2024 8:33 PM CDT Narrative [facility] - 08/28/2024 9:50 AM CDT [...] performance characteristics have been verified by the [facility] Microbiology Laboratory. For questions about this culture, contact the Microbiology Laboratory at [phone]. Interpretive data was last revised on 24. London Santos MD LAB MICROBIOLOGY - GEN ERAL ORDERABLES Final Result [facility] [address] Department [place] [address] * (ABNORMAL) Comprehensive metabolic panel (08/24/2024 10:33 [...] BLOOD [place] [address] [address] Department [place] [address] * (ABNORMAL) Haptoglobin (08/19/2024 1:54 PM CDT) Haptoglobin 220(H) 43 - 212 mg/dL [facility] Blood 08/19/2024 1:54 PM CDT 08/20/2024 8:34 AM CDT Rin Ramos NP LAB BLOOD ORDERABLES F inal Result Performing Organization Address [facility] Co de Phone Number [facility] [address] [place] [address] * Ehrlichia detection PCR (08/18/2024 9:56 AM CDT) E. chaffeensis DNA NOT DETECTED [facility], Comment: REFERENCE RANGE: NOT DETECTED This test was developed and its analytical performance characteristics have been determined by [facility]. It has not been cleared or approved by FDA. This assay has been validated pursuant to the CLIA regulations and is used for clinical purposes. 08/18/2024 9:56 AM CDT 08/18/2024 9:57 AM CDT Rin Ramos NP LAB MICROBIOLOGY - GEN ERAL ORDERABLES Final Result [facility] [address] [place] [address] * (ABNORMAL) CBC with auto differential (08/18/2024 [...] NP LAB BLOOD ORDERABLES F inal Result [facility] [address] [place] [address] * (ABNORMAL) Iron profile w/ IBC (08/17/2024 3:04 PM CDT) Iron 21.9(L) 59.0 - 158.0 ug/dL [facility] Total Iron Binding Capacity 206.5 ug/dL [facility] Unsaturated Iron Binding Capacity 184.6 112.0 - 346.0 ug/dL [facility] % Iron Saturation 10.6(L) 25.0 - 45.0 % [facility] Blood 08/17/2024 3:04 PM CDT 08/17/2024 3:07 PM CDT Rin Ramos ELECTRIC SYSTEM OPERATOR LAB BLOOD ORDERABLES F inal Result Performing Organization Address City/[facility]/ZIP Co de Phone Number [facility] [address] [place] [address] * Vitamin D 25 hydroxy (08/17/2024 3:04 PM CDT) Vitamin D 54.07 >29.00 ng/ml [facility] Blood 08/17/2024 3:04 PM CDT 08/17/2024 3:07 PM CDT Rin Ramos ELECTRIC SYSTEM OPERATOR LAB BLOOD ORDERABLES F inal Result Performing Organization Address [facility]/ZIP Co de Phone Number [facility] [address] [place] [address] * Folate (08/17/2024 3:04 PM CDT) Folate 13.3 4.5 - 37.3 ng/mL [facility] Blood 08/17/2024 3:04 PM CDT 08/17/2024 3:07 PM CDT Rin Ramos NP LAB BLOOD ORDERABLES F inal Result Performing Organization Address City/[facility]/ZIP Co de Phone Number [facility] [address] [place] [address] * (ABNORMAL) Ferritin (08/17/2024 3:04 PM CDT) Ferritin 472.60(H) 30.00 - 400.00 ng/mL [facility] Blood 08/17/2024 3:04 PM CDT 08/17/2024 3:07 PM CDT Rin Ramos ELECTRIC SYSTEM OPERATOR LAB BLOOD ORDERABLES F inal Result Performing Organization Address [facility] Co de Phone Number [facility] [address] [place] [address] * (ABNORMAL) Comprehensive metabolic panel (08/17/2024 3:04 PM CDT) Glucose 103 74 - 200 mg/dL [facility] BUN 17(L) 18 - 23 mg/dL [facility] Creatinine 1.0 0.7 - 1.3 mg/dL [facility] eGFR 71 mL/min/1.7 3m2 [facility] BUN/Creat Ratio 17 Ratio [facility] Bilirubin, Total 0.5 0.0 - 1.2 mg/dL [facility] AST (SGOT) 18 0 - 40 U/L [facility] ALT (SGPT) 15 10 - 50 U/L [facility] Alkaline phosphatase 95 40 - 129 U/L [facility] Calcium 9.1 8.8 - 10.2 mg/dL [facility] Sodium 130(L) 135 - 145 mEq/L [facility] Potassium 5.4(H) 3.5 - 5.1 mEq/L [facility] Chloride 97(L) 98 - 107 mEq/L [facility] CO2 26.2 22.0 - 32.0 mEq/L [facility] Anion Gap 7 3 - 12 mEq/L [facility] Total Protein 6.3 6.0 - 8.1 g/dL [facility] Albumin 3.8 3.5 - 5.2 g/dL [facility] Globulin 2.5 g/dL [facility] Albumin/Globulin 1.5 Ratio [facility] Blood 08/17/2024 3:04 PM CDT 08/17/2024 3:07 PM CDT Rin Ramos NP LAB BLOOD ORDERABLES F inal Result Performing Organization Address [facility]/ZIP Co de Phone Number [place] [address] * COVID-19 POC (08/17/2024 2:40 PM CDT) Pathologist [facility] COVID-19 RNA PCR POC Negative Not Detected, Negative, Undetected [facility] Nasal 08/17/2024 2:40 PM CDT Rin Ramos NP POINT OF CARE TEST ORD ERABLES Final Result Performing Organization Address [facility] de Phone Number [address] * POCT influenza A/B (08/17/2024 2:34 PM CDT) [facility] Rapid Influenza A Ag Negative Negative, [...] PROCEDURES Fin al Result * Thyroid Function [place] (08/04/2024 9:23 AM CDT) TSH 2.80 0.27 - 4.20 uIU/mL [facility] Blood 08/04/2024 9:23 AM CDT 08/04/2024 9:31 AM CDT us Rin Ramos ELECTRIC SYSTEM OPERATOR LAB BLOOD ORDERABLES F inal Result [facility] [address] [place] [address] * (ABNORMAL) CBC with auto differential (08/04/2024 9:23 AM CDT) WBC 11.4(H) 3.5 - 10.0 K/uL [facility] RBC 4.42(L) 4.60 - 6.20 M/uL [facility] Hemoglobin 13.7(L) 13.9 - 17.7 g/dL [facility] Hematocrit 38.5 35.0 - 55.0 % [facility] MCV 87.0 75.0 - 100.0 fL [facility] MCH 30.90 25.00 - 35.00 pg [facility] MCHC 35.60 31.00 - 38.00 g/dL [facility] RDW 13.0 11.0 - 16.0 % [facility] Platelets 191 140 - 400 K/uL [facility] MPV 8.4 8.0 - 11.0 fL [facility] Granulocyte, Absolute 8.9(H) 1.2 - 8.0 K/uL [facility] Lymphocyte, Absolute 1.9 0.5 - 5.0 K/uL [facility] Monocyte, Absolute 0.6 0.1 - 1.5 K/uL [facility] Granulocyte, Percentage 78.3 35.0 - 80.0 % [facility] Lymphocyte, Percentage 16.8 15.0 - 50.0 % [facility] Monocyte, Percentage 4.9 2.0 - 15.0 % [facility] Blood 08/04/2024 9:23 AM CDT 08/04/2024 9:31 AM CDT Rin Ramos ELECTRIC SYSTEM OPERATOR LAB BLOOD ORDERABLES F inal Result Performing Organization Address City/[facility]/ZIP Co de Phone Number [facility] [address] [place] [address] * (ABNORMAL) Vitamin B12 (08/04/2024 9:23 AM CDT) Pathologist [facility] Vitamin B12 1,501(H) 232 - 1,245 pg/mL [facility] Blood 08/04/2024 9:23 AM CDT 08/04/2024 9:31 AM CDT Rin Ramos NP LAB BLOOD ORDERABLES F inal Result Performing Organization Address City/[facility] Co de Phone Number [facility] [address] [place] [address] * (ABNORMAL) Basic metabolic panel (08/04/2024 9:23 AM CDT) Glucose 100 74 - 200 mg/dL [facility] BUN 13(L) 18 - 23 mg/dL [facility] Creatinine 0.9 0.7 - 1.3 mg/dL [facility] BUN/Creat Ratio 13 Ratio [facility] eGFR 76 mL/min/1.7 3m2 [facility] Calcium 8.9 8.8 - 10.2 mg/dL [facility] Sodium 131(L) 135 - 145 mEq/L [facility] Potassium 4.7 3.5 - 5.1 mEq/L [facility] Chloride 96(L) 98 - 107 mEq/L [facility] CO2 25.9 22.0 - 32.0 mEq/L [facility] Anion Gap 9 3 - 12 mEq/L [facility] Blood 08/04/2024 9:23 AM CDT 08/04/2024 9:31 AM CDT us Rin Ramos ELECTRIC SYSTEM OPERATOR LAB BLOOD ORDERABLES F inal Result Performing Organization Address City/State/[facility] Co de Phone Number [facility] [address] [place] [address] from Last 3 Months Insurance [employer] MED[employer]ARE [facility] MEDICARE [employer] MEDICARE [employer] MED[employer]ARE Advance Directives For more information, please contact: [phone] Documents on File Type Date Recorded 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
[2024-10-30 09:41] LABS: Basophils Percent Auto 0.2 % (0.2-1.2); Eosinophils Absolute Auto 0.1 K/mm3 (0-0.3); Eosinophils Percent Auto 1.2 % (0-4.4); Hematocrit 38.9 % (42.0-52.0); Hemoglobin 12.5 g/dL (14.0-18.0); Immature Granulocyte Absolute 0.03 K/mm3 (0.00-0.031); Immature Granulocyte Percent A 0.3 % (0-0.5); Lymphocytes Absolute Auto 2.11 K/mm3 (0.9-3.2); Lymphocytes Percent Auto 20.3 % (18.3-44.2); Mean Corpuscular HGB Conc 32.1 g/dl (32-36); Mean Corpuscular Hemoglobin 28.5 pg (26-34); Mean Corpuscular Volume 88.6 fl (80-100); Mean Platelet Volume 9.3 fl (7.4-10.4); Monocytes Absolute Auto 1.1 K/mm3 (0.1-0.6); Monocytes Percent Auto 10.4 % (2.6-8.5); Neutrophils Percent Auto 67.6 % (45.5-73.1); Platelet Count Result 207 k/mm3 (150-375); Red Blood Count 4.39 M/mm3 (4.6-6.20); Red Cell Distribution Width 14.6 % (11.5-14.5); White Blood Count 10.4 K/mm3 (4.5-10.0)
[2024-10-30 09:52] LABS: INR 1.2; Prothrombin Time 15.2 Seconds (11.1-14.7)
[2024-10-30 09:53] LABS: Alanine Aminotransferase 23 U/L (6-50); Albumin Level 4.2 g/dL (3.5-5.1); Alkaline Phosphatase 94 U/L (38-126); Anion Gap 10 mmol/L (4-12); Aspartate Amino Transferase 37 U/L (17-59); Bilirubin,Total 0.8 mg/dL (0.2-1.3); Blood Urea Nitrogen 14 mg/dL (9-20); Calcium 9.7 mg/dL (8.4-10.2); Carbon Dioxide 24 mmol/L (22-30); Chloride 101 mmol/L (98-107); Estimated CRCL calculation 54 ml/min; Estimated Glomerular Filt Rate > 60; Glucose 121 mg/dL (65-110); Sodium 135 mmol/L (137-145); Total Protein 7.7 g/dL (6.3-8.2)
[2024-10-30 10:08] LABS: Troponin I 0.043 ng/mL (0.000-0.034)
--- NOTE | 2024-10-30 11:33 | ED_ITS ---
HPI - General Adult General Chief complaint: Back Pain/Injury Stated complaint: middle back pain and erratic heart rate Time Seen by Provider: 10/30/24 09:03 History of Present Illness HPI narrative: Patient is an 83-year-old male who presents ER with pain in middle of his back. Began last night in the evening for bed. He woke up in a continued and was increasingly intense today. He tried to take his EKG and his Apple watch not allow him because his heart rate was too fast and/or erratically. Has history of rapid heartbeat in the past. Symptoms resolved on arrival here. No chest pain. 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 He was bacteremic and they were concerned he had a vegetation on his prosthetic valve. He recently had a negative blood culture. Leg to he is scheduled for follow-up ultrasound in the near future. Related Data Home Medications ?Medication ?Instructions ?Recorded ?Confirmed ?Last Taken ?Type amlodipine 2.5 mg tablet (Norvasc) 2.5 mg PO DAILY 04/28/19 10/30/24 10/29/24 17:00 History 2.5 mg aspirin 81 mg tablet,delayed 81 mg PO DAILY 04/28/19 10/30/24 10/30/24 09:00 History release (Aspir-Low) 81 mg atorvastatin 40 mg tablet (Lipitor) 40 mg PO DAILY 04/28/19 10/30/24 10/29/24 17:00 History 40 mg omeprazole magnesium 20 mg 20 mg PO DAILY 04/28/19 10/30/24 10/29/24 17:00 History tablet,delayed release (Prilosec 20 mg OTC) psyllium husk 0.52 gram capsule 2.6 g PO TID 04/28/19 10/30/24 10/29/24 17:00 History (Fiber-Caps (psyllium husk)) 2.6 grams alendronate 70 mg tablet 70 mg PO WEEKLY 10/30/24 10/30/24 10/25/24 07:00 History 70 mg loratadine 10 mg tablet (Allergy 10 mg PO DAILY 10/30/24 10/30/24 10/30/24 09:00 History Relief (loratadine)) 10 mg nortriptyline 25 mg capsule 25 mg PO DAILY@1700 10/30/24 10/30/24 10/29/24 17:00 History 25 mg Allergies Allergy/AdvReac Type Severity Reaction Status Date / Time No Known Allergies Allergy Unknown Verified 06/17/19 13:34 Review of Systems 2 Review of Systems: All systems reviewed & are unremarkable except as noted in HPI and below Constitutional: Constitutional: Reports no additional constitutional complaints ENT: Reports system reviewed and no additional complaints, except as documented Respiratory: Respiratory: Reports no additional respiratory complaints Gastrointestinal: Gastrointestinal: Reports no additional gastrointestinal complaints [facility] Past Medical History Medical History History of bacteremia History of transcatheter aortic valve replacement (TAVR) GERD (gastroesophageal reflux disease) Hypercholesteremia Cataracts, bilateral Surgical History Surgical History Hx of coronary artery bypass graft One vessel History of placement of ear tubes History of cataract surgery Family History Family History Mother Breast cancer Father Esophageal cancer Sibling Depression Atrial fibrillation Social History Social History Smoking status: Never smoker Alcohol intake: never Substance use: never Substance use type: does not use Do You Feel Safe in your Home?: Yes Lack of Transportation: No Lack of Food: Never True Current Housing: I Have Housing Concerned About Future Housing: No Difficulty Paying Gas/Electric Bills: No Difficulty Paying for Meds: No Currently Unemployed: No Education: Bachelor's Degree Difficulty w/ Childcare or Family Care: No Gender identity (if verbalized by the patient): Male Spiritual care concerns: Yes Exam 2 Narrative: GENERAL: Well-appearing, well-nourished, and in no acute distress. HEAD: Normocephalic, atraumatic. ENT: Mucous membranes moist. NECK: Supple. CHEST: Clear to auscultation. No respiratory distress. HEART: Regular rate and rhythm. Normal peripheral pulses. ABDOMEN: Soft, nontender, nondistended. EXTREMITIES: Normal range of motion. No edema. SKIN: Warm, dry, no rash. NEURO: Alert and oriented x3. PSYCH: Normal mood and affect. Course Course Emergency Course: Discussed with patient's Cardiology team at [facility]. They feel patient is appropriate for evaluation our facility if CTA shows no aortic injury. Troponins only mildly elevated. This also may be related to arrhythmia that has resolved. Patient accepted by hospitalist here. Vital Signs Vital signs: Vital Signs Temperature 97.9 F 10/30/24 08:55 Pulse Rate 75 10/30/24 08:55 Respiratory Rate 75 H 10/30/24 08:55 Blood Pressure 114/71 10/30/24 08:55 Pulse Oximetry 99 10/30/24 08:55 Oxygen Delivery Room Air 10/30/24 08:55 Temperature 98.3 F 10/30/24 15:52 Pulse Rate 63 10/30/24 15:52 Respiratory Rate 18 10/30/24 15:52 Blood Pressure 133/54 L 10/30/24 15:52 Pulse Oximetry 99 10/30/24 15:52 Oxygen Delivery Room Air 10/30/24 08:55 Medical Decision Making Vital Signs Vital Signs: Vital Signs Temperature 97.9 F 10/30/24 08:55 Pulse Rate 75 10/30/24 08:55 Respiratory Rate 75 H 10/30/24 08:55 Blood Pressure 114/71 10/30/24 08:55 Pulse Oximetry 99 10/30/24 08:55 Oxygen Delivery Room Air 10/30/24 08:55 Temperature 98.3 F 10/30/24 15:52 Pulse Rate 63 10/30/24 15:52 Respiratory Rate 18 10/30/24 15:52 Blood Pressure 133/54 L 10/30/24 15:52 Pulse Oximetry 99 10/30/24 15:52 Oxygen Delivery Room Air 10/30/24 08:55 Lab Data 10/30/24 09:37 10/30/24 09:37 Labs: Lab Results 10/30/24 10/30/24 Range/Units 09:37 12:47 WBC 10.4 H (4.5-10.0) K/mm3 RBC 4.39 L (4.6-6.20) M/mm3 Hgb 12.5 L (14.0-18.0) g/dL Hct 38.9 L (42.0-52.0) % MCV 88.6 (80-100) fl MCH 28.5 (26-34) pg MCHC 32.1 (32-36) g/dl RDW 14.6 H (11.5-14.5) % Plt Count 207 (150-375) k/mm3 MPV 9.3 (7.4-10.4) fl Immature Gran % (Auto) 0.3 (0-0.5) % Neut % (Auto) 67.6 (45.5-73.1) % Lymph % (Auto) 20.3 (18.3-44.2) % [place] % (Auto) 10.4 H (2.6-8.5) % Eos % (Auto) 1.2 (0-4.4) % Baso % (Auto) 0.2 (0.2-1.2) % Lymph # (Auto) 2.11 (0.9-3.2) K/mm3 [place] # (Auto) 1.1 H (0.1-0.6) K/mm3 Eos # (Auto) 0.1 (0-0.3) K/mm3 Baso # (Auto) 0.0 (0.0-0.1) K/mm3 Abs Immat Gran (auto) 0.03 (0.00-0.031) K/mm3 Absolute Neuts (auto) 7.0 H (1.3-6.7) K/mm3 Absolute Nucleated RBC 0.000 (0.0-0.012) K/mm3 Nucleated RBC % 0.0 (0.0-0.2) % PT 15.2 H (11.1-14.7) Seconds INR 1.2 APTT 29.0 (22.3-36.8) Seconds Sodium 135 L (137-145) mmol/L Potassium 4.0 (3.4-5.0) mmol/L Chloride 101 (98-107) mmol/L Carbon Dioxide 24 (22-30) mmol/L Anion Gap 10 (4-12) mmol/L BUN 14 (9-20) mg/dL Creatinine 0.87 (0.7-1.3) mg/dL Estim Creat Clear Calc 54 ml/min Estimated GFR > 60 (59 - ) Glucose 121 H (65-110) mg/dL Calcium 9.7 (8.4-10.2) mg/dL Magnesium 2.0 (1.6-2.3) mg/dL Total Bilirubin 0.8 (0.2-1.3) mg/dL AST 37 (17-59) U/L ALT 23 (6-50) U/L Alkaline Phosphatase 94 (38-126) U/L Troponin I 0.043 H* 0.033 D (0.000-0.034) ng/mL Total Protein 7.7 (6.3-8.2) g/dL Albumin 4.2 (3.5-5.1) g/dL Imaging Data Radiologist's impression: ITS Impressions Chest X-Ray 10/30/24 09:55 Impression: Clear lungs. Chest CTA 10/30/24 12:26 Impression: No evidence of pulmonary embolus, aortic dissection, or aortic aneurysm. Mild chronic interstitial pulmonary disease, as detailed above. ECG Data EKG #1: ECG completion date: 10/30/24 ECG completion time: 08:56 EKG Interpretation: normal rate (73), sinus rhythm, non-specific ST changes, RBBB (Incomplete) and normal QT Discharge Plan Discharge Clinical Impression: Elevated troponin, Atypical chest pain Patient Disposition: Still a Patient Condition: Stable Quality HEART score for chest pain patients History: slightly suspicious ECG: non specific repolarization disturbance/LBTB/PM Age: > or = to 65 years Risk factors: > or = to 3 risk factors of atherosclerotic disease Troponin: > 1 and < 3x normal limit Heart score: 6
--- NOTE | 2024-10-30 12:35 | ECG_ITS ---
Test Date: 2024-10-30 12:58:24 Measurements Intervals [place] Rate: 62 P: 66 HI: 216 QRS: -22 QRSD: 125 T: 33 QT: 416 QTc: 423 Interpretive Statements SINUS RHYTHM WITH FIRST DEGREE AV BLOCK CONSIDER RIGHT VENTRICULAR CONDUCTION DELAY DELAYED PRECORDIAL R/S TRANSITION HIGH LATERAL INFARCT, AGE INDETERMINATE ABNORMAL ECG Compared to ECG 10/30/2024 08:56:17 NO SIGNIFICANT CHANGE Electronically Signed On 10-30-2024 15:37:10 CDT by Santiago Mcleod D.O.
[2024-10-30 13:14] LABS: Troponin I 0.033 ng/mL (0.000-0.034)
--- NOTE | 2024-10-30 13:14 | P.HP_ITS ---
H&P: HPI History of Present Illness Date/Time: 10/30/24 16:00 Chief Complaint: Thoracic back pain with elevated troponin Narrative: This is an 83 year old male patient who is very active, admitted to the hospital today due to upper back pain, report of erratic heartbeat at home and elevated troponin testing. Repeat troponins have been subsequently downtrending. Patient reports he takes a baby aspirin daily. He reports prior hospitalization for suspected atrial fibrillation but was told that it was not actually a-fib and he was not started on anticoagulation. He also reports history of 1 vessel CABG with aortic valve replacement with subsequent valve failure repaired by TAVR. Patient reports bacteremia recently and reports completing over 40 days of IV antibiotics. He denies fever or chills. He stated his back started hurting him last night and persisted upon awakening today. He reports his heart rate was also erratic today but was normal during and after a 4 mile walk last night. Workup in the ER with initial troponin 0.043 and WBC 10.4. Glucose was 121 and not a fasting level. Hemoglobin 12.5, HCT 38.9 with no prior labs on file for comparison. Renal function normal. CTA chest negative for PE, aortic dissection or other causative factors. CXR was unremarkable. ER spoke to Cardiology at [place] who stated that patient could be admitted here and worked up for elevated troponin and possible dysrhythmia. He did not require transfer for continuity of care at this time. JESSICA is planned in about 10 days to investigate if there is vegetation of replaced aortic valve as source of patient's recently treated bacteremia. Review of Systems Review of Systems: All systems reviewed & are unremarkable except as noted in HPI and below PMFSH Past Medical History Medical History History of bacteremia History of transcatheter aortic valve replacement (TAVR) GERD (gastroesophageal reflux disease) Hypercholesteremia Cataracts, bilateral Surgical History Surgical History Hx of coronary artery bypass graft One vessel History of placement of ear tubes History of cataract surgery Family History Family History Mother Breast cancer Father Esophageal cancer Sibling Depression Atrial fibrillation Social History Social History Smoking status: Never smoker Alcohol intake: never Substance use: never Substance use type: does not use Do You Feel Safe in your Home?: Yes Lack of Transportation: No Lack of Food: Never True Current Housing: I Have Housing Concerned About Future Housing: No Difficulty Paying Gas/Electric Bills: No Difficulty Paying for Meds: No Currently Unemployed: No Education: Bachelor's Degree Difficulty w/ Childcare or Family Care: No Gender identity (if verbalized by the patient): Male Spiritual care concerns: Yes Meds Home Medications and Allergies Home Medications ?Medication ?Instructions ?Recorded ?Confirmed ?Type amlodipine 2.5 mg tablet (Norvasc) 2.5 mg PO DAILY 04/28/19 10/30/24 History aspirin 81 mg tablet,delayed 81 mg PO DAILY 04/28/19 10/30/24 History release (Aspir-Low) atorvastatin 40 mg tablet (Lipitor) 40 mg PO DAILY 04/28/19 10/30/24 History omeprazole magnesium 20 mg 20 mg PO DAILY 04/28/19 10/30/24 History tablet,delayed release (Prilosec OTC) psyllium husk 0.52 gram capsule 2.6 g PO TID 04/28/19 10/30/24 History (Fiber-Caps (psyllium husk)) alendronate 70 mg tablet 70 mg PO WEEKLY 10/30/24 10/30/24 History loratadine 10 mg tablet (Allergy 10 mg PO DAILY 10/30/24 10/30/24 History Relief (loratadine)) nortriptyline 25 mg capsule 25 mg PO DAILY@1700 10/30/24 10/30/24 History Allergies Allergy/AdvReac Type Severity Reaction Status Date / Time No Known Allergies Allergy Unknown Verified 06/17/19 13:34 Vital Signs Vital Signs - 24 hr 10/30/24 08:55 10/30/24 09:04 10/30/24 09:16 Temperature 36.6 C Pulse Rate 75 69 73 Respiratory Rate 75 H 29 H 15 Blood Pressure 114/71 142/75 H 135/73 Pulse Oximetry 99 97 99 Oxygen Delivery Room Air 10/30/24 10:01 10/30/24 10:42 10/30/24 10:46 Temperature Pulse Rate 66 64 65 Respiratory Rate 17 24 H 24 H Blood Pressure 120/78 120/78 135/71 Pulse Oximetry 98 99 99 Oxygen Delivery 10/30/24 11:31 Temperature Pulse Rate 64 Respiratory Rate 24 H Blood Pressure 147/68 H Pulse Oximetry 97 Oxygen Delivery Exam 2 Narrative: GENERAL: Well-appearing, appears younger than stated age, well-nourished, and in no acute distress. HEAD: Normocephalic, atraumatic. ENT:? Mucous membranes moist. CHEST: Clear to auscultation.? No respiratory distress. HEART: Regular rate and rhythm. ? Normal peripheral pulses. ABDOMEN: Soft, nontender, nondistended. EXTREMITIES: Normal range of motion. No peripheral edema. SKIN: Warm dry normal color NEURO: Alert and oriented x3. PSYCH: Normal mood and affect H&P: Results Labs Labs: Short CBC 10/30/24 Range/Units 09:37 WBC 10.4 H (4.5-10.0) K/mm3 Hgb 12.5 L (14.0-18.0) g/dL Hct 38.9 L (42.0-52.0) % Plt Count 207 (150-375) k/mm3 BMP 10/30/24 09:37 Sodium 135 L Potassium 4.0 Chloride 101 Carbon Dioxide 24 BUN 14 Creatinine 0.87 Glucose 121 H Calcium 9.7 Cardiac Enzymes 10/30/24 10/30/24 Range/Units 09:37 12:47 Troponin I 0.043 H* 0.033 D (0.000-0.034) ng/mL Liver Function 10/30/24 Range/Units 09:37 Total Bilirubin 0.8 (0.2-1.3) mg/dL AST 37 (17-59) U/L ALT 23 (6-50) U/L Alkaline Phosphatase 94 (38-126) U/L Albumin 4.2 (3.5-5.1) g/dL Pulse Oximetry SpO2 results: 97-99% on room air Attestation: I personally reviewed and interpreted this pulse oximetry as follows: Interpretation: No need for supplemental oxygenation at this time ECG Attestation: I personally reviewed and interpreted this ECG as follows: ECG completion date: 10/30/24 ECG completion time: 12:58 Prior ECG tracings: available for review Interpretation: Sinus rhythm with first-degree block rate of 62 TN interval 216 QRS duration 125 QTC 423 QRS axis -22 right bundle branch Q-wave present lead 1 and aVL, no STEMI, LVH by voltage criteria. Imaging Chest x-ray: Radiologist's impression: Clinical Indication: Back pain PA and lateral views of the chest: Comparison: 02/09/2013 Findings: The lungs are clear, without evidence of focal consolidation or pleural effusion. Cardiomediastinal silhouette is stable, status post interval aortic valve replacement.. Bones and soft tissues are unremarkable. Impression: Clear lungs. Reviewed, dictated and finalized at location M. CT scan - chest: Radiologist's impression: Clinical Indication: Back pain CT Scan of the Chest with Contrast: Technique: Contiguous sections were acquired throughout the chest after intravenous administration of 100 cc of Omnipaque 350. Dose reduction technique was used on this scan by utilizing automated exposure control and iterative reconstruction technique. The dose-length product (DLP) was 243.25 mGy-cm. Findings: There is no evidence of any significant mediastinal, hilar or axillary lymphadenopathy. There is no filling defect in the pulmonary arterial tree to suggest pulmonary embolus. There is no evidence of aortic dissection or aneurysm. Aortic valve replacement noted. There is no evidence of pleural or pericardial effusion. There is mild diffuse interstitial pulmonary disease, with peripheral distribution. No suspicious pulmonary nodule or consolidation. Images through the upper abdomen reveal multiple bilateral renal cysts. Impression: No evidence of pulmonary embolus, aortic dissection, or aortic aneurysm. Mild chronic interstitial pulmonary disease, as detailed above. Reviewed, dictated and finalized at location M. Assessment and Plan Assessment and plan (1) Elevated troponin: Code(s): R79.89 - Other specified abnormal findings of blood chemistry Status: Acute Assessment and Plan: -Presenting symptom of back pain with mildly elevated troponin, prior CAD history with aortic valve replacement and 1 vessel CABG -Follows with Cardiology at [facility], Dr. Reyna -JESSICA planned on 11/09 at [place] due to recent prolonged bacteremia and concern for possible vegetation of TAVR bovine valve -Will order Lexiscan for 10/31 and Cardiology consult on 10/31 -Apple watch with episodes of atrial fibrillation or unable to determine rhythm per patient report (2) GERD (gastroesophageal reflux disease): Code(s): K21.9 - Gastro-esophageal reflux disease without esophagitis Status: Acute Assessment and Plan: -Hx GERD, takes omeprazole -Ordered Pantoprazole 40 mg Q12HR oral for now -NPO except meds with sips after midnight for Lexiscan (3) Hx of coronary artery bypass graft: Code(s): Z95.1 - Presence of aortocoronary bypass graft Status: Acute Assessment and Plan: -Open heart surgery at [place] with one vessel bypass and aortic valve replacement -Subsequent valve failure requiring repeat TAVR also at [place] (4) Hypercholesteremia: Code(s): E78.00 - Pure hypercholesterolemia, unspecified Status: Acute Assessment and Plan: -Continue home medications -Repeat lipid panel normal -A1c level normal -Patient very active and in great shape for his age Quality VTE Prophylaxis VTE prophylaxis: pharmacologic ordered Hospitalist MIPS Advance Care Plan I have confirmed that the patient's Advanced Care Plan is present, code status is documented, or surrogate decision maker is listed in patient medical record.: Yes Medication Reconciliation I have utilized all available resources to obtain, update and review the patients current medications (includes all prescriptions, OTC, herbals, cannabis, and nutritional supplements).: Yes
--- NOTE | 2024-10-30 14:25 | ADMGEN ---
This patient, Roddy Munoz, was admitted to IMU Room 200-0 @ 1414. No c/o pain at this time.Patient/family oriented to hospital policies and general routines including ID bracelet, bed and alarms, visiting hours, pain management, procedures, bathroom and other care routines, personal items, smoking policy, room service/diet, and visiting hours. Information on how to activate the Rapid Response Team has been discussed. Patient/Family are encouraged to report perceived risks to care and to ask questions if they do not understand what they are told or what they should do.
[2024-10-30 15:31] LABS: Cholesterol 108 mg/dL (0-200); HDL Direct 41 mg/dL; Hemoglobin A1C 5.1 % (<5.7); Triglycerides 52 mg/dL (<150)
[2024-10-30 15:42] LABS: LDL Cholesterol Direct 43 mg/dL
[2024-10-30] MEDS: ASPIRIN 81 MG CHEWABLE TABLET 324 MG PO (17:37)
[2024-10-30] MEDS: calcium polycarbophiL 625 MG TABLET PO (17:37)
[2024-10-30] MEDS: NORTRIPTYLINE HCL 25 MG CAPSULE PO (17:38)
[2024-10-30] MEDS: PANTOPRAZOLE 40 MG TABLET PO (21:11)
[2024-10-31] VITALS (9 sets, daily range): BP systolic 118–133; BP diastolic 60–70; PULSE 60–85; RESP 16–18; TEMP 36.4–36.8; O2SAT 96–100
[2024-10-31 04:26] LABS: Basophils Percent Auto 0.2 % (0.2-1.2); Eosinophils Absolute Auto 0.2 K/mm3 (0-0.3); Eosinophils Percent Auto 2.2 % (0-4.4); Hematocrit 37.2 % (42.0-52.0); Hemoglobin 11.9 g/dL (14.0-18.0); Immature Granulocyte Absolute 0.05 K/mm3 (0.00-0.031); Immature Granulocyte Percent A 0.5 % (0-0.5); Lymphocytes Absolute Auto 1.68 K/mm3 (0.9-3.2); Lymphocytes Percent Auto 17.9 % (18.3-44.2); Mean Corpuscular Hemoglobin 28.5 pg (26-34); Mean Corpuscular Volume 89.2 fl (80-100); Mean Platelet Volume 9.7 fl (7.4-10.4); Monocytes Percent Auto 10.3 % (2.6-8.5); Neutrophils Absolute Auto 6.5 K/mm3 (1.3-6.7); Neutrophils Percent Auto 68.9 % (45.5-73.1); Platelet Count Result 188 k/mm3 (150-375); Red Blood Count 4.17 M/mm3 (4.6-6.20); Red Cell Distribution Width 14.5 % (11.5-14.5); White Blood Count 9.4 K/mm3 (4.5-10.0)
[2024-10-31 04:53] LABS: Alanine Aminotransferase 21 U/L (6-50); Albumin Level 3.7 g/dL (3.5-5.1); Alkaline Phosphatase 81 U/L (38-126); Anion Gap 8 mmol/L (4-12); Aspartate Amino Transferase 30 U/L (17-59); Bilirubin,Total 0.5 mg/dL (0.2-1.3); Blood Urea Nitrogen 14 mg/dL (9-20); Calcium 9.3 mg/dL (8.4-10.2); Carbon Dioxide 26 mmol/L (22-30); Chloride 100 mmol/L (98-107); Estimated CRCL calculation 51 ml/min; Estimated Glomerular Filt Rate > 60; Glucose 93 mg/dL (65-110); Magnesium 2.1 mg/dL (1.6-2.3); Potassium 4.3 mmol/L (3.4-5.0); Sodium 134 mmol/L (137-145); Total Protein 6.8 g/dL (6.3-8.2)
[2024-10-31] MEDS: VERAPAMIL HCL ER 120 MG TABLET PO (08:26)
[2024-10-31] MEDS: calcium polycarbophiL 625 MG TABLET PO (08:26)
[2024-10-31] MEDS: amLODIPine BESYLATE 2.5 MG TABLET PO (08:26)
[2024-10-31] MEDS: ATORVASTATIN 40 MG TABLET PO (08:26)
[2024-10-31] MEDS: ASPIRIN 81 MG ENTERIC TABLET PO (08:26)
[2024-10-31] MEDS: ENOXAPARIN 40 MG/0.4 ML SYRINGE SUB-Q (08:26)
[2024-10-31] MEDS: LORATADINE 10 MG TABLET PO (08:27)
[2024-10-31] MEDS: PANTOPRAZOLE 40 MG TABLET PO (08:27)
--- NOTE | 2024-10-31 09:43 | P.PNIM_ITS ---
Subjective Date/time seen: 10/31/24 09:43 Review of Systems Review of Systems: All systems reviewed & are unremarkable except as noted in HPI and below Objective Data Vital Signs Vital Signs: Vital Signs - 24 hr 10/30/24 10:01 10/30/24 10:42 10/30/24 10:46 Temperature Pulse Rate 66 64 65 Respiratory Rate 17 24 H 24 H Blood Pressure 120/78 120/78 135/71 Pulse Oximetry 98 99 99 Oxygen Delivery Fraction of Inspired Oxygen 10/30/24 11:31 10/30/24 14:35 10/30/24 15:52 Temperature 98.2 F 98.3 F Pulse Rate 64 61 63 Respiratory Rate 24 H 18 18 Blood Pressure 147/68 H 141/78 H 133/54 L Pulse Oximetry 97 99 99 Oxygen Delivery Fraction of Inspired Oxygen 10/30/24 16:00 10/30/24 18:00 10/30/24 20:00 Temperature 97.8 F Pulse Rate 77 64 69 Respiratory Rate 16 Blood Pressure 124/61 Pulse Oximetry 99 Oxygen Delivery Fraction of Inspired Oxygen 10/30/24 20:00 10/30/24 20:40 10/30/24 20:54 Temperature Pulse Rate 69 69 Respiratory Rate 16 Blood Pressure Pulse Oximetry 99 99 Oxygen Delivery Room Air Room Air Fraction of Inspired Oxygen 21 10/30/24 22:00 10/31/24 00:00 10/31/24 00:00 Temperature 97.7 F Pulse Rate 66 62 62 Respiratory Rate 16 16 Blood Pressure 133/63 Pulse Oximetry 98 98 Oxygen Delivery Room Air Fraction of Inspired Oxygen 10/31/24 00:00 10/31/24 01:26 10/31/24 04:00 Temperature Pulse Rate 60 65 70 Respiratory Rate Blood Pressure Pulse Oximetry Oxygen Delivery Fraction of Inspired Oxygen 10/31/24 04:00 10/31/24 04:00 10/31/24 05:55 Temperature 97.7 F Pulse Rate 76 76 66 Respiratory Rate 18 18 Blood Pressure 120/60 Pulse Oximetry 96 96 Oxygen Delivery Room Air Fraction of Inspired Oxygen 10/31/24 08:42 Temperature 97.6 F Pulse Rate 66 Respiratory Rate 16 Blood Pressure 118/70 Pulse Oximetry 96 Oxygen Delivery Fraction of Inspired Oxygen Intake/Output Intake/Output: Intake & Output 10/28/24 10/29/24 10/30/24 10/31/24 23:59 23:59 23:59 23:59 Intake Total 1010 350 Output Total 1060 Balance 1010 -710 Meds/Results Medications: Active Medications Generic Name Dose Route Start Last Admin Trade Name Freq PRN Reason Stop Dose Admin Acetaminophen 650 mg 10/30/24 13:05 Acetaminophen 325 Mg Tablet PO Q4H PRN Mild Pain (1-3) or Fever Hydrocodone Bitart/Acetaminophen 1 tab 10/30/24 13:05 Hydrocodone/Acetaminophen (*Crx) 5-325 Mg Tablet PO Q4H PRN Pain Rated 4-6 Alendronate Sodium 70 mg 11/01/24 06:30 Alendronate Sodium 70 Mg Tablet PO Tu@0630 [facility] Amlodipine Besylate 2.5 mg 10/31/24 09:00 10/31/24 08:26 Amlodipine Besylate 2.5 Mg Tablet PO 2.5 mg DAILY ASHISH Administration Aspirin 81 mg 10/31/24 09:00 10/31/24 08:26 Aspirin 81 Mg Enteric Tablet PO 81 mg DAILY ASHISH Administration Atorvastatin Calcium 40 mg 10/31/24 09:00 10/31/24 08:26 Atorvastatin 40 Mg Tablet PO 40 mg DAILY ASHISH Administration Calcium Polycarbophil 625 mg 10/30/24 17:00 10/31/24 08:26 Calcium Polycarbophil 625 Mg Tablet PO 625 mg TID ASHISH Administration Enoxaparin Sodium 40 mg 10/31/24 09:00 10/31/24 08:26 Enoxaparin 40 Mg/0.4 Ml Syringe SUB-Q 40 mg DAILY ASHISH Administration Loratadine 10 mg 10/31/24 09:00 10/31/24 08:27 Loratadine 10 Mg Tablet PO 10 mg DAILY ASHSIH Administration Morphine Sulfate 2 mg 10/30/24 13:52 Morphine Sulfate (*Crx) 2 Mg/Ml Inj IV PUSH Q4H PRN Pain Rated 7-10 Nortriptyline HCl 25 mg 10/30/24 17:00 10/30/24 17:38 Nortriptyline Hcl 25 Mg Capsule PO 25 mg DAILY@1700 [facility] Administration Ondansetron HCl 4 mg 10/30/24 13:05 Ondansetron Inj 4 Mg/2 Ml Vial IV PUSH Q4H PRN Nausea Pantoprazole Sodium 40 mg 10/30/24 21:00 10/31/24 08:27 Pantoprazole 40 Mg Tablet PO 40 mg Q12HR ASHISH Administration Verapamil HCl 120 mg 10/31/24 08:00 10/31/24 08:26 Verapamil Hcl Er 120 Mg Tablet PO 120 mg DAILY@0800 ASHISH Administration Radiology Results: ITS Impressions Chest X-Ray 10/30/24 09:55 Impression: Clear lungs. Chest CTA 10/30/24 12:26 Impression: No evidence of pulmonary embolus, aortic dissection, or aortic aneurysm. Mild chronic interstitial pulmonary disease, as detailed above. Labs Labs: Laboratory Results - last 24 hr 10/30/24 10/30/24 10/30/24 09:37 12:47 13:52 WBC 10.4 H RBC 4.39 L Hgb 12.5 L Hct 38.9 L MCV 88.6 MCH 28.5 MCHC 32.1 RDW 14.6 H Plt Count 207 MPV 9.3 Immature Gran % (Auto) 0.3 Neut % (Auto) 67.6 Lymph % (Auto) 20.3 [place] % (Auto) 10.4 H Eos % (Auto) 1.2 Baso % (Auto) 0.2 Lymph # (Auto) 2.11 [place] # (Auto) 1.1 H Eos # (Auto) 0.1 Baso # (Auto) 0.0 Abs Immat Gran (auto) 0.03 Absolute Neuts (auto) 7.0 H Absolute Nucleated RBC 0.000 Nucleated RBC % 0.0 PT 15.2 H INR 1.2 APTT 29.0 Sodium 135 L Potassium 4.0 Chloride 101 Carbon Dioxide 24 Anion Gap 10 BUN 14 Creatinine 0.87 Estim Creat Clear Calc 54 Estimated GFR > 60 Glucose 121 H Hemoglobin A1c 5.1 Calcium 9.7 Magnesium 2.0 Total Bilirubin 0.8 AST 37 ALT 23 Alkaline Phosphatase 94 Troponin I 0.043 H* 0.033 D Total Protein 7.7 Albumin 4.2 Triglycerides 52 Cholesterol 108 LDL Cholesterol Direct 43 HDL Direct 41 10/30/24 10/31/24 15:26 03:36 WBC 9.4 RBC 4.17 L Hgb 11.9 L Hct 37.2 L MCV 89.2 MCH 28.5 MCHC 32.0 RDW 14.5 Plt Count 188 MPV 9.7 Immature Gran % (Auto) 0.5 Neut % (Auto) 68.9 Lymph % (Auto) 17.9 L [place] % (Auto) 10.3 H Eos % (Auto) 2.2 Baso % (Auto) 0.2 Lymph # (Auto) 1.68 [place] # (Auto) 1.0 H Eos # (Auto) 0.2 Baso # (Auto) 0.0 Abs Immat Gran (auto) 0.05 H Absolute Neuts (auto) 6.5 Absolute Nucleated RBC 0.000 Nucleated RBC % 0.0 PT INR APTT Sodium 134 L Potassium 4.3 Chloride 100 Carbon Dioxide 26 Anion Gap 8 BUN 14 Creatinine 0.92 Estim Creat Clear Calc 51 Estimated GFR > 60 Glucose 93 Hemoglobin A1c Calcium 9.3 Magnesium 2.1 Total Bilirubin 0.5 AST 30 ALT 21 Alkaline Phosphatase 81 Troponin I 0.030 Total Protein 6.8 Albumin 3.7 Triglycerides Cholesterol LDL Cholesterol Direct HDL Direct
--- NOTE | 2024-10-31 11:25 | PM.CNCAR ---
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 Ulloa Coronary artery disease status post BARBER -continue aspirin 81 mg p.o. daily Sinal rosalva reentry tachycardia -continue verapamil Severe aortic stenosis status post SAVR and subsequent TAVR -outpatient surveillance echo Hyperlipidemia -continue atorvastatin 40 mg every evening No further inpatient cardiac workup warranted at this time. Please call with additional questions. 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 His medical to sleep in the evening time on Thursday when he noted and indigestion type of back pain between his scapula. He took some Tums without relief of the discomfort. He noted that on Thursday the discomfort was still present and went for a 4 mile walk. He did not notice any cardiopulmonary limitations to his level of physical activity. He did have some episodes of tachycardia on his Apple watch. At times the apple watch mentioned atrial fibrillation. The combination of these symptoms and findings prompting him to come to the emergency room for further evaluation. Since this time in the hospital, he has not had any further episodes of back pain. Review of Systems Cardiovascular: Cardiovascular: Reports as per HPI Respiratory: Respiratory: Reports as per HPI [facility] Past Medical History Medical History (Updated 10/31/24 @ 11:32 by Sena Lewis MD) History of bacteremia History of transcatheter aortic valve replacement (TAVR) GERD (gastroesophageal reflux disease) Hypercholesteremia Cataracts, bilateral Surgical History Surgical History Hx of coronary artery bypass graft One vessel History of placement of ear tubes History of cataract surgery Family History Family History Mother Breast cancer Father Esophageal cancer Sibling Depression Atrial fibrillation Social History Social History Smoking status: Never smoker Alcohol intake: never Substance use: never Substance use type: does not use Do You Feel Safe in your Home?: Yes Lack of Transportation: No Lack of Food: Never True Current Housing: I Have Housing Concerned About Future Housing: No Difficulty Paying Gas/Electric Bills: No Difficulty Paying for Meds: No Currently Unemployed: No Education: Bachelor's Degree Difficulty w/ Childcare or Family Care: No Gender identity (if verbalized by the patient): Male Spiritual care concerns: Yes Meds Home Medications and Allergies Home Medications ?Medication ?Instructions ?Recorded ?Confirmed ?Type amlodipine 2.5 mg tablet (Norvasc) 2.5 mg PO DAILY 04/28/19 10/30/24 History aspirin 81 mg tablet,delayed 81 mg PO DAILY 04/28/19 10/30/24 History release (Aspir-Low) atorvastatin 40 mg tablet (Lipitor) 40 mg PO DAILY 04/28/19 10/30/24 History omeprazole magnesium 20 mg 20 mg PO DAILY 04/28/19 10/30/24 History tablet,delayed release (Prilosec OTC) psyllium husk 0.52 gram capsule 2.6 g PO TID 04/28/19 10/30/24 History (Fiber-Caps (psyllium husk)) alendronate 70 mg tablet 70 mg PO WEEKLY 10/30/24 10/30/24 History loratadine 10 mg tablet (Allergy 10 mg PO DAILY 10/30/24 10/30/24 History Relief (loratadine)) nortriptyline 25 mg capsule 25 mg PO DAILY@1700 10/30/24 10/30/24 History verapamil 120 mg 24 hr 120 mg PO DAILY 10/30/24 10/30/24 History capsule,extended release Allergies Allergy/AdvReac Type Severity Reaction Status Date / Time No Known Allergies Allergy Unknown Verified 06/17/19 13:34 Vital Signs Vital Signs - 24 hr 10/30/24 11:31 10/30/24 14:35 10/30/24 15:52 Temperature 36.8 C 36.8 C Pulse Rate 64 61 63 Respiratory Rate 24 H 18 18 Blood Pressure 147/68 H 141/78 H 133/54 L Pulse Oximetry 97 99 99 Oxygen Delivery Fraction of Inspired Oxygen 10/30/24 16:00 10/30/24 18:00 10/30/24 20:00 Temperature 36.6 C Pulse Rate 77 64 69 Respiratory Rate 16 Blood Pressure 124/61 Pulse Oximetry 99 Oxygen Delivery Fraction of Inspired Oxygen 10/30/24 20:00 10/30/24 20:40 10/30/24 20:54 Temperature Pulse Rate 69 69 Respiratory Rate 16 Blood Pressure Pulse Oximetry 99 99 Oxygen Delivery Room Air Room Air Fraction of Inspired Oxygen 21 10/30/24 22:00 10/31/24 00:00 10/31/24 00:00 Temperature 36.5 C Pulse Rate 66 62 62 Respiratory Rate 16 16 Blood Pressure 133/63 Pulse Oximetry 98 98 Oxygen Delivery Room Air Fraction of Inspired Oxygen 10/31/24 00:00 10/31/24 01:26 10/31/24 04:00 Temperature Pulse Rate 60 65 70 Respiratory Rate Blood Pressure Pulse Oximetry Oxygen Delivery Fraction of Inspired Oxygen 10/31/24 04:00 10/31/24 04:00 10/31/24 05:55 Temperature 36.5 C Pulse Rate 76 76 66 Respiratory Rate 18 18 Blood Pressure 120/60 Pulse Oximetry 96 96 Oxygen Delivery Room Air Fraction of Inspired Oxygen 10/31/24 08:00 10/31/24 08:42 10/31/24 10:00 Temperature 36.4 C Pulse Rate 63 66 85 Respiratory Rate 16 Blood Pressure 118/70 Pulse Oximetry 96 Oxygen Delivery Fraction of Inspired Oxygen Exam Const: General: comfortable HENMT: Mouth: Yes moist mucous membranes Eyes: EOM: EOMs intact bilaterally Neck: Neck: no JVD Resp: Effort & Inspection: normal respiratory effort Auscultation: clear to auscultation bilaterally Cardio: Rate: regular rate Rhythm: regular rhythm GI: GI Palp: Yes Soft to palpation Neuro: Speech: normal speech Extrem: General: no pedal edema Results Labs and Meds 10/31/24 03:36 10/31/24 03:36 Lab results: Cardiac Enzymes 10/30/24 10/30/24 10/31/24 Range/Units 12:47 15:26 03:36 AST 30 (17-59) U/L Troponin I 0.033 D 0.030 (0.000-0.034) ng/mL Lipids 10/30/24 Range/Units 13:52 Triglycerides 52 (<150) mg/dL Cholesterol 108 (0-200) mg/dL CBC 10/31/24 Range/Units 03:36 WBC 9.4 (4.5-10.0) K/mm3 RBC 4.17 L (4.6-6.20) M/mm3 Hgb 11.9 L (14.0-18.0) g/dL Hct 37.2 L (42.0-52.0) % Plt Count 188 (150-375) k/mm3 Lymph # (Auto) 1.68 (0.9-3.2) K/mm3 [facility] # (Auto) 1.0 H (0.1-0.6) K/mm3 Eos # (Auto) 0.2 (0-0.3) K/mm3 Baso # (Auto) 0.0 (0.0-0.1) K/mm3 Comprehensive Metabolic Panel 10/31/24 Range/Units 03:36 Sodium 134 L (137-145) mmol/L Potassium 4.3 (3.4-5.0) mmol/L Chloride 100 (98-107) mmol/L Carbon Dioxide 26 (22-30) mmol/L BUN 14 (9-20) mg/dL Creatinine 0.92 (0.7-1.3) mg/dL Glucose 93 (65-110) mg/dL Calcium 9.3 (8.4-10.2) mg/dL AST 30 (17-59) U/L ALT 21 (6-50) U/L Alkaline Phosphatase 81 (38-126) U/L Total Protein 6.8 (6.3-8.2) g/dL Albumin 3.7 (3.5-5.1) g/dL Intake and Output 10/30/24 10/31/24 10/31/24 23:59 07:59 15:59 Intake Total 1010 350 Output Total 1060 Balance 1010 -710 Intake: Oral 1010 350 Output: Urine 1060 Other: # Unmeasured Voids 1 Number of Bowel Movements Today 0 Patient Weight 10/31/24 23:59 Weight 65.8 kg
--- NOTE | 2024-10-31 12:01 | P.DS_ITS ---
DS: Admitting Diagnosis Discharge Date 10/31/2024 Admitting Diagnosis Middle back pain and erratic heart rate DS: Summary Hospital Course Hospital Course: Workup in the ER with initial troponin 0.043 and WBC 10.4. Glucose was 121 and not a fasting level. Hemoglobin 12.5, HCT 38.9 with no prior labs on file for comparison. Renal function normal. CTA chest negative for PE, aortic diss ection or other causative factors. CXR was unremarkable. ER spoke to Cardiology at [place] who stated that patient could be admitted here and worked up for elevated troponin and possible dysrhythmia. He did not require transfer for continuity of care at this time. JESSICA is planned in about 10 days to investigate if there is vegetation of replaced aortic valve as source of patient's recently treated bacteremia. Repeat Trop 0.030. Cardiology felt no further work up was needed. Patient to follow up outpatient Smt Technician Dr. Ulloa. Status at Discharge Functional status at discharge: independent ambulation Overall status at discharge: patient is progressing back to baseline Time Spent with Patient Time attestation: Total time spent providing and/or coordinating discharge services: Time spent: Less than 30 minutes Exam Const: General: comfortable and no acute distress Resp: Effort & Inspection: normal respiratory effort Auscultation: clear to auscultation bilaterally Cardio: Rate: regular rate Rhythm: regular rhythm Other: Telemetry- SR 77. GI: GI Palp: Yes Soft to palpation Auscultation: normal bowel sounds Extrem: General: no pedal edema Psych: Mental Status: mental status grossly normal Affect: normal affect DS: Data Data Completed and Pending Labs on day of discharge: Labs from last 24 hours 10/31/24 10/30/24 10/30/24 03:36 15:26 13:52 WBC 9.4 RBC 4.17 L Hgb 11.9 L Hct 37.2 L MCV 89.2 MCH 28.5 MCHC 32.0 RDW 14.5 Plt Count 188 MPV 9.7 Immature Gran % (Auto) 0.5 Neut % (Auto) 68.9 Lymph % (Auto) 17.9 L [place] % (Auto) 10.3 H Eos % (Auto) 2.2 Baso % (Auto) 0.2 Lymph # (Auto) 1.68 [place] # (Auto) 1.0 H Eos # (Auto) 0.2 Baso # (Auto) 0.0 Abs Immat Gran (auto) 0.05 H Absolute Neuts (auto) 6.5 Absolute Nucleated RBC 0.000 Nucleated RBC % 0.0 Sodium 134 L Potassium 4.3 Chloride 100 Carbon Dioxide 26 Anion Gap 8 BUN 14 Creatinine 0.92 Estim Creat Clear Calc 51 Estimated GFR > 60 Glucose 93 Hemoglobin A1c 5.1 Calcium 9.3 Magnesium 2.1 Total Bilirubin 0.5 AST 30 ALT 21 Alkaline Phosphatase 81 Troponin I 0.030 Total Protein 6.8 Albumin 3.7 Triglycerides 52 Cholesterol 108 LDL Cholesterol Direct 43 HDL Direct 41 10/30/24 12:47 WBC RBC Hgb Hct MCV MCH MCHC RDW Plt Count MPV Immature Gran % (Auto) Neut % (Auto) Lymph % (Auto) [place] % (Auto) Eos % (Auto) Baso % (Auto) Lymph # (Auto) [place] # (Auto) Eos # (Auto) Baso # (Auto) Abs Immat Gran (auto) Absolute Neuts (auto) Absolute Nucleated RBC Nucleated RBC % Sodium Potassium Chloride Carbon Dioxide Anion Gap BUN Creatinine Estim Creat Clear Calc Estimated GFR Glucose Hemoglobin A1c Calcium Magnesium 2.0 Total Bilirubin AST ALT Alkaline Phosphatase Troponin I 0.033 D Total Protein Albumin Triglycerides Cholesterol LDL Cholesterol Direct HDL Direct Discharge Plan Discharge Attending physician on discharge: Donovan Claire Consulting providers: Alfa Alexander Discharging Clinician: Faye Moon Anticipated Discharge Date/Time: 10/31/24 12:13 Patient Disposition: Home Activity: may shower and as tolerated Diet: heart healthy Discharge Instructions: * Follow up with your Dr. Ulloa Smt Technician. * Outpatient echo keep your appointment to evaluate your aortic valve. * If you develop chest pain call 911. Thank you for entrusting [facility] with your healthcare! Patient Instructions: Antibiotic Form, Heart Palpitations (DC) Patient Language: Beninese Stand Alone Forms: General Discharge Information Follow-up/Referrals: Santos,[place] Alex MD [Primary Care Provider] - 1 Week Discharge Medications: Continued omeprazole magnesium [Prilosec OTC] 20 mg Tablet,Delayed Release (Dr/Ec) 20 mg PO DAILY atorvastatin [Lipitor] 40 mg Tablet 40 mg PO DAILY amlodipine [Norvasc] 2.5 mg Tablet 2.5 mg PO DAILY aspirin [Aspir-Low] 81 mg Tablet,Delayed Release (Dr/Ec) 81 mg PO DAILY psyllium husk [Fiber-Caps (psyllium husk)] 0.52 gram Capsule 2.6 g PO TID nortriptyline 25 mg capsule 25 mg PO DAILY@1700 alendronate 70 mg tablet 70 mg PO WEEKLY Patient Comments: takes on tuesdays loratadine [Allergy Relief (loratadine)] 10 mg tablet 10 mg PO DAILY verapamil 120 mg capsule,ext rel. pellets 24 hr 120 mg PO DAILY Date of admission: 10/30/24 13:05 Primary Care Provider: Tom,[place] Alex Admitting Provider: Donovan Claire Attending physician on admission: Donovan Claire Condition: Stable Hospitalist MIPS Heart Failure (Exclusion) Patient has history of Heart Transplant or Left Ventricular Assistive Device?: No IF YES, STOP HERE Heart Failure (Qualifier) Patient has current or prior documentation of LVEF less than or equal to 40%, or mod/servere depressed LVSF?: No IF NO, STOP HERE
== END 2024-10-31 12:45 | disposition home or self-care (01) ==
LOC: ANHED 09:25 → ANHIMU 13:53
PROVIDERS: Nurse Practitioner; Admitting Provider General Practice; Emergency Provider Emergency Medicine; PCP Internal Medicine; Visit Provider General Practice
DX: I47.19 Other supraventricular tachycardia (principal); R07.89 Other chest pain; M54.6 Pain in thoracic spine; R79.89 Other specified abnormal findings of blood chemistry; I25.10 Atherosclerotic heart disease of native coronary artery without angina pectoris; I35.0 Nonrheumatic aortic (valve) stenosis; K21.9 Gastro-esophageal reflux disease without esophagitis; E78.00 Pure hypercholesterolemia, unspecified; Z79.82 Long term (current) use of aspirin; Z79.899 Other long term (current) drug therapy; Z95.1 Presence of aortocoronary bypass graft; Z95.2 Presence of prosthetic heart valve
CPT/HCPCS: 36415; 71046; 71275; 80053; 80061; 83036; 83735; 84484; 85025; 85610; 85730; 93005; 96372; 96374; 96375; 99285; A9270; G0378; J1650; Q9967